=== PATIENT | female | born 1960 | race Caucasian/White ===

== ENCOUNTER 2017-10-13 02:07 | Outpatient (RCR) | payer MEDICAID, SELFPAY ==
[2017-10-13] MEDS: Normal Saline Flush 10 ML SYR IVP (10:10)
[2017-10-13 10:29] LABS: Abs Immature Grans 0.08 k/cumm (0.0-0.09); HCT 34.7 % (36.0-46.0); HGB 11.3 g/dL (12.0-15.5); Mean Corp. HGB Concentration 32.6 g/dL (32.0-36.0); Mean Corpuscular Hemoglobin 29.7 pg (27.0-33.0); Mean Corpuscular Volume 91.3 fL (80-95); Mean Platelet Volume 9.6 fL (8.0-11.0); RBC Distribution Width 19.5 % (11.7-14.6); White Blood Cell Count 2.73 k/cumm (4.4-10.8)
[2017-10-13 10:40] LABS: ALT 39 U/L (12-78); AST 23 U/L (15-37); Albumin 3.5 g/dL (3.4-5.0); Alkaline Phosphatase 66 U/L (46-116); Anion Gap 7.4 mmol/L (3-11); BUN 12 mg/dL (7-18); Bilirubin, Total 0.4 mg/dL (0.2-1.0); CO2 26.6 mmol/L (21.0-32.0); CREATININE 0.67 mg/dL (0.55-1.02); Calcium 8.7 mg/dL (8.5-10.1); Chloride 103 mmol/L (98-107); Glucose 136 mg/dL (70-100); Potassium 3.5 mmol/L (3.5-5.1); Sodium 137 mmol/L (136-145); Total Protein 7.3 g/dL (6.4-8.2)
[2017-10-13 10:45] LABS: Absolute Neutrophil Count 1.88 k/cumm (1.2-6.7); Platelet Count 301 x1000/uL (130-400)
[2017-10-13 10:46] LABS: Absolute Basophil Count 0.03 k/cumm (0.0-0.2); Absolute Eosinophil Count 0.05 k/cumm (0.0-0.7); Absolute Lymphocyte Count 0.46 k/cumm (1.2-3.4); Absolute Monocyte Count 0.22 k/cumm (0.11-0.7); Diff Comment Manual Differential
[2017-10-13 10:47] LABS: Anisocytosis 2+; Basophilic Stippling Present; Polychromasia Present
[2017-10-20] MEDS: Heparin 500 UNITS/5 ML SYRINGE IV (10:05)
[2017-10-20 10:27] LABS: Abs Immature Grans 0.07 k/cumm (0.0-0.09); HCT 34.5 % (36.0-46.0); HGB 11.2 g/dL (12.0-15.5); Mean Corp. HGB Concentration 32.5 g/dL (32.0-36.0); Mean Corpuscular Hemoglobin 29.7 pg (27.0-33.0); Mean Corpuscular Volume 91.5 fL (80-95); Platelet Count 288 x1000/uL (130-400); RBC 3.77 m/cumm (4.00-5.20); RBC Distribution Width 18.9 % (11.7-14.6); White Blood Cell Count 2.88 k/cumm (4.4-10.8)
[2017-10-20 10:43] LABS: ALT 35 U/L (12-78); AST 21 U/L (15-37); Albumin 3.4 g/dL (3.4-5.0); Alkaline Phosphatase 59 U/L (46-116); Anion Gap 7.7 mmol/L (3-11); BUN 8 mg/dL (7-18); Bilirubin, Total 0.5 mg/dL (0.2-1.0); CO2 28.3 mmol/L (21.0-32.0); CREATININE 0.63 mg/dL (0.55-1.02); Calcium 8.5 mg/dL (8.5-10.1); Chloride 104 mmol/L (98-107); Glucose 82 mg/dL (70-100); Sodium 140 mmol/L (136-145); Total Protein 7.1 g/dL (6.4-8.2)
[2017-10-20 10:54] LABS: Absolute Lymphocyte Count 0.55 k/cumm (1.2-3.4); Absolute Monocyte Count 0.29 k/cumm (0.11-0.7); Absolute Neutrophil Count 1.96 k/cumm (1.2-6.7); Atypical Lymphocytes % 0
[2017-10-20 10:55] LABS: Anisocytosis 1+; Diff Comment Manual Differential; Macrocytosis 1+; Polychromasia Present
[2017-10-27] MEDS: Normal Saline Flush 10 ML SYR IVP (09:40)
[2017-10-27 09:55] LABS: HCT 33.7 % (36.0-46.0); Mean Corp. HGB Concentration 32.6 g/dL (32.0-36.0); Mean Corpuscular Hemoglobin 30.1 pg (27.0-33.0); Mean Corpuscular Volume 92.1 fL (80-95); Mean Platelet Volume 9.9 fL (8.0-11.0); Platelet Count 261 x1000/uL (130-400); RBC 3.66 m/cumm (4.00-5.20); RBC Distribution Width 18.3 % (11.7-14.6); White Blood Cell Count 3.03 k/cumm (4.4-10.8)
[2017-10-27 10:12] LABS: ALT 33 U/L (12-78); AST 23 U/L (15-37); Albumin 3.3 g/dL (3.4-5.0); Alkaline Phosphatase 55 U/L (46-116); Anion Gap 4.5 mmol/L (3-11); BUN 11 mg/dL (7-18); Bilirubin, Total 0.4 mg/dL (0.2-1.0); CO2 28.5 mmol/L (21.0-32.0); CREATININE 0.56 mg/dL (0.55-1.02); Calcium 8.8 mg/dL (8.5-10.1); Chloride 105 mmol/L (98-107); Glucose 94 mg/dL (70-100); Potassium 3.5 mmol/L (3.5-5.1); Sodium 138 mmol/L (136-145); Total Protein 6.9 g/dL (6.4-8.2)
[2017-10-27 10:21] LABS: Absolute Basophil Count 0.12 k/cumm (0.0-0.2); Absolute Lymphocyte Count 0.42 k/cumm (1.2-3.4); Absolute Monocyte Count 0.21 k/cumm (0.11-0.7); Absolute Neutrophil Count 2.15 k/cumm (1.2-6.7); Atypical Lymphocytes % 1; Basophilic Stippling Present; Diff Comment Manual Differential; Polychromasia Present
== END 2017-11-06 ==
LOC: INF 02:58
PROVIDERS: PCP Family Medicine; Visit Provider Internal Medicine Medical Oncology
DX: C50.412 Malignant neoplasm of upper-outer quadrant of left female breast (principal); Z17.1 Estrogen receptor negative status [ER-]; Z45.2 Encounter for adjustment and management of vascular access device
CPT/HCPCS: 36591; 80053; 85025

== ENCOUNTER 2018-04-26 10:01 | Outpatient (REF) | payer MEDICAID, SELFPAY ==
[2018-04-26 12:07] LABS: ALT 31 U/L (12-78); AST 20 U/L (15-37); Albumin 3.5 g/dL (3.4-5.0); Alkaline Phosphatase 93 U/L (46-116); Anion Gap 9.7 mmol/L (3-11); BUN 16 mg/dL (7-18); Bilirubin, Total 0.4 mg/dL (0.2-1.0); CO2 28.3 mmol/L (21.0-32.0); CREATININE 0.68 mg/dL (0.55-1.02); Calcium 8.9 mg/dL (8.5-10.1); Chloride 102 mmol/L (98-107); Glucose 103 mg/dL (70-100); Magnesium 1.7 mg/dL (1.8-2.4); Potassium 3.3 mmol/L (3.5-5.1); Sodium 140 mmol/L (136-145); TSH (W/Ref FT4) 0.15 uIU/mL (0.358-3.74); Total Protein 7.5 g/dL (6.4-8.2)
[2018-04-26 12:40] LABS: FREE T4 1.42 ng/dL (0.76-1.46)
[2018-04-26 12:53] LABS: HCT 41.6 % (36.0-46.0); HGB 13.9 g/dL (12.0-15.5); Mean Corp. HGB Concentration 33.4 g/dL (32.0-36.0); Mean Corpuscular Hemoglobin 27.5 pg (27.0-33.0); Mean Corpuscular Volume 82.2 fL (80-95); Mean Platelet Volume 11.8 fL (8.0-11.0); Platelet Count 237 x1000/uL (130-400); RBC 5.06 m/cumm (4.00-5.20); RBC Distribution Width 15.7 % (11.7-14.6); White Blood Cell Count 5.44 k/cumm (4.4-10.8)
== END 2018-04-26 10:21 ==
LOC: NCHCN 10:01
PROVIDERS: PCP Family Medicine; Visit Provider Family Medicine
DX: E83.42 Hypomagnesemia (principal); R89.0 Abnormal level of enzymes in specimens from other organs, systems and tissues; D64.9 Anemia, unspecified; I10 Essential (primary) hypertension; Z68.39 Body mass index [BMI] 39.0-39.9, adult
CPT/HCPCS: 80053; 85027; 83735; 84439; 84443

== ENCOUNTER 2018-07-27 08:16 | Outpatient (CLI) | payer OTHER, MEDICAID, SELFPAY ==
--- NOTE | 2018-07-27 08:50 | DI.RAD_ITS ---
SYMPTOMS/DIAGNOSIS: RT HAND PAIN, RT KNEE PAIN, RT HIP PAIN, DISABILITY DETERMINATION RIGHT KNEE: There is mild narrowing of the medial tibiofemoral joint compartment. Very minimal periarticular hypertrophic spurring is demonstrated. The bony structures are normally mineralized. There is no joint effusion. SUMMARY: Mild DJD right knee. RIGHT HIP AND PELVIS: The bony structures are normally mineralized. The hip joint appears intact. No pelvic bone abnormality is seen. RIGHT HAND: The bony structures are normally mineralized. The joint spaces intact. There are no periarticular erosions or soft tissue calcifications. SUMMARY: No abnormality is identified. ID verified by photo drivers license
== END 2018-07-27 08:36 ==
PROVIDERS: PCP Family Medicine; Visit Provider Pediatrics Pediatric Rheumatology
DX: M79.641 Pain in right hand (principal); M25.561 Pain in right knee; M17.11 Unilateral primary osteoarthritis, right knee; M25.551 Pain in right hip; Z02.71 Encounter for disability determination
CPT/HCPCS: 73120; 73502; 73560

== ENCOUNTER 2018-09-03 07:24 | Outpatient (REF) | payer MEDICAID, SELFPAY ==
[2018-09-03 13:21] LABS: ALT 42 U/L (12-78); Anion Gap 6.6 mmol/L (3-11); BUN 18 mg/dL (7-18); CO2 27.4 mmol/L (21.0-32.0); CREATININE 0.76 mg/dL (0.55-1.02); Calcium 8.6 mg/dL (8.5-10.1); Chloride 107 mmol/L (98-107); Glucose 92 mg/dL (70-100); Potassium 4.5 mmol/L (3.5-5.1); Sodium 141 mmol/L (136-145); TSH (W/Ref FT4) 1.14 uIU/mL (0.358-3.74)
== END 2018-09-03 07:44 ==
LOC: NCHCN 07:24
PROVIDERS: PCP Family Medicine; Visit Provider Family Medicine
DX: B35.1 Tinea unguium (principal); E83.42 Hypomagnesemia; E89.0 Postprocedural hypothyroidism; R73.09 Other abnormal glucose
CPT/HCPCS: 80048; 83735; 84443; 84460

== ENCOUNTER 2018-11-15 13:15 | Outpatient (REF) | payer MEDICAID, SELFPAY ==
--- NOTE | 2018-11-15 12:15 | PAPFT_PTH ---
PATIENT: Zoë Preston LOC: [facility] U#:[id number] AGE/SX: 58/F ROOM: RE11/15/[address]: Home Yeager : 1960 BED: DIS: 11/15/2018 SPEC #: [id number] RECD: 11/15/18 18:29 STATUS: KALYN REQ #: [id number] NATE: 11/15/18 12:[address]: Home Yeager [facility] Cytology RECD BY: Chely Walls Tissues: 1 - CX/ENDOCX FOR PAP SMEARS Procedures: PAP THIN PREP/UVM Screening HPV DNA PROBE Comments: [id number]
== END 2018-11-15 13:35 ==
LOC: NCHCN 13:15
PROVIDERS: PCP Family Medicine; Visit Provider Family Medicine
DX: Z12.4 Encounter for screening for malignant neoplasm of cervix (principal); Z11.51 Encounter for screening for human papillomavirus (HPV)
CPT/HCPCS: 88142; 87624

== ENCOUNTER 2019-02-21 09:10 | Outpatient (CLI) | payer MEDICAID, SELFPAY ==
[2019-02-21 09:36] LABS: Abs Immature Grans 0.04 k/cumm (0.0-0.09); Absolute Basophil Count 0.02 k/cumm (0.0-0.2); Absolute Eosinophil Count 0.06 k/cumm (0.0-0.7); Absolute Lymphocyte Count 1.16 k/cumm (1.2-3.4); Absolute Monocyte Count 0.36 k/cumm (0.11-0.7); Absolute Neutrophil Count 3.43 k/cumm (1.2-6.7); Basophils % 0.4; Eosinophils % 1.2; HCT 41.9 % (36.0-46.0); HGB 13.7 g/dL (12.0-15.5); Immature Grans % 0.8; Lymphocytes % 22.9; Mean Corp. HGB Concentration 32.7 g/dL (32.0-36.0); Mean Corpuscular Hemoglobin 27.8 pg (27.0-33.0); Mean Corpuscular Volume 85.2 fL (80-95); Mean Platelet Volume 10.9 fL (8.0-11.0); Monocytes % 7.1; Neutrophils % 67.6; Platelet Count 238 x1000/uL (130-400); RBC 4.92 m/cumm (4.00-5.20); RBC Distribution Width 14.9 % (11.7-14.6); White Blood Cell Count 5.07 k/cumm (4.4-10.8)
[2019-02-21 10:48] LABS: ALT 43 U/L (14-59); AST 26 U/L (15-37); Albumin 3.7 g/dL (3.4-5.0); Alkaline Phosphatase 76 U/L (46-116); Anion Gap 10.4 mmol/L (3-11); BUN 16 mg/dL (7-18); Bilirubin, Total 0.5 mg/dL (0.2-1.0); CO2 28.6 mmol/L (21.0-32.0); CREATININE 0.79 mg/dL (0.55-1.02); Calcium 9.1 mg/dL (8.5-10.1); Chloride 103 mmol/L (98-107); Glucose 140 mg/dL (74-106); Potassium 3.8 mmol/L (3.5-5.1); Sodium 142 mmol/L (136-145)
== END 2019-02-21 09:30 ==
PROVIDERS: PCP Family Medicine
DX: C50.912 Malignant neoplasm of unspecified site of left female breast (principal); Z17.1 Estrogen receptor negative status [ER-]
CPT/HCPCS: 36415; 80053; 85025

== ENCOUNTER 2019-05-25 15:10 | Outpatient (CLI) | payer MEDICAID, SELFPAY ==
--- NOTE | 2019-05-25 15:12 | DI.RAD_ITS ---
EXAM: XR CHEST 2V PA LATERAL XR CHEST 2V PA LATERAL CLINICAL HISTORY: DYSPNEA ON EXERTION, R06.09, [place] LEONARD, H/O BREAST CA DYSPNEA ON EXERTION, R06.09, [place] LEONARD, H/O BREAST CA TECHNIQUE: 2D digital imaging was performed. COMPARISON: CHEST 2 VIEWS PA,LAT from 08/18/2017 FINDINGS: The heart is not enlarged. The lungs are clear and well expanded. No pleural effusion seen. Mediastin al contours appear intact. IMPRESSION: Normal chest
[2019-05-25 16:03] LABS: Mean Corp. HGB Concentration 33.3 g/dL (32.0-36.0); Mean Corpuscular Hemoglobin 28.2 pg (27.0-33.0); Mean Corpuscular Volume 84.7 fL (80-95); Mean Platelet Volume 11.3 fL (8.0-11.0); Platelet Count 244 x1000/uL (130-400); RBC 4.96 m/cumm (4.00-5.20); RBC Distribution Width 14.7 % (11.7-14.6); White Blood Cell Count 6.69 k/cumm (4.4-10.8)
[2019-05-25 17:49] LABS: Anion Gap 9.8 mmol/L (3-11); BUN 13 mg/dL (7-18); CO2 25.2 mmol/L (21.0-32.0); CREATININE 0.75 mg/dL (0.55-1.02); Calcium 8.5 mg/dL (8.5-10.1); Chloride 103 mmol/L (98-107); Glucose 120 mg/dL (74-106); NT-proBNP 31 pg/mL (<300); Potassium 3.9 mmol/L (3.5-5.1); Sodium 138 mmol/L (136-145); TSH (W/Ref FT4) 2.21 uIU/mL (0.36-3.74)
== END 2019-05-25 15:30 ==
PROVIDERS: PCP Family Medicine; Visit Provider Family Medicine
DX: E89.0 Postprocedural hypothyroidism (principal); R06.09 Other forms of dyspnea; Z85.3 Personal history of malignant neoplasm of breast
CPT/HCPCS: 36415; 80048; 85027; 71046; 83880; 84443

== ENCOUNTER 2019-06-20 01:41 | Outpatient (CLI) | payer MEDICAID, SELFPAY ==
--- NOTE | 2019-06-20 08:00 | ETT_ITS ---
APPROVED REPORT Exam: Exercise Treadmill Patient Location: Out-Patient Room/Bed: Stress Nurse: Veronica Avalos RN BMI: 39.86 Baseline Rhythm: Sinus Rhythm Comment: Rare PVC. Indications: Patient reports SOB, dizziness and ???almost pass out??? with activity for the past ???2 -3 months???. She states these symptoms are relieved with sitting down and having a fan in front of h er. Medical History Medical History: Breast Cancer Cardiac Medications: Aspirin, Hydrochlorothiazide, Lisinopril. Allergies: Iron Cardiac Risk Factors: FHX of CAD, Diabetes (non-insulin), HTN Previous Cardiac Procedures: None Pretest Chest Pain Characteristics: No chest pain Exercise History: Physically active Physical Disabilities: None Lung Sounds: Clear to auscultation Heart Sounds: Regular Stress Test Details Test: Exercise stress testing was performed using a Tristan protocol. Rest Stress HR Resting HR Supine: 83 bpm Max Heart Rate (APMHR): 161 bpm Resting HR Standin bpm Target HR (85% APMHR): 136 bpm Max HR Achieved: 146 bpm % of APMHR: 90 BP Resting BP Supine: 160/80 mmHg Resting BP Standin/110 mmHg Max BP: 174/112 mmHg BP response to stress: Normal blood pressure response to stress. ECG Resting ECG: Sinus Rhythm Ectopy: Rare PVC's Stress ECG: Sinus Tachycardia ST Change: Normal Arrhythmia: None Recovery ECG: Sinus Rhythm Recovery ST Change: Normal Recovery Arrhythmia: None, None Clinical Reason for Termination: Dyspnea, Fatigue, Dizziness Stress Symptoms: Dizziness, Dyspnea, General Fatigue. After 4 minutes of exercise patient needed to s it down due to dizziness. Exercise duration: 3 min2 sec Highest Stage Reached: Stage 2: 2.5 mph at 12% grade. Exercise capacity: 4.66 METs Functional Capacity: Moderately diminished capacity Stress ECG Conclusion 1. Patient exercised for 3 minutes (5 METS) rate-pressure product was 25,000. 2. Exercise was stopped due to dizziness. 3. There was no evidence of ischemia on the ECG portion of the exam at this level of stress. 4. The Mao Score (3) estimates an annual cardiovascular mortality of 1% and a five year survival of 94%. Using the Mao Score there is an intermediate probability of angiographic coronary disease. Protocol Used: Tristan Protocol Stress Test Summary STAGE Time (mins) Speed (mph) Grade (%) HR BP SYMPTOMS METS Supine 83 160/80 Standing 93 165/110 1 3 1.7 10 143 174/112 4.6 2 6 2.5 12 7 3 9 3.4 14 10.2 4 12 4.2 16 12.9 5 15 5.0 18 17.2 1 min recovery 94 168/100 3 min recovery 86 168/102 6 min recovery 84 160/104
== END 2019-06-20 02:01 ==
PROVIDERS: PCP Family Medicine; Visit Provider Family Medicine
DX: R06.09 Other forms of dyspnea (principal); R42 Dizziness and giddiness; R53.83 Other fatigue; I10 Essential (primary) hypertension; Z82.49 Family history of ischemic heart disease and other diseases of the circulatory system; Z85.3 Personal history of malignant neoplasm of breast
CPT/HCPCS: 93017

== ENCOUNTER 2019-06-29 09:28 | Outpatient (CLI) | payer MEDICAID, SELFPAY ==
--- NOTE | 2019-06-29 | DI.CT_ITS ---
EXAM: CT CHEST PE CTA CLINICAL HISTORY: SOB, R02.02; PULMONARY EMBOLISM, I26.99; LEONARD, H/O BREAST CA, ? MASS. TECHNIQUE: Imaging Protocol: Axial CT angiography was performed with multi-slice acquisition and mu lti-planar and/or 3D reconstructions. CONTRAST MATERIAL: Intravenous: Omnipaque 350 Contrast volume:90 ml COMPARISON: XR CHEST 2V PA LATERAL from 05/25/2019 FINDINGS: Pulmonary Arteries: No evidence of filling defect to suggest pulmonary emboli. Tracheobronchial tree: Patent where visualized. Mediastinum and Maira: No dominant adenopathy or fluid collection. Pulmonary parenchyma: No consolidation or dominant measurable mass. No pulmonary nodules. Pleura: No effusion or pneumothorax. Heart: The heart is not dilated. No coronary artery calcifications are seen. Aorta: Thoracic aorta non-dilated. An aberrant right subclavian artery is noted. Upper abdomen: The liver is partially included on the exam in appears large enlarged and shows fatty infiltration. No gross masses are seen. The spleen is partially visualized and appears normal in s ize. Bones: Scoliosis and degenerative changes are seen in the thoracic spine. IMPRESSION: No evidence of pulmonary embolism, mass or other acute abnormality.. DATA REPOSITORY: All CT scans at this facility are submitted to the National Radiology Data Registry (NRDR) Dose Index Registry (DIR) with the [employer] (ACR). RADIATION OPTIMIZATION: All CT scans at this facility use at least one of these dose optimization te chniques: automated exposure control; mA and/or kV adjustment per patient size (includes targeted exa ms where dose is matched to clinical indication); or iterative reconstruction.
[2019-06-29] MEDS: Omnipaque 350 MG/ML 100 ML BTL IJ (10:35)
[2019-06-29] MEDS: Normal Saline - Diluent 50 ML VIAL IV (10:35)
== END 2019-06-29 09:48 ==
PROVIDERS: PCP Family Medicine; Visit Provider Family Medicine
DX: R06.02 Shortness of breath (principal); R16.0 Hepatomegaly, not elsewhere classified; K76.0 Fatty (change of) liver, not elsewhere classified; R06.09 Other forms of dyspnea; Z85.3 Personal history of malignant neoplasm of breast
CPT/HCPCS: 71275; J3490

== ENCOUNTER 2019-08-15 07:51 | Outpatient (CLI) | payer MEDICAID, SELFPAY ==
[2019-08-15 09:42] LABS: Anion Gap 9.4 mmol/L (3-11); BUN 14 mg/dL (7-18); CO2 23.6 mmol/L (21.0-32.0); CREATININE 0.71 mg/dL (0.55-1.02); Calcium 8.9 mg/dL (8.5-10.1); Chloride 100 mmol/L (98-107); Glucose 108 mg/dL (74-106); Potassium 4.1 mmol/L (3.5-5.1); Sodium 133 mmol/L (136-145); TSH (W/Ref FT4) 1.71 uIU/mL (0.36-3.74)
== END 2019-08-15 08:11 ==
PROVIDERS: PCP Family Medicine; Visit Provider Family Medicine
DX: E89.0 Postprocedural hypothyroidism (principal); I10 Essential (primary) hypertension; E83.42 Hypomagnesemia
CPT/HCPCS: 36415; 80048; 83735; 84443

== ENCOUNTER 2020-04-05 02:50 | Outpatient (CLI) | payer OTHER, MEDICAID, SELFPAY ==
[2020-04-05 09:40] LABS: Abs Immature Grans 0.04 10^3/uL (0.0-0.06); Absolute Basophil Count 0.03 10^3/uL (0.0-0.2); Absolute Eosinophil Count 0.07 10^3/uL (0.0-0.7); Absolute Lymphocyte Count 1.41 10^3/uL (1.2-3.4); Absolute Monocyte Count 0.34 10^3/uL (0.1-0.8); Absolute Neutrophil Count 3.99 10^3/uL (1.2-6.7); Basophils % 0.5; Eosinophils % 1.2; HCT 42.1 % (36.0-46.0); HGB 13.8 g/dL (11.2-15.7); Immature Grans % 0.7; MCH 27.9 pg (27.0-33.0); MCHC 32.8 % (32.0-36.0); MCV 85.1 fL (80-95); MPV 11.2 fL (8.0-11.0); Monocytes % 5.8; Neutrophils % 67.8; Nucleated RBC 0 %; Platelet Count 234 10^3/uL (130-400); RBC 4.95 10^6/uL (3.93-5.22); RDW 14.2 % (11.7-14.6); RDW-SD 43.9 fL; WBC 5.88 10^3/uL (4.4-10.8)
[2020-04-05 09:48] LABS: ALT 47 U/L (14-59); AST 27 U/L (15-37); Albumin 3.5 g/dL (3.4-5.0); Alkaline Phosphatase 72 U/L (46-116); Anion Gap 5.4 mmol/L (3-11); BUN 16 mg/dL (7-18); Bilirubin, Total 0.5 mg/dL (0.2-1.0); CO2 29.6 mmol/L (21.0-32.0); Chloride 101 mmol/L (98-107); Glucose 160 mg/dL (74-106); Potassium 3.8 mmol/L (3.5-5.1); Sodium 136 mmol/L (136-145); Total Protein 7.7 g/dL (6.4-8.2)
== END 2020-04-05 03:10 ==
PROVIDERS: PCP Family Medicine; Visit Provider Internal Medicine Hematology & Oncology
DX: C50.912 Malignant neoplasm of unspecified site of left female breast (principal); Z17.1 Estrogen receptor negative status [ER-]
CPT/HCPCS: 36415; 80053; 85025

== ENCOUNTER 2020-10-04 14:42 | Outpatient (CLI) | payer OTHER, MEDICAID, SELFPAY ==
[2020-10-04 14:11] LABS: Abs Immature Grans 0.02 10^3/uL (0.0-0.06); Absolute Basophil Count 0.02 10^3/uL (0.0-0.2); Absolute Eosinophil Count 0.06 10^3/uL (0.0-0.7); Absolute Lymphocyte Count 1.27 10^3/uL (1.2-3.4); Absolute Monocyte Count 0.36 10^3/uL (0.1-0.8); Absolute Neutrophil Count 5.48 10^3/uL (1.2-6.7); Basophils % 0.3; Eosinophils % 0.8; HCT 41.6 % (36.0-46.0); HGB 13.7 g/dL (11.2-15.7); Immature Grans % 0.3; Lymphocytes % 17.6; MCH 28.1 pg (27.0-33.0); MCHC 32.9 % (32.0-36.0); MCV 85.2 fL (80-95); MPV 10.8 fL (8.0-11.0); Nucleated RBC 0 %; Platelet Count 257 10^3/uL (130-400); RBC 4.88 10^6/uL (3.93-5.22); RDW 13.5 % (11.7-14.6); RDW-SD 42.7 fL; WBC 7.21 10^3/uL (4.4-10.8)
[2020-10-04 14:31] LABS: ALT 52 U/L (14-59); AST 28 U/L (15-37); Albumin 3.7 g/dL (3.4-5.0); Alkaline Phosphatase 68 U/L (46-116); BUN 11 mg/dL (7-18); Bilirubin, Total 0.4 mg/dL (0.2-1.0); CREATININE 0.9 mg/dL (0.55-1.02); Calcium 9.3 mg/dL (8.5-10.1); Chloride 101 mmol/L (98-107); Glucose 195 mg/dL (74-106); Potassium 3.7 mmol/L (3.5-5.1); Sodium 137 mmol/L (136-145); Total Protein 7.7 g/dL (6.4-8.2)
== END 2020-10-04 14:43 | disposition home or self-care (01) ==
LOC: LBO 14:43
PROVIDERS: PCP Family Medicine; Visit Provider Nurse Practitioner Family
DX: C50.912 Malignant neoplasm of unspecified site of left female breast (principal); Z17.1 Estrogen receptor negative status [ER-]
CPT/HCPCS: 36415; 80053; 85025

== ENCOUNTER → 2020-10-15 01:56 | Outpatient (CLI) | payer OTHER, MEDICAID, SELFPAY ==
--- NOTE | 2020-10-15 | DI.US_ITS ---
Exam(s) US UPPER EXTREMITY VENOUS RT EXAM: US UPPER EXTREMITY VENOUS RT CLINICAL HISTORY: SWELLING RT ARM, LT BREAST CA,C50.912,Z17.1. TECHNIQUE: Ultrasound examination of the right upper extremity venous system(s) is performed using g rayscale, color-flow, and spectral Doppler analysis. COMPARISON: No exams were available for comparison FINDINGS: The right internal jugular, axillary, subclavian, cephalic, basilic, brachial, radial, and ulnar vein s are patent without evidence of thrombosis. No focal mass or fluid collection is seen. IMPRESSION: Negative right upper extremity ultrasound.. DATA REPOSITORY:
== END ==
PROVIDERS: PCP Family Medicine; Visit Provider Internal Medicine Hematology & Oncology
DX: R22.31 Localized swelling, mass and lump, right upper limb (principal); C50.912 Malignant neoplasm of unspecified site of left female breast; Z17.1 Estrogen receptor negative status [ER-]
CPT/HCPCS: 93971

== ENCOUNTER 2021-07-29 09:40 | Outpatient (REF) | payer MEDICARE, MEDICAID, SELFPAY ==
[2021-07-29 17:13] LABS: Anion Gap 10.1 mmol/L (3-11); BUN 15 mg/dL (7-18); CO2 27.9 mmol/L (21.0-32.0); CREATININE 0.8 mg/dL (0.55-1.02); Calcium 9.1 mg/dL (8.5-10.1); Calculated LDL 117 mg/dL (<100); Chloride 102 mmol/L (98-107); Cholesterol 201 mg/dL (<200); Glucose 112 mg/dL (74-106); HDL Cholesterol 49 mg/dL (40-60); Sodium 140 mmol/L (136-145); TSH (W/Ref FT4) 2.74 uIU/mL (0.36-3.74); Triglyceride 179 mg/dL (<150)
== END 2021-07-29 09:41 | disposition home or self-care (01) ==
LOC: NCHCN 09:40
PROVIDERS: PCP Family Medicine; Visit Provider Family Medicine
DX: E89.0 Postprocedural hypothyroidism (principal); I10 Essential (primary) hypertension
CPT/HCPCS: 80048; 80061; 84443

== ENCOUNTER 2022-08-12 13:10 | Outpatient (REF) | payer MEDICARE, MEDICAID, SELFPAY ==
[2022-08-12 16:36] LABS: ALT 38 U/L (14-59); AST 29 U/L (15-37); Alkaline Phosphatase 77 U/L (46-116); Anion Gap 7.8 mmol/L (3-11); BUN 14 mg/dL (7-18); Bilirubin, Total 0.4 mg/dL (0.2-1.0); CO2 29.2 mmol/L (21.0-32.0); CREATININE 0.8 mg/dL (0.55-1.02); Calcium 9.4 mg/dL (8.5-10.1); Chloride 98 mmol/L (98-107); Estimated GFR 83.26 (mL/min/1.73m2); Glucose 92 mg/dL (74-106); Potassium 4.1 mmol/L (3.5-5.1); Sodium 135 mmol/L (136-145); TSH (W/Ref FT4) 4.05 uIU/mL (0.36-3.74); Total Protein 8.2 g/dL (6.4-8.2)
[2022-08-12 19:02] LABS: FREE T4 1.25 ng/dL (0.76-1.46)
== END 2022-08-12 13:11 | disposition home or self-care (01) ==
LOC: NCHCN 13:10
PROVIDERS: PCP Family Medicine; Visit Provider Family Medicine
DX: E89.0 Postprocedural hypothyroidism (principal); I10 Essential (primary) hypertension; R73.03 Prediabetes; E66.8 Other obesity
CPT/HCPCS: 80053; 84439; 84443

== ENCOUNTER → 2023-01-06 01:49 | Outpatient (CLI) | payer MEDICARE, SELFPAY ==
--- NOTE | 2023-01-06 | DI.MAMMO_ITS ---
Exam(s) MG MAMMO SCREENING 60 MIN DUR EXAM: MG MAMMO SCREENING 60 MIN DUR CLINICAL HISTORY: S/P BREAST CANCER, INVASIVE DUCTAL CARCINOMA LT, C50.912, PREVENTATIVE CARE TECHNIQUE: Bilateral full field digital CC and MLO mammographic images were obtained with 3D tomosyn thesis and utilizing computer aided detection (CAD). COMPARISON: Available for comparison. FINDINGS: Masses/Architectural Distortion: Status post left lumpectomy with dystrophic calcifications at the cedrick mpectomy site. Stable small nodules in the right breast. No new areas of architectural distortion. Microcalcifications: No suspicious pleomorphic-type are seen. Skin Thickening/Nipple Retraction: None. IMPRESSION: 1. No significant interval change with no specific features of malignancy noted. 2. Unless there is more urgent need, screening mammography is recommended, as per [employer] guidelines. BI-RADS Category 2 - Benign Findings Breast Density - Category B - Scattered areas of fibroglandular density Breast density category C or D implies that the patient has dense breast tissue. Dense breast tissue is very common and is not abnormal but dense breast tissue can make it harder to find cancer on a ma mmogram. Also, dense breast tissue may increase their breast cancer risk. This information about the result of the mammogram report was provided to the patient to raise their awareness. Use this report when you speak with the patient about their risks for breast cancer, which includes their family hist ory. At that time, you may recommend for more screening tests (Ultrasound or MRI) as they might be us eful based on their risk. A negative radiographic report should not delay biopsy if a dominant or clinically suspicious mass is present. Up to ten percent of cancers are not identified on mammography. A negative report may reinforce clinical impression. Adenosis and dense breasts may obscure an underlying neoplasm. False positive reports average 6 to 10%. Patient will receive a letter notifying them of these results.
== END ==
PROVIDERS: PCP Family Medicine; Visit Provider Family Medicine
DX: Z12.31 Encounter for screening mammogram for malignant neoplasm of breast (principal); R92.323 Mammographic fibroglandular density, bilateral breasts; Z85.3 Personal history of malignant neoplasm of breast
CPT/HCPCS: 77063; 77067

== ENCOUNTER 2023-11-11 10:41 | Outpatient (REF) | payer MEDICARE, SELFPAY ==
--- NOTE | 2023-11-11 08:55 | PAPFT_PTH ---
PATIENT: Zoë Preston LOC: [facility] U#:[id number] AGE/SX: 63/F ROOM: RE11/11/[address]: Osman Stockton : 1960 BED: DIS: 11/11/2023 SPEC #: [id number] RECD: 11/11/23 17:52 STATUS: RADHARola REQ #: [id number] NATE: 11/11/23 08:[address]: Osman Stockton DEPT: [facility] Cytology RECD BY: Chely Walls ENTERED: 11/11/23 17:52 SP TYPE: PAPFT OTHR DR: Home Yeager Tissues: 1 - CX/ENDOCX FOR PAP SMEARS Procedures: PAP THIN PREP/UVM Screening HPV DNA PROBE Comments: [id number] (hpv 16 & 18/45)
[2023-11-11 15:34] LABS: ALT 32 U/L (14-59); AST 22 U/L (15-37); Alkaline Phosphatase 61 U/L (46-116); Anion Gap 5.2 mmol/L (3-11); BUN 13 mg/dL (7-18); Bilirubin, Total 0.32 mg/dL (0.2-1.0); CO2 29.8 mmol/L (21.0-32.0); CREATININE 0.9 mg/dL (0.55-1.02); Calcium 9.8 mg/dL (8.5-10.1); Chloride 105 mmol/L (98-107); Estimated GFR 71.83 (mL/min/1.73m2); FREE T4 1.22 ng/dL (0.76-1.46); Glucose 77 mg/dL (74-106); Potassium 3.9 mmol/L (3.5-5.1); Sodium 140 mmol/L (136-145); Total Protein 7.9 g/dL (6.4-8.2)
== END 2023-11-11 10:42 | disposition home or self-care (01) ==
LOC: NCHCN 10:41
PROVIDERS: PCP Family Medicine; Visit Provider Student in an Organized Health Care Education/Training Program
DX: I10 Essential (primary) hypertension; Z12.4 Encounter for screening for malignant neoplasm of cervix
CPT/HCPCS: 80053; 88142; 83036; 83735; 84439; 84443; 87624

== ENCOUNTER 2024-01-08 01:06 | Outpatient (CLI) | payer MEDICARE, SELFPAY ==
--- OUTSIDE RECORDS SUMMARY | 2024-01-08 01:11 | XMS_ITS | Encounter Summary ---
Author Organization [facility] Address [facility] [place] [address] Care Team Providers Care Field Party Manager Name Role Phone Home Yeager MD Primary Care Provider [phone] Encounter Details Date Type Department Care Team (Late st Contact Info) Description 04/22/2018 1:00 PM EST Office Visit Hematology/Oncology at [address] [phone] Héctor Quintanilla MD [facility] DR HEMATOLOGY [place] [address] Malignant neoplasm of left breast in female, estrogen receptor negative, unspecified site of breast Social History Tobacco Use Types Packs/Day Years Used Date Smoking Tobacco: Former Cigarettes Q uit: 03/09/1998 Smokeless Tobacco: Never Alcohol Use Standard Drinks/Week Comments Yes 0 (1 standard drink = 0.6 oz pur e alcohol) occassional Sex and Gender Information Value Date Recorded Sex Assigned at Not on file Gender Identity Not on file Sexual Orientation Not on file documented as of this encounter Last Filed Vital Signs Vital Sign Reading Time Taken Comments Blood Pressure 149/97 04/22/2018 12:52 PM EST Pulse 77 04/22/2018 12:52 PM EST Temperature 36.2 ??C (97.2 ??F) 04/22/2018 12:[address] Respiratory Rate 18 04/22/2018 12:52 PM EST Oxygen Saturation 98% 04/22/2018 12:52 PM EST Inhaled Oxygen Concentration - - Weight 111.6 kg (246 lb) 04/22/2018 12:52 PM EST Height 167 cm (5' 5.75) 04/22/2018 12:52 PM EST copied Body Mass Index 40.01 04/22/2018 12:52 PM EST documented in this encounter Progress Notes * Héctor Quintanilla MD - 04/22/2018 1:00 PM EST Subjective: Patient ID: Zoë Preston is a 57 y.o. female. HPI Left breast cancer diagnosed 03/26 Mammographically detected Needle biopsy 03/26 Invasive ductal carcinoma, high-grade, SBR score 8 ER negative, WA negative, HER-2/yoshi negative Partial mastectomy with sentinel node 04/26 7 mm tumor, 0/1 nodes AC chemotherapy x4 completed 07/24 Weekly Taxol x12 completed 10/24 Radiation completed 12/24 The patient is a 57-year-old female who returns to the [facility]. She was diagnosed witha T1N0 high-grade breast cancer that was triple negative. She underwent adjuvant chemotherapy completing that 10/24. She completed her postoperative radiation therapy 12/24. Over the last 3 months she has continued to improve. Her energy is better. She is not using a walker anymore. Still does not feel 100% steady on her feet. She has not had any falls. Appetite is good.Her weight is up a little bit. He feels like her skin has been more sensitive to sunlight since thechemotherapy. Patient Active Problem List Diagnosis Code ??? HTN (hypertension) I10 ??? Obesity E66.9 ??? Goiter E04.9 ??? Thyroid nodule E04.1 ??? S/P thyroidectomy Z98.890 ??? Malignant neoplasm of left breast in female, estrogen receptor negative C50.912, Z17.1 Current Outpatient Medications: ??? metFORMIN (GLUCOPHAGE-XR) 500 mg Tablet Sustained Release 24 hr, Take 500 mg by mouth nightly.,Disp: , Rfl: ??? acetaminophen (TYLENOL) 325 mg Tablet, Take 2 tablets by mouth every 4 hours as needed for Pain., Disp: , Rfl: ??? ERGOCALCIFEROL, VITAMIN D2, (VITAMIN D ORAL), Take 2,000 Units by mouth., Disp: , Rfl: ??? aspirin 81 mg Tablet, Chewable, Take 81 mg by mouth daily., Disp: , Rfl: ??? lisinopril-hydrochlorothiazide (PRINZIDE;ZESTORETIC) 10-12.5 mg Tablet, Take 1 tablet by mouth daily., Disp: , Rfl: ??? levothyroxine (SYNTHROID) 137 mcg tablet, Take 137 mcg by mouth every morning., Disp: 30 tablet, Rfl: 0 ??? EMOLLIENT BASE (CREAM BASE TOP), Apply topically. Jeans Cream. Apply to area of radiation twicea day but no less than 2 hours before a treatment., Disp: , Rfl: Allergies Allergen Reactions ??? Compazine [Prochlorperazine] Nausea And Vomiting Light sensitivity, dizzy, twitching ??? Iron Pt unsure of reaction Review of Systems Constitutional: Negative for fatigue, fever and unexpected weight change. HENT: Negative for nosebleeds. Respiratory: Negative for cough and shortness of breath. Cardiovascular: Negative for chest pain and palpitations. Gastrointestinal: Negative for abdominal pain and diarrhea. Musculoskeletal: Negative for back pain. Skin: Negative for rash. Neurological: Negative for speech difficulty. Hematological: Negative for adenopathy. Does not bruise/bleed easily. All other systems reviewed and are negative. Objective: Physical Exam Constitutional: She is oriented to person, place, and time. She appears well- nourished. No distress. HENT: Mouth/Throat: No oropharyngeal exudate. Eyes: No scleral icterus. Cardiovascular: Normal rate, regular rhythm and normal heart sounds. Pulmonary/Chest: Effort normal and breath sounds normal. She has no wheezes. Abdominal: Soft. Bowel sounds are normal. She exhibits no mass. There is no tenderness. Musculoskeletal: She exhibits no edema. Lymphadenopathy: She has no cervical adenopathy. Neurological: She is alert and oriented to person, place, and time. Skin: No rash noted. Left breast with some postradiation changes but no palpable mass, no left axillary adenopathy Assessment and Plan: 57-year-old female with a T1N0 left-sided breast cancer. She underwent partial mastectomy followed by chemotherapy and radiation therapy. Currently there are no signs of recurrence either locally or systemically. She also appears to be recovering reasonably well from the excess toxicity she had from her adjuvant program. At this point we will continue to follow her. Since she is seeing her radiation oncologist and surgical oncologist in about 3 months I will plan to see her back up in about 6 months. She will not need labs given her early stage of breast cancer. I did introduce the concept of tamoxifen as cancer prevention. She would not get any benefit of hormonal therapy since her current tumor it was ER negative. But there can be a 50% reduction in her risks of a second breast primary after 5 years of tamoxifen therapy. She does not want to consider that yet but will think about that. We will plan to see her back in November but remain available if she has more problems. documented in this encounter Plan of Treatment Not on file documented as of this encounter Visit Diagnoses Diagnosis Malignant neoplasm of left breast in female, estrogen receptor negative, unspecified site of breast documented in this encounter Care Teams Field Party Manager Relationship Specialty Start Date End Date Home Yeager MD PCP - General Family Medicine 04/21/17 documented as of this encounter
--- OUTSIDE RECORDS SUMMARY | 2024-01-08 01:11 | XMS_ITS | Encounter Summary ---
Author Organization [facility] [place] [address] Care Team Providers Care Customer Service Cashier Name Role Phone Home Yeager MD Primary Care Provider [phone] Reason for Visit * Reason Comments Medication Refill Encounter Details Date Type Department Care Team (Late st Contact Info) Description 02/14/2021 Refill Hematology/Oncology at [address] [phone] Rahel Macdonald RN Social History Tobacco Use Types Packs/Day Years [...] on file documented as of this encounter Plan of Treatment Not on file documented as of this encounter Visit Diagnoses Not on filedocumented in this encounter Care Teams Customer Service Cashier Relationship Specialty Start Date End Date Home Yeager MD PCP - General Family Medicine 04/21/17 documented as of this encounter
--- OUTSIDE RECORDS SUMMARY | 2024-01-08 01:11 | XMS_ITS | Encounter Summary ---
Author Organization [facility] [place] [address] Care Team Providers Care Photographic Laboratory Technician Name Role Phone Home Yeager MD Primary Care Provider [phone] Encounter Details Date Type Department Care Team (Late st Contact Info) Description 01/25/2018 Orders Only Hematology/Oncology at [address] [phone] Héctor Quintanilla MD [facility] [address] HEMATOLOGY [place] [address] Malignant neoplasm of left breast in female, [...] breast documented in this encounter Care Teams Photographic Laboratory Technician Relationship Specialty Start Date End Date Home Yeager MD PCP - General Family Medicine 04/21/17 documented as of this encounter
--- OUTSIDE RECORDS SUMMARY | 2024-01-08 01:11 | XMS_ITS | Encounter Summary ---
Author Organization [facility] Address [facility] [place] [address] Care Team Providers Care Hand Bunch Maker Name Role Phone Home Yeager MD Primary Care Provider [phone] Reason for Referral * Consultation (Routine) - Closed Specialty Diagnoses / Procedures Referred By Contac t Referred To Contact Hematology and Oncology Diagnoses Malignant neoplasm of left breast in female, estrogen receptor negative, unspecified site of breast Héctor Quintanilla MD [facility] [address] [place] [address] [facility] Hem Onc Office [address] [place] [phone] Referral ID Status Reason Start Date Expiration Date V isits Requested Visits Authorized [id number] Closed Consult, Test & Treat 09/19/2021 09/19/2022 1 1 Encounter Details Date Type Department Care Team (Late st Contact Info) Description 09/19/2021 1:30 PM EDT Office Visit Hematology/Oncology at [address] [phone] Héctor Quintanilla MD [facility] [place] [address] Malignant neoplasm of left breast in female, [...] Sign Reading Time Taken Comments Blood Pressure 142/77 09/19/2021 1:44 PM EDT Pulse 69 09/19/2021 1:44 PM EDT Temperature 36.4 ??C (97.5 ??F) 09/19/2021 1:44 PM ED T Respiratory Rate 16 09/19/2021 1:44 PM EDT Oxygen Saturation 99% 09/19/2021 1:44 PM EDT Inhaled Oxygen Concentration - - Weight 112.7 kg (248 lb 6.4 oz) 09/19/2021 1:44 PM EDT Height 167.6 cm (5' 6) 09/19/2021 1:44 PM EDT Body Mass Index 40.09 09/19/2021 1:44 PM EDT documented in this encounter Progress Notes * Héctor Quintanilla MD - 09/19/2021 1:30 PM EDT Subjective: Patient ID: Zoë Preston is a 61 y.o. female. HPI Left breast cancer diagnosed 03/26 Mammographically detected Needle biopsy 03/26 Invasive ductal carcinoma, high-grade, SBR score 8 ER negative, MA negative, HER-2/yoshi negative Partial mastectomy with sentinel node 04/26 7 mm tumor, 0/1 nodes AC chemotherapy x4 completed 07/24 Weekly Taxol x12 completed 10/24 Radiation completed 12/24 Bonilla for chemoprevention x 1 mo 02/24 The patient is a 61-year-old female who returns to the [facility]. She was diagnosed witha T1N0 high-grade breast cancer that was triple negative. She underwent adjuvant chemotherapy completing that 10/24. She completed her postoperative radiation therapy 12/24. She tried Bonilla for 30 days as prevention but did not like it. She is here for routine follow-up. No pain or tenderness. She does use a brace on the right wrist because of carpal tunnel symptoms. She gets her mammograms with [facility] surgery. Patient Active Problem List Diagnosis Code ??? HTN (hypertension) I10 ??? Obesity E66.9 ??? Goiter E04.9 ??? Thyroid nodule E04.1 ??? S/P thyroidectomy E89.0 ??? Malignant neoplasm of upper-outer quadrant of left breast in female, estrogen receptor qednoipkA10.412, Z17.1 Current Outpatient Medications: ??? ibuprofen (Advil;Motrin) 200 mg Tablet, Take 600 mg by mouth daily., Disp: , Rfl: ??? hydroCHLOROthiazide (HYDRODIURIL) 25 mg Tablet, , Disp: , Rfl: ??? lisinopril (PRINIVIL;ZESTRIL) 40 mg Tablet, , Disp: , Rfl: ??? magnesium oxide (MAG-OX) 400 mg (241.3 mg magnesium) Tablet, , Disp: , Rfl: ??? metFORMIN (GLUCOPHAGE-XR) 500 mg Tablet Sustained [...] and are negative. Objective: Physical Exam Constitutional: General: She is not in acute distress. HENT: Mouth/Throat: Pharynx: No oropharyngeal exudate. Eyes: General: No scleral icterus. Cardiovascular: Rate and Rhythm: Normal rate and regular rhythm. Heart sounds: Normal heart sounds. Pulmonary: Effort: Pulmonary effort is normal. Breath sounds: Normal breath sounds. No wheezing. Abdominal: General: Bowel sounds are normal. Palpations: Abdomen is soft. There is no mass. Tenderness: There is no abdominal tenderness. Lymphadenopathy: Cervical: No cervical adenopathy. Skin: Findings: No rash. Neurological: Mental Status: She is alert and oriented to person, place, and time. Right arm generally more swollen with some additional swelling in the right biceps area, no right axillary adenopathy Assessment and Plan: 61-year-old female with a T1N0 left-sided breast cancer. She underwent partial mastectomy followed by chemotherapy and radiation therapy. Currently there are no signs of recurrence either locally or systemically. In terms of breast cancer follow-up we will plan to see her back in 4 to 6 months. She will not need laboratory studies. documented in this encounter Plan of Treatment Scheduled Referrals Name Type Priority Associated Diagnoses Orde r Schedule Referral to Familial Cancer Outpatient Referral Routine Malignant neoplasm of left breast in female, estrogen receptor negative, unspecified site of breast Ordered: 09/19/2021 documented as of this encounter Visit Diagnoses Diagnosis Malignant neoplasm of left breast in female, estrogen receptor negative, unspecified site of breast documented in this encounter Care Teams Hand Bunch Maker Relationship Specialty Start Date End Date Home Yeager MD PCP - General Family Medicine 04/21/17 documented as of this encounter
--- OUTSIDE RECORDS SUMMARY | 2024-01-08 01:11 | XMS_ITS | Encounter Summary ---
Author Organization [facility] [place] [address] Care Team Providers Care Mask Designer Name Role Phone Home Yeager MD Primary Care Provider [phone] Encounter Details Date Type Department Care Team (Late st Contact Info) Description 05/21/2021 9:30 AM EDT Office Visit Radiation Oncology at [address] [phone] Kandi Dang APRN [facility] [place] [address] Malignant neoplasm of upper-outer quadrant of left female breast, unspecified estrogen receptor status Social History Tobacco Use Types Packs/Day Years [...] Sign Reading Time Taken Comments Blood Pressure 145/61 05/21/2021 9:09 AM EDT Pulse 74 05/21/2021 9:09 AM EDT Temperature 36.2 ??C (97.2 ??F) 05/21/2021 9:09 AM ED T Respiratory Rate 20 05/21/2021 9:09 AM EDT Oxygen Saturation 99% 05/21/2021 9:09 AM EDT Inhaled Oxygen Concentration - - Weight 115.5 kg (254 lb 9.6 oz) 05/21/2021 9:09 AM EDT Height 167.6 cm (5' 6) 05/21/2021 9:09 AM EDT Body Mass Index 41.09 05/21/2021 9:09 AM EDT documented in this encounter Progress Notes * Kandi Dang, TRANSMISSION TESTER - 05/21/2021 9:30 AM EDTSummary: 60 year old F dx L breast Ca IDC, gr 3, triple neg, s/p lumpectomy & SNB, pT1b pN0, stage I. S/p adjuvant chemo.XRT comp 12/21/17 [facility] [place] [address] Phone: RADIATION ONCOLOGY FOLLOW UP NOTE Patient Zoë Preston 1960 PCP: Home Yeager MD Radiation oncologist: Chief Complaint: scheduled FUV for breast cancer, post radiation therapy Time since completed RT:12/21/17 Current treatment:surveillance HPI: Per Dr Stovall hx: Zoë is a 60 y/o f who completed xrt to L breast (12/21/17) for breast ca, L, IDC, gr 3, triple neg, s/p lumpectomy & SNB, pT1b pN0, stage I. S/p adjuvant chemo. ?? 01/20/18 L mmg: Benign. ?? 04/22/18 discussion w/Dr. Quintanilla about possible use of [place]ledo as ca prevention. ?? 08/04/18 B mmg: Benign ?? 08/04/18 fu w/Dr. Thacker; encouraged to do breast massage for lymphedema; rtc 6 mos w/B mmg. ?? 02/24/19 fu w/Dr. Quintanilla, rx for toledo for chemoprevention. ?? 03/31/19 fu w/Dr. Quintanilla, d/c toledo due to intolerance. ?? 10/25/19 B mmg: Neg. ?? 10/25/19 Tree Stevens APRN, rtc 1 yr w/mmg. ?? 10/15/20 US R upper ext: Neg ?? 11/19/20 B mmg: Neg ?? 11/19/20 Tree Stevens APRN Gen Surg, rtc 1 yr w/mmg. ?? Subjective: No pain. No hand/arm swelling. ROM arms around shoulders @ baseline, which is w/some deficit due to injuries sustained in childhood. Energy level good enough to walk down 450 ft hill q D w/aussidoodle named Sunitha Campoverde ?? Interim HPI: Has not tolerated the tamoxifen and another oral med for tx of breast cancer. She is not taking anything at this time. [place] like she was going to related to side effects. Rationale for tx Tamoxifen in TNBC TP53 Status as a Determinant of Pro- vs Anti-Tumorigenic Effects of Estrogen Receptor-Beta in Breast Cancer Krish Flood, Frankie Saunders, Tess Samayoa, Judy Clements, Niko Cruz, Yady, Shane Marshall, Chio Bell, Clau Joyce??Jimmie ... Show moreAuthor Notes JNCI: Journal of the National [employer] [place], Volume 111, Issue 11, January 2019, Pages 5206-8400, https://doi.org/10.1093/jnci/[email or web address] Published: 22 June 2018 Medications 03/14/21 1507 Medication Sig Taking? ibuprofen (Advil;Motrin) 200 mg Tablet Take 600 mg by mouth daily. hydroCHLOROthiazide (HYDRODIURIL) 25 mg Tablet lisinopril (PRINIVIL;ZESTRIL) 40 mg Tablet magnesium oxide (MAG-OX) 400 mg (241.3 mg magnesium) Tablet metFORMIN (GLUCOPHAGE-XR) 500 mg Tablet Sustained Release 24 hr Take 500 mg by mouth nightly. EMOLLIENT BASE (CREAM BASE TOP) Apply topically. Jeans Cream. Apply to area of radiation twice a day but no less than 2 hours before a treatment. acetaminophen (TYLENOL) 325 mg Tablet Take 2 tablets by mouth every 4 hours as needed for Pain. ERGOCALCIFEROL, VITAMIN D2, (VITAMIN D ORAL) Take 2,000 Units by mouth. aspirin 81 mg Tablet, Chewable Take 81 mg by mouth daily. levothyroxine (SYNTHROID) 137 mcg tablet Take 137 mcg by mouth every morning. Allergies Allergen Reactions ??? Compazine [Prochlorperazine] Nausea And Vomiting Light sensitivity, dizzy, twitching ??? Iron Pt unsure of reaction Past Medical History: Diagnosis Date ??? Goiter 08/06/2011 ??? HTN (hypertension) 08/06/2011 ??? Malignant neoplasm of left breast in female, estrogen receptor negative 04/13/2017 ??? Obesity 08/06/2011 Past Surgical History: Procedure Laterality Date ??? BREAST BIOPSY Left 03/23/2017 Atypical duct hyperplasia bordering on ductal carcinoma in situ ??? BREAST LUMPECTOMY Left 04/30/2017 ??? IR MEDIPORT REMOVAL 01/20/2018 IR Mediport Removal 01/20/2018 Stephen Uribe APRN [facility] INTERVENTIONL RAD ??? PRG SOMATOSENSORY TEST, ANY/ALL PER. NERVES, TRUNK OR HEAD 09/02/2011 FACIAL NERVE MONITORING, SETUP performed by VALENTINE OVIEDO at [facility] MAIN OR ??? PRO BX/REMV, LYMPH NODE, DEEP AXILL Left 04/30/2017 BIOPSY OR EXCISION OF LYMPH NODE(S), OPEN, DEEP AXILLARY NODE(S) (WRVU 6.43) performed by Avery Thacker MD at [facility] OSC ??? PRO EXCISE BREAST LES W XRAY MARKER Left 04/30/2017 EXCISION LESION, BREAST W/ PREOP.MARKER (NEEDLE LOC.) (WRVU 6.69) performed by Avery Thacker MDat [facility] OSC ??? PRO INTRAOP SENTINEL LYMPH ID W/DYE INJECTION Left 04/30/2017 INTRAOPERATIVE ID (MAPPING) SENTINEL LYMPH NODE,INCLUDES INJECTION (WRVU 2.5) performed by Avery Thacker MD at [facility] OSC ??? PRO MASTECTOMY PARTIAL Left 04/30/2017 MASTECTOMY PARTIAL (WRVU 10.13) performed by Avery Thacker MD at [facility] OSC ??? PRO THYROIDECTOMY 09/02/2011 THYROIDECTOMY, TOTAL OR COMPLETE performed by VALENTINE OVIEDO at [facility] MAIN OR Family History Problem Relation Age of Onset ??? Breast Cancer Maternal Cousin 50 In her 40's or 50's ??? Breast Cancer Maternal Cousin Possibly 2nd maternal cousin w/BR CA ??? Cervical Cancer Daughter In her 20's ??? Uterine Cancer Maternal Aunt ??? Colorectal Cancer Maternal Aunt ??? Cancer Paternal Uncle unknown type ??? Ovarian Cancer Neg Hx Social History Tobacco Use ??? Smoking status: Former Smoker Quit date: 03/09/1998 Years since quittin.2 ??? Smokeless tobacco: Never Used Vaping Use ??? Vaping Use: Never used Substance Use Topics ??? Alcohol use: Yes Comment: occassional Review of Symptoms: Patient concerns for today's visit: Skin changes at radiation /surgery site: has skin changes up to L side of neck and chest. Lymphedema of breast and/or arm:lymph edema has resolved, went to physical therapy. Massage done. Fatigue: so-so, good days and bad. Respiratory symptoms:none Cardiac symptoms: has some palpitations when stressed or over excited. No chest pain or pressure Mood changes: she does have some decreased mood and anxiety but has not historically tolerated anti-depressants. Alteration sexual function/body image: she does not like the difference in size of breast. Pain:none Lifestyle/health: Weight/diet/appetite:stable the same Sleep: so-so but this is always been the case Function/transportation: usually drives , pt is on disability. 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 Lifting Has hurt her joints. Smoking:quit 1998, minimal cig use. Alcohol:none Support/ social relationships:has partner, he was there through everything she went through, Jamie Regular visits with PCP/immunizations/screenings:The PCP does her PAP smears and internal exams. Financial /transportation concerns: drives in summer a little, drives mostly due to weatherconcerns. Advanced directives: Performance Status: KPS Score ECOG Grade Definition x 90-100 0 Fully active, able to carry on all pre-disease performance without restriction 70-80 1 Restricted in physically strenuous activity but ambulatory and able to carry out work of a light or sedentary nature, e.g., light house work, office work 50-60 2 Ambulatory and capable of all selfcare but unable to carry out any work activities; up and about more than 50% of waking hours 30-40 3 Capable of only limited selfcare; confined to bed or chair more than 50% of waking hours 10-20 4 Completely disabled; cannot carry on any selfcare; totally confined to bed or chair Physical Examination: Body mass index is 41.09 kg/m??. BP 145/61 (Patient Position: Sitting) Pulse 74 Temp 36.2 ??C (97.2 ??F) (Temporal) Resp 20 Ht 167.6 cm (5' 6) Wt 115.5 kg (254 lb 9.6 oz) Constitutional: seen in clinic, no distress HENT: normocephalic, anicteric, neck supple, no adenopathy cervical, axillary, clavicular Cardiovascular: Rate and Rhythm: Normal rate and regular rhythm. Heart sounds: Normal heart sounds. No murmur Pulmonary: Effort: Pulmonary effort is normal. Breath sounds: Normal breath sounds. No wheezing or rales. 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 General: No swelling or deformity. Comments: Ambulates without assistance Skin: General: Skin is warm and dry. Neurological: General: No focal deficit present. Mental Status: alert and oriented to person, place, and time. Gait: Gait normal. Psychiatric: Mood and Affect: Mood normal. Behavior: Behavior normal. Thought Content: Thought content normal. Judgment: Judgment normal. Breast exam: She has a little dimpling at surgical incision site L breast and some fibrous tissue inferior to the incision site. A few telangiectasias at this area and these have been developing since radiation, now unchanged. incison sites on breast and axillary area well healed. Nipples are without drainage or irregularity. There is some neck and upper chest hyperpigmentation pt feels present since radiation more on L side but present bilaterally. No adenopath cervical, axillary or clavicular bilaterally.There is no pain on palpation. No real lymphedema appreciated. New Imaging Reviewed this Visit: 11/19/20 Mammo FINDINGS: Breast density: There are scattered areas of fibroglandular density. ?? There are no suspicious microcalcifications, masses, or areas of distortion. There is a stable benign-appearing focal asymmetry in the upper outer right breast. There are stable post treatment changes in the left breast. The pattern is stable. ?? CONCLUSION: No mammographic evidence of malignancy. ?? RECOMMENDATION: Routine annual screening. ?? BIRADS CATEGORY 2: BENIGN FINDINGS Assessment: 60 y.o. presenting for follow up of breast cancer, for which she completed adjuvant radiation 12/21/2017 Medical Decision Making/Recommendations/Plan: # breast cancer: No concerning reported symptoms or physical examination findings today # effects of EBRT: we discussed the potential for late effects of radiation including but not limited to skin changes (thickening, pigmentation changes, retraction, fibrosis, telangiectasias, edema of breast/arm; lung and/ or cardiac injury/inflammation. # survivorship concerns: # lifestyle/wellness concerns: # Reviewed: Symptoms that you should bring to the attention of your provider: 1. Anything that represents a brand new symptom; 2. Anything that represents a persistent symptom for more than 2 weeks: 3. Anything you are worried about that may be related to your cancer coming back For example, Persistent pain, cough, shortness of breath, headache. Any change in skin at treatment site from post treatment baseline or new lump or nipple discharge. Vaginal bleeding/spotting if you are on tamoxifen. # follow up: NCCN guidelines: history and physical examination every 6-12 months X 5 years, annual mammogram. Since she is seeing oncology every 6 months and surgery annually for mammogram, we don't need to continue to see her in radiation. She is agreeable to this plan. She was encouraged to call anytime if she has questions or concerns. Zoë Preston had the opportunity to ask questions and I answered them to the best of my knowledge. Zoë Preston agreed to contact radiation oncology in between visits if she has any questions/concerns or new symptoms in regards to the radiation therapy/breast cancer # resources provided:none at this time # referrals done: Next visit: one year Breast cancer screening by mammogram Order placed by Surgery: Mammo Screening Cad and Marlon Bilateral; November 2021 Kandi Dang MSN, TRANSMISSION TESTER, INSPECTOR AND ADJUSTER [employer] Nurse Practitioner Radiation Oncology documented in this encounter Plan of Treatment Not on file documented as of this encounter Visit Diagnoses Diagnosis Malignant neoplasm of upper-outer quadrant of left female breast, unspecified estrogen receptor status documented in this encounter Care Teams Mask Designer Relationship Specialty Start Date End Date Home Yeager MD PCP - General Family Medicine 04/21/17 documented as of this encounter
--- OUTSIDE RECORDS SUMMARY | 2024-01-08 01:11 | XMS_ITS | Encounter Summary ---
Author Organization [facility] [place] [address] Care Team Providers Care Lead Fire Protection Engineer Name Role Phone Home Yeager MD Primary Care Provider [phone] Reason for Visit * Reason Comments Radiation Follow-up Encounter Details Date Type Department Care Team (Late st Contact Info) Description 02/15/2018 2:00 PM EST Office Visit Radiation Oncology at [address] [phone] Kaya Stovall MD [facility] [place] [address] Malignant neoplasm of left breast in female, [...] Sign Reading Time Taken Comments Blood Pressure 136/72 02/15/2018 2:20 PM EST Pulse 87 02/15/2018 2:20 PM EST Temperature 36.7 ??C (98.1 ??F) 02/15/2018 2 :20 PM EST Respiratory Rate 18 02/15/2018 2:20 PM EST Oxygen Saturation 99% 02/15/2018 2:2 0 PM EST Inhaled Oxygen Concentration - - Weight 108.4 kg (239 lb) 02/15/2018 2:2 0 PM EST Height 167 cm (5' 5.75) 02/15/2018 2:2 0 PM EST copied forward Body Mass Index 38.87 02/15/2018 2:20 PM EST documented in this encounter Patient Instructions * Patient Instructions* Kaya Stovall MD - 02/15/2018 2:00 PM EST Your exam shows that you are healing nicely from radiotherapy & there is no evidence of cancer. You may resume your regular deodorant on your left underarm. You may use a straight/regular razor on your left underarm. You may expose the irradiated area to sun, but it is recommended that you apply sunscreen with an SPF of @ least #45 on the irradiated area prior to exposing it to sun. You may swim in chlorinated water. You may expose the irradiated area to hot tub water. We will mail you a letter with an appointment for followup with me in 6 months. documented in this encounter Progress Notes * Kaya Stovall MD - 02/15/2018 2:00 PM EST Images from the original note were not included. CC: Sched'd fu s/p xrt completion. HPI: 57 y/o f who completed xrt to L breast 2 mos ago (12/21/17) for breast ca, L, IDC, gr 3, triple neg, s/p lumpectomy & SNB, pT1b pN0, stage I. S/p adjuvant chemo. 01/20/18 L mmg: Benign. 01/20/18 fu w/Dr. Thacker; rtc 6 mos w/mmg. ROS: She reports that her L breast skin has been gradually healing since xrt completion. Intermittently she notices nerve-like discomfort in L breast which is less than 1 mo ago. ROM arms around shoulders pretty good. Appetite ok. Energy level better than 1 mo ago. Past Medical History: Diagnosis Date ??? Goiter 08/06/2011 ??? HTN (hypertension) 08/06/2011 ??? Malignant neoplasm of left breast in female, estrogen receptor negative 04/13/2017 ??? Obesity 08/06/2011 Past Surgical History: Procedure Laterality Date ??? BREAST BIOPSY Left 03/23/2017 ??? BREAST LUMPECTOMY Left 04/30/2017 ??? IR MEDIPORT REMOVAL 01/20/2018 IR Mediport Removal 01/20/2018 Stephen Uribe APRN [facility] INTERVENTIONL RAD ??? PRG SOMATOSENSORY TEST, ANY/ALL PER. NERVES, TRUNK OR HEAD 09/02/2011 FACIAL NERVE MONITORING, SETUP performed by VALENTINE OVIEDO at [facility] MAIN OR ??? PRO BX/REMV, LYMPH NODE, DEEP AXILL Left 04/30/2017 BIOPSY OR EXCISION OF LYMPH NODE(S), OPEN, DEEP AXILLARY NODE(S) (WRVU 6.43) performed by Avery Thacker MD at [facility] OSC ??? PRO EXCISE BREAST LES W XRAY MARKER Left 04/30/2017 EXCISION LESION, BREAST W/ PREOP.MARKER (NEEDLE LOC.) (WRVU 6.69) performed by Avery Thacker MDat [facility] OSC ??? PRO INTRAOP SENTINEL LYMPH ID W/DYE INJECTION Left 04/30/2017 INTRAOPERATIVE ID (MAPPING) SENTINEL LYMPH NODE,INCLUDES INJECTION (WRVU 2.5) performed by Avery Thacker MD at [facility] OSC ??? PRO MASTECTOMY, PARTIAL Left 04/30/2017 MASTECTOMY PARTIAL (WRVU 10.13) performed by Avery Thacker MD at [facility] OSC ??? PRO THYROIDECTOMY 09/02/2011 THYROIDECTOMY, TOTAL OR COMPLETE performed by VALENTINE OVIEDO at [facility] MAIN OR Your Medications Accurate as of 02/15/18 11:59 PM. If you have any questions, ask your nurse or doctor. Continued medications, unchanged Dose Details acetaminophen 325 mg Tab Commonly known as: TYLENOL Take 2 tablets by mouth every 4 hours as needed for Pain. 650 mg Refills: 0 aspirin 81 mg Chew Take 81 mg by mouth daily. 81 mg Refills: 0 CREAM BASE TOP Apply topically. Jeans Cream. Apply to area of radiation twice a day but no less than 2 hours before a treatment. Refills: 0 GLUCOSAMINE ORAL Take by mouth. Refills: 0 levothyroxine 137 mcg Tab Commonly known as: SYNTHROID Take 137 mcg by mouth every morning. 137 mcg Quantity: 30 tablet Refills: 0 Liposomal Lidocaine 4 % Crea Commonly known as: LMX Apply topically as needed. Apply quarter-sized dollop to port site as needed for port access Quantity: 45 g Refills: 3 lisinopril-hydrochlorothiazide 10-12.5 mg Tab Commonly known as: PRINZIDE;ZESTORETIC Take 1 tablet by mouth daily. 1 tablet Refills: 0 metFORMIN 500 mg Tablet sr Commonly known as: GLUCOPHAGE-XR Refills: 0 ondansetron 8 mg Tab Commonly known as: ZOFRAN Take 1 tablet by mouth every 8 hours as needed for Nausea. 8 mg Quantity: 30 tablet Refills: 1 VITAMIN D ORAL Take 2,000 Units by mouth. 2000 Units Refills: 0 Physical Exam Constitutional: She appears well-developed and well-nourished. No distress. BP 136/72 (Patient Position: Sitting) Pulse 87 Temp 36.7 ??C (98.1 ??F) (Oral) Resp 18 Ht 167 cm (5' 5.75) Comment: copied forward Wt 108.4 kg (239 lb) SpO2 99% BMI 38.87 kg/m?? HENT: Head: Normocephalic and atraumatic. Eyes: Conjunctivae and EOM are normal. Right eye exhibits no discharge. Left eye exhibits no discharge. No scleral icterus. Neck: Normal range of motion. Neck supple. No tracheal deviation present. No thyromegaly present. Pulmonary/Chest: Effort normal and breath sounds normal. No stridor. No respiratory distress. She has no wheezes. She has no rales. She exhibits no tenderness. Right breast exhibits no inverted nipple, no mass, no nipple discharge, no skin change and no tenderness. Left breast exhibits skin change ( Mild hyperpigmentation, consistent w/expected post xrt appearance. ). Left breast exhibits no inverted nipple, no mass and no nipple discharge. Lymphadenopathy: Head (right side): No submental, no submandibular, no preauricular, no posterior auricular and no occipital adenopathy present. Head (left side): No submental, no submandibular, no preauricular, no posterior auricular and no occipital adenopathy present. She has no cervical adenopathy. She has no axillary adenopathy. Right: No supraclavicular adenopathy present. Left: No supraclavicular adenopathy present. Skin: She is not diaphoretic. A: Healing well post xrt. P: Care of irrad'd skin discussed. Rtc 6 mos. documented in this encounter Plan of Treatment Not on file documented as of this encounter Visit Diagnoses Diagnosis Malignant neoplasm of left breast in female, estrogen receptor negative, unspecified site of breast documented in this encounter Care Teams Lead Fire Protection Engineer Relationship Specialty Start Date End Date Home Yeager MD PCP - General Family Medicine 04/21/17 documented as of this encounter
--- OUTSIDE RECORDS SUMMARY | 2024-01-08 01:11 | XMS_ITS | Encounter Summary ---
Author Organization [facility] Address [facility] [place] [address] Care Team Providers Care Tobacco Conditioner Name Role Phone Home Yeager MD Primary Care Provider [phone] Encounter Details Date Type Department Care Team (Late st Contact Info) Description 02/24/2019 8:30 AM EST Office Visit Hematology/Oncology at [address] [phone] Héctor Quintanilla MD [facility] [address] HEMAT[place] [address] Rahel Macdonald, RN Malignant neoplasm of left breast in female, [...] Sign Reading Time Taken Comments Blood Pressure 178/73 02/24/2019 8:57 AM EST Pulse 81 02/24/2019 8:57 AM EST Temperature 36.9 ??C (98.4 ??F) 02/24/2019 8:57 AM ES T Respiratory Rate 18 02/24/2019 8:57 AM EST Oxygen Saturation 99% 02/24/2019 8:57 AM EST Inhaled Oxygen Concentration - - Weight 121.7 kg (268 lb 3.2 oz) 02/24/2019 8:57 AM EST Height 167 cm (5' 5.75) 02/24/2019 8:57 AM EST Body Mass Index 43.62 02/24/2019 8:57 AM EST documented in this encounter Progress Notes * Rahel Macdonald Palak, ROASTMASTER - 02/24/2019 8:30 AM EST Subjective: Patient ID: Zoë Preston is a 58 y.o. female. HPI Left breast cancer diagnosed 03/26 Mammographically detected Needle biopsy 03/26 Invasive ductal carcinoma, high-grade, SBR score 8 ER negative, AK negative, HER-2/yoshi negative Partial mastectomy with sentinel node 04/26 7 mm tumor, 0/1 nodes AC chemotherapy x4 completed 07/24 Weekly Taxol x12 completed 10/24 Radiation completed 12/2402/24/19- Started Tamoxifen 20mg daily Zoë is a 57-year-old female who returns to the [facility] accompanied by her for follow up of a T1N0 high-grade breast cancer that was triple negative. She underwent adjuvant chemotherapy completing that 10/24. She completed her postoperative radiation therapy 12/24. Overall feeling well today. Energy level has improved and she has increased her activity level. Denies any unusual fatigue, weight change, change in bowels or bladder, cough or SOB or any new lumps or bumps. Left breast is ointment mill tender at times but the massage therapy has helped. She is here to start Tamoxifen today. She was given [employer] drug information sheet and we reviewed side effects to include hot flashes,vaginal dischage, loss of libido, swelling of hands and feet, nausea, mood changes and vaginal bleeding. Blood clots and risk of uterine cancer were discussed at length. Because Tamoxifen will decrease her risk of recurrence by 50% she feels the risks outweight the benefits. She understands the importance for INDUSTRIAL HYGIENE TECHNICIAN follow up and to report any vaginal bleeding. Reviewed signs/symptoms of blood clots to report and reinforced importance of activity. Patient Active Problem List Diagnosis Code ??? HTN (hypertension) I10 ??? Obesity E66.9 ??? Goiter E04.9 ??? Thyroid nodule E04.1 ??? S/P thyroidectomy Z98.890 ??? Malignant neoplasm of left breast in female, estrogen receptor negative C50.912, Z17.1 Current Outpatient Medications: ??? hydroCHLOROthiazide (HYDRODIURIL) 25 mg Tablet, , Disp: , Rfl: ??? lisinopril (PRINIVIL;ZESTRIL) 40 mg Tablet, , Disp: , Rfl: ??? magnesium oxide (MAG-OX) 400 mg (241.3 mg magnesium) Tablet, , Disp: , Rfl: ??? metFORMIN (GLUCOPHAGE-XR) 500 mg Tablet Sustained Release 24 hr, Take 500 mg by mouth nightly.,Disp: , Rfl: ??? EMOLLIENT BASE (CREAM BASE TOP), Apply topically. Jeans Cream. Apply to area of radiation twicea day but no less than 2 hours before a treatment., Disp: , Rfl: ??? acetaminophen (TYLENOL) 325 mg [...] every morning., Disp: 30 tablet, Rfl: 0 Allergies Allergen Reactions ??? Compazine [Prochlorperazine] Nausea And Vomiting Light sensitivity, dizzy, twitching ??? Iron Pt unsure of reaction Review of Systems Constitutional: Negative for fatigue, fever and unexpected weight change. HENT: Negative for nosebleeds. Respiratory: Negative for cough and shortness of breath. Cardiovascular: Negative for chest pain and palpitations. Gastrointestinal: Negative for abdominal pain and diarrhea. Genitourinary: Negative for vaginal bleeding. Musculoskeletal: Negative for back pain. Skin: Negative [...] Skin: No rash noted. Left breast with hyperpigmentation. No masses on palpation. Scar on left lower quadrant and left axilla. No masses along scars. Tenderness in breast on palpation. No left or right axilla adenopathy. Right breast without masses on palpation. Labs-02/24/19- CBC, Lytes and LFTs unremarkable. 08/04/18- Mammogram- no evidence of malignancy. Assessment and Plan: 57-year-old female with a [...] given her early stage of breast cancer. We discussed Tamoxifen therapy and risks vs benefits. She has decided she would like to begin therapy. Will try for 4 weeks and see her back to make sure she is tolerating therapy. Plan: 1. Breast Cancer-triple negative. Begin Tamoxifen 20mg po daily. 2. Increase daily exercise as tolerated. Healthy diet to include fresh fruits and vegetables. 3. Mammogram due in July when she will follow up with Dr. Thacker. 4. RTC in 4 weeks to assess tolerance of Tamoxifen. documented in this encounter Plan of Treatment Not on file documented as of this encounter Visit Diagnoses Diagnosis Malignant neoplasm of left breast in female, estrogen receptor negative, unspecified site of breast documented in this encounter Care Teams Tobacco Conditioner Relationship Specialty Start Date End Date Home Yeager MD PCP - General Family Medicine 04/21/17 documented as of this encounter
--- OUTSIDE RECORDS SUMMARY | 2024-01-08 01:11 | XMS_ITS | Encounter Summary ---
Author Organization [facility] Address [facility] [place] [address] [place] [address] Care Team Providers Care Flame Cutting Machine Operator Helper Name Role Phone Home Yeager MD Primary Care Provider [phone] Reason for Visit * Reason Comments Radiation Follow-up Encounter Details Date Type Department Care Team (Late st Contact Info) Description 11/26/2020 4:00 PM EDT Office Visit Radiation Oncology at [address] [phone] Kaya Stovall MD [facility] [place] [address] Malignant neoplasm of upper-outer quadrant of left [...] Sign Reading Time Taken Comments Blood Pressure 141/76 11/26/2020 3:57 PM EDT Pulse 71 11/26/2020 3:57 PM EDT Temperature 36.8 ??C (98.2 ??F) 11/26/2020 3:57 PM ED T Respiratory Rate 16 11/26/2020 3:57 PM EDT Oxygen Saturation - - Inhaled Oxygen Concentration - - Weight 116.2 kg (256 lb 3.2 oz) 11/26/2020 3:57 PM EDT Height - - Body Mass Index 37.82 10/04/2020 2:42 PM EDT documented in this encounter Patient Instructions * Patient Instructions* Kaya Stovall MD - 11/26/2020 4:00 PM EDT Your exam is without worrisome finding. Someone will contact you to schedule followup with me in 6 months. documented in this encounter Progress Notes * Kaya Stovall MD - 11/26/2020 4:00 PM EDT Images from the original note were not included. CC: Sched'd fu s/p xrt completion. HPI: Zoë is a 60 y/o f who completed xrt to L breast 2 yrs, 11 mos ago (12/21/17) for breast ca,L, IDC, gr 3, triple neg, s/p lumpectomy & SNB, pT1b pN0, stage I. S/p adjuvant chemo. 01/20/18 L mmg: Benign. 04/22/18 discussion w/Dr. Quintanilla about possible use of [place]ledo as ca prevention. 08/04/18 B mmg: Benign 08/04/18 fu w/Dr. Thacker; encouraged to do breast massage for lymphedema; rtc 6 mos w/B mmg. 02/24/19 fu w/Dr. Quintanilla, rx for toledo for chemoprevention. 03/31/19 fu w/Dr. Quintanilla, d/c toledo due to intolerance. 10/25/19 B mmg: Neg. 10/25/19 Tree Stevens APRN, rtc 1 yr w/mmg. 10/15/20 US R upper ext: Neg 11/19/20 B mmg: Neg 11/19/20 Tree Stevens APRN Gen Surg, rtc 1 yr w/mmg. Subjective: No pain. No hand/arm swelling. ROM arms around shoulders @ baseline, which is w/some deficit due to injuries sustained in childhood. Energy level good enough to walk down 450 [address] hill q D w/aussidoodle named Sunitha Campoverde Past Medical History: Diagnosis Date ??? Goiter 08/06/2011 ??? HTN (hypertension) 08/06/2011 ??? Malignant neoplasm of left breast in female, estrogen receptor negative 04/13/2017 ??? Obesity 08/06/2011 Past Surgical History: Procedure Laterality Date ??? BREAST BIOPSY Left 03/23/2017 Atypical duct hyperplasia bordering on ductal carcinoma in situ ??? BREAST LUMPECTOMY Left 04/30/2017 ??? IR MEDIPORT REMOVAL 01/20/2018 IR Mediport Removal 01/20/2018 Stephen Uribe, QA TECH [facility] INTERVENTIONL RAD ??? PRG SOMATOSENSORY TEST, ANY/ALL PER. NERVES, TRUNK OR HEAD 09/02/2011 FACIAL NERVE MONITORING, SETUP performed by VALENTINE OVIEDO at [facility] MAIN OR ??? PRO BX/REMV, LYMPH NODE, DEEP AXILL Left 04/30/2017 BIOPSY OR EXCISION OF LYMPH NODE(S), OPEN, DEEP AXILLARY NODE(S) (WRVU 6.43) performed by Avery Thacker MD at [facility] OSC ??? PRO EXCISE BREAST LES W XRAY MARKER Left 04/30/2017 EXCISION LESION, BREAST W/ PREOP.MARKER (NEEDLE LOC.) (WRVU 6.69) performed by Avery Thacker MDat [facility] OSC ??? PRO INTRAOP SENTINEL LYMPH ID W/DYE INJECTION Left 04/30/2017 INTRAOPERATIVE ID (MAPPING) SENTINEL LYMPH NODE,INCLUDES INJECTION (WRVU 2.5) performed by Avery Thacker MD at [facility] OSC ??? PRO MASTECTOMY PARTIAL Left 04/30/2017 MASTECTOMY PARTIAL (WRVU 10.13) performed by Avery Thacker MD at [facility] OSC ??? PRO THYROIDECTOMY 09/02/2011 THYROIDECTOMY, TOTAL OR COMPLETE performed by VALENTINE OVIEDO at [facility] MAIN OR Uterine ablation Your Medications Accurate as of November 26, 2020 4:03 PM. If you have any questions, ask your nurse or doctor. Continued medications, unchanged Dose Details acetaminophen 325 mg Tab Commonly known as: Tylenol Take 2 tablets by mouth every 4 hours as needed for Pain. 650 mg Refills: 0 aspirin 81 mg Chew Take 81 mg by mouth daily. 81 mg Refills: 0 CREAM BASE TOP Apply topically. Jeans Cream. Apply to area of radiation twice a day but no less than 2 hours before a treatment. Refills: 0 hydroCHLOROthiazide 25 mg Tab Commonly known as: Hydrodiuril Refills: 0 ibuprofen 200 mg Tab Commonly known as: Advil Take 600 mg by mouth daily. 600 mg Refills: 0 levothyroxine 137 mcg Tab Commonly known as: SYNTHROID Take 137 mcg by mouth every morning. 137 mcg Quantity: 30 tablet Refills: 0 lisinopriL 40 mg Tab Commonly known as: Zestril Refills: 0 magnesium oxide 400 mg (241.3 mg magnesium) Tab Commonly known as: Mag-Ox Refills: 0 metFORMIN XR 500 mg Tablet sr Commonly known as: Glucophage XR Take 500 mg by mouth nightly. 500 mg Refills: 0 VITAMIN D ORAL Take 2,000 Units by mouth. 2,000 Units Refills: 0 Physical Exam Constitutional: She appears well-developed and well-nourished. No distress. BP 141/76 (Patient Position: Sitting) Pulse 71 Temp 36.8 ??C (98.2 ??F) (Temporal) Resp 16 Wt 116.2 kg (256 lb 3.2 oz) BMI 37.82 kg/m?? HENT: Head: Normocephalic and atraumatic. Eyes: Conjunctivae and EOM are normal. Right eye exhibits no discharge. Left eye exhibits no discharge. No scleral icterus. Neck: Normal range of motion. Neck supple. No tracheal deviation present. No thyromegaly present. Pulmonary/Chest: Effort normal and breath sounds normal. No stridor. No respiratory distress. She has no wheezes. She has no rales. Right breast exhibits no inverted nipple, no mass, no nipple discharge, no skin change and no tenderness. Left breast exhibits minimal hyperpigmentation & mild lymphedema on inferior breast. Left breast exhibits no inverted nipple, no mass & no nipple discharge. Lymphadenopathy: Head (right side): No submental, no submandibular, no preauricular, no posterior auricular and no occipital adenopathy present. Head (left side): No submental, no submandibular, no preauricular, no posterior auricular and no occipital adenopathy present. She has no cervical adenopathy. She has no axillary adenopathy. Right: No supraclavicular adenopathy present. Left: No supraclavicular adenopathy present. Skin: She is not diaphoretic. Musculoskeletal: Good ROM arms around shoulders Neuro: Amb stable. A: EDUARDO. P: Rtc 6 mos. 20 mins in encounter. documented in this encounter Plan of Treatment Not on file documented as of this encounter Visit Diagnoses Diagnosis Malignant neoplasm of upper-outer quadrant of left female breast, unspecified estrogen receptor status documented in this encounter Care Teams Flame Cutting Machine Operator Helper Relationship Specialty Start Date End Date Home Yeager MD PCP - General Family Medicine 04/21/17 documented as of this encounter
--- OUTSIDE RECORDS SUMMARY | 2024-01-08 01:11 | XMS_ITS | Encounter Summary ---
[place] [address] Care Team Providers Care Maintenance Services Dispatcher Name Role Phone Home Yeager MD Primary Care Provider [phone] Reason for Referral * Diagnostic Test (Routine) - Closed Specialty Diagnoses / Procedures Referred By Contac t Referred To Contact Radiology Diagnoses Malignant neoplasm of left breast in female, estrogen receptor negative, unspecified site of breast Procedures IR Mediport Removal Mady Ramos APRN [address] [place] [address] [facility] [place] [address] Referral ID Status Reason Start Date Expiration Date V isits Requested Visits Authorized [id number] Closed Specialty Service Requested 12/17/2017 12/17/2018 1 1 Reason for Visit * Diagnostic Test (Routine) - Closed Specialty Diagnoses / Procedures Referred By Contac t Referred To Contact Radiology Diagnoses Malignant neoplasm of left breast in female, estrogen receptor negative, unspecified site of breast Procedures IR Mediport Removal Mady Ramos APRN [address] [place] [address] [facility] [place] [address] Referral ID Status Reason Start Date Expiration Date V isits Requested Visits Authorized [id number] Closed Specialty Service Requested 12/17/2017 12/17/2018 1 1 Encounter Details Date Type Department Care Team (Latest Contact Info) Description 01/20/2018 10:22 AM EST - 01/20/2018 11:59 PM EST Hospital [place] [address] Mady Ramos, UTILITY LOCATE TECHNICIAN [address] [facility] [place] [address] Pre-procedure lab exam; Malignant neoplasm of left breast in female, estrogen receptor negative, unspecified site of breast Discharge Disposition: Home Social History Tobacco Use Types Packs/Day Years [...] Sign Reading Time Taken Comments Blood Pressure 154/71 01/20/2018 1:15 PM EST Pulse 89 01/20/2018 12:30 PM EST Temperature 36.4 ??C (97.6 ??F) 01/20/2018 10:[address] Respiratory Rate 18 01/20/2018 1:15 PM EST Oxygen Saturation 98% 01/20/2018 1:15 PM EST Inhaled Oxygen Concentration - - Weight - - Height - - Body Mass Index - - documented in this encounter Discharge Instructions * Discharge Instructions* Marco Silva RN - 01/20/2018 11:34 AM EST [facility] Vascular and Interventional Radiology Discharge Instructions for your Chest Port Removal Activity: ??? Relax for the next 24 hours Diet: ??? Drink plenty of fluids. ??? Resume your regular diet Bandage: There is a sterile dressing consisting of small gauze with a clear dressing (Tegaderm or IV 3000). This dressing should be left in place for 48 hours. If the clear dressing becomes loose youshould place tape over the edges to secure it in place. No tub baths, swimming or whirlpools for 1 week. No showering for 48 hours. Note: If you have steri-strips beneath your dressing, simply allow them to fall off. Do not peel them off. There may be [place]-velasco (skin glue) also, allow this to flake off. Do not pick this off. Bathing: Do not take a shower until 48 hours after your port is removed; after this time you may shower with the dressing in place, then remove it and pat your skin dry. After 48 hours, we recommend that you cover the area with THE AQUA GUARD PROVIDED for 1 week while showering, facing away from the shower stream. You may use a bandaid to cover the site after the 48 hours are up if there is any drainage. No tub baths, whirlpools or swimming for one week following port removal. Pain: Apply ice bag to site (s) at 30 minute intervals (30 minutes on and 30 minutes off) for 24 hours?? . May use as needed for pain and/or bruising after 24 hours. When to call your healthcare provider: ??? If you notice bleeding from the incision on your chest, you should lie flat and apply firm pressure over the site for 10-15 minutes, keeping the site covered and call your doctor. If you are still bleeding after 10-15 minutes, reapply pressure, and have someone drive you to the nearest Emergency Department, or call 911. ??? If you develop pain, redness, drainage or swelling at or around chest incision site. ??? If you develop a fever equal to or greater than 101 degrees Fahrenheit. When to call the Interventional Radiology Department: Please call with any questions or concerns. If it is during regular office hours, please call [phone]. If it is after regular office hours, or on weekends or holidays, please call [phone] and ask to speak to the [employer] an employee sponsor or advocate and for Interventional Radiology. XX You have received medication during your procedure to help lesson anxiety and keep you comfortable. These medications affect judgement and reaction time. We recommend that you do not drive, operate equipment, sign any important documents, or smoke unattended for 24 hours following your procedure. Because of the sedation, be careful on stairs, as you may be unsteady on your feet. You may resume your regular diet as tolerated. IV site -- slight redness, or tenderness is normal, you can use a warm compress. If tenderness and redness increases or foul drainage occurs, please contact your Greg Corona. Revised 03/23/15 documented in this encounter Medications at Time of Discharge Medication Sig Dispensed Refills Start Date End Date acetaminophen (TYLENOL) 325 mg Tablet Take 2 tablets by mouth every 4 hours as needed for Pain. 04/30/2017 ERGOCALCIFEROL, VITAMIN D2, (VITAMIN D ORAL) Take 2,000 Units by mouth. aspirin 81 mg Tablet, Chewable Take 81 mg by mouth daily. levothyroxine (SYNTHROID) 137 mcg tablet Take 137 mcg by mouth every morning. 30 tablet 0 10/01/2011 EMOLLIENT BASE (CREAM BASE TOP) Apply topically. Jeans Cream. Apply to area of radiation twice a day but no less than 2 hours before a treatment. 05/08/2022 metFORMIN (GLUCOPHAGE-XR) 500 mg Tablet Sustained Release 24 hr Take 500 mg by mouth nightly. 11/12/2017 05/08/2022 ondansetron (ZOFRAN) 8 mg TabletIndications:Marisabel gnant neoplasm of upper-outer quadrant of left breast in female, estrogen receptor negative Take 1 tablet by mouth every 8 hours as needed for Nausea. 30 tablet 1 06/16/2017 04/22/2018 Liposomal Lidocaine (LMX) 4 % Cream Apply topically as needed. Apply quarter-sized dollop to port site as needed for port access 45 g 3 06/08/2017 04/22/2018 GLUCOSAMINE SULFATE (GLUCOSAMINE ORAL) Take by mouth. 019 lisinopril-hydrochloro thiazide (PRINZIDE;ZESTORETIC) 10-12.5 mg Tablet Take 1 tablet by mouth daily. 11/25/2018 documented as of this encounter Progress Notes * Marco Silva RN - 01/15/2018 8:50 AM EST [facility] NURSING DATABASE Name: ZOË PRESTON Date of : 1960 AGE 57 y.o. Address: [address] [place] [address] (home) Mobile: Telephone Information: Referring Provider: Mady Ramos REASON FOR VISIT: Date/time of procedure: Pertinent info from Pre-call (if any): Labs ordered: Med's stopped: Question Answer Comment Where will study be performed? [facility] Reason for exam and clinical history: pt completed chemo Exam/Procedure requested: remove port please Is the patient on anticoagulant / anitplatelet therapy ? Aspirin Allergies Allergen Reactions ??? Compazine [Prochlorperazine] Nausea And Vomiting Light sensitivity, dizzy, twitching ??? Iron Pt unsure of reaction Pertinent PMH: Patient Active Problem List Diagnosis Code ??? HTN (hypertension) I10 ??? Obesity E66.9 ??? Goiter E04.9 ??? Thyroid nodule E04.1 ??? S/P thyroidectomy Z98.890 ??? Malignant neoplasm of left breast in female, estrogen receptor negative C50.912, Z17.1 Pertinent PSH: Past Surgical History: Procedure Laterality Date ??? PRG SOMATOSENSORY TEST, ANY/ALL PER. NERVES, TRUNK OR HEAD 09/02/2011 FACIAL NERVE MONITORING, SETUP performed by VALENTINE OVIEDO at [facility] MAIN OR ??? PRO BX/REMV, LYMPH NODE, DEEP AXILL Left 04/30/2017 BIOPSY OR EXCISION OF LYMPH NODE(S), OPEN, DEEP AXILLARY NODE(S) (WRVU 6.43) performed by Avery Thacker MD at [facility] OSC ??? PRO EXCISE BREAST LES W XRAY MARKER Left 04/30/2017 EXCISION LESION, BREAST W/ PREOP.MARKER (NEEDLE LOC.) (WRVU 6.69) performed by Avery Thacker MDat [facility] ??? PRO INTRAOP SENTINEL LYMPH ID W/DYE INJECTION Left 04/30/2017 INTRAOPERATIVE ID (MAPPING) SENTINEL LYMPH NODE,INCLUDES INJECTION (WRVU 2.5) performed by Avery Thacker MD at [facility] ??? PRO MASTECTOMY, PARTIAL Left 04/30/2017 MASTECTOMY PARTIAL (WRVU 10.13) performed by Avery Thacker MD at [facility] O[facility] ??? PRO THYROIDECTOMY 09/02/2011 THYROIDECTOMY, TOTAL OR COMPLETE performed by VALENTINE OVIEDO at [facility] MAIN OR Date/Procedure Med's given/comments 06/01/17 mediport placement Cefazolin 2 gm IV, versed 4 mg IV, fentanyl 200 mcg IV 01/20/18 Mediport Removal Versed 3 mg IV Fentanyl 175 mcg IV Laboratory Results: Lab Results Component Value Date CREATININE 0.85 04/21/2017 Lab Results Component Value Date K 4.0 04/21/2017 Lab Results Component Value Date PLATELET 264 04/21/2017 Medications: Prior to Admission medications Medication Sig Start Date End Date Taking? Authorizing Provider ondansetron (ZOFRAN) 8 mg Tablet Take 1 tablet by mouth every 8 hours as needed for Nausea. Patient not taking: Reported on 09/29/2017 06/16/17 Junior Olivera MD Liposomal Lidocaine (LMX) 4 % Cream Apply topically as needed. Apply quarter- sized dollop to port site as needed for port access Patient not taking: Reported on 01/14/2018 06/08/17 Junior Olivera MD EMOLLIENT BASE (CREAM BASE TOP) Apply topically. Jeans Cream. Apply to area of radiation twice a day but no less than 2 hours before a treatment. PROVIDER, HISTORICAL GLUCOSAMINE SULFATE (GLUCOSAMINE ORAL) Take by mouth. PROVIDER, HISTORICAL acetaminophen (TYLENOL) 325 mg Tablet Take 2 tablets by mouth every 4 hours as needed for Pain. 04/30/17 Consuelo Benites MD metFORMIN (GLUCOPHAGE) 500 mg Tablet Take 500 mg by mouth daily. PROVIDER, HISTORICAL ERGOCALCIFEROL, VITAMIN D2, (VITAMIN D ORAL) Take 2,000 Units by mouth. PROVIDER, HISTORICAL aspirin 81 mg Tablet, Chewable Take 81 mg by mouth daily. PROVIDER, HISTORICAL lisinopril-hydrochlorothiazide (PRINZIDE;ZESTORETIC) 10-12.5 mg Tablet Take 1 tablet by mouth daily. PROVIDER, HISTORICAL levothyroxine (SYNTHROID) 137 mcg tablet Take 137 mcg by mouth every morning. 10/01/11 Valentine Oviedo MD documented in this encounter H&P Notes * Jono Hartley MD - 01/19/2018 9:08 AM EST Images from the original note were not included. INTERVENTIONAL RADIOLOGY FOCUSED H&P and PRE-PROCEDURE NOTE: PCP: Home Yeager MD Referring Provider: Mady Ramos Planned Procedure: Planned procedure: Mediport removal Mediport removal Procedure Indication: Completion of chemotherapy Order Questions Answers Where will study be performed? [facility] [120] Reason for exam and clinical history: pt completed chemo Exam/Procedure requested: remove port please Is the patient on anticoagulant / anitplatelet therapy ? Aspirin Presenting Diagnosis/ Complaint: Zoë Preston is a 57 y.o. 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 Right IJ Mediport placed 06/01/2017 Patientcompleted chemotherapy and no longer requires Mediport. Past Medical/Surgical History: Patient Active Problem List Diagnosis Code ??? HTN (hypertension) I10 ??? Obesity E66.9 ??? Goiter E04.9 ??? Thyroid nodule E04.1 ??? S/P thyroidectomy Z98.890 ??? Malignant neoplasm of left breast in female, estrogen receptor negative C50.912, Z17.1 Past Medical History: Diagnosis Date ??? Goiter 08/06/2011 ??? HTN (hypertension) 08/06/2011 ??? Malignant neoplasm of left breast in female, estrogen receptor negative 04/13/2017 ??? Obesity 08/06/2011 Past Surgical History: Procedure Laterality Date ??? PRG SOMATOSENSORY TEST, ANY/ALL PER. NERVES, TRUNK OR HEAD 09/02/2011 FACIAL NERVE MONITORING, SETUP performed by VALENTINE OVIEDO at [facility] MAIN OR ??? PRO BX/REMV, LYMPH NODE, DEEP AXILL Left 04/30/2017 BIOPSY OR EXCISION OF LYMPH NODE(S), OPEN, DEEP AXILLARY NODE(S) (WRVU 6.43) performed by Avery Thacker MD at [facility] O[facility] ??? PRO EXCISE BREAST LES W XRAY MARKER Left 04/30/2017 EXCISION LESION, BREAST W/ PREOP.MARKER (NEEDLE LOC.) (WRVU 6.69) performed by Avery Thacker MDat [facility] ??? PRO INTRAOP SENTINEL LYMPH ID W/DYE INJECTION Left 04/30/2017 INTRAOPERATIVE ID (MAPPING) SENTINEL LYMPH NODE,INCLUDES INJECTION (WRVU 2.5) performed by Avery Thacker MD at [facility] ??? PRO MASTECTOMY, PARTIAL Left 04/30/2017 MASTECTOMY PARTIAL (WRVU 10.13) performed by Avery Thacker MD at [facility] ??? PRO THYROIDECTOMY 09/02/2011 THYROIDECTOMY, TOTAL OR COMPLETE performed by VALENTINE OVIEDO at [facility] MAIN OR Medications: Current Outpatient Medications on File Prior to Encounter Medication Sig Dispense Refill ??? ondansetron (ZOFRAN) 8 mg Tablet Take 1 tablet by mouth every 8 hours as needed for Nausea. (Patient not taking: Reported on 09/29/2017) 30 tablet 1 ??? Liposomal Lidocaine (LMX) 4 % Cream Apply topically as needed. Apply quarter-sized dollop to port site as needed for port access (Patient not taking: Reported on 01/14/2018) 45 g 3 ??? EMOLLIENT BASE (CREAM BASE TOP) Apply topically. Jeans Cream. Apply to area of radiation twice a day but no less than 2 hours before a treatment. ??? GLUCOSAMINE SULFATE (GLUCOSAMINE ORAL) Take by mouth. ??? acetaminophen (TYLENOL) 325 mg Tablet Take 2 tablets by mouth every 4 hours as needed for Pain. ??? metFORMIN (GLUCOPHAGE) 500 mg Tablet Take 500 mg by mouth daily. ??? ERGOCALCIFEROL, VITAMIN D2, (VITAMIN D ORAL) Take 2,000 Units by mouth. ??? aspirin 81 mg Tablet, Chewable Take 81 mg by mouth daily. ??? lisinopril-hydrochlorothiazide (PRINZIDE;ZESTORETIC) 10-12.5 mg Tablet Take 1 tablet by mouth daily. ??? levothyroxine (SYNTHROID) 137 mcg tablet Take 137 mcg by mouth every morning. 30 tablet 0 No current facility-administered medications on file prior to encounter. Allergies: Compazine [prochlorperazine] and Iron Social History and Habits: Social History Socioeconomic History ??? Marital status: Spouse name: Not on file ??? Number of children: Not on file ??? Years of education: Not on file ??? Highest education level: Not on file Social Needs ??? Financial resource strain: Not on file ??? Food insecurity - worry: Not on file ??? Food insecurity - inability: Not on file ??? Transportation needs - medical: Not on file ??? Transportation needs - non-medical: Not on file Occupational History ??? 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 Smoking status: Former Smoker Last attempt to quit: 03/09/1998 Years since quittin.8 ??? Smokeless tobacco: Never Used Substance and Sexual Activity ??? Alcohol use: Yes Comment: occassional ??? Drug use: Not on file ??? Sexual activity: Not on file Other Topics Concern ??? Not on file Social History Narrative Former [employer] Significant Family History: Family History Problem Relation Age of Onset ??? Breast Cancer Maternal Cousin 50 In her 40's or 50's ??? Breast Cancer Maternal Cousin Possibly 2nd maternal cousin w/BR CA ??? Uterine Cancer Daughter In her 20's ??? Uterine Cancer Maternal Aunt also colon cancer ??? Ovarian Cancer Neg Hx Pertinent ROS: as per HPI Labs: Lab Results Component Value Date WBC 7.1 04/21/2017 HCT 42.4 04/21/2017 PLATELET 264 04/21/2017 BUN 17 04/21/2017 CREATININE 0.85 04/21/2017 ALKPHOS 62 04/21/2017 AST 17 04/21/2017 ALBUMIN 4.2 04/21/2017 BILITOT 0.2 04/21/2017 ALT 23 04/21/2017 PROT 7.5 04/21/2017 Imagin06/01/17 ASA: 2: Patient with mild systemic disease Mallampati: III: only the base of the uvula can be seen Cardiovascular: Rhythm: Regular Rate: Normal Pulmonary: Breath sounds clear to auscultation Consent: The sedation plan, its benefits and risks, and alternatives were discussed with the patient. The planned procedure, its benefits and risks, and alternatives were discussed with the patient. The patient consented to the procedure. Assessment: 57 y.o. female with left breast cancer s/p lumpectomy and chemotherapy here for Mediport removal. Plan: Plan Planned procedure: Mediport removal Labs to be performed day of procedure: No labs Sedation: moderate (conscious sedation) Prophylactic antibiotic :none Contrast: No contrast Additional medications for procedure: Lidocaine Planned access site: right chest wall Position: Supine Consent: Pending 01/19/2018 documented in this encounter Nursing Notes * Marco Silva RN - 01/20/2018 11:38 AM EST IV started by Evelin Alfonso MD due to difficult IV stick. Pt dhruv well. documented in this encounter Plan of Treatment Not on file documented as of this encounter Procedures Procedure Name Priority Date/Time Associated Diagnosis Comments IR MEDIPORT REMOVAL Routine 01/20/2018 1 2:16 PM EST Malignant neoplasm of left breast in female, estrogen receptor negative, unspecified site of breast documented in this encounter Results * IR Mediport Removal (01/20/2018 12:16 PM EST) Anatomical Region Laterality Modality X-Ray Angiograph y Narrative 01/20/2018 1:35 PM EST VASCULAR AND INTERVENTIONAL RADIOLOGY PROCEDURE NOTE Procedure: Removal of RIJ chest port Indication for Procedure: 57 y.o. female with triple negative stage I invasive ductal carcinoma of left breast s/p lumpectomy. Right IJ Mediport placed 06/01/2017 Patient completed chemotherapy and no longer requires Mediport. Consent: After discussing the risks (including infection, hemorrhage, damage to surrounding structures) and benefits, the patient consented to the procedure. Method of Sedation: Due to the painful nature of the procedure, patient received split doses of intravenous fentanyl and versed from the IR nurse while pulse, pressure, and oxygen saturation were continuously monitored. Technique: Prior to beginning the procedure, a standard time out Moment of Truth was performed to confirm all early aspects (including the patient's identity, informed consent, medical record number, allergies, planned procedure and laterality if appropriate) all of which were correct. The right chest over the port was prepped sterile. Maximum sterile barrier technique was used through out the procedure. The skin anesthetized with 1% lidocaine as well as bupivacaine 0.25% with epinephrine. Blunt and sharp dissection used to remove, intact, the single lumen port. Removal of the port reservoir, hub, and catheter from the patient were confirmed by their identification outside the patient. The wound was copiously irrigated. The pocket was closed using a two layer technique with absorbable suture material (2-0 vicryl deep interrupted and 4-0 vicryl running subcuticular). Skin closed with indermil. Medications: See EMR Antibiotic Prophylaxis: NONE EBL: <5 cc Complications: ??No immediate Impression: Removal of chest port as described above Procedure performed by Stephen Uribe APRN I, Stephen Uribe APRN, was present during the intraservice time as documented by the IR Nurse. I, Dr. Alfonso, was not present for the procedure. Mady Ramos APRN IMG IR ORDERABLES * Platelet count (01/20/2018 9:48 AM EST) Platelet 237 145 - 357 x10(3)/mc L [facility] Immature Plt % 4.7 0.0 - 7.4 % [facility] Comment: Limitation of the Immature Platelet Fraction (IPF)-May be less reliable when the platelet count is less than 49v037/uL due to statistical imprecision. The IPF value provides an assessment of the Bone Marrow production status. ??It is useful in differentiating Thrombocytopenia caused by platelet destruction/consumption versus decreased production. It also helps to determine the imminent release of platelets and can be therefore a helpful parameter in Chemotherapy and Bone marrow transplant patients. ELEVATED IPF value: ?? When the bone marrow is in a state of over production such as when increased destruction and consumption are the underlying issue. ?? When the marrow is recovering post chemotherapy or bone marrow transplant. LOW to NORMAL IPF value: ?? When the bone marrow in not responding and is in a decreased state of production. References: [employer] The Clinical Value of the Immature Platelet Fraction (IPF) in Cell Recovery Document Number [id number] 08/2010 [employer] The Role of the Immature Platelet Fraction (IPF) in the Differential Diagnosis of Thrombocytopenia, Document [id number] V05 P007/20 Blood specimen (specimen) 01/20/2018 9:48 AM EST 01/20/2018 9:51 AM EST Narrative Resulting Agency Comment Spec In Lab Mady Ramos APRN HEMATOLOGY ORDERABLE S [facility] [place] [address] documented in this encounter Visit Diagnoses Diagnosis Pre-procedure lab exam Pre-procedural laboratory examination Malignant neoplasm of left breast in female, estrogen receptor negative, unspecified site of breast documented in this encounter Administered Medications Inactive Administered Medications - up to 3 most recent administrations Medication Order MAR Action Action Date Dose Rate Site fentaNYL (PF) 50 mcg/mL injection 1 dose, Starting on Thu01/20/18 at 1108, Until Thu01/20/18 at 1145, Marco Silva: cabinet override fentaNYL 50 mcg/mL multi-dose injection 25-50 mcg, Intravenous, EVERY 5 MIN PRN, Starting on Thu01/20/18 at 1111, Until Nati 01/21/18 at 0436, Pain, per unit protocol, - Start dose 50 mcg (reduce dose to 25 mcg if history of sedation sensitivity). - Titration dose 25-50 mcg IV, (based on patient response) every 3 minutes PRN, to maintain procedural pain less than 2 per pain Scale. Maximum dose: 50 mcg/dose, 250 mcg/hour For use in Interventional Radiology (IR) only for procedural sedation with direct provider supervision and verbal order., Angio/IR (Intra-Procedure), Routine Given 01/20/2018 12:03 PM EST 50 mcg Given 01/20/2018 11:57 AM EST 50 mcg Given 01/20/2018 11:51 AM EST 50 mcg lidocaine (XYLOCAINE) 10 mg/mL (1 %) injection 10 mg 10 mg, Subcutaneous, ONCE, 1 dose, On Thu01/20/18 at 1130, For use in Interventional Radiology (IR) only for procedure with direct provider supervision and verbal order., Angio/IR (Intra-Procedure), Routine Given 01/20/2018 12:02 PM EST 10 mg lidocaine-EPINEPHrine 1 %-1:100,000 injection 1 dose, Starting on Thu01/20/18 at 1149, Until Thu01/20/18 at 1203, Marco Silva: cabinet override Given 01/20/2018 12:03 PM EST 5 mLs midazolam (PF) (VERSED) 1 mg/mL injection 1 dose, Starting on Thu01/20/18 at 1109, Until Thu01/20/18 at 1145, Marco Silva: cabinet override midazolam (PF) (VERSED) multi-dose injection 0.5-1 mg 0.5-1 mg, Intravenous, EVERY 3 MIN PRN, Starting on Thu01/20/18 at 1111, Until Nati 01/21/18 at 0436, Sleep, - Start dose; 1 mg (Reduce dose to 0.5 mg if history of sedation sensitivity). - Titration dose: 0.5 mg - 1 mg (based on patient response) every 3 minutes PRN to obtain RASS score of -3. Maximum dose: 1 mg per dose, 5 mg/hour. For use in Interventional Radiology (IR) only for procedural sedation with direct provider supervision and verbal order., Angio/IR (Intra-Procedure), Routine Given 01/20/2018 12:06 PM EST 0.5 mg Given 01/20/2018 11:57 AM EST 1 mg Given 01/20/2018 11:51 AM EST 1 mg documented in this encounter Care Teams Maintenance Services Dispatcher Relationship Specialty Start Date End Date Home Yeager MD PCP - General Family Medicine 04/21/17 documented as of this encounter
--- OUTSIDE RECORDS SUMMARY | 2024-01-08 01:11 | XMS_ITS | Encounter Summary ---
Author Organization [facility] Address [facility] [place] [address] Care Team Providers Care Retail Customer Service Specialist Name Role Phone Home Yeager MD Primary Care Provider [phone] Encounter Details Date Type Department Care Team (Late st Contact Info) Description 04/05/2020 10:00 AM EST Office Visit Hematology/Oncology at [address] [phone] Héctor Quintanilla MD [facility] DR HEMATOLOGY [place] [address] Natalia Grewal NURSE RECRUITER [address] [place] [address] DR HEMATOLOGY ONCOLOGY [place], [place] [id number] Malignant neoplasm of left breast in female, [...] Sign Reading Time Taken Comments Blood Pressure 165/74 04/05/2020 9:46 AM EST Pulse 74 04/05/2020 9:46 AM EST Temperature 36.6 ??C (97.9 ??F) 04/05/2020 9:46 AM ES T Respiratory Rate 22 04/05/2020 9:46 AM EST Oxygen Saturation 98% 04/05/2020 9:46 AM EST Inhaled Oxygen Concentration - - Weight 114.4 kg (252 lb 3.2 oz) 04/05/2020 9:46 AM EST Height 175.3 cm (5' 9) 04/05/2020 9:46 AM EST Body Mass Index 37.24 04/05/2020 9:46 AM EST documented in this encounter Progress Notes * Natalia Grewal, ZAKIA - 04/05/2020 10:00 AM EST Subjective: Patient ID: Zoë Preston is a 59 y.o. female. Patient Active Problem List Diagnosis ??? Malignant neoplasm of left breast in female, estrogen receptor negative ??? S/P thyroidectomy ??? Thyroid nodule ??? HTN (hypertension) ??? Obesity ??? Goiter HPI ?? Left breast cancer diagnosed 03/26 Mammographically detected Needle biopsy 03/26 Invasive ductal carcinoma, high-grade, SBR score 8 ER negative, [place] negative, HER-2/yoshi negative Partial mastectomy with sentinel node 04/26 7 mm tumor, 0/1 nodes AC chemotherapy x4 completed 07/24 Weekly Taxol x12 completed 10/24 Radiation completed 12/2402/24/19- Started Tamoxifen 20mg daily 03/31/19 - Tamoxifen stopped secondary to vaginal spotting, stomach cramps and leg pain. ?? INTERVAL HPI 09/29/19 Zoë Preston is a 59 yo female with left breast high grade, triple negative infiltrating ductal carcinoma diagnosed in 03/2017. (See treatment history detailed above). She comes to the [facility] today for a 6 month follow-up surveillance visit. Zoë is now 23 months out from her chemotherapy treatment with AC + T for high grade, triple negative left breast cancer. Her XRT was completed 12/2017. Her main complaint is persistent low level fatigue she reports since her chemotherapy and radiationtreatments. She is able to go about her day, but finds she needs to rest more frequently. She recently acquired a puppy, and has been trying to increase her activity by walking the dog. She has also feels the dog is good for helping her relax. She reports a healthy diet with lots of vegetables and not many sweets, and is somewhat frustrated by her weight, which she says increased after treatment and has not changed. She does not drink sodaor sugary beverages, mostly water. Zoë denies any new breast lumps, nipple discharge or breast skin changes. She denies swelling orlymphedema in her left arm. She has mild lower leg edema, not new. The symptoms of vaginal spotting, abdominal cramps and leg muscles aching resolved as soon as she stopped the Tamoxifen. INTERVAL HPI 04/05/20 Zoë Preston is a 59 yo female with left breast, high grade, triple negative infiltrating ductal carcinoma diagnosed in 03/2017. (See treatment history detailed above). She comes to the [facility] today for a 6 month follow-up surveillance visit. She was briefly on Tamoxifen for 2 months 02/24 and 03/28, but developed cramping and vaginal bleeding so it was discontinued. Zoë is now 29 months out from her chemotherapy treatment with AC + T for high grade, triple negative left breast cancer. Her XRT was completed 12/2017. She had a clinic visit with her surgical team in 10/26. Zoë tells me she has been doing very well since I last saw her in the summer. She has been working on losing weight, and has lost 16 pounds. She feels her energy is much improved over 6 months ago, and she and her have moved their trailer to his land. She says moving out of town into [facility] has helped her feel better about everything. She has more outdoor space, and feels more relaxed in this location. As Zoë puts it, the dog walks me every day. She has decreased her meal portion sizes as well and does not eat right before bed. She denies any new lumps or bumps in her breasts. She has sensitivity near the partial mastectomy incision. She has not developed swelling or lymphedema in her left arm, axilla or breast. She denies fever, recent illness, shortness of breath or chest pain. She denies any abdominal pain, and her bowels are moving well. She does have a chronic right shoulder problem that limits her ability to raise right arm. She has some occasional knee pain. Zoë is planning on a COVID vaccine when it becomes available to her. She will get it in her right arm. Allergies Allergen Reactions ??? Compazine [Prochlorperazine] Nausea And Vomiting Light sensitivity, dizzy, twitching ??? Iron Pt unsure of reaction Current medications ??? ibuprofen (Advil;Motrin) 200 mg Tablet ??? hydroCHLOROthiazide (HYDRODIURIL) 25 mg Tablet ??? lisinopril (PRINIVIL;ZESTRIL) 40 mg Tablet ??? magnesium oxide (MAG-OX) 400 mg (241.3 mg magnesium) Tablet ??? metFORMIN (GLUCOPHAGE-XR) 500 mg Tablet Sustained Release 24 hr ??? EMOLLIENT BASE (CREAM BASE TOP) ??? acetaminophen (TYLENOL) 325 mg Tablet ??? ERGOCALCIFEROL, VITAMIN D2, (VITAMIN D ORAL) ??? aspirin 81 mg Tablet, Chewable ??? levothyroxine (SYNTHROID) 137 mcg tablet Review of Systems Constitutional: Negative for activity change, appetite change, fatigue and fever. Fatigue resolving since last visit HENT: Negative. Eyes: Negative. Respiratory: Negative for cough and shortness of breath. Cardiovascular: Negative for chest pain and palpitations. Gastrointestinal: Negative for abdominal pain, constipation and diarrhea. Endocrine: Negative. Genitourinary: Negative for difficulty urinating, dysuria and vaginal bleeding. Musculoskeletal: Positive for myalgias. Right shoulder, chronic and occasional knee pain Skin: Negative. Sensitivity in area of left breast incision Neurological: Negative. Hematological: Negative for adenopathy. Does not bruise/bleed easily. Psychiatric/Behavioral: Negative. Objective: Physical Exam Constitutional: General: She is not in acute distress. Appearance: Normal appearance. HENT: Head: Normocephalic and atraumatic. Mouth/Throat: Mouth: Mucous membranes are moist. Pharynx: Oropharynx is clear. No oropharyngeal exudate. Eyes: General: No scleral icterus. Extraocular Movements: Extraocular movements intact. Neck: Musculoskeletal: Neck supple. Cardiovascular: Rate and Rhythm: Normal rate and regular rhythm. Heart sounds: Normal heart sounds. No murmur. Pulmonary: Effort: Pulmonary effort is normal. Breath sounds: Normal breath sounds. No wheezing or rales. Abdominal: General: Bowel sounds are normal. There is no distension. Palpations: Abdomen is soft. Tenderness: There is no abdominal tenderness. Musculoskeletal: Right lower leg: Edema present. Left lower leg: Edema present. Comments: +1 non-pitting edema LEs bilaterally 50% ROM right/arm shoulder. 80% ROM left/arm shoulder Lymphadenopathy: Cervical: No cervical adenopathy. Upper Body: Right upper body: No supraclavicular or axillary adenopathy. Left upper body: No supraclavicular or axillary adenopathy. Skin: General: Skin is warm and dry. Findings: No bruising or rash. Neurological: Mental Status: She is alert and oriented to person, place, and time. Motor: No weakness. Gait: Gait normal. Psychiatric: Mood and Affect: Mood normal. Thought Content: Thought content normal. Comments: Talkative, good eye contact Breast exam Left breast without new lumps. No nipple inversion or discharge. No skin changes. Well healed partial mastectomy scar on lateral aspect of breast. Right breast without new lumps. No nipple inversion or discharge. No skin changes. BP 165/74 (Patient Position: Sitting) Pulse 74 Temp 36.6 ??C (97.9 ??F) (Temporal) Resp 22 Ht 175.3 cm (5' 9) Wt 114.4 kg (252 lb 3.2 oz) SpO2 98% BMI 37.24 kg/m?? RECENT IMAGING Mammogram 10/25/19 FINDINGS: Breast density: There are scattered areas of fibroglandular density ?? There are no suspicious microcalcifications, masses, or areas of distortion. There are post treatment changes in the left breast. Benign dystrophic calcification is noted in the area around the lumpectomy bed as well as the axilla, unchanged. ?? CONCLUSION: No mammographic evidence of malignancy. ?? RECOMMENDATION: Routine annual screening. ?? BIRADS CATEGORY 2: BENIGN FINDINGS Assessment and Plan: Assessment: Zoë is a 59 yo female now 29 months out from chemotherapy treatment with AC + T for high grade, triple negative left breast cancer. XRT was completed 27 months ago. She is doing better, more energy, working successfully on losing weight and increasing activity. Bilateral breast exam today without new findings of lumps, discharge or skin alterations Plan: Encouraged Zoë to continue with healthy eating, portion control and good water intake. Encouraged increased activity such as more walking daily. F/U clinic visit for continued surveillance in 6 months with labs. She has a follow up with [facility] in May 2020. documented in this encounter Plan of Treatment Not on file documented as of this encounter Visit Diagnoses Diagnosis Malignant neoplasm of left breast in female, estrogen receptor negative, unspecified site of breast documented in this encounter Care Teams Retail Customer Service Specialist Relationship Specialty Start Date End Date Home Yeager MD PCP - General Family Medicine 04/21/17 documented as of this encounter
--- OUTSIDE RECORDS SUMMARY | 2024-01-08 01:11 | XMS_ITS | Encounter Summary ---
Author Organization [facility] [place] [address] Care Team Providers Care Picture Engraver Name Role Phone Home Yeager MD Primary Care Provider [phone] Encounter Details Date Type Department Care Team (Late st Contact Info) Description 11/22/2018 Telephone Hematology/Oncology at [address] [phone] Camila Kramer Social History Tobacco Use Types Packs/Day Years [...] on filedocumented in this encounter Care Teams Picture Engraver Relationship Specialty Start Date End Date Home Yeager MD PCP - General Family Medicine 04/21/17 documented as of this encounter
--- OUTSIDE RECORDS SUMMARY | 2024-01-08 01:11 | XMS_ITS | Encounter Summary ---
[facility] [place] [address] Care Team Providers Care Nanosystems Engineer Name Role Phone Home Yeager MD Primary Care Provider Encounter Details Date Type Department Care Team (Latest Contact Info) Description 01/02/2022 Travel Social History Tobacco Use Types Packs/Day Years [...] on filedocumented in this encounter Care Teams Nanosystems Engineer Relationship Specialty Start Date End Date Home Yeager MD PCP - General Family Medicine 04/21/17 documented as of this encounter
--- OUTSIDE RECORDS SUMMARY | 2024-01-08 01:11 | XMS_ITS | Encounter Summary ---
Author Organization [facility] [place] [address] Care Team Providers Care Patient Services Assistant Name Role Phone Home Yeager MD Primary Care Provider [phone] Encounter Details Date Type Department Care Team (Latest Contact Info) Description 05/08/2022 Travel Social History Tobacco Use Types Packs/Day [...] on filedocumented in this encounter Care Teams Patient Services Assistant Relationship Specialty Start Date End Date Home Yeager MD PCP - General Family Medicine 04/21/17 documented as of this encounter
--- OUTSIDE RECORDS SUMMARY | 2024-01-08 01:11 | XMS_ITS | Encounter Summary ---
Author Organization [facility] Address [facility] [place] [address] Care Team Providers Care Currency Examiner Name Role Phone Home Yeager MD Primary Care Provider [phone] Encounter Details Date Type Department Care Team (Late st Contact Info) Description 03/31/2019 2:30 PM EST Office Visit Hematology/Oncology at [address] [phone] Héctor Quintanilla MD [facility] DR HEMATOLOGY [place] [address] Rahel Macdonald, RN Malignant neoplasm of left [...] Sign Reading Time Taken Comments Blood Pressure 146/62 03/31/2019 2:14 PM EST Pulse 86 03/31/2019 2:14 PM EST Temperature 36.5 ??C (97.7 ??F) 03/31/2019 2:14 PM ES T Respiratory Rate 20 03/31/2019 2:14 PM EST Oxygen Saturation 99% 03/31/2019 2:14 PM EST Inhaled Oxygen Concentration - - Weight 122.8 kg (270 lb 12.8 oz) 03/31/2019 2:14 PM EST Height 167 cm (5' 5.75) 03/31/2019 2:14 PM EST Body Mass Index 44.04 03/31/2019 2:14 PM EST documented in this encounter Progress Notes * Rahel Macdonald, [place] MACHINIST - 03/31/2019 2:30 PM EST Subjective: Patient ID: Zoë Preston is a 58 y.o. female. HPI Left breast cancer diagnosed 03/26 Mammographically detected Needle biopsy 03/26 Invasive ductal carcinoma, high-grade, SBR score 8 ER negative, [place] negative, HER-2/yoshi negative Partial mastectomy with sentinel node 04/26 7 mm tumor, 0/1 nodes AC chemotherapy x4 completed 07/24 Weekly Taxol x12 completed 10/24 Radiation completed 12/2402/24/19- Started Tamoxifen 20mg daily Zoë is a 57-year-old female who returns to the [facility] accompanied by her for follow up of [...] new lumps or bumps. 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 She is here to discuss tolerance to Tamoxifen. She is having side effects from the medication. She is having pain in her legs that feel like needles. She is having abdominal cramping like she is having a period and she had some spotting. She is gaining more weight and is not happy about that. After discussion we decided she will stop the Tamoxifen and continue surveillance visits. Patient Active Problem List Diagnosis Code ??? HTN (hypertension) I10 ??? Obesity E66.9 ??? Goiter E04.9 ??? Thyroid nodule E04.1 ??? S/P thyroidectomy Z98.890 ??? Malignant neoplasm of left breast in female, estrogen receptor negative C50.912, Z17.1 Current Outpatient Medications: ??? tamoxifen (NOLVADEX) 20 mg Tablet, Take 20 mg by mouth daily., Disp: , Rfl: [...] Review of Systems Constitutional: Negative for fatigue, fever. Gaining weight. HENT: Negative for nosebleeds. Respiratory: Negative for cough and shortness of breath. Cardiovascular: Negative for chest pain and palpitations. Gastrointestinal: Negative for abdominal pain and diarrhea. Genitourinary: Positive for vaginal spotting. Musculoskeletal: Negative for back pain. Pain in legs. Skin: Negative for rash. Neurological: Negative for [...] no tenderness. Musculoskeletal: She exhibits no edema. No tenderness in calves. Lymphadenopathy: She has no cervical adenopathy. Neurological: [...] sure she is tolerating therapy. Plan: 1. Continue Breast Cancer-triple negative surveillance visits every 3 months with [facility]. Yearly mammograms. 2. Discontinue Tamoxifen. Patient unable to tolerate. 2. Increase daily exercise as tolerated. Healthy diet to include fresh fruits and vegetables. 3. Mammogram due in July when she will follow up with Dr. Thacker. 4. Follow up in 3 months for surveillance visit. documented in this encounter Plan of Treatment Not on file documented as of this encounter Visit Diagnoses Diagnosis Malignant neoplasm of left breast in female, estrogen receptor negative, unspecified site of breast documented in this encounter Care Teams Currency Examiner Relationship Specialty Start Date End Date Home Yeager MD PCP - General Family Medicine 04/21/17 documented as of this encounter
--- OUTSIDE RECORDS SUMMARY | 2024-01-08 01:11 | XMS_ITS | Encounter Summary ---
[place] [address] Care Team Providers Care Customer Technical Services Manager Name Role Phone Home Yeager MD Primary Care Provider [phone] Encounter Details Date Type Department Care Team (Late st Contact Info) Description 10/24/2021 Orders Only Hematology [place] [phone] She Faulkner Social History Tobacco Use Types Packs/Day Years [...] filedocumented in this encounter Care Teams Customer Technical Services Manager Relationship Specialty Start Date End Date Home Yeager MD PCP - General Family Medicine 04/21/17 documented as of this encounter
--- OUTSIDE RECORDS SUMMARY | 2024-01-08 01:11 | XMS_ITS | Encounter Summary ---
Author Organization [facility] Address [facility] [place] [address] Care Team Providers Care Neurophysiologist Name Role Phone Home Yeager MD Primary Care Provider [phone] Encounter Details Date Type Department Care Team (Latest Contact Info) Description 10/25/2019 9:12 AM EDT - 10/25/2019 11:59 PM EDT Hospital Encounter Mammography/[place] [phone] Lashanda Stevens APRN [facility] [place] [address] Encounter for screening mammogram for breast cancer Discharge Disposition: Home Social History Tobacco Use [...] on file documented as of this encounter Medications at Time of Discharge Medication Sig Dispensed Refills Start Date End Date ibuprofen (Advil;Motrin) 200 mg Tablet Take 600 mg by mouth daily. hydroCHLOROthiazide (HYDRODIURIL) 25 mg Tablet Take 25 mg by mouth daily. 11/21/2018 lisinopril (PRINIVIL;ZESTRIL) 40 mg Tablet Take 40 mg by mouth daily. 11/21/2018 magnesium oxide (MAG-OX) 400 mg (241.3 mg magnesium) Tablet Take 400 mg by mouth daily. 07/10/2018 acetaminophen (TYLENOL) 325 mg Tablet Take 2 [...] 500 mg by mouth nightly. 11/12/2017 05/08/2022 documented as of this encounter Plan of Treatment Not on file documented as of this encounter Procedures Procedure Name Priority Date/Time Associated Diagnosis Comments MAMMO SCREENING CAD AND MARLON BILATERAL Routine 10/25/2019 9:42 AM EDT Encounter for screening mammogram for breast cancer documented in this encounter Results * Mammo Screening Cad and Marlon Bilateral (10/25/2019 9:42 AM EDT) Anatomical Region Laterality Modality Breast Bilateral Mammography Narrative 10/25/2019 9:57 AM EDT EXAMINATION: MAMMO SCREENING CAD AND MARLON BILATERAL REASON FOR EXAM: Screening. History of left breast cancer. TECHNIQUE: CC and MLO views were obtained of both breasts. Computer aided detection was used. 3D tomosynthesis images were obtained in addition to 2D images. COMPARISON: The study is compared with prior images. FINDINGS: Breast density: There are scattered areas of fibroglandular density There are no suspicious microcalcifications, masses, or areas of distortion. There are post treatment changes in the left breast. Benign dystrophic calcification is noted in the area around the lumpectomy bed as well as the axilla, unchanged. CONCLUSION: No mammographic evidence of malignancy. RECOMMENDATION: Routine annual screening. BIRADS CATEGORY 2: BENIGN FINDINGS * ??Regular screening mammograms starting between age 40 and 50 reduces the risk of from breast cancer. * ??All screening tests have both risks and benefits. These risks and benefits should be assessed for each individual patient through discussion with their provider to determine their preferred breast cancer screening schedule. * ??Women should report any breast changes to a health care provider right away. * ??Some women, because of their family history, a genetic tendency, or other factors, should be screened with annual breast MRI as well as with mammograms. (The number of women who fall into this category is very small). Patients and health care providers should discuss each patients history to decide if earlier screening and/or breast MRI are appropriate. * ??Screening should continue as long as a woman is in good health and is expected to live 10 years or longer. * ??Screening mammography may not detect 10-15% of breast cancers. Thank you for letting us participate in the care of this patient. For questions regarding this report, please contact the number below. ? Lashanda Stevens APRN IMG MAMMO ORD ERABLES documented in this encounter Visit Diagnoses Diagnosis Encounter for screening mammogram for breast cancer documented in this encounter Care Teams Neurophysiologist Relationship Specialty Start Date End Date Home Yeager MD PCP - General Family Medicine 04/21/17 documented as of this encounter
--- OUTSIDE RECORDS SUMMARY | 2024-01-08 01:11 | XMS_ITS | Encounter Summary ---
Author Organization [facility] Address [facility] [place] [address] Care Team Providers Care Sewer And Drain Technician Name Role Phone Home Yeager MD Primary Care Provider [phone] Encounter Details Date Type Department Care Team (Late st Contact Info) Description 01/20/2018 3:30 PM EST Office [place] [address] Avery Thacker MD [facility] [place] [address] Malignant neoplasm of left breast in female, [...] on file documented as of this encounter Progress Notes * Avery Thacker MD - 01/20/2018 3:30 PM EST Zoë Cervantes is a 57-year-old woman who returns after left breast partial mastectomy and left axillary sentinel node excision on April 30, 2017. She had 2 lesions that were targeted: lesion one was a invasive ductal carcinoma, 7 mm in diameter,ER NM and HER-2 yoshi negative. Margins were negative. One sentinel node was negative. Lesion 2 in the left breast was atypical ductal hyperplasia on excisional biopsy. She was treated with adjuvant chemo and XRT. She now returns for check. She has not felt any breast masses. On physical exam there are no right or left breast masses. No axillary adenopathy. No arm edema, full ROM. Left mammo from today: benign. Impression: No evidence of breast cancer recurrence. Plan: I will see her back in surgical clinic in 6 months with a bilateral mammogram. documented in this encounter Plan of Treatment Not on file documented as of this encounter Results * Mammo Screening Cad and Marlon Bilateral (08/04/2018 9:29 AM EDT) Anatomical Region Laterality Modality Breast Bilateral Mammography Narrative 08/04/2018 9:35 AM EDT EXAMINATION: MAMMO SCREENING CAD AND MARLON BILATERAL REASON FOR EXAM: Screening. History of left breast cancer. TECHNIQUE: CC and MLO views were obtained of both breasts. Computer aided detection was used. 3D tomosynthesis images were obtained in addition to 2D images. COMPARISON: The study is compared with prior images. FINDINGS: Breast density: The breasts are heterogeneously dense, which may obscure small masses There are no suspicious microcalcifications, masses, or areas of distortion. There are post treatment changes in the left breast. CONCLUSION: No mammographic evidence of malignancy. RECOMMENDATION: Routine annual screening. BIRADS CATEGORY 2: BENIGN FINDINGS * ??Medical organizations agree that annual screening mammography beginning at age 40 saves the most lives. * ??The risks of screening are negligible compared to dying from breast cancer or suffering from more aggressive treatment required when detected at a later stage. * ??No woman is at low risk for breast cancer. * ??Some women, because of their family history, a genetic tendency, or certain other factors, should be screened with breast MRI along with mammograms. (The number of women who fall into this category is very small). The patient and health care provider should discuss the patient history and decide if earlier screening and breast MRI are appropriate. * ??Screening should continue as long as a woman is in good health and is expected to live 10 years or longer. * ??Screening mammography may not detect 10-15% of breast cancers. * ??Women should report any breast changes to a health care provider right away. Thank you for letting us participate in the care of this patient. For questions regarding this report, please contact the number below. ? Electronically signed by: Rosio Schuster [facility] ([phone]), at 08/04/2018 9:35 AM Avery Thacker MD IMG MAMMO ORDERABLES documented in this encounter Visit Diagnoses Diagnosis Malignant neoplasm of left breast in female, estrogen receptor negative, unspecified site of breast Malignant neoplasm of left breast in female, estrogen receptor negative, unspecified site of breast documented in this encounter Care Teams Sewer And Drain Technician Relationship Specialty Start Date End Date Home Yeager MD PCP - General Family Medicine 04/21/17 documented as of this encounter
--- OUTSIDE RECORDS SUMMARY | 2024-01-08 01:11 | XMS_ITS | Encounter Summary ---
Author Organization [facility] [place] [place] [address] Care Team Providers Care Cougar Hunter Name Role Phone Home Yeager MD Primary Care Provider [phone] Encounter Details Date Type Department Care Team (Latest Contact Info) Description 01/20/2018 9:30 AM EST Laboratory Appointment Lab [address] [place] [phone] Pre-procedure lab exam Social History Tobacco Use Types Packs/Day Years [...] Procedure Name Priority Date/Time Associated Diagnosis Comments PLATELET COUNT STAT 01/20/2018 9:48 AM EST Pre-procedure lab exam documented in this encounter Results * Platelet count (01/20/2018 9:48 AM EST) Platelet 237 145 - 357 x10(3)/mc L [facility] Immature Plt % 4.7 0.0 - 7.4 % [facility] Comment: Limitation of the Immature Platelet Fraction (IPF)-May be less reliable when the platelet count is less than 44e227/uL due to statistical imprecision. The IPF value [...] in a decreased state of production. References: [employer] The Clinical Value of the Immature Platelet Fraction (IPF) in Cell Recovery Document Number 10-1143 08/2010 [employer] The Role of the Immature Platelet Fraction (IPF) in the Differential Diagnosis of Thrombocytopenia, Document MKT-[id number] V007/18/13 P007/20 Blood specimen (specimen) 01/20/2018 9:48 AM EST 01/20/2018 9:51 AM EST Narrative Resulting Agency Comment Spec In Lab Mady Ramos SUBSTATION ENGINEER HEMATOLOGY ORDERABLE S Performing Organization Address City/State/[facility] Co de Phone Number [facility] [place] [address] documented in this encounter Visit Diagnoses Diagnosis Pre-procedure lab exam Pre-procedural laboratory examination documented in this encounter Care Teams Cougar Hunter Relationship Specialty Start Date End Date Home Yeager MD PCP - General Family Medicine 04/21/17 documented as of this encounter
--- OUTSIDE RECORDS SUMMARY | 2024-01-08 01:11 | XMS_ITS | Encounter Summary ---
Author Organization [facility] [place] [address] Care Team Providers Care Credit Product Analyst Name Role Phone Home Yeager MD Primary Care Provider [phone] Encounter Details Date Type Department Care Team (Late st Contact Info) Description 10/25/2019 10:40 AM EDT Office [place] [address] Lashanda Stevens APRN [facility] [place] [address] Encounter for follow-up surveillance of breast cancer; Malignant neoplasm of upper-outer quadrant of left breast in female, estrogen receptor negative; Breast cancer screening by mammogram Social History Tobacco Use Types Packs/Day Years [...] as of this encounter Progress Notes * Lashanda Stevens APRN - 10/25/2019 10:40 AM EDT Images from the original note were not included. Patient ID: Zoë Preston is a 59 y.o. female HPI: Zoë is a patient of Dr. 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 She is status post partial mastectomy and sentinel node excision on April 30, 2017. At today's visit, Zoë denies any new lumps or bumps in her breasts or axilla. She occasional performs self-breast exams. No nipple discharge or pain in either breast. She denies any headaches. Shereports gaining about 50 pounds since her chemotherapy ended. No new chest pain or difficulty breathing. No new bony pain or tenderness. She denies any significant changes to her health since her last visit. Breast cancer history: Zoë had a screening mammogram that showed a mass at 2:00, 12 cm from her left nipple. This was lesion #1: it was an 8 mm mass. Core biopsy of this showed infiltrating ductal carcinoma, ER, OK and HER-2 yoshi negative. ?? Lesion 2 in the left breast was identified as calcifications 6 mm in size at 3:00, 8 cm from her nipple. Biopsy of this this showed atypical ductal hyperplasia, bordering on ductal carcinoma in situ. Left breast cancer diagnosed 03/2017 Mammographically detected Needle biopsy 03/2017 Invasive ductal carcinoma, high-grade, SBR score 8 ER negative, OK negative, HER-2/yoshi negative Partial mastectomy with sentinel node 04/2017 7 mm tumor, 0/1 nodes AC chemotherapy x4 completed 07/2017 Weekly Taxol x12 completed 10/2017 Radiation completed 12/2017 ?? Surgical Pathology: DIAGNOSIS A - Left breast, partial mastectomy: 1. Invasive ductal carcinoma (Lesion 1) (see Synoptic Report) 2. Ductal carcinoma in-situ 3. Focal residual severely atypical ductal hyperplasia (0.2 cm), bordering on ductal ??carcinoma in-situ (Lesion 2) 4. Adenosis, usual ductal hyperplasia, apocrine metaplasia, and cysts 5. Biopsy site changes (x2) B - Left axillary sentinel lymph node, excision: One lymph node, no malignancy identified (0/1) ER: Negative OK: Negative HER2 FISH: Negative Comprehensive Breast Program Surgery Follow Up: Range of motion of surgical arm complete Lymphedema present Not currently. Saw PT after surgery, but no problems since. Cosmesis-surgeon reported Cosmesis-patient reported Good Good Local or regional recurrence No Contralateral cancer present No Distant recurrence present No Date of last follow up 10/25/2019 Breast Cancer Risk Factors: History G(?) P3 Age at delivery of first child 14 yo Breast fed No Oral contraceptive use Yes Menarche age 11 yo LMP Ablation in 2014 Hormone replacement therapy No Family history of breast cancer Two maternal cousins Family history of ovarian cancer No Known genetic mutation Recommended but declined Family History Problem (# of Occurrences) Relation (Name,Age of Onset) Breast Cancer (2) Maternal Cousin (50): In her 40's or 50's, Maternal Cousin: Possibly 2nd maternalcousin w/BR CA Uterine Cancer (2) Daughter: In her 20's, Maternal Aunt: also colon cancer Negative family history of: Ovarian Cancer Social Hx: She is not currently working. She feels she really hasn't regained her strength and stamina since her treatment. She walks the dog, but no other exercise. She enjoys crocheting, but because of carpal tunnel symptoms, she finds she cannot do it for long. She is an occasional smoker; no ETOH. Past Surgical Hx: Thyroidectomy Past Medical Hx: HTN Physical Exam: General appearance: Alert, well-developed female in no acute distress. Skin: Warm and dry. Head: Normocephalic, atraumatic. Neck: Soft and supple without adenopathy. Cardiovascular: Normal rate, regular rhythm and normal heart sounds. No murmur heard. Pulmonary: Effort normal and breath sounds normal. No respiratory distress, cough, or wheezing. Breasts: Left breast with thickened lateral scar with some retraction and increased skin pigmentation. Right breast appears normal. No suspicious masses, tenderness, dimpling, erythema, or other skinchanges in either breast. No nipple discharge or other nipple changes. No palpable axillary lymph nodes bilaterally. The patient's breasts are large and asymmetric, L<R. The nipples are everted. Musculoskeletal: Arms with full ROM without any evidence of lymphedema. Fully weight-bearing. Neurological: Alert and oriented x 4. Mood is euthymic and appropriate to the situation. Results: Imaging performed (bilateral mammogram) at [facility] today shows no evidence of malignancy, BIRADS Category 2 with scattered areas of fibroglandular density. There are post treatment changes on the left and benign dystrophic calcification is noted in the area around the lumpectomy bed as well as the axilla, unchanged. breasts. The results were reviewed with her at today's appointment. Assessment: Clinical breast exam without notable masses, skin changes, dimpling, or nipple discharge. Stable exam. Plan: 1. Encounter for follow-up surveillance of breast cancer alignant neoplasm of upper-outer quadrant of left breast in female, estrogen receptor negative 3. Breast cancer screening by mammogram - Mammo Screening Cad and Marlon Bilateral; Oct 2020 I will see her back in a year with a mammogram and a clinical breast exam. She will also contact meif she develops any new breast changes or concerns prior to that time. She agrees to this plan. Routine recommendations discussed with the patient including importance of regular moderate intensity exercise, nutrition, decreasing cardiovascular risk, and optimizing weight. All questions were answered to the patient's satisfaction and they state understanding and agreement with today's treatment plan. They are encouraged to follow up sooner if they develop any new or concerning symptoms. Lashanda Stevens APRN Surgical Oncology P [phone] F [phone] [facility] documented in this encounter Plan of Treatment Not on file documented as of this encounter Results * Mammo Screening Cad and Marlon Bilateral (11/19/2020 9:00 AM EDT) Anatomical Region Laterality Modality Breast Bilateral Mammography Narrative 11/19/2020 9:26 AM EDT EXAMINATION: MAMMO SCREENING CAD AND MARLON BILATERAL REASON FOR EXAM: Screening. History of left breast cancer. TECHNIQUE: CC and MLO views were obtained of both breasts. Computer aided detection was used. 3D tomosynthesis images were obtained in addition to 2D images. COMPARISON: The study is compared with prior images, dating back to 03/11/2004. FINDINGS: Breast density: There are scattered areas of fibroglandular density. There are no suspicious microcalcifications, masses, or areas of distortion. There is a stable benign-appearing focal asymmetry in the upper outer right breast. There are stable post treatment changes in the left breast. The pattern is stable. CONCLUSION: No mammographic evidence of malignancy. RECOMMENDATION: [...] Patients and health care providers should discuss the history of each patient to decide if earlier screening and/or breast MRI are appropriate. * ??Screening should continue as long as a woman is in good health and is expected to live 10 years or longer. * ??Screening mammography may not detect 10-15% of breast cancers. Thank you for letting us participate in the care of this patient. ??If you are a health care provider and have any questions regarding this report, please contact the number below. ??For patients who have questions please contact the health career development specialist that requested your imaging first. ? Lashanda Stevens APRN IMG MAMMO ORD ERABLES documented in this encounter Visit Diagnoses Diagnosis Encounter for follow-up surveillance of breast cancer Unspecified follow-up examination Malignant neoplasm of upper-outer quadrant of left breast in female, estrogen receptor negative Breast cancer screening by mammogram Malignant neoplasm of upper-outer quadrant of left breast in female, estrogen receptor negative Breast cancer screening by mammogram documented in this encounter Care Teams Credit Product Analyst Relationship Specialty Start Date End Date Home Yeager MD PCP - General Family Medicine 04/21/17 documented as of this encounter
--- OUTSIDE RECORDS SUMMARY | 2024-01-08 01:11 | XMS_ITS | Encounter Summary ---
Author Organization [facility] Address [facility] [place] [address] Care Team Providers Care Transport Engineer Name Role Phone Home Yeager MD Primary Care Provider [phone] Reason for Visit * Reason Comments Radiation Follow-up Encounter Details Date Type Department Care Team (Late st Contact Info) Description 05/07/2020 1:00 PM EST Office Visit Radiation Oncology at [address] [phone] Kaya Stovall MD [facility] [place] [address] Malignant neoplasm of upper-outer quadrant of left [...] Sign Reading Time Taken Comments Blood Pressure 152/92 05/07/2020 1:05 PM EST Pulse 78 05/07/2020 1:05 PM EST Temperature 36.5 ??C (97.7 ??F) 05/07/2020 1:05 PM ES T Respiratory Rate 16 05/07/2020 1:05 PM EST Oxygen Saturation 98% 05/07/2020 1:05 PM EST Inhaled Oxygen Concentration - - Weight 115.8 kg (255 lb 3.2 oz) 05/07/2020 1:05 PM EST Height - - Body Mass Index 37.69 04/05/2020 9:46 AM EST documented in this encounter Patient Instructions * Patient Instructions* Kaya Stovall MD - 05/07/2020 1:00 PM EST Your exam is without worrisome finding. I would like to see you for followup in 6 months. Someone will contact you to schedule appointment. documented in this encounter Progress Notes * Kaya Stovall MD - 05/07/2020 1:00 PM EST Images from the original note were not included. CC: Sched'd fu s/p xrt completion. HPI: Zoë is a 59 y/o f who completed xrt to L breast 2 yrs, 4.5 mos ago (12/21/17) for breast ca, L, [...] Tree Stevens APRN, rtc 1 yr w/mmg. ROS: No pain. No hand/arm swelling. ROM arms around shoulders @ baseline, which is w/some deficit due to injuries sustained in childhood. Energy level good enough to walk 1 y/o aussidoodle. Past Medical History: Diagnosis Date ??? Goiter [...] IR Mediport Removal 01/20/2018 Stephen Uribe APRN [facility] RAD ??? PRG SOMATOSENSORY TEST, ANY/ALL PER. NERVES, TRUNK OR HEAD 09/02/2011 FACIAL NERVE MONITORING, SETUP performed by VALENTINE OVIEDO at [facility] MAIN OR ??? PRO BX/REMV, LYMPH NODE, DEEP AXILL Left 04/30/2017 BIOPSY OR EXCISION OF LYMPH NODE(S), OPEN, DEEP AXILLARY NODE(S) (WRVU 6.43) performed by Avery Thacker MD at [facility] OSC ??? PRO EXCISE BREAST LES W XRAY MARKER Left 04/30/2017 EXCISION LESION, BREAST W/ PREOP.MARKER (NEEDLE LOC.) (WRVU 6.69) performed by Avery Thacker MDat [facility] OSC ??? PRO INTRAOP SENTINEL LYMPH ID W/DYE INJECTION Left 04/30/2017 INTRAOPERATIVE ID (MAPPING) SENTINEL LYMPH NODE,INCLUDES INJECTION (WRVU 2.5) performed by Avery Thacker MD at [facility] OSC ??? PRO MASTECTOMY PARTIAL Left 04/30/2017 MASTECTOMY PARTIAL (WRVU 10.13) performed by Avery Thacker MD at [facility] OSC ??? PRO THYROIDECTOMY 09/02/2011 THYROIDECTOMY, TOTAL OR COMPLETE performed by VALENTINE OVIEDO at [facility] MAIN OR Uterine ablation Your Medications Accurate as of May 07, 2020 1:14 PM. If you have any questions, ask [...] ibuprofen 200 mg Tab Commonly known as: Advil;Motrin Take 600 mg by mouth daily. 600 mg Refills: 0 levothyroxine 137 mcg Tab Commonly known as: SYNTHROID Take 137 mcg by mouth every morning. 137 mcg Quantity: 30 tablet Refills: 0 lisinopriL 40 mg Tab Commonly known as: Prinivil;Zestril Refills: 0 magnesium oxide 400 mg (241.3 mg magnesium) Tab Commonly known as: Mag-Ox Refills: 0 metFORMIN XR 500 mg Tablet sr Commonly known as: Glucophage XR Take 500 mg by mouth nightly. 500 mg Refills: 0 VITAMIN D ORAL Take 2,000 Units by mouth. 2,000 Units Refills: 0 Physical Exam Constitutional: She appears well-developed and well-nourished. No distress. BP (!) 152/92 (Patient Position: Sitting) Pulse 78 Temp 36.5 ??C (97.7 ??F) (Temporal) Resp 16 Wt 115.8 kg (255 lb 3.2 oz) SpO2 98% BMI 37.69 kg/m?? HENT: Head: Normocephalic and atraumatic. Eyes: [...] stable. A: EDUARDO. P: Rtc 6 mos. 30 mins in encounter. documented in this encounter Plan of Treatment Not on file documented as of this encounter Visit Diagnoses Diagnosis Malignant neoplasm of upper-outer quadrant of left female breast, unspecified estrogen receptor status documented in this encounter Care Teams Transport Engineer Relationship Specialty Start Date End Date Home Yeager MD PCP - General Family Medicine 04/21/17 documented as of this encounter
--- OUTSIDE RECORDS SUMMARY | 2024-01-08 01:11 | XMS_ITS | Encounter Summary ---
Author Organization [facility] [place] [address] Care Team Providers Care Shear Grinder Operator Name Role Phone Home Yeager MD Primary Care Provider [phone] Encounter Details Date Type Department Care Team (Late st Contact Info) Description 05/08/2022 2:30 PM EST Office Visit Radiation Oncology at [address] [phone] Kandi Dang APRN [facility] [place] [address] Malignant neoplasm of upper-outer quadrant of left [...] Sign Reading Time Taken Comments Blood Pressure 160/86 05/08/2022 2:29 PM EST Pulse 73 05/08/2022 2:29 PM EST Temperature 36.7 ??C (98.1 ??F) 05/08/2022 2:29 PM ES T Respiratory Rate 20 05/08/2022 2:29 PM EST Oxygen Saturation 100% 05/08/2022 2:29 PM EST Inhaled Oxygen Concentration - - Weight 114.8 kg (253 lb) 05/08/2022 2:29 PM EST Height 167.6 cm (5' 5.98) 05/08/2022 2:29 PM ES T Body Mass Index 40.86 05/08/2022 2:29 PM EST documented in this encounter Progress Notes * AltonKandi, CARE COORDINATOR - 05/08/2022 2:30 PM ESTSummary: 61 year old F dx L breast Ca IDC, gr 3, triple neg, s/p lumpectomy & SNB, pT1b pN0, stage I. S/p adjuvant chemo.XRT comp 12/21/17 [facility] [place] [address] Phone: RADIATION ONCOLOGY FOLLOW UP NOTE Patient [...] Interim HPI: Has not tolerated the tamoxifen for tx of breast cancer and this was dc'd in 2019. She is not taking anything at this time. [place] like she was going to related to side effects. She started cramping and having spotting with tamoxifen. She no longer has spotting or bleeding and is not on any hormonal tx. Rationale for tx Tamoxifen in TNBC TP53 Status as a Determinant of Pro- vs Anti-Tumorigenic Effects of Estrogen Receptor-Beta in Breast Cancer Frankie Morataya, Tess Samayoa, Judy Clements, Niko Cruz, Yady, Shane Marshall, Chio Bell, Clau Joyce??Jimmie ... Show moreAuthor Notes JNCI: Journal of the National Cancer [place], Volume 111, Issue 11, January 2019, Pages 5703-2161, https://doi.org/10.1093/jnci/khj352 Published: 22 June 2018 Medications 01/02/22 0935 Medication Sig Taking? ibuprofen (Advil;Motrin) 200 mg [...] IR Mediport Removal 01/20/2018 Stephen Uribe APRN [facility] INTERVENTIONL RAD ??? PRG SOMATOSENSORY TEST, ANY/ALL PER. NERVES, TRUNK OR HEAD 09/02/2011 FACIAL NERVE MONITORING, SETUP performed by VALENTINE OVIEDO at [facility] MAIN OR ??? PRO BX/REMV, LYMPH NODE, DEEP AXILL Left 04/30/2017 BIOPSY OR EXCISION OF LYMPH NODE(S), OPEN, DEEP AXILLARY NODE(S) (WRVU 6.43) performed by Avery Thacker MD at [facility] OSC ??? PRO EXCISE BREAST LES W XRAY MARKER Left 04/30/2017 EXCISION LESION, BREAST W/ PREOP.MARKER (NEEDLE LOC.) (WRVU 6.69) performed by Avery Thacker MDat [facility] OSC ??? PRO INTRAOP SENTINEL LYMPH ID W/DYE INJECTION Left 04/30/2017 INTRAOPERATIVE ID (MAPPING) SENTINEL LYMPH NODE,INCLUDES INJECTION (WRVU 2.5) performed by Avery Thacker MD at [facility] OSC ??? PRO MASTECTOMY PARTIAL Left 04/30/2017 MASTECTOMY PARTIAL (WRVU 10.13) performed by Avery Thacker MD at [facility] OSC ??? PRO THYROIDECTOMY 09/02/2011 THYROIDECTOMY, TOTAL OR COMPLETE performed by VALENTINE OVIEDO at [facility] MAIN OR Family History Problem Relation Age of Onset ??? Cervical Cancer Daughter In her 30's ??? Uterine Cancer Maternal Aunt ??? Colorectal Cancer Maternal Aunt ??? Skin Cancer Paternal Uncle ??? Breast Cancer Maternal Cousin 42 ??? Ovarian Cancer Neg Hx Social History Tobacco Use ??? Smoking status: Former Types: Cigarettes Quit date: 03/09/1998 Years since quittin.1 ??? Smokeless tobacco: Never Vaping Use ??? Vaping Use: Never used Substance Use Topics ??? Alcohol use: Yes Comment: occassional Review of Symptoms: Patient concerns for today's visit: Skin changes at radiation /surgery site: has skin changes such as light tanning up to L side of neck and chest. She also flushes easily there. Lymphedema of breast and/or arm:lymph edema has resolved, went to physical therapy. Massage done. Fatigue: so-so, good days and bad. Respiratory symptoms:none. No infections. Cardiac symptoms: has some palpitations when stressed or over excited. No chest pain or pressure Mood changes: she does have some decreased mood and anxiety but has not historically tolerated anti-depressants. She has a new who has been very supportive of her. Alteration sexual function/body image: she does not like the difference in size of breast. Her hairdid not come back in after tx the way she would have liked. Pain:none Lifestyle/health: Weight/diet/appetite:stable the same Sleep: so-so but this is always been the case, least little noise get waken her. Function/transportation: usually drives , pt is on disability. 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 Lifting Has hurt her joints. Altered shoulder ROM espec on L but she feels as much related to the lifting of her past who was mobidly obese. Smoking:quit 1998, minimal cig use. Alcohol:none Support/ [...] chair Physical Examination: Body mass index is 40.86 kg/m??. BP 160/86 (Patient Position: Sitting) Pulse 73 Temp 36.7 ??C (98.1 ??F) (Temporal) Resp 20 Ht 167.6 cm (5' 5.98) Wt 114.8 kg (253 lb) Constitutional: seen in clinic, no distress HENT: normocephalic, anicteric, neck supple, no adenopathy cervical, axillary, clavicular Cardiovascular: Rate and Rhythm: Normal rate and regular rhythm. Pulmonary: Effort: Pulmonary effort is normal. No cough, congestion or wheezing. 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 General: No swelling or deformity. Comments: Ambulates without assistance Skin: General: Skin is warm and dry. Neurological: General: No focal deficit present. Mental Status: alert and oriented to person, place, and time. Gait: Gait normal. Psychiatric: Mood and Affect: Mood normal. Behavior: Behavior normal. Thought Content: Thought content normal. Judgment: Judgment normal. Breast exam: She had breast exam with Dr Quintanilla today and says he did not find anything concerning. Defers second exam today. Last year: She had small dimpling at surgical incision site L breast and some fibrous tissue inferior to the incision site. A few telangiectasias at this area and these had been developing since radiation, unchanged. incison sites on breast and axillary area were well healed. Nipples were without drainage or i rregularity. Today 05/08/22: There is some neck and upper chest hyperpigmentation pt feels present since radiationmore on L side but present bilaterally. No adenopath cervical, axillary or clavicular bilaterally. There is no pain on palpation. No real lymphedema appreciated arms or axillary areas. New Imaging Reviewed this Visit: 01/02/22 MMG ?? FINDINGS: There are scattered areas of fibroglandular density. There are no suspicious microcalcifications, masses, or areas of distortion. No changes compared to prior studies; posttreatment changes on the left are again noted and remains stable.. ?? CONCLUSION: No mammographic evidence of malignancy. ? Assessment: 61 y.o. presenting for follow up of breast [...] if she has questions or concerns. Zoë Nara Preston had the opportunity to ask questions and I answered them to the best of my knowledge. Zoë M Cj Preston agreed to contact radiation oncology in between visits if she has any questions/concerns or new symptoms in regards to the radiation therapy/breast cancer # resources provided:none at this time # referrals done: Next visit: Pt now prefers to be followed by her PCP who will manage breast exams and mmg after thenext mmg due in Nov 2022. Sh eis discharged from f/u in rad onc but understands we are happy to hear from her if she has questions or concerns in survivorship. Breast cancer screening by mammogram Order placed by Surgery: Mammo Screening Cad and Marlon Bilateral; November 2022 Kandi Dang MSN, CARE COORDINATOR, SUPERINTENDENT J[employer] Nurse Practitioner Radiation Oncology documented in this encounter Plan of Treatment Not on file documented as of this encounter Visit Diagnoses Diagnosis Malignant neoplasm of upper-outer quadrant of left female breast, unspecified estrogen receptor status documented in this encounter Care Teams Shear Grinder Operator Relationship Specialty Start Date End Date Home Yeager MD PCP - General Family Medicine 04/21/17 documented as of this encounter
--- OUTSIDE RECORDS SUMMARY | 2024-01-08 01:11 | XMS_ITS | Encounter Summary ---
Author Organization [facility] [place] [address] Care Team Providers Care Obiee Consultant Name Role Phone Home Yeager MD Primary Care Provider [phone] Encounter Details Date Type Department Care Team (Late st Contact Info) Description 11/23/2018 Telephone Hematology/Oncology at [address] [phone] Camila Kramer Social History Tobacco [...] on filedocumented in this encounter Care Teams Obiee Consultant Relationship Specialty Start Date End Date Home Yeager MD PCP - General Family Medicine 04/21/17 documented as of this encounter
--- OUTSIDE RECORDS SUMMARY | 2024-01-08 01:11 | XMS_ITS | Encounter Summary ---
Author Organization [facility] [place] [address] Care Team Providers Care Utility Worker [place] Name Role Phone Home Yeager MD Primary Care Provider [phone] Encounter Details Date Type Department Care Team (Late st Contact Info) Description 10/15/2020 Ancillary Procedure Radiology Library at [facility] [place] [phone] Home Yeager MD [address] [place] [address] [address] [place], [place] [id number] Social History Tobacco Use Types Packs/Day Years [...] Procedure Name Priority Date/Time Associated Diagnosis Comments FILM LIBRARY STORAGE ONLY ULTRASOUND STUDY Routine 10/15/2020 12:00 AM EDT documented in this encounter Results * Film Library- Storage Only Ultrasound Study (10/15/2020 12:00 AM EDT) Narrative LAKEISHA - 10/16/2020 9:06 AM EDT This exam is auto-finalizing. It's purpose is for storage only. Home Yeager MD IMG FILM LIBRARY ORD ERABLES [place], [place] documented in this encounter Visit Diagnoses Not on filedocumented in this encounter Care Teams Utility Worker [place] Relationship Specialty Start Date End Date Home Yeager MD PCP - General Family Medicine 04/21/17 documented as of this encounter
--- OUTSIDE RECORDS SUMMARY | 2024-01-08 01:11 | XMS_ITS | Encounter Summary ---
Author Organization [facility] Address [facility] [place] [address] Care Team Providers Care Urinalysis Technician Name Role Phone Home Yeager MD Primary Care Provider [phone] Encounter Details Date Type Department Care Team (Latest Contact Info) Description 01/02/2022 8:04 AM EDT - 01/02/2022 11:59 PM EDT Hospital Encounter Mammography/[place] [phone] Lashanda Stevens APRN [facility] [place] [address] Malignant neoplasm of upper-outer quadrant of left breast in female, estrogen receptor negative; Breast cancer screening by mammogram Discharge Disposition: Home Social History Tobacco Use [...] MAMMO SCREENING CAD AND MARLON BILATERAL Routine 01/02/2022 8:57 AM EDT Malignant neoplasm of upper-outer quadrant of left breast in female, estrogen receptor negative Breast cancer screening by mammogram documented in this encounter Results * Mammo Screening Cad and Marlon Bilateral (01/02/2022 8:57 AM EDT) Anatomical Region Laterality Modality Breast Bilateral Mammography Narrative 01/02/2022 10:57 AM EDT REASON FOR EXAM: Screening. History of left breast cancer, status post BCT. TECHNIQUE: CC and MLO views were obtained of each breast. Computer aided detection was used. 3D tomosynthesis images were obtained in addition to 2D images. FINDINGS: There are scattered areas of fibroglandular density. There are no suspicious microcalcifications, masses, or areas of distortion. No changes compared to prior studies; posttreatment changes on the left are again noted and remains stable.. CONCLUSION: No mammographic evidence of malignancy. RECOMMENDATION: Routine screening mammography is recommended with the frequency dependent on the patient?s age, breast cancer risk factors and preference. Additional studies may be recommended for women with higher than average risk for breast cancer. A result letter has been sent to this patient by the [facility]. BI-RADS Category 2: Benign Findings * ??Regular screening mammograms starting between age [...] who have questions please contact the health care mgr that requested your imaging first. ? Electronically signed by: Margarito Gallego [facility] ([phone]), at 01/02/2022 10:57 AM Lashanda Stevens APRN IMG MAMMO ORD ERABLES documented in this encounter Visit Diagnoses Diagnosis Malignant neoplasm of upper-outer quadrant of left breast in female, estrogen receptor negative Breast cancer screening by mammogram documented in this encounter Care Teams Urinalysis Technician Relationship Specialty Start Date End Date Home Yeager MD PCP - General Family Medicine 04/21/17 documented as of this encounter
--- OUTSIDE RECORDS SUMMARY | 2024-01-08 01:11 | XMS_ITS | Encounter Summary ---
Author Organization [facility] Address [facility] [place] [address] Care Team Providers Care Box Nailer Name Role Phone Home Yeager MD Primary Care Provider [phone] Encounter Details Date Type Department Care Team (Latest Contact Info) Description 08/04/2018 8:51 AM EDT - 08/04/2018 11:59 PM EDT Hospital Encounter Mammography/[place] [phone] Avery Thacker MD [facility] [place] [address] Malignant neoplasm of left breast in female, [...] Sig Dispensed Refills Start Date End Date magnesium oxide (MAG-OX) 400 mg (241.3 mg [...] 500 mg by mouth nightly. 11/12/2017 05/08/2022 lisinopril-hydrochloro thiazide (PRINZIDE;ZESTORETIC) 10-12.5 mg Tablet Take 1 tablet by mouth daily. 11/25/2018 documented as of this encounter Plan of Treatment Not on file documented as of this encounter Procedures Procedure Name Priority Date/Time Associated Diagnosis Comments MAMMO SCREENING CAD AND MARLON BILATERAL Routine 08/04/2018 9:29 AM EDT Malignant neoplasm of left breast in female, estrogen receptor negative, unspecified site of breast documented in this encounter Results * Mammo [...] report, please contact the number below. ? Avery Thacker MD IMG MAMMO ORDERABLES documented in this encounter Visit Diagnoses Diagnosis Malignant neoplasm of left breast in female, estrogen receptor negative, unspecified site of breast documented in this encounter Care Teams Box Nailer Relationship Specialty Start Date End Date Home Yeager MD PCP - General Family Medicine 04/21/17 documented as of this encounter
--- OUTSIDE RECORDS SUMMARY | 2024-01-08 01:11 | XMS_ITS | Encounter Summary ---
Author Organization [facility] [place] [address] Care Team Providers Care Hyperbaric Technician Name Role Phone Home Yeager MD Primary Care Provider [phone] Reason for Visit * Reason Comments Follow-up Encounter Details Date Type Department Care Team (Late st Contact Info) Description 01/02/2022 9:50 AM EDT Office [place] [address] Lashanda Stevens, SOCIAL WORK SUPERVISOR [facility] [place] [address] Encounter for follow-up surveillance of breast cancer; [...] Progress Notes * Lashanda Stevens APRN - 01/02/2022 9:50 AM EDT Images from the original note were not included. Patient ID: Zoë Preston is a 61 y.o. female HPI: Zoë is a patient of Dr. 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 She is status post left partial mastectomy and sentinel node excision on April 30, 2017. At today's visit, Zoë has no breast concerns and denies any new lumps or bumps in her breasts oraxilla. She occasionally performs self-breast exams. No nipple discharge or pain in either breast. She denies any headaches or significant weight changes. No new chest pain or difficulty breathing. No new bony pain or tenderness. She denies significant changes to her health since her last visit. Breast cancer history: Zoë had a screening mammogram that showed a mass at 2:00, 12 cm from her left nipple. This was lesion #1: it was an 8 mm mass. Core biopsy of this showed infiltrating ductal carcinoma, ER, MD and HER-2 negative. ?? Lesion 2 in the left breast was identified as calcifications 6 mm in size at 3:00, 8 cm from her nipple. Biopsy of this showed atypical ductal hyperplasia, bordering on ductal carcinoma in situ. Left breast cancer diagnosed 03/2017 Mammographically detected Needle biopsy 03/2017 Invasive ductal carcinoma, high-grade, SBR score 8 ER negative, MD negative, HER-2/yoshi negative Partial mastectomy with sentinel node 04/2017 7 mm tumor, 0/1 nodes AC chemotherapy x4 completed 07/2017 Weekly Taxol x12 completed 10/2017 Radiation completed 12/2017 BREAST CANCER NOTES 11/19/2020 Method of Cancer Detection Screening mammogram 12/15/2016 Menopausal Status at Diagnosis Postmenopausal Date of Diagnostic Biopsy 03/23/2017 Local Surgery Left partial mastectomy Axillary Management SNE ([address] involved) Date of Last Surgical Procedure 04/30/2017 Histology Lesion #1 - IDC w/ DCIS; lesion #2 - ADH bordering on DCIS Location Lesion #1 at 12:00; lesion #2 at 3:00 Size of Primary Malignancy 7 mm Grade High Margins Negative ER Negative MD Negative HER-2 Negative OncotypeDx Recurrence Score N/A Chemotherapy Adjuvant ddAC-T Radiation Therapy Completed 12/21/2017 Adjuvant Endocrine Therapy N/A Genetic Testing Pending Surveillance Annual mammogram and CBE Comprehensive Breast Program Surgery Follow Up: Range of motion of surgical arm complete Lymphedema present No Cosmesis-surgeon reported Cosmesis-patient reported Good Good Local or regional recurrence No Contralateral cancer present No Distant recurrence present No Date of last follow up 11/19/2020 Breast Cancer Risk Factors: History G(?) P3 Age at delivery of first child 14 yo Breast fed No Oral contraceptive use Yes Menarche age 11 yo LMP Ablation in 2014 Hormone replacement therapy No Family history of breast cancer Two maternal cousins Family history of ovarian cancer No Ashkenazi Confucianism heritage No Known genetic mutation Specimen sent 12/2021 - awaiting results Family History Problem (# of Occurrences) Relation (Name,Age of Onset) Breast Cancer (1) Maternal Cousin (42) Cervical Cancer (1) Daughter: In her 30's Colorectal Cancer (1) Maternal Aunt Skin Cancer (1) Paternal Uncle Uterine Cancer (1) Maternal Aunt Negative family history of: Ovarian Cancer Social Hx: Zoë is not currently working. She walks the dog and tries to walk to the mailbox at least once a day. She enjoys crocheting, but because of carpal tunnel symptoms, she finds she cannot do it for long. She is a former smoker; no ETOH. Past Surgical Hx: Thyroidectomy, obesity Past Medical Hx: HTN Physical Exam: General appearance: Alert, well-developed, well-nourished; in no acute distress. Skin: Warm and dry. Head: Normocephalic, atraumatic. Neck: Soft and supple without masses or cervical adenopathy. Cardiovascular: Normal rate, regular rhythm and normal heart sounds. No murmur heard. Pulmonary: Effort normal and breath sounds normal. No respiratory distress, cough, or wheezing. Breasts: Exam performed in the upright and supine positions. Left breast with axillary and 2 lateral scars with some retraction and increased skin pigmentation. Right breast has normal appearance andcontour. No suspicious masses, tenderness, dimpling, erythema, or other skin changes in either breast. No nipple discharge or other nipple changes. No palpable axillary lymph nodes bilaterally. The patient's breasts are large and asymmetric, L<R. The nipples are everted. Musculoskeletal: Arms with full ROM without any evidence of lymphedema. Fully weight-bearing. Neurological: Alert and oriented x 4. Mood is euthymic and appropriate to the situation. Results: Imaging performed (bilateral mammogram) at [facility] today. The results are pending at the timeof today's appointment. I will call her with results when available. Assessment: Clinical breast exam without notable masses, skin changes, dimpling, or nipple discharge. Doing well without evidence of local recurrence. Stable exam. Plan: 1. Encounter for follow-up surveillance of breast cancer 2. Malignant neoplasm of upper-outer quadrant of left breast in female, estrogen receptor negative 3. Breast cancer screening by mammogram - Mammo Screening Cad and Marlon Bilateral; December 2022 I have discussed my assessment and recommendations with Zoë to include occasional self-breast exams and annual mammographic screening with clinical breast exams. Provided today's mammogram is negative, her next bilateral screening mammogram is due in one year, or sooner if indicated. I will planto see her for a clinical breast exam at that time. She will contact me if she develops any new breast changes or concerns prior to that appointment. She agrees to this plan. Survivorship recommendations: ?? Continue annual bilateral screening mammograms until life expectancy is <10 years or as long as you would consider treatment for a breast cancer if found. ?? Continue clinical breast exams at least once yearly. ?? Continue self breast awareness. ?? For any new or worsening symptoms for which cause remains undetermined, consider breast cancer recurrence. Specifically - new or worsening skeletal pain, headache, diplopia, neurologic deficits, elevated LFTs, abdominal pain/swelling, cough, or SOB. ?? Get at least 150 minutes of cardiovascular exercise and 2 days of resistance/strength training per week. Ways to include exercise at home include yoga and bone building exercise videos online. ?? Eat a mainly plant-based Mediterranean style diet. Minimize processed foods, simple carbohydrates, sugars, and artificial sweeteners. ?? Do not smoke. ?? If consuming alcohol, limit to 1 drink or less per day. ?? Maintain or achieve a healthy weight. Normal BMI < 25 for individuals under 65 years old; 22-30 for > 65 years old. ?? Manage stress levels. ?? Be cautious about exposure risk, both what you put in and on your body (ie: artificial fragrances, artificial dyes, as well as certain ingredients in makeup, hair and body care, antiperspirant, sunscreen, insect repellant, laundry detergent, fabric softener, dryer sheets, etc.). Resources to help you make informed choices for personal care products are available at EWG (Environmental Working Group) at https://www.ewg.org and free apps for your cell phone from [employer] ([employer] (Smart Operational Agricultural toolKit) Living) and [employer] ([employer]). All questions were answered to the patient's satisfaction and they state understanding and agreement with today's treatment plan. They are encouraged to follow up sooner if they develop any new or concerning symptoms. Lashanda Stevens APRN Surgical Oncology P [phone] F [phone] [facility] documented in this encounter Plan of Treatment Not on file documented as of this encounter Visit Diagnoses Diagnosis Encounter for follow-up surveillance of breast cancer Unspecified follow-up examination Malignant neoplasm of upper-outer quadrant of left breast in female, estrogen receptor negative Breast cancer screening by mammogram documented in this encounter Care Teams Hyperbaric Technician Relationship Specialty Start Date End Date Home Yeager MD PCP - General Family Medicine 04/21/17 documented as of this encounter
--- OUTSIDE RECORDS SUMMARY | 2024-01-08 01:11 | XMS_ITS | Encounter Summary ---
Author Organization [facility] [place] [address] Care Team Providers Care Surgery Consultant Name Role Phone Home Yeager MD Primary Care Provider [phone] Encounter Details Date Type Department Care Team (Late st Contact Info) Description 09/29/2019 1:30 PM EDT Office Visit Hematology/Oncology at [address] [phone] Natalia Hill APRN [address] [place] [address] DR HEMATOLOGY ONCOLOGY [place], [place] [id number] Malignant neoplasm of left breast in female, [...] Sign Reading Time Taken Comments Blood Pressure 133/54 09/29/2019 1:21 PM EDT Pulse 65 09/29/2019 1:21 PM EDT Temperature 36.5 ??C (97.7 ??F) 09/29/2019 1:21 PM ED T Respiratory Rate 16 09/29/2019 1:21 PM EDT Oxygen Saturation 97% 09/29/2019 1:21 PM EDT Inhaled Oxygen Concentration - - Weight 122.5 kg (270 lb) 09/29/2019 1:21 PM EDT Height 167 cm (5' 5.75) 09/29/2019 1:21 PM EDT Body Mass Index 43.91 09/29/2019 1:21 PM EDT documented in this encounter Progress Notes * Natalia Hill, RECORDINGS LIBRARIAN - 09/29/2019 1:30 PM EDT Subjective: Patient ID: Zoë [...] history detailed above). She comes to the [facility] today for a 6 month follow-up surveillance [...] not drink sodaor sugary beverages, mostly water. oZë denies any new breast lumps, nipple discharge or breast skin changes. She denies swelling orlymphedema in her left arm. She has mild lower leg edema, not new. The symptoms of vaginal spotting, abdominal cramps and leg muscles aching resolved as soon as she stopped the Tamoxifen. Allergies Allergen Reactions ??? Compazine [Prochlorperazine] Nausea [...] ??? EMOLLIENT BASE (CREAM BASE TOP) ??? ERGOCALCIFEROL, VITAMIN D2, (VITAMIN D ORAL) ??? aspirin 81 mg Tablet, Chewable ??? levothyroxine (SYNTHROID) 137 mcg tablet ??? acetaminophen (TYLENOL) 325 mg Tablet Review of Systems Constitutional: Positive for fatigue. Negative for activity change, appetite change and fever. HENT: Negative. Eyes: Negative. Respiratory: Negative for cough and shortness of breath. Cardiovascular: Negative for chest pain, palpitations and leg swelling. Gastrointestinal: Negative for abdominal pain, constipation and diarrhea. Endocrine: Negative. Genitourinary: Negative for difficulty urinating, dysuria and vaginal bleeding. Musculoskeletal: Positive for myalgias. Skin: Negative. Hematological: Negative for adenopathy. Does not bruise/bleed easily. Psychiatric/Behavioral: Negative. Objective: Physical Exam Constitutional: General: She is not in acute distress. Appearance: Normal appearance. HENT: Head: Normocephalic and atraumatic. Mouth/Throat: Mouth: Mucous membranes are moist. Pharynx: Oropharynx is clear. No oropharyngeal exudate. Eyes: General: No scleral icterus. Extraocular Movements: Extraocular movements intact. Neck: Musculoskeletal: Neck supple. Comments: No supraclavicular lymph nodes were palpable Cardiovascular: Rate and Rhythm: Normal rate and regular rhythm. Heart sounds: Normal heart sounds. No murmur. Pulmonary: Effort: Pulmonary effort is normal. Breath sounds: Normal breath sounds. No wheezing or rales. Abdominal: General: Bowel sounds are normal. There is no distension. Palpations: Abdomen is soft. Tenderness: There is no abdominal tenderness. Musculoskeletal: Normal range of motion. Right lower leg: Edema present. Left lower leg: Edema present. Comments: +1 non-pitting edema LEs bilaterally Lymphadenopathy: Cervical: No cervical adenopathy. Skin: General: Skin is warm and [...] or discharge. No skin changes. Well healed scar on lateral breast. Right breast without new lumps. No nipple inversion or discharge. No skin changes. Most Recent Vitals: 09/29/19 1321 BP: 133/54 Pulse: 65 Resp: 16 Temp: 36.5 ??C (97.7 ??F) SpO2: 97% Wt. 122.5 kg No Laboratory studies today Assessment and Plan: Assessment: Zoë is a 59 yo female now 23 months out from chemotherapy treatment with AC + T for high grade, triple negative left breast cancer. XRT was completed 21 months ago. She is doing pretty well. Would like to have less fatigue and lose weight. She will try to be more active with the puppy. Bilateral breast exam today without new findings of lumps, discharge or skin alterations. She is overdue to see her breast surgical team, and have a mammogram (most recent mammogram and visit with Dr. Thacker 07/25). Plan: Will have scheduling contact Dr. Thacker's office for F/U appointment and mammogram. Encouraged Zoë to continue with healthy eating and good water intake. Encouraged increased activity such as more walking daily. F/U clinic visit for continued surveillance in 6 months with labs. documented in this encounter Miscellaneous Notes * Addendum Note - Natalia Hill APRN - 09/29/2019 1:30 PM EDTAddended by: NATALIA HILL on: 09/30/2019 02:23 PM Modules accepted: Orders documented in this encounter Plan of Treatment Not on file documented as of this encounter Visit Diagnoses Diagnosis Malignant neoplasm of left breast in female, estrogen receptor negative, unspecified site of breast documented in this encounter Care Teams Surgery Consultant Relationship Specialty Start Date End Date Home Yeager MD PCP - General Family Medicine 04/21/17 documented as of this encounter
--- OUTSIDE RECORDS SUMMARY | 2024-01-08 01:11 | XMS_ITS | Encounter Summary ---
Author Organization [facility] [place] [address] Care Team Providers Care Die Attaching Machine Tender Name Role Phone Home Yeager MD Primary Care Provider Reason for Visit * Reason Comments Follow-up Encounter Details Date Type Department Care Team (Late st Contact Info) Description 11/19/2020 9:50 AM EDT Office [place] [address] Lashanda Stevens APRN [facility] [place] [address] Encounter for follow-up surveillance of breast cancer; [...] on file documented as of this encounter Patient Instructions * Patient Instructions* Lashanda Stevens APRN - 11/19/2020 9:50 AM EDT Nonpharmacologic measures to help decrease your risk of developing breast cancer include the following: ?? Get at least 30 minutes of moderate intensity physical activity above normal activity on most days of the week to reduce the risk of chronic disease in adulthood. Walking is a good choice. You also may want to do other activities, such as running, swimming, cycling, playing tennis, or other teamsports. ?? Do strength training exercises at least twice a week to maintain muscle and bone health. ?? Drink alcohol in moderation, if at all. That means no more than 1 drink a day for women or 2 perday for men. ?? Make healthy eating choices: fruits and vegetables, lean protein, and healthy fats. Minimize processed foods, simple carbohydrates, sugars, and artificial sweeteners. ?? Maintain or achieve a healthy weight. [...] laundry detergent, fabric softener, dryer sheets, etc.). [place] bans or restricts over 1,400 ingredients from personal care products. Currently, the [place] bans or restricts only 30 products. Resources to help you make informed choices for personal care products are available at EWG (Environmental Working Group) at https://www.ewg.org and free apps for your cell phone from [employer] ([employer] Living) and [employer] ([employer]). documented in this encounter Progress Notes * Lashanda Stevens APRN - 11/19/2020 9:50 AM EDT Images from the original note were not included. Patient ID: Zoë Preston is a 60 y.o. female HPI: Zoë is a patient [...] of this showed infiltrating ductal carcinoma, ER, NC and HER-2 negative. ?? Lesion 2 in the left breast was identified as calcifications 6 mm in size at 3:00, 8 cm from her nipple. Biopsy of this this showed atypical ductal hyperplasia, bordering on ductal carcinoma in situ. Left breast cancer diagnosed 03/2017 Mammographically detected Needle biopsy 03/2017 Invasive ductal carcinoma, high-grade, SBR score 8 ER negative, NC negative, HER-2/yoshi negative Partial mastectomy with sentinel [...] mm Grade High Margins Negative ER Negative NC Negative HER-2 Negative OncotypeDx Recurrence Score N/A Chemotherapy ddAC-T Radiation Therapy XRT completed 12/21/2017 Adjuvant Endocrine Therapy N/A Genetic Testing Not tested Surveillance Annual mammogram and CBE Comprehensive Breast [...] of ovarian cancer No Known genetic mutation Recommended, but declined Family History Problem (# of Occurrences) Relation (Name,Age of Onset) Breast Cancer (2) Maternal Cousin (50): In her 40's or 50's, Maternal Cousin: Possibly 2nd maternalcousin w/BR CA Cancer (1) Paternal Uncle: unknown type Cervical Cancer (1) Daughter: In her 20's Colorectal Cancer (1) Maternal Aunt Uterine Cancer (1) Maternal Aunt Negative family history of: Ovarian Cancer Social Hx: Zoë is not currently working. She feels she really hasn't regained her strength and stamina since her treatment. She walks the dog, but no other exercise. She enjoys crocheting, but because of carpal tunnel symptoms, she finds she cannot do it for long. She is a former smoker; no ETOH. Past Surgical Hx: Thyroidectomy [...] cough, or wheezing. Breasts: Left breast with axillary and 2 lateral [...] situation. Results: Imaging performed (bilateral mammogram) at [facility] today shows no evidence of malignancy, BIRADS Category 2 with scattered areas of fibroglandular density. There are post treatment changes on the left and benign dystrophic calcification is noted in the area around the lumpectomy bed as well as the axilla, unchanged. The results were reviewed with her at [...] - Mammo Screening Cad and Marlon Bilateral; November 2021 I have discussed my assessment and recommendations with Zoë to include occasional self-breast exams and annual mammographic screening with clinical breast exams. Based on her risk status, her nextbilateral screening mammogram is due in one year, or sooner if indicated. I will plan to see her for a clinical breast exam at that time. She will also contact me if she develops any new breast changes or concerns prior to that appointment. She agrees to this plan. Routine recommendations discussed with the patient including importance of regular moderate intensity exercise, nutrition, decreasing cardiovascular risk, and optimizing weight. Nonpharmacologic measures to help decrease your risk of developing breast cancer include the following: ?? Get at least 30 minutes of moderate intensity physical activity above normal activity on most days of the week to reduce the risk of chronic disease in adulthood. Walking is a good choice. You also may want to do other activities, such as running, swimming, cycling, playing tennis, or other teamsports. ?? Do strength training exercises at least twice a week to maintain muscle and bone health. ?? Drink alcohol in moderation, if at all. That means no more than 1 drink a day for women or 2 perday for men. ?? Make healthy eating choices: fruits and vegetables, lean protein, and healthy fats. Minimize processed foods, simple carbohydrates, sugars, and artificial sweeteners. ?? Maintain or achieve a healthy weight. [...] laundry detergent, fabric softener, dryer sheets, etc.). [place] bans or restricts over 1,400 ingredients from personal care products. Currently, the [place] bans or restricts only 30 products. Resources to help you make informed choices for personal care products are available at EWG (Environmental Working Group) at https://www.ewg.org and free apps for your cell phone from [employer] ([employer] Living) and [employer] ([employer]). All questions were answered to the patient's satisfaction and they state understanding and agreement with today's treatment plan. They are encouraged to follow up sooner if they develop any new or concerning symptoms. Lashanda Stevens APRN Surgical Oncology P [phone] F [phone] [facility] documented in this encounter Plan of [...] who have questions please contact the health farm or ranch animal caretaker that requested your imaging first. ? Lashanda Stevens MAGAZINE FEEDER IMG MAMMO ORD ERABLES documented in this encounter Visit Diagnoses Diagnosis Encounter for follow-up surveillance of breast cancer Unspecified follow-up examination Malignant neoplasm of upper-outer quadrant of left breast in female, estrogen receptor negative Breast cancer screening by mammogram Malignant neoplasm of upper-outer quadrant of left breast in female, estrogen receptor negative Breast cancer screening by mammogram documented in this encounter Care Teams Die Attaching Machine Tender Relationship Specialty Start Date End Date Home Yeager MD PCP - General Family Medicine 04/21/17 documented as of this encounter
--- OUTSIDE RECORDS SUMMARY | 2024-01-08 01:11 | XMS_ITS | Encounter Summary ---
Author Organization [facility] [place] [address] Care Team Providers Care Counselor Nurses' Association Name Role Phone Home Yeager MD Primary Care Provider [phone] Reason for Visit * Reason Comments Medication Refill Encounter Details Date Type Department Care Team (Late st Contact Info) Description 02/19/2021 Refill Hematology/Oncology at [address] [phone] Rahel Macdonald RN Social History Tobacco Use [...] on filedocumented in this encounter Care Teams Counselor Nurses' Association Relationship Specialty Start Date End Date Home Yeager MD PCP - General Family Medicine 04/21/17 documented as of this encounter
--- OUTSIDE RECORDS SUMMARY | 2024-01-08 01:11 | XMS_ITS | Encounter Summary ---
Author Organization [facility]ly [facility] [place] [address] Care Team Providers Care Liquefied Petroleum Gasfitter Name Role Phone Home Yeager MD Primary Care Provider [phone] Encounter Details Date Type Department Care Team (Late st Contact Info) Description 11/25/2018 9:00 AM EDT Office Visit Hematology/Oncology at [address] [phone] Abbie Herr APRN [address] [place] [phone] Malignant neoplasm of left breast in female, [...] Sign Reading Time Taken Comments Blood Pressure 144/60 11/25/2018 8:39 AM EDT Pulse 83 11/25/2018 8:39 AM EDT Temperature 36.9 ??C (98.4 ??F) 11/25/2018 8:39 AM ED T Respiratory Rate 18 11/25/2018 8:39 AM EDT Oxygen Saturation 100% 11/25/2018 8:39 AM EDT Inhaled Oxygen Concentration - - Weight 118 kg (260 lb 3.2 oz) 11/25/2018 8:39 AM EDT Height 167 cm (5' 5.75) 11/25/2018 8:39 AM EDT Body Mass Index 42.32 11/25/2018 8:39 AM EDT documented in this encounter Progress Notes * Abbie Herr, ASSISTANT STORE MANAGER - 11/25/2018 9:00 AM EDT Subjective: Patient ID: Zoë Preston is a 58 y.o. female. HPI: Left breast cancer diagnosed 03/26 Mammographically detected Needle biopsy 03/26 Invasive ductal carcinoma, high-grade, SBR score 8 ER negative, MI negative, HER-2/yoshi negative Partial mastectomy with sentinel node 04/26 7 mm tumor, 0/1 nodes AC chemotherapy x4 completed 07/24 Weekly Taxol x12 completed 10/24 Radiation completed 12/24 The patient is a 57-year-old female who returns to the [facility]. She was diagnosed witha T1N0 high-grade breast cancer that was triple negative. She underwent adjuvant chemotherapy completing that 10/24. She completed her postoperative radiation therapy 12/24. Interim History: Over the last 3 months she has continued to improve. Her energy is better. She is not using a walker anymore. Appetite is good. Her weight is up a little bit. She saw a massage therapist who showed her how to massage her left breast to soften up the scar tissue. She reports occasional constipation,for which she drinks more fluid. She denies fever, chill, night sweats or unusual bleeding. PMH, PSH, FH, and SH: Except as mentioned in the interim history, unchanged since last office visit. Review of Systems Constitutional: Negative. HENT: Negative. Eyes: Negative. Respiratory: Negative. Cardiovascular: Negative. Gastrointestinal: Positive for constipation. Endocrine: Negative. Genitourinary: Negative. Musculoskeletal: Positive for myalgias. Skin: Negative. Allergic/Immunologic: Negative. Neurological: Negative. Hematological: Negative. Psychiatric/Behavioral: Negative. Objective: Physical Exam Constitutional: She is oriented to person, place, and time. She appears well- developed and well-nourished. HENT: Head: Normocephalic and atraumatic. Nose: Nose normal. Mouth/Throat: Oropharynx is clear and moist. Eyes: Conjunctivae and EOM are normal. Neck: Normal range of motion. Neck supple. Cardiovascular: Normal rate and regular rhythm. Pulmonary/Chest: Effort normal and breath sounds normal. Abdominal: Soft. Bowel sounds are normal. Musculoskeletal: Normal range of motion. Neurological: She is alert and oriented to person, place, and time. Skin: Skin is warm and dry. Psychiatric: She has a normal mood and affect. Her behavior is normal. Vitals reviewed. Vitals: BP 144/60 (Patient Position: Sitting) Pulse 83 Temp 36.9 ??C (98.4 ??F) (Oral) Resp 18 Ht 167 cm (5' 5.75) Wt 118 kg (260 lb 3.2 oz) SpO2 100% BMI 42.32 kg/m?? 11/25/18 LABs: WBC Chem: Na+/K+ No labs Assessment and Plan: 1. Breast cancer. Treated with surgery, chemotherapy and radiation therapy Currently on clinical surveillance. 2. Follow up for annual mammograms as scheduled. 3. RTC in 3 Months for repeat evaluation and CBE. Abbie Herr, MSN, ASSISTANT STORE MANAGER, AOCNP documented in this encounter Plan of Treatment Not on file documented as of this encounter Visit Diagnoses Diagnosis Malignant neoplasm of left breast in female, estrogen receptor negative, unspecified site of breast documented in this encounter Care Teams Liquefied Petroleum Gasfitter Relationship Specialty Start Date End Date Home Yeager MD PCP - General Family Medicine 04/21/17 documented as of this encounter
--- OUTSIDE RECORDS SUMMARY | 2024-01-08 01:11 | XMS_ITS | Encounter Summary ---
Author Organization [facility] Address [facility] [place] [address] [place] [address] Care Team Providers Care Cryptographer Name Role Phone Home Yeager MD Primary Care Provider [phone] Reason for Referral * Physical Therapy (Routine) - Specialty Diagnoses / Procedures Referred By uCco britt Referred To Contact Physical Therapy Diagnoses Malignant neoplasm of upper-outer quadrant of left female breast, unspecified estrogen receptor status Localized edema Kaya Stovall MD [facility] [place] [address] Referral ID Status Reason Start Date Expiration Date V isits Requested Visits Authorized [id number] Evaluate and Treat 08/23/2018 02/19/2019 12 12 Reason for Visit * Reason Comments Radiation Follow-up Encounter Details Date Type Department Care Team (Late st Contact Info) Description 08/23/2018 2:30 PM EDT Office Visit Radiation Oncology at [address] [phone] Kaya Stovall MD [facility] [place] [address] Malignant neoplasm of upper-outer quadrant of left female breast, unspecified estrogen receptor status; Localized edema Social History Tobacco Use Types Packs/Day Years [...] Sign Reading Time Taken Comments Blood Pressure 146/72 08/23/2018 2:37 PM EDT Pulse 91 08/23/2018 2:37 PM EDT Temperature 36.3 ??C (97.3 ??F) 08/23/2018 2 :37 PM EDT Respiratory Rate 16 08/23/2018 2:37 PM EDT Oxygen Saturation 99% 08/23/2018 2:3 7 PM EDT Inhaled Oxygen Concentration - - Weight 114.8 kg (253 lb) 08/23/2018 2:3 7 PM EDT with shoes Height 167 cm (5' 5.75) 08/23/2018 2:3 7 PM EDT copied forward Body Mass Index 41.15 08/23/2018 2:37 PM EDT documented in this encounter Patient Instructions * Patient Instructions* Kaya Stovall MD - 08/23/2018 2:30 PM EDT Your exam is without worrisome finding. There is lymphedema in left breast, which I think contributes to the soreness. A type of massage therapy called manual lymphatic drainage can help to decrease the lymphedema & soreness. I have requested referral to [facility] to teach you how to do the massage therapy. Someone will contact you to schedule an appointment. We will mail you a letter with an appointment for followup in 6 months, @ which time you would be seen by me or by one of the Radiation Oncology Advanced Practice RNs. I recommend that you speak with Dr. Yeager about the numbness of your right hand. documented in this encounter Progress Notes * Kaya Stovall MD - 08/23/2018 2:30 PM EDT Images from the original note were not included. CC: Sched'd fu s/p xrt completion. HPI: 57 y/o f who completed xrt to L breast 8 mos ago (12/21/17) for breast ca, L, IDC, gr 3, triple neg, s/p lumpectomy & SNB, pT1b pN0, stage I. S/p adjuvant chemo. 01/20/18 L mmg: Benign. 04/22/18 discussion w/Dr. Quintanilla about possible use of [place]o as ca prevention. 08/04/18 B mmg: Benign 08/04/18 fu w/Dr. Thacker; encouraged to do breast massage for lymphedema; rtc 6 mos w/B mmg. ROS: Numbness R hand compared w/L; thinks she may have carpal tunnel syndrome; appt w/PCP, Dr. Yeager tomorrow. Intermittent L breast soreness. ROM arms around shoulders good. Appetite & energy level ok. Past Medical History: Diagnosis Date ??? Goiter 08/06/2011 ??? HTN (hypertension) 08/06/2011 ??? Malignant neoplasm of left breast in female, estrogen receptor negative 04/13/2017 ??? Obesity 08/06/2011 Past Surgical History: Procedure Laterality Date ??? BREAST BIOPSY Left 03/23/2017 Atypical duct hyperplasia bordering on ductal carcinoma in situ ??? BREAST LUMPECTOMY Left 04/30/2017 ??? IR MEDIPORT REMOVAL 01/20/2018 IR Mediport Removal 01/20/2018 Stephen Uribe, ZAKIA [facility] INTERVENTIONL RAD ??? PRG SOMATOSENSORY TEST, ANY/ALL PER. NERVES, TRUNK OR HEAD 09/02/2011 FACIAL NERVE MONITORING, SETUP performed by VALENTINE OVIEDO at [facility] MAIN OR ??? PRO BX/REMV, LYMPH NODE, DEEP AXILL Left 04/30/2017 BIOPSY OR EXCISION OF LYMPH NODE(S), OPEN, DEEP AXILLARY NODE(S) (WRVU 6.43) performed by Avery Thacker MD at [facility] OSC ??? PRO EXCISE BREAST LES W XRAY MARKER Left 04/30/2017 EXCISION LESION, BREAST W/ PREOP.MARKER (NEEDLE LOC.) (WRVU 6.69) performed by Avery Thacker MDat [facility] OSC ??? PRO INTRAOP SENTINEL LYMPH ID W/DYE INJECTION Left 04/30/2017 INTRAOPERATIVE ID (MAPPING) SENTINEL LYMPH NODE,INCLUDES INJECTION (WRVU 2.5) performed by Avery Thacker MD at [facility] OSC ??? PRO MASTECTOMY, PARTIAL Left 04/30/2017 MASTECTOMY PARTIAL (WRVU 10.13) performed by Avery Thacker MD at [facility] OSC ??? PRO THYROIDECTOMY 09/02/2011 THYROIDECTOMY, TOTAL OR COMPLETE performed by VALENTINE OVIEDO at [facility] MAIN OR Your Medications Accurate as of 08/23/18 3:02 PM. If you have any questions, ask [...] 2 hours before a treatment. Refills: 0 levothyroxine 137 mcg Tab Commonly known as: SYNTHROID Take 137 mcg by mouth every morning. 137 mcg Quantity: 30 tablet Refills: 0 lisinopril-hydrochlorothiazide 10-12.5 mg Tab Commonly known as: PRINZIDE;ZESTORETIC Take 1 tablet by mouth daily. 1 tablet Refills: 0 magnesium oxide 400 mg (241.3 mg magnesium) Tab Commonly known as: MAG-OX Refills: 0 metFORMIN 500 mg Tablet sr Commonly known as: GLUCOPHAGE-XR Take 500 mg by mouth nightly. 500 mg Refills: 0 VITAMIN D ORAL Take 2,000 Units by mouth. 2000 Units Refills: 0 Physical Exam Constitutional: She appears well-developed and well-nourished. No distress. BP 146/72 (Patient Position: Sitting) Pulse 91 Temp 36.3 ??C (97.3 ??F) (Oral) Resp 16 Ht 167 cm (5' 5.75) Comment: copied forward Wt 114.8 kg (253 lb) Comment: with shoes SpO2 99% BMI41.15 kg/m?? HENT: Head: Normocephalic and atraumatic. Eyes: [...] no tenderness. Left breast exhibits skin change (Mild hyperpigmentation w/mild peau d'orange from lymphedema) & mild tenderness, consistent w/expected post xrt appearance. Left breast exhibits no inverted nipple, no [...] Musculoskeletal: Good ROM arms around shoulders Neuro: Mild decreased sensation to light touch of R hand compared to L. Equal sensation to light touch throughout rest of upper exts. Hay Chopper strength 4/5 on R, 5/5 on L (R handed). Strength throughout rest of upper exts 5/5 B. A: Lymphedema L breast w/assoc'd tenderness. P: PT referral for instruction in MLD. She will ask Dr. Yeager about possible carpal tunnel syndrome on R. Rtc 6 mos. documented in this encounter Plan of Treatment Scheduled Referrals Name Type Priority Associated Diagnoses Orde r Schedule Referral to Physical Therapy Outpatient Referral Routine Malignant neoplasm of upper-outer quadrant of left female breast, unspecified estrogen receptor status Localized edema Ordered: 08/23/2018 documented as of this encounter Visit Diagnoses Diagnosis Malignant neoplasm of upper-outer quadrant of left female breast, unspecified estrogen receptor status Localized edema Edema documented in this encounter Care Teams Cryptographer Relationship Specialty Start Date End Date Home Yeager MD PCP - General Family Medicine 04/21/17 documented as of this encounter
--- OUTSIDE RECORDS SUMMARY | 2024-01-08 01:11 | XMS_ITS | Encounter Summary ---
Author Organization [facility] [place] [address] [place] [address] Care Team Providers Care Chief Telephone Operator Name Role Phone Home Yeager MD Primary Care Provider [phone] Reason for Visit * Reason Onset Date Comments Results 05/08/2022 Encounter Details Date Type Department Care Team (Late st Contact Info) Description 05/08/2022 Telephone Hematology [place] [phone] Yakov Siu V [facility] Dr Hematology/[place] [address] Results Social History Tobacco Use Types Packs/Day Years [...] on file documented as of this encounter Miscellaneous Notes * Telephone Encounter - Yakov Siu V [facility] - 05/08/2022 4:48 PM EST This test result was discussed with the patient by phone. A copy of the test results have been scanned in the medical record and sent to Zoë. A summary of the results is provided below. Please be advised that [place] law requires that all health care workers respect the confidentiality of this information and not pass it along to other health care providers, insurance companies, or indivi duals without the written permission of the patient. The Familial Cancer Program welcomes any questions about these matters. Our phone number is: [phone]. On 10/31/2021 Zoë was seen for genetic counseling and subsequently underwent genetic testing fora hereditary predisposition to breast and gynecologic cancers. Following are the results of this test. Result: [employer]'s Breast and Sand Worker Cancers Guidelines-Based Panel showed no mutation was detected. This meansthat Zoë does not carry a mutation in the genes detectable by this test. The following 19 genes were evaluated for sequence changes and exonic deletions/duplications: IRIS, BARD1, BRCA1, BRCA2, BRIP1, CDH1, CHEK2, EPCAM (EPCAM: Deletion/duplication testing only ([id number]), MLH1, MSH2, MSH6, NF1, PALB2, PMS2, PTEN, RAD51C, RAD51D, STK11, and TP53. Interpretation: This test did not identify an underlying genetic cause for the personal history of triple negative breast cancer or family history of breast or uterine cancer. Possible explanations for this negativetest result include: ?? Remas cancer and the cancer in her family may be due to non genetic, environmental causes. ?? There could be a mutation in Zoë's family that Zoë did not inherit. ?? Zoë's maternal cousin with young-onset breast cancer in her 40s still meets criteria for their own genetic counseling and testing. ?? There could be mutations in other cancer genes not included in this test, or in genes yet to be discovered. ?? There is a very small chance that a pathogenic variant/mutation could be missed due to limitations in the testing. Additional genetic testing for Zoë is not recommended at this time. Screening Recommendations Based on genetic test results and personal and/or family history, we recommend: Breast cancer screening ?? Clinical breast exams and imaging as recommended by Zoë's oncologists. Gynecologic cancer screening ?? Pelvic exams and/or Pap smears as recommended by Zoë's sales trainee or primary care provider. Colon cancer screening ?? Baseline colorectal cancer screening starting by age 45-50 is important for everyone, regardlessof genetic predisposition. ?? Periodic colonoscopy screening as recommended by Zoë's dynamics ax technical architect. Skin cancer screening ?? Skin cancer screening and sun protection are important for everyone, regardless of genetic predisposition. ?? Consideration of routine dermatologic/skin exams, as recommended by Zoë's primary care provider or cider maker. documented in this encounter Plan of Treatment Not on file documented as of this encounter Visit Diagnoses Not on filedocumented in this encounter Care Teams Chief Telephone Operator Relationship Specialty Start Date End Date Home Yeager MD PCP - General Family Medicine 04/21/17 documented as of this encounter
--- OUTSIDE RECORDS SUMMARY | 2024-01-08 01:11 | XMS_ITS | Encounter Summary ---
Author Organization [facility] Address [facility] [place] [address] Care Team Providers Care Pump Operator Byproducts Name Role Phone Home Yeager MD Primary Care Provider Encounter Details Date Type Department Care Team (Late st Contact Info) Description 10/04/2020 3:00 PM EDT Office Visit Hematology/Oncology at [address] [phone] Héctor Quintanilla MD [facility] DR [place]EMATOLOGY [place] [address] HEMATOLOGY ONCOLOGY [place], [place] [id number] Malignant neoplasm of left breast in female, [...] Sign Reading Time Taken Comments Blood Pressure 137/76 10/04/2020 2:42 PM EDT Pulse 90 10/04/2020 2:42 PM EDT Temperature 36.9 ??C (98.4 ??F) 10/04/2020 2:42 PM ED T Respiratory Rate 20 10/04/2020 2:42 PM EDT Oxygen Saturation 97% 10/04/2020 2:42 PM EDT Inhaled Oxygen Concentration - - Weight 116.7 kg (257 lb 3.2 oz) 10/04/2020 2:42 PM EDT Height 175.3 cm (5' 9.02) 10/04/2020 2:42 PM ED T Body Mass Index 37.96 10/04/2020 2:42 PM EDT documented in this encounter Progress Notes * Héctor Quintanilla MD - 10/04/2020 3:00 PM EDT Subjective: Patient ID: Zoë Preston is a 60 y.o. female. HPI Left breast cancer diagnosed 03/26 Mammographically detected Needle biopsy 03/26 Invasive ductal carcinoma, high-grade, SBR score 8 ER negative, [place] negative, HER-2/yoshi negative Partial mastectomy with sentinel node 04/26 7 mm tumor, 0/1 nodes AC chemotherapy x4 completed 07/24 Weekly Taxol x12 completed 10/24 Radiation completed 12/24 Bonilla for chemoprevention x 1 mo 02/24 The patient is a 60-year-old female who returns to the [facility]. She was diagnosed witha T1N0 high-grade breast cancer that was triple negative. She underwent adjuvant chemotherapy completing that 10/24. She completed her postoperative radiation therapy 12/24. She tried Bonilla for 30 days as prevention but did not like it. She is here for routine follow-up. She still feels pretty tired. Think she has been tired ever since her chemotherapy. Still able to do things like take her dog for a walk. She is also noticed swelling of her right arm has been going on for the last couple of months. No pain or tenderness. She doesuse a brace on the right wrist because of carpal tunnel symptoms. She is due for mammograms next month which she does with [facility] surgery. Patient Active Problem List Diagnosis Code ??? HTN (hypertension) I10 ??? Obesity E66.9 ??? Goiter E04.9 ??? Thyroid nodule E04.1 ??? S/P thyroidectomy E89.0 ??? Malignant neoplasm of left breast in female, estrogen receptor negative C50.912, Z17.1 Current Outpatient Medications: ??? ibuprofen (Advil;Motrin) [...] right biceps area, no right axillary adenopathy Laboratory data today White count 7.2, hemoglobin 13.7, platelets 257 Creatinine 0.9, alk phos 68 Assessment and Plan: 60-year-old female with a T1N0 left-sided breast cancer. She underwent partial mastectomy followed by chemotherapy and radiation therapy. Currently there are no signs of recurrence either locally or systemically. She does have some right arm swelling. This is not the side that her breast cancer was on so I do not think it is connected to her breast cancer. She could have a right upper extremity clot although the swelling has been going on for a couple of months by her history. I did take the liberty of ordering a Doppler of the right upper extremity to be sure there is no clot. In terms of breast cancer follow-up we will plan to see her back in 4 to 6 months. She will not need laboratory studies. documented in this encounter Plan of Treatment Not on file documented as of this encounter Visit Diagnoses Diagnosis Malignant neoplasm of left breast in female, estrogen receptor negative, unspecified site of breast documented in this encounter Care Teams Pump Operator Byproducts Relationship Specialty Start Date End Date Home Yeager MD PCP - General Family Medicine 04/21/17 documented as of this encounter
--- OUTSIDE RECORDS SUMMARY | 2024-01-08 01:11 | XMS_ITS | Encounter Summary ---
Author Organization [facility] Address [facility] [place] [address] Care Team Providers Care Public Health Analyst Name Role Phone Home Yeager MD Primary Care Provider [phone] Encounter Details Date Type Department Care Team (Latest Contact Info) Description 11/19/2020 8:37 AM EDT - 11/19/2020 11:59 PM EDT Hospital Encounter Mammography/[place] [phone] Lashanda Stevens APRN [facility] [place] [address] Malignant neoplasm of upper-outer quadrant of left [...] MAMMO SCREENING CAD AND MARLON BILATERAL Routine 11/19/2020 9:00 AM EDT Malignant neoplasm of upper-outer quadrant [...] who have questions please contact the health childcare teacher that requested your imaging first. ? Electronically signed by: Kassidy Osborne MD, [facility] ([phone]), at 11/19/2020 9:26 AM Lashanda Stevens APRN IMG MAMMO ORD ERABLES documented in this encounter Visit Diagnoses Diagnosis Malignant neoplasm of upper-outer quadrant of left breast in female, estrogen receptor negative Breast cancer screening by mammogram documented in this encounter Care Teams Public Health Analyst Relationship Specialty Start Date End Date Home Yeager MD PCP - General Family Medicine 04/21/17 documented as of this encounter
--- OUTSIDE RECORDS SUMMARY | 2024-01-08 01:11 | XMS_ITS | Encounter Summary ---
[facility] Organization [facility] Address [facility] [place] [address] Care Team Providers Care Rn Procedure Name Role Phone Home Yeager MD Primary Care Provider [phone] Encounter Details Date Type Department Care Team (Late st Contact Info) Description 03/14/2021 3:00 PM EST Office Visit Hematology/Oncology at [address] [phone] Héctor Quintanilla MD [facility] DR HEMATOLOG[place] [address] Natalia Grewal CLINICAL DIRECTOR [address] [place] [address] DR HEMATOLOGY ONCOLOGY [place], [place] [id number] Malignant neoplasm of left breast in female, [...] Sign Reading Time Taken Comments Blood Pressure 128/72 03/14/2021 3:02 PM EST Pulse 78 03/14/2021 3:02 PM EST Temperature 36.3 ??C (97.3 ??F) 03/14/2021 3:02 PM ES T Respiratory Rate 20 03/14/2021 3:02 PM EST Oxygen Saturation 96% 03/14/2021 3:02 PM EST Inhaled Oxygen Concentration - - Weight 113.3 kg (249 lb 12.8 oz) 03/14/2021 3:02 PM EST Height 175.3 cm (5' 9.02) 03/14/2021 3:02 PM ES T Body Mass Index 36.87 03/14/2021 3:02 PM EST documented in this encounter Progress Notes * Natalia Grewal, CLINICAL DIRECTOR - 03/14/2021 3:00 PM EST Subjective: Patient ID: Zoë Preston is a 60 y.o. female. Patient Active Problem List Diagnosis ??? Malignant neoplasm of upper-outer quadrant of left breast in female, estrogen receptor negative Zoë had a screening mammogram that showed a mass at 2:00, 12 cm from her left nipple. This was lesion #1: it was an 8 mm mass. Core biopsy of this showed infiltrating ductal carcinoma, ER, CT and HER-2 yoshi negative. ?? Lesion 2 in the left breast was identified as calcifications 6 mm in size at 3:00, 8 cm from her nipple. Biopsy of this this showed atypical ductal hyperplasia, bordering on ductal carcinoma in situ. Left breast cancer diagnosed 03/2017 Mammographically detected Needle biopsy 03/2017 Invasive ductal carcinoma, high-grade, SBR score 8 ER negative, CT negative, HER-2/yoshi negative Partial mastectomy with sentinel node 04/2017 7 mm tumor, 0/1 nodes AC chemotherapy x4 completed 07/2017 Weekly Taxol x12 completed 10/2017 Radiation completed 12/2017 ??? S/P thyroidectomy ??? Thyroid nodule ??? HTN (hypertension) ??? Obesity ??? Goiter HPI ?? Left breast cancer diagnosed 03/26 Mammographically detected Needle biopsy 03/26 Invasive ductal carcinoma, high-grade, SBR score 8 ER negative, CT negative, HER-2/yoshi negative Partial mastectomy with sentinel node 04/26 7 mm tumor, 0/1 nodes AC chemotherapy x4 completed 07/24 Weekly Taxol x12 completed 10/24 Radiation completed 12/2402/24/19- Started Tamoxifen 20mg daily 03/31/19 - Tamoxifen stopped secondary to vaginal spotting, stomach cramps and leg pain. ?? INTERVAL HPI 03/14/21 Zoë Preston is a 60 yo female with left breast, high grade, triple negative infiltrating ductal carcinoma diagnosed in 03/2017. (See treatment history detailed above). She comes to the [facility] today for a 6 month follow-up surveillance visit. She was briefly on Tamoxifen for 2 months 02/24 and 03/28, but developed cramping and vaginal bleeding so it was discontinued. She also had a clinic visit with the surgical oncology team 11/19/[address] [facility] team on11/26/20. Zoë had a normal mammogram in 11/27. Zëo tells me she has been doing well since I last saw the last clinic visit here 09/26. She continues to watch her diet and has lost 21 pounds in the past 2 years. She has outdoor space where she lives and she enjoys that. As Zoë puts it, the dog walks me every day. She has decreased her meal portion sizes as well and does not eat right before bed. She denies any new lumps or bumps in her breasts. She has sensitivity near the partial mastectomy incision. She has not developed swelling or lymphedema in her left arm, axilla or breast. She has an area of swelling in her right upper arm that was been evaluated previously by doppler and no clots were found. It is not painful. She denies abdominal pain or bowel issues. She denies fever, recent illness, shortness of breath or chest pain. She has limited ROM of both shoulders and that is not new. She has been busy making a lot of afghans for her family. Other ROS are negative. Allergies Allergen Reactions ??? Compazine [Prochlorperazine] Nausea [...] scleral icterus. Extraocular Movements: Extraocular movements intact. Cardiovascular: Rate and Rhythm: Normal rate and regular rhythm. Heart sounds: Normal heart sounds. No murmur heard. Pulmonary: Effort: Pulmonary effort is normal. Breath sounds: Normal breath sounds. No wheezing or rales. Chest: Breasts: Right: No axillary adenopathy or supraclavicular adenopathy. Left: No axillary adenopathy or supraclavicular adenopathy. Abdominal: General: Bowel sounds are normal. There is no distension. Palpations: Abdomen is soft. Tenderness: There is no abdominal tenderness. Musculoskeletal: Cervical back: Neck supple. Right lower leg: No edema. Left lower leg: No edema. Comments: Limited ROM both shoulders, approximately 60-70% Lymphadenopathy: Cervical: No cervical adenopathy. Upper Body: [...] inversion or discharge. No skin changes. BP 128/72 (Patient Position: Sitting) Pulse 78 Temp 36.3 ??C (97.3 ??F) (Temporal) Resp 20 Ht 175.3 cm (5' 9.02) Wt 113.3 kg (249 lb 12.8 oz) SpO2 96% BMI 36.87 kg/m?? RECENT IMAGING Mammogram 10/25/19 FINDINGS: Breast [...] labs. She has a follow up with [facility] in May 2020. documented in this encounter Plan of Treatment Not on file documented as of this encounter Visit Diagnoses Diagnosis Malignant neoplasm of left breast in female, estrogen receptor negative, unspecified site of breast documented in this encounter Care Teams Rn Procedure Relationship Specialty Start Date End Date Home Yeager MD PCP - General Family Medicine 04/21/17 documented as of this encounter
--- OUTSIDE RECORDS SUMMARY | 2024-01-08 01:11 | XMS_ITS ---
Author Organization [facility] [place] [address] Care Team Providers Care Esthetician/Owner Name Role Phone Home Yeager MD Primary Care Provider [phone] Active Problems Problem Noted Date Diagnosed Date Malignant neoplasm of upper- outer quadrant of left breast in female, estrogen receptor negative 04/13/2017 Overview (03/27/2022): Zoë had a screening mammogram that showed a mass at 2:00, 12 cm from her left nipple. This was lesion #1: it was an 8 mm mass. Core biopsy of this showed infiltrating ductal carcinoma, ER, [place] and HER-2 yoshi negative. ?? Lesion 2 in the left breast was identified as calcifications 6 mm in size at 3:00, 8 cm from her nipple. Biopsy of this this showed atypical ductal hyperplasia, bordering on ductal carcinoma in situ. Left breast cancer diagnosed 03/2017 Mammographically detected Needle biopsy 03/2017 Invasive ductal carcinoma, high-grade, SBR score 8 ER negative, [place] negative, HER-2/yoshi negative Partial mastectomy with sentinel node 04/2017 7 mm tumor, 0/1 nodes AC chemotherapy x4 completed 07/2017 Weekly Taxol x12 completed 10/2017 Radiation completed 12/2017 Left breast cancer diagnosed 03/26 Mammographically detected Needle biopsy 03/26 Invasive ductal carcinoma, high-grade, SBR score 8 ER negative, [place] negative, HER-2/yoshi negative Partial mastectomy with sentinel node 04/26 7 mm tumor, 0/1 nodes AC chemotherapy x4 completed 07/24 Weekly Taxol x12 completed 10/24 Radiation completed 12/24 Bonilla for chemoprevention x 1 mo 02/24 S/P thyroidectomy 10/20/2011 Thyroid nodule 08/07/2011 HTN (hypertension) 08/06/2011 Obesity 08/06/2011 Goiter 08/06/2011 Current Oncology Plans No current plan information found. Past Plans ADULT TREATMENT Plan Name Start Date Discontinue Date Treatment Medications Discontinue Reason Plan Provider Cycles BCN AMB ONC BREAST CANCER - PACLitaxel 018 10/24/2021 PACLitaxeL (Taxol) in Non-PVC sodium chloride 0.9% 250 mL infusion Therapy Complete Junior Olivera MD 3 of 3 cycles started BC AMB ONC BREAST CANCER - DOXOrubicin / CYCLOPHOSPHAMIDE (DOSE DENSE) 06/09/19 18 07/21/2017 cycloPHOSphamide (Cytoxan) in sodium chloride 0.9% 250 mL infusionDOXOrubicin (Adriamycin) Therapy Complete Junior Olivera MD 4 of 4 cycles started Radiation Treatments * No radiation treatments are documented for this patient in [facility]. Treatments may have been administered in another system. Lifetime Dose Tracking * Chemical Lifetime Dose Automatic Entry Manual Entr y doxorubicin 243.599 mg/m2 (535.2 mg) 243.599 mg/m2 (5 35.2 mg) 0 mg/m2 (0 mg)
--- OUTSIDE RECORDS SUMMARY | 2024-01-08 01:11 | XMS_ITS | Encounter Summary ---
Author Organization [facility] [place] [address] Care Team Providers Care Ultrasonic Hand Solderer Name Role Phone Home Yeager MD Primary Care Provider [phone] Encounter Details Date Type Department Care Team (Late st Contact Info) Description 10/25/2021 Telephone Hematology [place] [phone] Ryan Hallman MD [facility] DR HEMATOLOGY/ONCOLOGY DEPT. [place] [phone] Social History Tobacco Use Types Packs/Day Years [...] encounter Miscellaneous Notes * Telephone Encounter - Ryan Hallman MD - 10/25/2021 11:15 PM EDT Heme-Onc Staff I have reviewed the patient's record and, given personal and/or family history of cancer she shouldbe seen by a genetic counselor. This is scheduled for next week. Ryan Hallman MD editing computer publisher in Hematology-Oncology documented in this encounter Plan of Treatment Not on file documented as of this encounter Visit Diagnoses Not on filedocumented in this encounter Care Teams Ultrasonic Hand Solderer Relationship Specialty Start Date End Date Home Yeager MD PCP - General Family Medicine 04/21/17 documented as of this encounter
--- OUTSIDE RECORDS SUMMARY | 2024-01-08 01:11 | XMS_ITS | Encounter Summary ---
Author Organization [facility] Address [facility] [place] [address] Care Team Providers Care News Broadcaster Name Role Phone Home Yeager MD Primary Care Provider [phone] Reason for Visit * Reason Comments Genetic Evaluation * Consultation (Routine) - Closed Specialty Diagnoses / Procedures Referred By Contac t Referred To Contact Hematology and Oncology Diagnoses Malignant neoplasm of left breast in female, estrogen receptor negative, unspecified site of breast Héctor Quintanilla MD [facility] DR HEMATOLOGY [place] [address] St Hem Onc Office [address] [place] [phone] Referral ID Status Reason Start Date Expiration Date V isits Requested Visits Authorized [id number] Closed Consult, Test & Treat 09/19/2021 09/19/2022 1 1 Encounter Details Date Type Department Care Team (Late st Contact Info) Description 10/31/2021 10:00 AM EDT TH Visit (TeleHealth) [place] [phone] Yakov Siu V [facility] Hematology/[place] [address] Malignant neoplasm of left breast in female, [...] as of this encounter Progress Notes * Yakov Siu LGC - 10/31/2021 10:00 AM EDT Zoë Preston was seen by IONA Flannery in consultation at the request of Héctor Colunga advismaci regarding possible heritable predisposition to cancer. I spent 30 minutes of this telephone encounter with the patient gathering medical and family history and discussing the likelihood of a genetic predisposition to cancer and the option of genetic testing. Reason for referral/Chief complaint Personal history of triple negative breast cancer. Medical history Cancer hx and treatment: Zoë is a 61yo female who was previously diagnosed with triple negative breast cancer in 2018. She underwent adjuvant chemotherapy completing that 10/24. She completed her postoperative radiation therapy 12/24. She tried Bonilla for 30 days as prevention but did not like it. She reports no further issues and that she is doing well today. Family History of Cancer Problem Relation Age of Onset ??? Cervical Cancer Daughter In her 30's ??? Uterine Cancer Maternal Aunt ??? Colorectal Cancer Maternal Aunt ??? Skin Cancer Paternal Uncle ??? Breast Cancer Maternal Cousin 42 Maternal ethnic background is , [place], [place]. Paternal ethnic background is [place]. There is no known Ashkenazi Gnosticist ancestry. Genetic risk assessment Based on personal and/or family history, the likelihood that Zoë would be found to have a mutation in a cancer predisposition gene is high enough to offer the option of genetic testing. Specifically, Zoë meets NCCN criteria for BRCA1/2 testing due to her personal history of triple negative breast cancer. Reviewed the lifetime cancer risks and medical management recommendations associated with mutationsin the BRCA1 and BRCA2 genes, including high-risk breast cancer screening with mammography and breast MRIs vs prophylactic bilateral mastectomy, as well as prophylactic removal of the ovaries and fall opian tubes (bilateral salpingo-oophorectomy). Panel genetic testing for an inherited predisposition to cancer, including breast cancer, was discussed. The risks, benefits and limitations of panel genetic testing were reviewed, specifically a high rate of identifying a variant of uncertain significance, lack of knowledge of cancer risk for newly identified, moderate risk genes included in the panel and lack of effective screening, as well as cancer risk for other cancers not observed in the family. We reviewed dominant inheritance, meaning that if a mutation is detected there is a 50% chance for Zoë's children and siblings to have also inherited the same gene alteration. We discussed the Genetic Information Nondiscrimination Act (MASTER), a federal law prohibiting discrimination by health insurance companies and most employers based on genetic information. MASTER does not apply to life insurance, disability insurance or long-term care insurance. More information about MASTER may be found at www.GinaHelp.org. Zoë opted for testing with [employer]'s Breast and Special Education Kindergarten Teacher Guidelines-Based Panel, a next generation sequencing panel that simultaneously analyzes 19 genes, including BRCA1 and BRCA2, that contribute to increased risk for cancer. Zoë was verbally consented and will be mailed consent forms to review,sign, and return. [employer] will send a buccal swab collection kit with prepaid return envelope directly to Zoë's home to obtain a sample. Instructions for sample collection and return are provided within the kit. Zoë was instructed to postpone collecting and submitting her buccal sample until after she received the consent forms for her review. We reviewed [employer]'s billing policy. Zoë will be notified by text and/or email regarding her estimated out of pocket cost for testing once [employer] completes their benefits investigation. At that time, if Zoë is concerned about the estimated test cost she will have the option to contact [employer] directly and either apply for [employer]'s patient assistance program to try and reduce cost of testing based on income information, cancel testing, or switch to a self-pay option of $250. If Zoë does not respond to [employer], testing will be billed to her insurance as the default option. Testing will take up to 3 weeks from when [employer] receives Zoë's sample. Zoë will be contacted via telephone once her test results become available. If positive, we will offer a follow-up appointment. At that time, we will discuss with Zoë the implications that this test result may have for her, as well as her family members. We will also provide Zoë with screening guidelines for cancer prevention and early detection, as well as answer any questions she may have. documented in this encounter Plan of Treatment [...] breast documented in this encounter Care Teams News Broadcaster Relationship Specialty Start Date End Date Home Yeager MD PCP - General Family Medicine 04/21/17 documented as of this encounter
--- OUTSIDE RECORDS SUMMARY | 2024-01-08 01:11 | XMS_ITS | Encounter Summary ---
Author Organization [facility] Address [facility] [place] [address] Care Team Providers Care Health Services Administrator Name Role Phone Home Yeager MD Primary Care Provider [phone] Encounter Details Date Type Department Care Team (Late st Contact Info) Description 08/04/2018 11:15 AM EDT Office Visit Hematology [place] [address] Avery Thacker MD [facility] [place] [address] Malignant neoplasm of left breast in female, [...] Sign Reading Time Taken Comments Blood Pressure - - Pulse - - Temperature 36.9 ??C (98.5 ??F) 08/04/2018 11:41 AM E DT Respiratory Rate - - Oxygen Saturation - - Inhaled Oxygen Concentration - - Weight - - Height - - Body Mass Index - - documented in this encounter Progress Notes * Avery Thacker MD - 08/04/2018 11:15 AM EDT Zoë Kary (Billy) is a 58-year-old woman who returns after left breast partial mastectomy and left axillary sentinel node excision on April 30, 2017. She had 2 lesions that were targeted: lesion one was a invasive ductal carcinoma, 7 mm in diameter,ER [place] and HER-2 yoshi negative. Margins were negative. One sentinel node was negative. Lesion 2 in the left breast was atypical ductal hyperplasia on excisional biopsy. She was treated with adjuvant chemo and XRT. She now returns for check. She has not felt any breast masses. On physical exam there are no right or left breast masses. She has some edema of the left breast. No erythema. No axillary adenopathy. No arm edema, full ROM. Bilateral mammo from today: benign. Impression: No evidence of breast cancer recurrence. I encouraged her to do some breast massage for the lymphedema. Plan: I will schedule her to see our breast ROOFING MACHINE OPERATOR in 6 months with a bilateral mammogram. documented in this encounter Plan of Treatment Not on file documented as of this encounter Visit Diagnoses Diagnosis Malignant neoplasm of left breast in female, estrogen receptor negative, unspecified site of breast documented in this encounter Care Teams Health Services Administrator Relationship Specialty Start Date End Date Home Yeager MD PCP - General Family Medicine 04/21/17 documented as of this encounter
--- OUTSIDE RECORDS SUMMARY | 2024-01-08 01:11 | XMS_ITS | Encounter Summary ---
Author Organization [facility] Address [facility] [place] [address] Care Team Providers Care Pediatric Dental Assistant Name Role Phone Home Yeager MD Primary Care Provider [phone] Reason for Visit * Reason Comments Radiation Follow-up Encounter Details Date Type Department Care Team (Late st Contact Info) Description 10/03/2019 4:30 PM EDT Office Visit Radiation Oncology at [address] [phone] Kaya Stovall MD [facility] [place] [address] Malignant neoplasm of upper-outer quadrant of left [...] Sign Reading Time Taken Comments Blood Pressure 140/64 10/03/2019 4:39 PM EDT Pulse 78 10/03/2019 4:39 PM EDT Temperature 36.8 ??C (98.2 ??F) 10/03/2019 4:39 PM ED T Respiratory Rate 18 10/03/2019 4:39 PM EDT Oxygen Saturation 97% 10/03/2019 4:39 PM EDT Inhaled Oxygen Concentration - - Weight 121.8 kg (268 lb 9.6 oz) 10/03/2019 4:39 PM EDT Height - - Body Mass Index 43.69 09/29/2019 1:21 PM EDT documented in this encounter Patient Instructions * Patient Instructions* Kaya Stovall MD - 10/03/2019 4:30 PM EDT Your exam is without worrisome finding. Followup with me in 6 months; someone will contact you to arrange appointment. documented in this encounter Progress Notes * Kaya Stovall MD - 10/03/2019 4:30 PM EDT Images from the original note were not included. CC: Sched'd fu s/p xrt completion. HPI: Zoë is a 59 y/o f who completed xrt to L breast 1 yr., 9.5 mos ago (12/21/17) for breast ca, L, [...] w/Dr. Quintanilla, d/c [place] due to intolerance. ROS: No pain. Intermittent swelling in hands, particularly in warm weather. ROM arms around shoulders good. Energy level better than 6 mos ago. Past Medical History: Diagnosis Date ??? [...] 01/20/2018 IR Mediport Removal 01/20/2018 Stephen Uribe, EXHIBITS COORDINATOR [facility] INTERVENTIONL RAD ??? PRG SOMATOSENSORY TEST, ANY/ALL PER. NERVES, TRUNK OR HEAD 09/02/2011 FACIAL NERVE MONITORING, SETUP performed by VALENTINE OVIEDO at [facility] MAIN OR ??? PRO BX/REMV, LYMPH NODE, DEEP AXILL Left 04/30/2017 BIOPSY OR EXCISION OF LYMPH NODE(S), OPEN, DEEP AXILLARY NODE(S) (WRVU 6.43) performed by Avery Tahcker MD at [facility] OSC ??? PRO EXCISE BREAST LES W XRAY MARKER Left 04/30/2017 EXCISION LESION, BREAST W/ PREOP.MARKER (NEEDLE LOC.) (WRVU 6.69) performed by Avery Thacker MDat [facility] OSC ??? PRO INTRAOP SENTINEL LYMPH ID W/DYE INJECTION Left 04/30/2017 INTRAOPERATIVE ID (MAPPING) SENTINEL LYMPH NODE,INCLUDES INJECTION (WRVU 2.5) performed by Avery Thacker MD at [facility] OSC ??? PRO MASTECTOMY PARTIAL Left 04/30/2017 MASTECTOMY PARTIAL (WRVU 10.13) performed by Avery Thacker MD at [facility] OSC ??? PRO THYROIDECTOMY 09/02/2011 THYROIDECTOMY, TOTAL OR COMPLETE performed by VALENTINE OVIEDO at [facility] MAIN OR Your Medications Accurate as of October 03, 2019 4:45 PM. If you have any questions, ask [...] appears well-developed and well-nourished. No distress. BP 140/64 (Patient Position: Sitting) Pulse 78 Temp 36.8 ??C (98.2 ??F) (Temporal) Resp 18 Wt 121.8 kg (268 lb 9.6 oz) SpO2 97% BMI 43.69 kg/m?? HENT: Head: Normocephalic and atraumatic. Eyes: [...] change and no tenderness. Left breast exhibits mild lymphedema on inferior breast. Leftbreast exhibits no inverted nipple, no mass, no nipple discharge & no skin change. Lymphadenopathy: Head (right side): No submental, no [...] stable. A: EDUARDO. P: Rtc 6 mos. 10/11/19 Surg Onc DH-Leb w/B mmgs. documented in this encounter Plan of Treatment Not on file documented as of this encounter Visit Diagnoses Diagnosis Malignant neoplasm of upper-outer quadrant of left female breast, unspecified estrogen receptor status documented in this encounter Care Teams Pediatric Dental Assistant Relationship Specialty Start Date End Date Home Yeager MD PCP - General Family Medicine 04/21/17 documented as of this encounter
--- OUTSIDE RECORDS SUMMARY | 2024-01-08 01:11 | XMS_ITS | Clinical Summary ---
Author Organization [facility] Address [facility] [place] [address] Care Team Providers Care Electric Wheelchair Repairer Name Role Phone Home Yeager MD Primary Care Provider [phone] Allergies Active Allergy Reactions Criticality Noted Date Comments Prochlorperazine Nausea And Vomiting 06/16/2017 Light sensitivity, dizzy, twitching Iron 04/13/2017 Pt unsure of reaction Medications Medication Sig Dispensed Refills Start Date End Date Status levothyroxine (SYNTHROID) 137 mcg tablet Take 137 mcg by mouth every morning. 30 tablet 0 10/01/2011 Active ERGOCALCIFEROL, VITAMIN D2, (VITAMIN D ORAL) Take 2,000 Units by mouth. Active aspirin 81 mg Tablet, Chewable Take 81 mg by mouth daily. Active acetaminophen (TYLENOL) 325 mg Tablet Take 2 tablets by mouth every 4 hours as needed for Pain. 04/30/2017 Active magnesium oxide (MAG-OX) 400 mg (241.3 mg magnesium) Tablet Take 400 mg by mouth daily. 07/10/2018 Active hydroCHLOROthiazide (HYDRODIURIL) 25 mg Tablet Take 25 mg by mouth daily. 11/21/2018 Active lisinopril (PRINIVIL;ZESTRIL) 40 mg Tablet Take 40 mg by mouth daily. 11/21/2018 Active ibuprofen (Advil;Motrin) 200 mg Tablet Take 600 mg by mouth daily. Active Active Problems Problem Noted Date Diagnosed Date Malignant neoplasm of upper- outer quadrant of left breast in female, estrogen receptor negative 04/13/2017 Overview (03/27/2022): Zoë had a screening mammogram that showed a mass at 2:00, 12 cm from her left nipple. This was lesion #1: it was an 8 mm mass. Core biopsy of this showed infiltrating ductal carcinoma, ER, AK and HER-2 yoshi negative. ?? Lesion 2 [...] HTN (hypertension) 08/06/2011 Obesity 08/06/2011 Goiter 08/06/2011 Family History Medical History Relation Comments Cervical Cancer Daughter In her 30's Colorectal Cancer Maternal Aunt Uterine Cancer Maternal Aunt Breast Cancer Maternal Cousin Skin Cancer Paternal Uncle Ovarian Cancer Neg Hx Relation Status Comments Daughter Alive Maternal Aunt Maternal Cousin Mother Paternal Uncle Social History Tobacco Use Types Packs/Day Years Used Date Smoking Tobacco: Former Cigarettes Q uit: 03/09/1998 Smokeless Tobacco: Never Alcohol Use Standard Drinks/Week Comments Yes 0 (1 standard drink = 0.6 oz pur e alcohol) occassional Sex and Gender Information Value Date Recorded Sex Assigned at Not on file Gender Identity Not on file Sexual Orientation Not on file Last Filed Vital Signs Vital Sign Reading [...] Mass Index 40.86 05/08/2022 2:29 PM EST Plan of Treatment Health Maintenance Due Date Last Done Comments CT Colonography 1960 Colonoscopy 1960 Colorectal Cancer Screening 1960 FIT DNA 1960 FIT 1960 Sigmoidoscopy (10 year) with FIT yearly 1960 Sigmoidoscopy 1960 HIV screen 1978 Hepatitis C Screening 1978 Lipid Screening 1978 Tetanus/Diphtheria/Pertussis Vaccines (1 - Tdap) 06/15/1979 HPV test 1990 PAP Smear 1990 Breast Cancer Share Decision Needed 2000 Zoster vaccine (1 of 2) 2010 Advance Directive 06/15/2015 Diabetes Screening (HgbA1C o r Glucose) 04/21/2020 04/21/2017 Covid-19 Vaccine (1 - 2022-2 4 season) 2023 Influenza (Flu) vaccine (1 o f 1 - Influenza standard series) 11/08/2023 Breast Cancer screening 01/03/2024 01/03/20, 11/19/2020, 10/25/2019, Additional history exists Medical Devices Implanted Type Area Naturalist Device Identifier Shelf Expiration Date Model / Serial / Lot Breast Clip-03/23/19 18 Implanted:Qt y: 1 on 03/23/2017 by Rosio Schuster MD Breast Clip Left: Breast [id number] / / Description:titanium securma rk Explanted Type Area Naturalist Device Identifier Shelf Expiration Date Model / Serial / Lot Port,Ct,Low Profile,Vacce ss [id number])-3/2 08/2017 Implanted:Qty : 1 on 06/01/2017 by Home Skelton MD Explanted:Qty : 1 on 01/20/2018 by Stephen Uribe APRN IMPLANTS Right: Chest Wall [employer] - 0612 03/08/2019 [id number] / / [id number] Procedures Procedure Name Priority Date/Time Associated Diagnosis Comments MAMMO SCREENING CAD AND MARLON BILATERAL Routine 01/02/2022 8:57 AM EDT Malignant neoplasm of upper-outer quadrant of left breast in female, estrogen receptor negative Breast cancer screening by mammogram COMPREHENSIVE METABOLIC PANEL Routine 04/21/2017 2:40 PM EST Malignant neoplasm of left female breast, unspecified estrogen receptor status, unspecified site of breast from Last 3 Months or Most Recently Relevant to Health Maintenance Results * Mammo Screening Cad and Marlon [...] who have questions please contact the health student career development specialist that requested your imaging first. ? Lashanda Stevens APRN IMG MAMMO ORD ERABLES * Comprehensive metabolic panel (non-fasting) (04/21/2017 2:40 PM EST) Glucose 89 65 - 199 mg/dL [facility] Comment:Diabetes: >=200 mg/d L plus symptoms Blood Urea Nitrogen 17 8 - 18 mg/dL [facility] Creatinine 0.85 0.70 - 1.20 mg/dL [facility] Sodium 142 135 - 145 mmol/L [facility] Potassium 4.0 3.5 - 5.0 mmol/L [facility] Comment: Please note: ??Patients with WBC >100,000 may have falsely elevated Potassium levels. ??For accurate Potassium quantification in these patients send serum separator tube (gold top) for subsequent determinations. ??Contact the Clinical Chemistry Laboratory if there are any questions. Chloride 101 98 - 107 mmol/L [facility] Carbon Dioxide 28 22 - 31 mmol/L [facility] Anion Gap 13 5 - 15 mmol/L [facility] Calcium 9.3 8.5 - 10.5 mg/dL [facility] Protein, Total 7.5 6.1 - 8.0 gm/dL [facility] Albumin 4.2 3.2 - 5.2 gm/dL [facility] Aspartate Aminotransferase 17 0 - 30 unit/L [facility] Alanine Aminotransferase 23 0 - 30 unit/L [facility] Alkaline Phosphatase 62 40 - 104 unit/L [facility] Bilirubin, Total 0.2 0.2 - 1.3 mg/dL [facility] Est Glomerular Filtration Rate >60 >=60 [facility] Comment: The reported eGFR should be multiplied by 1.2 for patients. The MDRD is not an appropriate measure of renal function for patients with body mass extremes or in patients with acute kidney failure. http://[employer]/DHnkdep http://[employer]/DHMCnkf Blood specimen (specimen) 04/21/2017 2:40 PM EST 04/21/2017 2:45 PM EST Narrative Resulting Agency Comment Spec In Lab Avery Thacker MD CHEMISTRY ORDERABLES [facility] [place] [address] from Last 3 Months or Most Recently Relevant to Health Maintenance Advance Directives * Full Code (Latest Code Status on File) Date Activated Date Inactivated Comments 01/20/2018 10:57 AM 01/21/2018 4:41 AM Question Answer Comments Does patient have capacity to make decision: Yes * Full Code Date Activated Date Inactivated Comments 11/03/2017 1:40 PM 01/20/2018 10:57 AM Question Answer Comments Does patient have capacity to make decision: Yes Content of discussion: Full code * Full Code Date Activated Date Inactivated Comments 06/01/2017 12:05 PM 06/02/2017 4:35 AM Question Answer Comments Does patient have capacity to make decision: Yes * Full Code Date Activated Date Inactivated Comments 05/19/2017 8:41 AM 06/01/2017 12:05 PM Question Answer Comments Does patient have capacity to make decision: Yes Content of discussion: Full code * Full Code Date Activated Date Inactivated Comments 04/30/2017 9:25 AM 04/30/2017 2:18 PM Question Answer Comments Does patient have capacity to make decision: Yes Care Teams Electric Wheelchair Repairer Relationship Specialty Start Date End Date Home Yeager MD PCP - General Family Medicine 04/21/17
--- OUTSIDE RECORDS SUMMARY | 2024-01-08 01:11 | XMS_ITS | Encounter Summary ---
Author Organization [facility] Address [facility] [place] [address] Care Team Providers Care Yarn Skeins Examiner Name Role Phone Home Yeager MD Primary Care Provider [phone] Encounter Details Date Type Department Care Team (Late st Contact Info) Description 05/08/2022 2:00 PM EST Office Visit Hematology/Oncology at [address] [phone] Héctor Quintanilla MD [facility] [address] [place] [address] Malignant neoplasm of left breast in female, [...] Time Taken Comments Blood Pressure 160/86 05/08/2022 1:56 PM EST Pulse 73 05/08/2022 1:56 PM EST Temperature 36.7 ??C (98.1 ??F) 05/08/2022 1:56 PM ES T Respiratory Rate 20 05/08/2022 1:56 PM EST Oxygen Saturation 100% 05/08/2022 1:56 PM EST Inhaled Oxygen Concentration - - Weight 114.8 kg (253 lb) 05/08/2022 1:56 PM EST Height 167.6 cm (5' 5.98) 05/08/2022 1:56 PM ES T Body Mass Index 40.86 05/08/2022 1:56 PM EST documented in this encounter Progress Notes * Héctor Quintanilla MD - 05/08/2022 2:00 PM EST Subjective: Patient ID: Zoë Preston is a 61 y.o. female. HPI Left breast cancer diagnosed 03/26 Mammographically detected Needle biopsy 03/26 Invasive ductal carcinoma, high-grade, SBR score 8 ER negative, MT negative, HER-2/yoshi negative Partial mastectomy with sentinel node 04/26 7 mm tumor, 0/1 nodes AC chemotherapy x4 completed 07/24 Weekly Taxol x12 completed 10/24 Radiation completed 12/24 Bonilla for chemoprevention x 1 mo 02/24 The patient is a 61-year-old female who returns to the [facility]. She was diagnosed witha T1N0 high-grade breast cancer that was triple negative. She underwent adjuvant chemotherapy completing that 10/24. She completed her postoperative radiation therapy 12/24. She tried Bonilla for 30 days as prevention but did not like it. She is here for routine follow-up. No pain or tenderness. She does use a brace on the right wrist at night because of carpal tunnel symptoms. No recent infections. She has not noted any lumps or bumps. Still using a mask when she goes outside to protect yourself from infections. Walking almost daily with her dog. She gets her mammograms with [facility]. Last negative 12/28 Patient Active Problem List Diagnosis Code ??? HTN (hypertension) I10 ??? Obesity E66.9 ??? Goiter E04.9 ??? Thyroid nodule E04.1 ??? S/P thyroidectomy E89.0 ??? Malignant neoplasm of upper-outer quadrant of left breast in female, estrogen receptor sdtahgcbJ90.412, Z17.1 Current Outpatient Medications: ??? ibuprofen (Advil;Motrin) [...] and oriented to person, place, and time. Assessment and Plan: 61-year-old female with a T1N0 left-sided breast cancer. She underwent partial mastectomy followed by chemotherapy and radiation therapy. Currently there are no signs of recurrence either locally or systemically. In terms of breast cancer follow-up since she is now about 5 years from her surgery I do not think she needs anything specific for oncologic follow-up. She should get a mammogram yearly and either dothat with the surgical oncology team at [facility]. We did review her records and in fact she did meet with genetics counseling last October. She did a swab but never heard any results. We will reach out to the genetics counselor to see if there are results or if she needs to repeat her genetic testing. I did not make a return appointment for her now that she is 5 years out from her surgery but we will be happy to participate in her care if there are more concerns. documented in this encounter Plan of Treatment Not on file documented as of this encounter Visit Diagnoses Diagnosis Malignant neoplasm of left breast in female, estrogen receptor negative, unspecified site of breast documented in this encounter Care Teams Yarn Skeins Examiner Relationship Specialty Start Date End Date Home Yeager MD PCP - General Family Medicine 04/21/17 documented as of this encounter
--- OUTSIDE RECORDS SUMMARY | 2024-01-08 01:11 | XMS_ITS | Encounter Summary ---
Author Organization [facility] [place] [address] Care Team Providers Care Breast Surgeon Name Role Phone Home Yeager MD Primary Care Provider [phone] Reason for Visit * Reason Onset Date Comments Referral 01/27/2018 Referral for bra prosthesis Encounter Details Date Type Department Care Team (Late st Contact Info) Description 01/27/2018 Telephone Hematology/Oncology at [address] [phone] Edie Moy business intelligence developer (Referral for bra prosthesis) Social History Tobacco Use Types Packs/Day Years [...] encounter Miscellaneous Notes * Telephone Encounter - Edie Moy RN - 01/27/2018 4:12 PM EST Order, letter of medical necessity and demographics faxed to Carissa Devine @ [phone], confirmation page returned. documented in this encounter Plan of Treatment Not on file documented as of this encounter Visit Diagnoses Not on filedocumented in this encounter Care Teams Breast Surgeon Relationship Specialty Start Date End Date Home Yeager MD PCP - General Family Medicine 04/21/17 documented as of this encounter
--- OUTSIDE RECORDS SUMMARY | 2024-01-08 01:12 | XMS_ITS | Encounter Summary ---
Author Organization [facility] [place] [address] Care Team Providers Care Log Peeler Name Role Phone Home Yeager MD Primary Care Provider [phone] Reason for Visit * Reason Comments Chemotherapy Taxol, Cycle 2, Day 22 * Treatment/Therapy Plan Authorization (Routine) - Closed Specialty Diagnoses / Procedures Referred By Contac t Referred To Contact Hematology and Oncology Diagnoses Malignant neoplasm of upper-outer quadrant of left breast in female, estrogen receptor negative Procedures TC PALONOSETRON HCL, 25MCG, INJECTION (ALOXI) TC PACLITAXEL, 1MG, INJ Junior Olivera MD [address] [place] [id number] [facility] Hem Onc Office [address] [place] [phone] Referral ID Status Reason Start Date Expiration Date Visits Re quested Visits Authorized [id number] Closed 07/21/2017 07/21/2018 50 50 Encounter Details Date Type Department Care Team (Late st Contact Info) Description 09/29/2017 11:30 AM EDT Infusion Hematology Oncology at [address] [phone] Malignant neoplasm of upper-outer quadrant of left breast in female, estrogen receptor negative Social History Tobacco Use Types Packs/Day Years [...] as of this encounter Progress Notes * hCely Laidr RN - 09/29/2017 11:30 AM EDT INFUSION THERAPY ADMINISTRATION NOTES DIAGNOSIS: Breast cancer CYCLE #: Cycle 2, Day 22 REASON FOR VISIT: Taxol infusion SUBJECTIVE: Zoë offers no complaints. OBJECTIVE: VSS. Seen by provider. LAB DATA: WNL & reviewed by Dr. Boothe IV ACCESS: Port accessed off site, flushes readily with brisk blood return. Pre administration: Chemotherapy orders independently verified for drug name, route, and dosage per patient's height, weight and BSA by Chely Laird RN and [facility] onsite. REACTIONS (DESCRIPTION, TIME, INTERVENTION AND EFFECTIVENESS) none ASSESSMENT: Zoë was awake, alert and tolerated treatment well. Port flushed with 20 cc of NS and 500 units of heparin and de-accessed. PLAN: Return to clinic per routine. documented in this encounter Plan of Treatment Not on file documented as of this encounter Visit Diagnoses Diagnosis Malignant neoplasm of upper-outer quadrant of left breast in female, estrogen receptor negative documented in this encounter Administered Medications Inactive Administered Medications - up to 3 most recent administrations Medication Order MAR Action Action Date Dose Rate Site dexamethasone (DECADRON) injection 10 mg 10 mg, Intravenous, ONCE, 1 dose, On Thu09/29/17 at 1200, Administer 30 minutes prior to PACLitaxel Given 09/29/2017 12:06 PM EDT 10 mg diphenhydrAMINE (BENADRYL) injection 25 mg 25 mg, Intravenous, ONCE, 1 dose, On Thu09/29/17 at 1200, Administer 30 minutes prior to PACLitaxel, Routine Given 09/29/2017 12:14 PM EDT 25 mg famotidine (PEPCID) injection 20 mg 20 mg, Intravenous, ONCE, 1 dose, On Thu09/29/17 at 1200, Administer 30 minutes prior to PACLitaxel Given 09/29/2017 12:11 PM EDT 20 mg heparin, porcine 100 unit/mL flush 500 Units 500 Units, Intravenous, ONCE PRN, Starting on Thu09/29/17 at 1144, Until Thu09/29/17 at 1658, Line Care, Refer to Intravenous (IV) Procedure: Accessing Implanted Vascular Access Devices (654) procedure and/or Intravenous (IV) Job Aid: Adult Flushing & Catheter Care (0039) job aid for additional information regarding guidelines and administration., Routine Given 09/29/2017 2:00 PM EDT 500 Units PACLitaxel (TAXOL) 172 mg in dextrose 5% Non-PVC 278.6667 mL chemo infusion 172 mg (80 mg/m2/dose ? 2.15 m2 Treatment Plan BSA from Recorded weight), Intravenous, ONCE, 1 dose, On Thu09/29/17 at 1300, Administer over 60 Minutes, Warning Vesicant/Irritant Medication New Bag 09/29/2017 1:00 PM EDT 172 mg 279 mL/hr palonosetron (ALOXI) injection 0.25 mg 0.25 mg, Intravenous, ONCE, 1 dose, On Thu09/29/17 at 1200, Routine Given 09/29/2017 12:03 PM EDT 0.25 mg sodium chloride 0.9 % flush 5-20 mL 5-20 mL, Intravenous, EVERY 1 MIN PRN, Starting on Thu09/29/17 at 1144, Until Thu09/29/17 at 1658, Line Care, Flush pertains to all indwelling lines. Flush per protocol found in the job aid using the link provided on this medication record. Refer to Intravenous (IV) Job Aid: Adult Flushing & Catheter Care (3481) job aid for additional information regarding guidelines and administration., Routine Given 09/29/2017 2:00 PM EDT 20 mLs documented in this encounter Care Teams Log Peeler Relationship Specialty Start Date End Date Home Yeager MD PCP - General Family Medicine 04/21/17 documented as of this encounter
--- OUTSIDE RECORDS SUMMARY | 2024-01-08 01:12 | XMS_ITS | Encounter Summary ---
Author Organization [facility] Address [facility] [place] [address] Care Team Providers Care Services Tech Name Role Phone Home Yeager MD Primary Care Provider [phone] Reason for Visit * Reason Comments On Treatment Visit Encounter Details Date Type Department Care Team (Late st Contact Info) Description 11/24/2017 3:45 PM EDT Office Visit Radiation Oncology at [address] [phone] Kaya Stovall MD [facility] [place] [address] Malignant neoplasm of left female breast, unspecified estrogen receptor status, unspecified site of breast Social History Tobacco [...] Sign Reading Time Taken Comments Blood Pressure 141/98 11/24/2017 4:27 PM EDT Pulse 108 11/24/2017 4:27 PM EDT Temperature 37 ??C (98.6 ??F) 11/24/2017 4:2 7 PM EDT Respiratory Rate 18 11/24/2017 4:27 PM EDT Oxygen Saturation 99% 11/24/2017 4:2 7 PM EDT Inhaled Oxygen Concentration - - Weight 107.2 kg (236 lb 6.4 oz) 11/24/2017 4:27 PM EDT Height 167 cm (5' 5.75) 11/24/2017 4:2 7 PM EDT copied forward Body Mass Index 38.45 11/24/2017 4:27 PM EDT documented in this encounter Progress Notes * Kaya Stovall MD - 11/24/2017 3:45 PM EDT DIAGNOSIS: Breast ca, L, IDC, gr 3, triple neg, s/p lumpectomy & SNB, pT1b pN0, stage I. S/p adjuvant chemo. CURRENT TREATMENT DOSE: 2.66 Gy L breast ANTICIPATED TOTAL DOSE: 42.56 Gy L breast, 52.56 Gy lumpectomy bed Current # of xrt received: 1 Anticipated total # of xrt txs: 20 Evaluation of port verification films: Approved. For details, see electronic film record in [employer]. Changes in Medical Condition: None. Pain?: None. Your Medications These changes are accurate as of 11/24/17 5:43 PM. If you have any questions, ask [...] 1 tablet Refills: 0 metFORMIN 500 mg Tab Commonly known as: GLUCOPHAGE Take 500 mg by mouth daily. 500 mg Refills: 0 ondansetron 8 mg Tab Commonly known as: ZOFRAN Take 1 tablet by mouth every 8 hours as needed for Nausea. 8 mg Quantity: 30 tablet Refills: 1 VITAMIN D ORAL Take 2,000 Units by mouth. 2000 Units Refills: 0 Physical Exam: BP (!) 141/98 (Patient Position: Sitting) Pulse (!) 108 Temp 37 ??C (98.6 ??F) (Oral) Resp 18 Ht 167 cm (5' 5.75) Comment: copied forward Wt 107.2 kg (236 lb 6.4 oz) SpO2 99% BMI 38.45 kg/m2 A&Ox3, NAD. Amb stable. Imagin11/03/17 Dx'ic Interp CTsim: No suspicious lesion. Performance Status: KPS 100% Response to xrt: As expected. Irradiation Related Symptoms: None. Treatment for Symptom Control: John's cream - Advised to not apply w/in 3 hrs prior to xrt. Pain Management: Not needed. Recommendation on Continuing Course of xrt: Cont. documented in this encounter Plan of Treatment Not on file documented as of this encounter Visit Diagnoses Diagnosis Malignant neoplasm of left female breast, unspecified estrogen receptor status, unspecified site of breast documented in this encounter Care Teams Services Tech Relationship Specialty Start Date End Date Home Yeager MD PCP - General Family Medicine 04/21/17 documented as of this encounter
--- OUTSIDE RECORDS SUMMARY | 2024-01-08 01:12 | XMS_ITS | Encounter Summary ---
Author Organization [facility] Address [facility] [place] [address] Care Team Providers Care Utility Service Worker Name Role Phone Home Yeager MD Primary Care Provider [phone] Reason for Visit * Reason Comments On Treatment Visit Encounter Details Date Type Department Care Team (Late st Contact Info) Description 12/08/2017 4:15 PM EDT Office Visit Radiation Oncology at [address] [phone] Kaya Stovall MD [facility] [address] Malignant neoplasm of upper-outer quadrant of left [...] Sign Reading Time Taken Comments Blood Pressure 134/74 12/08/2017 4:00 PM EDT Pulse 89 12/08/2017 4:00 PM EDT Temperature 36.7 ??C (98.1 ??F) 12/08/2017 4:00 PM ED T Respiratory Rate 16 12/08/2017 4:00 PM EDT Oxygen Saturation 98% 12/08/2017 4:00 PM EDT Inhaled Oxygen Concentration - - Weight 106.4 kg (234 lb 9.6 oz) 12/08/2017 4:00 PM EDT Height - - Body Mass Index 38.45 12/01/2017 10:08 AM EDT documented in this encounter Patient Instructions * Patient Instructions* Kaya Stovall MD - 12/08/2017 4:15 PM EDT 1% hydrocortisone cream can often relieve/decrease itchiness. Apply it to the itchy area up to 3 times daily. It is available over the counter. documented in this encounter Progress Notes * Kaya Stovall MD - 12/08/2017 4:15 PM EDT DIAGNOSIS: Breast ca, L, IDC, gr 3, triple neg, s/p lumpectomy & SNB, pT1b pN0, stage I. S/p adjuvant chemo. CURRENT TREATMENT DOSE: 29.26 Gy L breast ANTICIPATED TOTAL DOSE: 42.56 Gy L breast, 52.56 Gy lumpectomy bed Current # of xrt received: 11 Anticipated total # of xrt txs: 20 Evaluation of port verification films: Approved. For details, see electronic film record in [employer]. Changes in Medical Condition: Intermittent mild discomfort in L breast continues to be relieved by 650 mg tylenol/day. Itchiness of skin of L breast not completely relieved by john's cream. Pain?: See above. Your Medications These changes are accurate as of 12/08/17 4:44 PM. If you have any questions, ask [...] Units by mouth. 2000 Units Refills: 0 Flu vacc: Normally receives through PCP & she will be in touch w/him this yr about it. P&SH: Smoked a little in high school, none since then. Physical Exam: A&Ox3, NAD. L breast w/minimal erythema. Amb stable w/walker. Imagin11/03/17 Dx'ic Interp CTsim: No suspicious lesion. Performance Status: KPS 100% Response to xrt: As expected. Irradiation Related Symptoms: Skin rxn. Mild discomfort in L breast could be related to postop healing &/or xrt assoc'd inflammation. Treatment for Symptom Control: 1% htc rec'd for itchiness not relieved by John's cream. Pain Management: Tylenol. Recommendation on Continuing Course of xrt: Cont. documented in this encounter Plan of Treatment Not on file documented as of this encounter Visit Diagnoses Diagnosis Malignant neoplasm of upper-outer quadrant of left female breast, unspecified estrogen receptor status documented in this encounter Care Teams Utility Service Worker Relationship Specialty Start Date End Date Home Yeager MD PCP - General Family Medicine 04/21/17 documented as of this encounter
--- OUTSIDE RECORDS SUMMARY | 2024-01-08 01:12 | XMS_ITS | Encounter Summary ---
Author Organization [facility] [place] [address] Care Team Providers Care Wildlife Enforcement Major Name Role Phone Home Yeager MD Primary Care Provider Reason for Visit * Reason Comments Breast Cancer Encounter Details Date Type Department Care Team (Late st Contact Info) Description 08/18/2017 11:30 AM EDT Office Visit Hematology/Oncology at [address] [phone] Junior Olivera MD [address] [place] [phone] Malignant neoplasm of upper-outer quadrant of left breast in female, estrogen receptor negative; Difficulty breathing; Tachycardia Social History Tobacco Use Types Packs/Day Years [...] Sign Reading Time Taken Comments Blood Pressure 136/71 08/18/2017 11:16 AM EDT Pulse 118 08/18/2017 11:16 AM EDT Temperature 36.8 ??C (98.2 ??F) 08/18/2017 11:16 AM E DT Respiratory Rate 20 08/18/2017 11:16 AM EDT Oxygen Saturation 100% 08/18/2017 11:16 AM EDT Inhaled Oxygen Concentration - - Weight 98.9 kg (218 lb) 08/18/2017 11:16 AM EDT Height 167 cm (5' 5.75) 08/18/2017 11:16 AM EDT copied Body Mass Index 35.46 08/18/2017 11:16 AM EDT documented in this encounter Progress Notes * Junior Olivera MD - 08/18/2017 11:30 AM EDT Diagnosis: 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 The tumor was 0.7 mm but triple negative. Subjective: Zoë comes in today for her third weekly Taxol treatment. Over the past couple of weeks she has had increasing shortness of breath. She is not having any orthopnea but basically any time she gets walking any distance she rapidly gets out of breath and needs to stop and rest. Her O2 saturations were fine last week and was decided to go ahead and get an echocardiogram. In talking to her she is not having any leg swelling or orthopnea and denies any cough. She is not having any chest pain although she does note a little bit of pain by her incision in the left breast. She is not having any other GI symptoms or fever chills or others problems. Her echocardiogram is scheduled in about another week. Past medical history and social history reviewed and unchanged from when I saw her 4 weeks ago Past Medical History: Diagnosis Date ??? Goiter 08/06/2011 ??? HTN (hypertension) 08/06/2011 ??? Malignant neoplasm of left breast in female, estrogen receptor negative 04/13/2017 ??? Obesity 08/06/2011 Past Surgical History: Procedure Laterality Date ??? PRG SOMATOSENSORY TEST, ANY/ALL PER. NERVES, TRUNK OR HEAD 09/02/2011 FACIAL NERVE MONITORING, SETUP performed by VALENTINE OVIEDO at [facility] MAIN OR ??? PRO BX/REMV, LYMPH NODE, DEEP AXILL Left 04/30/2017 BIOPSY OR EXCISION OF LYMPH NODE(S), OPEN, DEEP AXILLARY NODE(S) (WRVU 6.43) performed by Avery Thacker MD at [facility] OSC ??? PRO EXCISE BREAST LES W XRAY MARKER Left 04/30/2017 EXCISION LESION, BREAST W/ PREOP.MARKER (NEEDLE LOC.) (WRVU 6.69) performed by Avery Thacker MDat [facility] ??? PRO INTRAOP SENTINEL LYMPH ID W/DYE INJECTION Left 04/30/2017 INTRAOPERATIVE ID (MAPPING) SENTINEL LYMPH NODE,INCLUDES INJECTION (WRVU 2.5) performed by Avery Thacker MD at [facility] ??? PRO MASTECTOMY, PARTIAL Left 04/30/2017 MASTECTOMY PARTIAL (WRVU 10.13) performed by Avery Thacker MD at [facility] ??? PRO THYROIDECTOMY 09/02/2011 THYROIDECTOMY, TOTAL OR COMPLETE performed by VALENTINE OVIEDO at [facility] MAIN OR Uterine Ablation Ovaries still present Allergies Allergen Reactions ??? Compazine [Prochlorperazine] Nausea And Vomiting Light sensitivity, dizzy, twitching ??? Iron Pt unsure of reaction Current Outpatient Prescriptions on File Prior to Visit Medication Sig Dispense Refill ??? Liposomal Lidocaine (LMX) 4 % Cream Apply topically as needed. Apply quarter-sized dollop to port site as needed for port access 45 g 3 ??? EMOLLIENT BASE (CREAM [...] Take 500 mg by mouth daily. ??? ibuprofen (ADVIL;MOTRIN) 600 mg Tablet Take 600 mg by mouth 3 times daily as needed for Pain. ??? ERGOCALCIFEROL, VITAMIN D2, (VITAMIN D ORAL) Take 2,000 Units by mouth. ??? aspirin 81 mg Tablet, Chewable Take 81 mg by mouth daily. ??? lisinopril-hydrochlorothiazide (PRINZIDE;ZESTORETIC) 10-12.5 mg Tablet Take 1 tablet by mouth daily. ??? levothyroxine (SYNTHROID) 137 mcg tablet Take 137 mcg by mouth every morning. 30 tablet 0 ??? ondansetron (ZOFRAN) 8 mg Tablet Take 1 tablet by mouth every 8 hours as needed for Nausea. (Patient not taking: Reported on 08/04/2017) 30 tablet 1 No current facility-administered medications on file prior to visit. Family History Problem Relation Age of Onset ??? Breast Cancer Maternal Cousin 50 In her 40's or 50's ??? Breast Cancer Maternal Cousin Possibly 2nd maternal cousin w/BR CA ??? Uterine Cancer Daughter In her 20's ??? Uterine Cancer Maternal Aunt also colon cancer ??? Ovarian Cancer Neg Hx Social History Social History ??? Marital status: Spouse name: N/A ??? Number of children: N/A ??? 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 Smoking status: Former Smoker Quit date: 03/09/1998 ??? Smokeless tobacco: Never Used ??? Alcohol use Yes Comment: occassional ??? Drug use: Not on file ??? Sexual activity: Not on file Other Topics Concern ??? 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 HENT: Negative for sore throat, mouth sores and trouble swallowing. Eyes: Negative. Respiratory: Negative for cough, shortness of breath and wheezing. Cardiovascular: Negative for chest pain, palpitations and leg swelling. Gastrointestinal: Negative for nausea, vomiting, abdominal pain, diarrhea, constipation and abdominal distention. Genitourinary: Negative for dysuria and difficulty urinating. Musculoskeletal: Negative. Skin: Negative. Neurological: Negative. Hematological: Negative for adenopathy. BP 136/71 (Patient Position: Sitting) Pulse (!) 118 Temp 36.8 ??C (98.2 ??F) (Oral) Resp 20 Ht 167 cm (5' 5.75) Comment: copied Wt 98.9 kg (218 lb) SpO2 100% BMI 35.46 kg/m2 Head: Normocephalic, without obvious abnormality, atraumatic Eyes: PERRL, conjunctiva/corneas clear, EOM's intact, fundi benign, both eyes Ears: Normal TM's and external ear canals, both ears Nose: Nares normal, septum midline, mucosa normal, no drainage or sinus tenderness Throat: Lips, mucosa, and tongue normal; teeth and gums normal Neck: Supple, symmetrical, trachea midline, no adenopathy, thyroid: not enlarged, symmetric, no tenderness/mass/nodules, no carotid bruit or JVD Back: Symmetric, no curvature, ROM normal, no CVA tenderness Lungs: Clear to auscultation bilaterally, respirations unlabored Chest Wall: No tenderness or deformity Heart: Regular rate and rhythm, S1, S2 normal, no murmur, rub or gallop Abdomen: Soft, non-tender, bowel sounds active all four quadrants, no masses, no organomegaly Extremities: Extremities normal, atraumatic, no cyanosis or edema Pulses: 2+ and symmetric Skin: Skin color, texture, turgor normal, no rashes or lesions Lymph nodes: Cervical, supraclavicular, and axillary nodes normal Neurologic: Normal BILATERAL BREAST MRI 04/21/17?? CLINICAL INDICATION: 56-year-old female, left breast cancer. ?? TECHNIQUE: Multiplanar sequences were obtained pre- and post- gadolinium enhancement, to include SPGR weighted dynamic run-off and subtraction sequences obtained after the intravenous administration of 20 ccs of DOTAREM. Computer algorithm analysis for lesion detection and kinetic contrast enhancement curve analysis was performed, using [employer] software. ?? COMPARISON STUDIES: Compared and/or correlated with prior studies including mammography of 12/24/2016, 03/23/2017, ultrasound of 03/23/2017. Ultrasound-guided biopsy of 03/23/2017. ?? FINDINGS: ?? Background Enhancement Pattern (first post gadolinium image): Mild (25-50% breast) Amount of Fibroglandular Tissue: Heterogenously dense ?? LEFT Breast: Left breast lesion 1, as defined on ultrasound at 2:00, 9 cm from the nipple with marker artifact, small residual mass and measuring 1.3 cm at greatest extent with rapid early and delayed washout enhancement characteristics. The enhancement and mass are irregular. Immediately associated marker clip artifact at the biopsy site. ?? Left breast lesion 2, as defined on mammography, 3:00, 8 cm from the nipple, marker artifact and mild residual enhancement. The marker clip appears mildly lateral to the biopsy site, approximately 2.5 cm. Minimal associated enhancement. ?? No additional findings within the left breast. The prominent axillary tail lymph nodes of the left breast have been stable since at least 2004 without interval change, benign findings. ?? RIGHT Breast: No abnormal enhancement by morphology or kinetics. ?? Lymph Node Basins/Other: There is no evidence of internal mammary or axillary adenopathy. No significant abnormalities are seen in the chest wall or skin. ?? IMPRESSION [ Left breast: 1. Left breast lesion 1, known malignancy. Associated marker clip artifact. 2. Left breast lesion 2, known high risk lesion. Mild lateral migration of the marker clip, attention to lateral migration on needle localization procedure, biopsy accomplished 2.5 cm medial to the marker clip. Right breast: No suspicious findings.] ?? RECOMMENDATION: Left breast: Definitive surgical management in regards to left breast lesion 1 and 2. Attention to follow-up on needle localization procedure for left breast lesion 2, as defined above. Right breast: Annual screening. ?? LEFT BREAST BIRADS 6. Known malignancy RIGHT BREAST BIRADS 1. Normal BILATERAL BREAST MRI ?? CLINICAL INDICATION: 56-year-old female, left breast cancer. ?? TECHNIQUE: Multiplanar sequences were obtained pre- and post- gadolinium enhancement, to include SPGR weighted dynamic run-off and subtraction sequences obtained after the intravenous administration of 20 ccs of DOTAREM. Computer algorithm analysis for lesion detection and kinetic contrast enhancement curve analysis was performed, using [employer] software. ?? COMPARISON STUDIES: Compared and/or correlated with prior studies including mammography of 12/24/2016, 03/23/2017, ultrasound of 03/23/2017. Ultrasound-guided biopsy of 03/23/2017. ?? FINDINGS: ?? Background Enhancement Pattern (first post gadolinium image): Mild (25-50% breast) Amount of Fibroglandular Tissue: Heterogenously dense ?? LEFT Breast: Left breast lesion 1, as defined on ultrasound at 2:00, 9 cm from the nipple with marker artifact, small residual mass and measuring 1.3 cm at greatest extent with rapid early and delayed washout enhancement characteristics. The enhancement and mass are irregular. Immediately associated marker clip artifact at the biopsy site. ?? Left breast lesion 2, as defined on mammography, 3:00, 8 cm from the nipple, marker artifact and mild residual enhancement. The marker clip appears mildly lateral to the biopsy site, approximately 2.5 cm. Minimal associated enhancement. ?? No additional findings within the left breast. The prominent axillary tail lymph nodes of the left breast have been stable since at least 2004 without interval change, benign findings. ?? RIGHT Breast: No abnormal enhancement by morphology or kinetics. ?? Lymph Node Basins/Other: There is no evidence of internal mammary or axillary adenopathy. No significant abnormalities are seen in the chest wall or skin. ?? IMPRESSION [ Left breast: 1. Left breast lesion 1, known malignancy. Associated marker clip artifact. 2. Left breast lesion 2, known high risk lesion. Mild lateral migration of the marker clip, attention to lateral migration on needle localization procedure, biopsy accomplished 2.5 cm medial to the marker clip. Right breast: No suspicious findings.] ?? RECOMMENDATION: Left breast: Definitive surgical management in regards to left breast lesion 1 and 2. Attention to follow-up on needle localization procedure for left breast lesion 2, as defined above. Right breast: Annual screening. ?? LEFT BREAST BIRADS 6. Known malignancy RIGHT BREAST BIRADS 1. Normal ? Surgical Pathology DIAGNOSIS A - Left breast, partial mastectomy: [...] One lymph node, no malignancy identified (0/1) Synoptic Report Specimen ?Procedure: ??Excision (less than total mastectomy) ?Specimen Laterality: ?? Left Tumor ?Histologic Type: ?? Invasive ductal carcinoma ?Histologic Grade (Atwood Histologic Score) ? Glandular (Acinar) / Tubular Differentiation: ?Score 3 ? Nuclear Pleomorphism: ?? Score 3 ? Mitotic Rate: ?? Score 2 ? Overall Grade: ?? Grade 3 (scores of 8 or 9) ?Tumor Size: ?? 7 Millimeters (mm) ?Ductal Carcinoma In Situ (DCIS): ?DCIS is present in specimen ? Ductal Carcinoma In Situ (DCIS): ?? Negative for extensive intraductal ?component (EIC) ? Architectural Patterns: ?? Solid, with lobular involvement ? Nuclear Grade: ?? Grade III (high) ? Necrosis: ??Present, focal (small foci or single cell necrosis) ?Tumor Extent ? Skin: ??Skin is not present ? Skeletal Muscle: ?? No skeletal muscle is present ?Accessory Findings ? Lymphovascular Invasion: ?? Not identified ? Microcalcifications: ?? Present in non-neoplastic tissue, Present in ?severely atypical ductal hyperplasia ? Treatment Effect: ?? No known presurgical therapy Margins ?Invasive Carcinoma Margins: ?? Uninvolved by invasive carcinoma ? Distance from Other Specified Margin: ?all margins >2 Millimeters (mm) ?DCIS Margins: ?? Uninvolved by DCIS ? Distance from Other Specified Margin: ?all margins >2 Millimeters (mm) Lymph Nodes ?Number of Lymph Nodes with Macrometastases ( ??> 2 mm): ?? 0 ?Number of Lymph Nodes with Micrometastases ( ??> 0.2 mm to 2 mm and / or ??> 200 ? cells): ??0 ?Number of Lymph Nodes with Isolated Tumor Cells ( ??<= 0.2 mm and ??<= 200 cells): ?0 ?Number of [place] Nodes Examined: ?1 Pathologic Stage Classification (pTNM, AJCC 8th Edition) ?Primary Tumor (Invasive Carcinoma) (pT): ?pT1b ?Regional Lymph Nodes (pN) ER, MA, and HER2 (performed on prior biopsy, [id number]): ER: Negative MA: Negative HER2 FISH: Negative Procedure: Transthoracic Echocardiogram Patient: RICO Corona (Age): 1960(56y) Med Rec#: [id number] Sex: F Site Loc: [facility] [place] Ht / Wt: 167(cm)/107(kg) Pt. Loc: Echo Lab BSA: 2.14 Study Date: 06/01/2017 Pt. Type: Outpatient Tape: ?? Referring: Junior Olivera Reading: Oscar Cool ([id number]) Dental Surgery Doctor: Orlando Smaayoa ?? Diagnosis: *ICD-10-PCS Malignant neoplasm of unspecified site of left female breast (C50.912) ?? Rhythm: Sinus BP: 160/90 ?? SUMMARY: ?? 1. The left ventricular chamber size is normal. Left ventricular wall thickness is normal. There are no left ventricular segmental wall motion abnormalities. There is normal global left ventricular systolic function. GLS= 21.2%. The quantitative left ventricular ejection fraction by biplane Reyes's method is 70%. 2. The right ventricle is normal in size. Right ventricular global systolic function is normal. 3. The left atrium is mildly dilated. The right atrium is normal in size. 4. There is no hemodynamically significant valve disease. 5. The estimated pulmonary artery systolic pressure is 29 mmHg. 6. See remainder of report for additional findings. ?? ONCBCN ONCOLOGY (AMB) 06/08/2017 Day, Cycle Day 1, Cycle 1 cyclophosphamide (CYTOXAN) IV 600 mg/m2/dose = 1,338 mg DOXOrubicin (ADRIAMYCIN) IV 60 mg/m2/dose = 133.8 mg pegfilgrastim (NEULASTA) SubQ 6 mg ONCBCN ONCOLOGY (AMB) 06/22/2017 Day, Cycle Day 1, Cycle 2 cyclophosphamide (CYTOXAN) IV 600 mg/m2/dose = 1,338 mg DOXOrubicin (ADRIAMYCIN) IV 60 mg/m2/dose = 133.8 mg pegfilgrastim (NEULASTA) SubQ 6 mg ONCBCN ONCOLOGY (AMB) 07/06/2017 Day, Cycle Day 1, Cycle 3 cyclophosphamide (CYTOXAN) IV 600 mg/m2/dose = 1,338 mg DOXOrubicin (ADRIAMYCIN) IV 60 mg/m2/dose = 133.8 mg pegfilgrastim (NEULASTA) SubQ 6 mg ONCBCN ONCOLOGY (AMB) 07/20/2017 Day, Cycle Day 1, Cycle 4 cyclophosphamide (CYTOXAN) IV 600 mg/m2/dose = 1,338 mg DOXOrubicin (ADRIAMYCIN) IV 60 mg/m2/dose = 133.8 mg PACLitaxel (TAXOL) IV pegfilgrastim (NEULASTA) SubQ 6 mg ONCBCN ONCOLOGY (AMB) 08/04/2017 08/11/2017 Day, Cycle Day 1, Cycle 1 Day 8, Cycle 1 cyclophosphamide (CYTOXAN) IV DOXOrubicin (ADRIAMYCIN) IV PACLitaxel (TAXOL) IV 80 mg/m2/dose = 172 mg 80 mg/m2/dose = 172 mg pegfilgrastim (NEULASTA) SubQ Laboratory today shows normal electrolytes potassium 3.5 creatinine 0.71 calcium 8.8 ALP 65 and albumin 3.4. CBC shows white count of 4.66 hemoglobin 9.4 hematocrit 28.9 and platelet count is 251 Assessment/plan: Zoë is clearly quite tachycardic today and I do not know whether she is in a supraventricular tachycardia, atrial fibrillation with a rapid rate or simply a very rapid sinus tachycardia. With a normal O2 saturation nothing to suggest a pulmonary embolus I suspect her dyspnea is primarily cardiac. On exam I do not see any evidence for heart failure with no JVD and no rales and additionally her O2 sats being in the normal range argue against that as well. I did call the emergency room and asked them to please evaluate her with at least a chest x-ray and EKG. She does have some chemotherapy associated anemia but usually with a hemoglobin of 9.4 a transfusion is not needed and her symptoms are out of character for that degree of anemia. We will go ahead and hold her chemotherapy this week but leave her scheduled for next week. With a triple negative breast cancer I would like to try to get all of her chemotherapy and if possible. We will leave her port access but I have asked her to make sure she does not go home with that in place. She is not admitted to the hospital we would gladlyde- access her documented in this encounter Plan of Treatment Not on file documented as of this encounter Visit Diagnoses Diagnosis Malignant neoplasm of upper-outer quadrant of left breast in female, estrogen receptor negative Difficulty breathing Other dyspnea and respiratory abnormality Tachycardia Tachycardia, unspecified documented in this encounter Care Teams Wildlife Enforcement Major Relationship Specialty Start Date End Date Home Yeager MD PCP - General Family Medicine 04/21/17 documented as of this encounter
--- OUTSIDE RECORDS SUMMARY | 2024-01-08 01:12 | XMS_ITS | Encounter Summary ---
Author Organization [facility] [place] [address] Care Team Providers Care Property Condition Assessor Name Role Phone Home Yeager MD Primary Care Provider [phone] Reason for Visit * Reason Comments Chemotherapy Taxol, Cycle 3, Day 22 * Treatment/Therapy Plan Authorization (Routine) - Closed Specialty Diagnoses / Procedures Referred By Contac t Referred To Contact Hematology and Oncology Diagnoses Malignant neoplasm of upper-outer quadrant of left breast in female, estrogen receptor negative Procedures TC PALONOSETRON HCL, 25MCG, INJECTION (ALOXI) TC PACLITAXEL, 1MG, INJ Junior Olivera MD [address] [place] [id number] [facility] Hem Onc Office [address] [place] [phone] Referral ID Status Reason Start Date Expiration Date Visits Re quested Visits Authorized [id number] Closed 07/21/2017 07/21/2018 50 50 Encounter Details Date Type Department Care Team (Late st Contact Info) Description 10/27/2017 12:30 PM EDT Infusion Hematology Oncology at [address] [phone] Malignant neoplasm of upper-outer quadrant [...] as of this encounter Progress Notes * Chely Laird RN - 10/27/2017 12:30 PM EDT INFUSION THERAPY ADMINISTRATION NOTES DIAGNOSIS: Breast cancer CYCLE #: Cycle 3, Day 22 REASON FOR VISIT: Taxol infusion SUBJECTIVE: Zoë offers no complaints. OBJECTIVE: VSS. Seen by provider. LAB DATA: WNL & reviewed Alie Moore APRN IV ACCESS: Port accessed off site, flushes readily with brisk blood return. Pre administration: Chemotherapy orders independently verified for drug name, route, and dosage per patient's height, weight and BSA by Chely Laird RN and [facility] onsite. REACTIONS (DESCRIPTION, TIME, INTERVENTION AND EFFECTIVENESS) [...] 10 mg, Intravenous, ONCE, 1 dose, On Thu10/27/17 at 1200, Administer 30 minutes prior to PACLitaxel Given 10/27/2017 12:07 PM EDT 10 mg diphenhydrAMINE (BENADRYL) injection 25 mg 25 mg, Intravenous, ONCE, 1 dose, On Thu10/27/17 at 1200, Administer 30 minutes prior to PACLitaxel, Routine Given 10/27/2017 12:12 PM EDT 25 mg famotidine (PEPCID) injection 20 mg 20 mg, Intravenous, ONCE, 1 dose, On Thu10/27/17 at 1200, Administer 30 minutes prior to PACLitaxel Given 10/27/2017 12:09 PM EDT 20 mg heparin, porcine 100 unit/mL flush 500 Units 500 Units, Intravenous, ONCE PRN, Starting on Thu10/27/17 at 1135, Until Thu10/27/17 at 1558, Line Care, Refer to Intravenous (IV) Procedure: Accessing Implanted Vascular Access Devices (654) procedure and/or Intravenous (IV) Job Aid: Adult Flushing & Catheter Care (8195) job aid for additional information regarding guidelines and administration., Routine Given 10/27/2017 1:58 PM EDT 500 Units PACLitaxel (TAXOL) 172 mg in dextrose 5% Non-PVC 278.6667 mL chemo infusion 172 mg (80 mg/m2/dose ? 2.15 m2 Treatment Plan BSA from Recorded weight), Intravenous, ONCE, 1 dose, On Thu10/27/17 at 1300, Administer over 60 Minutes, Warning Vesicant/Irritant Medication New Bag 10/27/2017 12:51 PM EDT 172 mg 279 mL/hr palonosetron (ALOXI) injection 0.25 mg 0.25 mg, Intravenous, ONCE, 1 dose, On Thu10/27/17 at 1200, Routine Given 10/27/2017 12:06 PM EDT 0.25 mg sodium chloride 0.9 % flush 5-20 mL 5-20 mL, Intravenous, EVERY 1 MIN PRN, Starting on Thu10/27/17 at 1135, Until Thu10/27/17 at 1558, Line Care, Flush pertains to all indwelling lines. Flush per protocol found in the job aid using the link provided on this medication record. Refer to Intravenous (IV) Job Aid: Adult Flushing & Catheter Care (7857) job aid for additional information regarding guidelines and administration., Routine Given 10/27/2017 1:58 PM EDT 20 mLs documented in this encounter Care Teams Property Condition Assessor Relationship Specialty Start Date End Date Home Yeager MD PCP - General Family Medicine 04/21/17 documented as of this encounter
--- OUTSIDE RECORDS SUMMARY | 2024-01-08 01:12 | XMS_ITS | Encounter Summary ---
Author Organization [facility] Address [facility] [place] [address] Care Team Providers Care Pipefitter Name Role Phone Home Yeager MD Primary Care Provider [phone] Reason for Visit * Reason Comments On Treatment Visit Encounter Details Date Type Department Care Team (Late st Contact Info) Description 12/01/2017 9:45 AM EDT Office Visit Radiation Oncology at [address] [phone] Kaya Stovall MD [facility] [place] [address] Malignant neoplasm of left female breast, unspecified [...] Sign Reading Time Taken Comments Blood Pressure 133/79 12/01/2017 10:08 AM EDT Pulse 95 12/01/2017 10:08 AM EDT Temperature 36.8 ??C (98.2 ??F) 12/01/2017 1 0:08 AM EDT Respiratory Rate 18 12/01/2017 10:0 8 AM EDT Oxygen Saturation 98% 12/01/2017 10: 08 AM EDT Inhaled Oxygen Concentration - - Weight 105.9 kg (233 lb 6.4 oz) 018 10:08 AM EDT Height 166.4 cm (5' 5.5) 12/01/2017 10 :08 AM EDT Body Mass Index 38.25 12/01/2017 10:08 AM EDT documented in this encounter Progress Notes * Kaya Stovall MD - 12/01/2017 9:45 AM EDT DIAGNOSIS: Breast ca, L, IDC, gr 3, triple neg, s/p lumpectomy & SNB, pT1b pN0, stage I. S/p adjuvant chemo. CURRENT TREATMENT DOSE: 15.96 Gy L breast ANTICIPATED TOTAL DOSE: 42.56 Gy L breast, 52.56 Gy lumpectomy bed Current # of xrt received: 6 Anticipated total # of xrt txs: 20 Evaluation of port verification films: Approved. For details, see electronic film record in [employer]. Changes in Medical Condition: Notes tiredness, for which she rests & then returns to activity. Intermittent mild discomfort in L breast, relieved by tylenol. Pain?: See above. Your Medications These changes are accurate as of 12/01/17 10:17 AM. If you have any questions, ask your [...] high school, none since then. Physical Exam: BP 133/79 (Patient Position: Sitting) Pulse 95 Temp 36.8 ??C (98.2 ??F) (Oral) Resp 18 Ht 166.4 cm (5' 5.5) Wt 105.9 kg (233 lb 6.4 oz) SpO2 98% BMI 38.25 kg/m2 A&Ox3, NAD. No erythema L breast. Amb stable. Imagin11/03/17 Dx'ic Interp CTsim: No suspicious lesion. Performance Status: KPS 100% Response to xrt: As expected. Irradiation Related Symptoms: Mild discomfort in L breast could be related to postop healing &/or xrt assoc'd inflammation. Treatment for Symptom Control: John's cream. Pain Management: Tylenol. Recommendation on Continuing Course of xrt: Cont. documented in this encounter Plan of Treatment Not on file documented as of this encounter Visit Diagnoses Diagnosis Malignant neoplasm of left female breast, unspecified estrogen receptor status, unspecified site of breast documented in this encounter Care Teams Pipefitter Relationship Specialty Start Date End Date Home Yeager MD PCP - General Family Medicine 04/21/17 documented as of this encounter
--- OUTSIDE RECORDS SUMMARY | 2024-01-08 01:12 | XMS_ITS | Encounter Summary ---
Author Organization [facility] [place] [address] Care Team Providers Care Dev Technical Mgr Name Role Phone Home Yeager MD Primary Care Provider [phone] Reason for Visit * Reason Comments Breast Cancer Encounter Details Date Type Department Care Team (Late st Contact Info) Description 10/20/2017 11:30 AM EDT Office Visit Hematology/Oncology at [address] [phone] Junior Olivera MD [address] [place] [phone] Malignant neoplasm of upper-outer quadrant of left [...] Sign Reading Time Taken Comments Blood Pressure 147/89 10/20/2017 11:09 AM EDT Pulse 94 10/20/2017 11:09 AM EDT Temperature 36.9 ??C (98.4 ??F) 10/20/2017 1 1:09 AM EDT Respiratory Rate 16 10/20/2017 11:0 9 AM EDT Oxygen Saturation 99% 10/20/2017 11: 09 AM EDT Inhaled Oxygen Concentration - - Weight 106.4 kg (234 lb 9.6 oz) 018 11:09 AM EDT Height 167 cm (5' 5.75) 10/20/2017 11: 09 AM EDT copied Body Mass Index 38.16 10/20/2017 11:09 AM EDT documented in this encounter Progress Notes * Junior Olivera MD - 10/20/2017 11:30 AM EDT Diagnosis: 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 The tumor was 0.7 mm but triple negative. Subjective: Zoë comes in again today for her 11th weekly Taxol treatment. Her fatigue is slowly improving but still significant and more than one would usually see. Her attitude though seems to be a lot better especially in view of the fact that she will be done with her chemo next week. She does want to get her port out but wants to wait until she has her surgery appointment in November to do so. I willput an order in and hopefully the 2 can be scheduled on the same day. Past medical history and social history reviewed and unchanged from jose week ago. Past Medical History: Diagnosis Date ??? Goiter 08/06/2011 ??? HTN (hypertension) 08/06/2011 ??? Malignant neoplasm of left breast in female, estrogen receptor negative 04/13/2017 ??? Obesity 08/06/2011 Past Surgical History: Procedure Laterality Date ??? PRG SOMATOSENSORY TEST, ANY/ALL PER. NERVES, TRUNK OR HEAD 09/02/2011 FACIAL NERVE MONITORING, SETUP performed by VALENTINE OVIEDO at [facility] MAIN OR ??? PRO BX/REMV, LYMPH NODE, DEEP AXILL Left 04/30/2017 BIOPSY OR EXCISION OF LYMPH NODE(S), OPEN, DEEP AXILLARY NODE(S) (WRVU 6.43) performed by Avery Thacker MD at [facility] OSC ??? PRO EXCISE BREAST LES W XRAY MARKER Left 04/30/2017 EXCISION LESION, BREAST W/ PREOP.MARKER (NEEDLE LOC.) (WRVU 6.69) performed by Avery Thacker MDat [facility] OSC ??? PRO INTRAOP SENTINEL LYMPH ID W/DYE INJECTION Left 04/30/2017 INTRAOPERATIVE ID (MAPPING) SENTINEL LYMPH NODE,INCLUDES INJECTION (WRVU 2.5) performed by Avery Thacker MD at [facility] OSC ??? PRO MASTECTOMY, PARTIAL Left 04/30/2017 MASTECTOMY PARTIAL (WRVU 10.13) performed by Avery Thacker MD at [facility] OSC ??? PRO THYROIDECTOMY 09/02/2011 THYROIDECTOMY, TOTAL OR COMPLETE performed by VALENTINE OVIEDO at [facility] MAIN OR Uterine Ablation Ovaries still present Allergies Allergen Reactions ??? Compazine [Prochlorperazine] Nausea And Vomiting Light sensitivity, dizzy, twitching ??? Iron Pt unsure of reaction Current Outpatient Prescriptions on File Prior to Visit Medication Sig Dispense Refill ??? 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 HENT: Negative for sore throat, mouth sores and trouble swallowing. Eyes: Negative. Respiratory: Negative for cough, shortness of breath and wheezing. Cardiovascular: Negative for chest pain, palpitations and leg swelling. Gastrointestinal: Negative for nausea, vomiting, abdominal pain, diarrhea, constipation and abdominal distention. Genitourinary: Negative for dysuria and difficulty urinating. Musculoskeletal: Negative. Skin: Negative. Neurological: Negative. Hematological: Negative for adenopathy. Ht 167 cm (5' 5.75) Comment: copied Wt 106.4 kg (234 lb 9.6 oz) BMI 38.16 kg/m2 Head: Normocephalic, without obvious abnormality, atraumatic [...] contrast enhancement curve analysis was performed, using [employer] software. ?? COMPARISON STUDIES: Compared and/or correlated [...] contrast enhancement curve analysis was performed, using [employer] software. ?? COMPARISON STUDIES: Compared and/or correlated [...] Type: ?? Invasive ductal carcinoma ?Histologic Grade ([place] Histologic Score) ? Glandular (Acinar) / Tubular [...] and ??<= 200 cells): ?0 ?Number of [place] Nodes Examined: ?1 Pathologic Stage Classification (pTNM, AJCC 8th Edition) ?Primary Tumor (Invasive Carcinoma) (pT): ?pT1b ?Regional Lymph Nodes (pN) ER, IA, and HER2 (performed on prior biopsy, [id number]): ER: Negative IA: Negative HER2 FISH: Negative Procedure: Transthoracic Echocardiogram Patient: RICO Corona (Age): 1960(56y) Med Rec#: [id number] Sex: F Site Loc: [facility] [place] Ht / Wt: 167(cm)/107(kg) Pt. Loc: Echo Lab BSA: 2.14 Study Date: 06/01/2017 Pt. Type: Outpatient Tape: ?? Referring: Junior Olivera Reading: Oscar Cool ([id number]) Psychologist Clinical: Orlando Samayoa ?? Diagnosis: *ICD-10-PCS Malignant neoplasm of unspecified [...] mg/m2/dose = 172 mg pegfilgrastim (NEULASTA) SubQ ONCBCN ONCOLOGY (AMB) 08/25/2017 Day, Cycle Day 15, Cycle 1 cyclophosphamide (CYTOXAN) IV DOXOrubicin (ADRIAMYCIN) IV PACLitaxel (TAXOL) IV 80 mg/m2/dose = 172 mg pegfilgrastim (NEULASTA) SubQ ONCBCN ONCOLOGY (AMB) 09/01/2017 Day, Cycle Day 22, Cycle 1 cyclophosphamide (CYTOXAN) IV DOXOrubicin (ADRIAMYCIN) IV PACLitaxel (TAXOL) IV 80 mg/m2/dose = 172 mg pegfilgrastim (NEULASTA) SubQ ONCBCN ONCOLOGY (AMB) 09/08/2017 Day, Cycle Day 1, Cycle 2 cyclophosphamide (CYTOXAN) IV DOXOrubicin (ADRIAMYCIN) IV PACLitaxel (TAXOL) IV 80 mg/m2/dose = 172 mg pegfilgrastim (NEULASTA) SubQ ONCBCN ONCOLOGY (AMB) 09/15/2017 Day, Cycle Day 8, Cycle 2 cyclophosphamide (CYTOXAN) IV DOXOrubicin (ADRIAMYCIN) IV PACLitaxel (TAXOL) IV 80 mg/m2/dose = 172 mg pegfilgrastim (NEULASTA) SubQ ONCBCN ONCOLOGY (AMB) 09/22/2017 09/29/2017 Day, Cycle Day 15, Cycle 2 Day 22, Cycle 2 cyclophosphamide (CYTOXAN) IV DOXOrubicin (ADRIAMYCIN) IV PACLitaxel (TAXOL) IV 80 mg/m2/dose = 172 mg 80 mg/m2/dose = 172 mg pegfilgrastim (NEULASTA) SubQ ONCBCN ONCOLOGY (AMB) 10/06/2017 Day, Cycle Day 1, Cycle 3 cyclophosphamide (CYTOXAN) IV DOXOrubicin (ADRIAMYCIN) IV PACLitaxel (TAXOL) IV 80 mg/m2/dose = 172 mg pegfilgrastim (NEULASTA) SubQ ONCBCN ONCOLOGY (AMB) 10/13/2017 Day, Cycle Day 8, Cycle 3 cyclophosphamide (CYTOXAN) IV DOXOrubicin (ADRIAMYCIN) IV PACLitaxel (TAXOL) IV 80 mg/m2/dose = 172 mg pegfilgrastim (NEULASTA) SubQ Blood counts today show a white count of 2.88 absolute neutrophil count of 1.96 hemoglobin 11.2 andplatelet count of 288 CMP shows normal electrolytes creatinine of 0.63 ALP of 59 calcium of 8.5 andnormal electrolytes. Assessment/plan: Zoë is good for her [id number] treatment with Taxol. At this point she is really not having any neuropathy but does have fairly significant nailbed changes. She did hurt 1 fingernail and could lose the nail but other than that it looks like they are all going to hold on. Her attitude is good. She like to get her port out in mid-November at the same time as her surgery follow-up and will seeif we can arrange that to save her trip. Her last treatment is next week and will check lab prior to that visit. We will then need to see her back towards the end of radiation therapy to arrange for long-term follow-up to make sure her blood counts are doing well at that time. As she has triple negative disease or not any plans for hormone therapy after the completion of radiation. documented in this encounter Plan of Treatment Not on file documented as of this encounter Procedures Procedure Name Priority Date/Time Associated Diagnosis Comments LAB SCAN 09/29/2017 12:00 AM EDT ECHO SCAN (SCAN) 09/25/2017 12:0 0 AM EDT LAB SCAN 09/22/2017 12:00 AM EDT LAB SCAN 09/22/2017 12:00 AM EDT LAB SCAN 09/15/2017 12:00 AM EDT LAB SCAN 09/08/2017 12:00 AM EDT LAB SCAN 09/01/2017 12:00 AM EDT DIAGNOSTIC RADIOLOGY SCAN 08/26/2017 12:00 AM EDT LAB SCAN 08/18/2017 12:00 AM EDT LAB SCAN 08/11/2017 12:00 AM EDT LAB SCAN 08/04/2017 12:00 AM EDT documented in this encounter Results * SCAN DOC: LAB (09/29/2017 12:00 AM EDT) Narrative 09/29/2017 12:00 AM EDT Ordered by an unspecified provider. Scanning Provider MEDIA MGR SCAN EXT O RDR/RSLT * SCAN DOC: ECHO (09/25/2017 12:00 AM EDT) Anatomical Region Laterality Modality Cardiac Other Narrative 09/25/2017 12:00 AM EDT Ordered by an unspecified provider. Scanning Provider MEDIA MGR SCAN EXT O RDR/RSLT * SCAN DOC: LAB (09/22/2017 12:00 AM EDT) Narrative 09/22/2017 12:00 AM EDT Ordered by an unspecified provider. Scanning Provider MEDIA MGR SCAN EXT O RDR/RSLT * SCAN DOC: LAB (09/22/2017 12:00 AM EDT) Narrative 09/22/2017 12:00 AM EDT Ordered by an unspecified provider. Scanning Provider MEDIA MGR SCAN EXT O RDR/RSLT * SCAN DOC: LAB (09/15/2017 12:00 AM EDT) Narrative 09/15/2017 12:00 AM EDT Ordered by an unspecified provider. Scanning Provider MEDIA MGR SCAN EXT O RDR/RSLT * SCAN DOC: LAB (09/08/2017 12:00 AM EDT) Narrative 09/08/2017 12:00 AM EDT Ordered by an unspecified provider. Scanning Provider MEDIA MGR SCAN EXT O RDR/RSLT * SCAN DOC: LAB (09/01/2017 12:00 AM EDT) Narrative 09/01/2017 12:00 AM EDT Ordered by an unspecified provider. Scanning Provider MEDIA MGR SCAN EXT O RDR/RSLT * SCAN DOC: DIAGNOSTIC RADIOLOGY (08/26/2017 12:00 AM EDT) Anatomical Region Laterality Modality Other Narrative 08/26/2017 12:00 AM EDT Ordered by an unspecified provider. Scanning Provider MEDIA MGR SCAN EXT O RDR/RSLT * SCAN DOC: LAB (08/18/2017 12:00 AM EDT) Narrative 08/18/2017 12:00 AM EDT Ordered by an unspecified provider. Scanning Provider MEDIA MGR SCAN EXT O RDR/RSLT * SCAN DOC: LAB (08/11/2017 12:00 AM EDT) Narrative 08/11/2017 12:00 AM EDT Ordered by an unspecified provider. Scanning Provider MEDIA MGR SCAN EXT O RDR/RSLT * SCAN DOC: LAB (08/04/2017 12:00 AM EDT) Narrative 08/04/2017 12:00 AM EDT Ordered by an unspecified provider. Scanning Provider MEDIA MGR SCAN EXT O RDR/RSLT documented in this encounter Visit Diagnoses Diagnosis Malignant neoplasm of upper-outer quadrant of left breast in female, estrogen receptor negative documented in this encounter Care Teams Dev Technical Mgr Relationship Specialty Start Date End Date Home Yeager MD PCP - General Family Medicine 04/21/17 documented as of this encounter
--- OUTSIDE RECORDS SUMMARY | 2024-01-08 01:12 | XMS_ITS | Encounter Summary ---
Author Organization [facility] [place] [address] Care Team Providers Care Signal Technician Name Role Phone Home Yeager MD Primary Care Provider [phone] Reason for Visit * Reason Comments Breast Cancer Encounter Details Date Type Department Care Team (Late st Contact Info) Description 09/15/2017 11:30 AM EDT Office Visit Hematology/Oncology at [address] [phone] Junior Olivera MD [address] [place] [phone] Malignant neoplasm of upper-outer quadrant of left [...] Sign Reading Time Taken Comments Blood Pressure 146/79 09/15/2017 11:34 AM EDT Pulse 108 09/15/2017 11:34 AM EDT Temperature 36.8 ??C (98.2 ??F) 09/15/2017 11:34 AM E DT Respiratory Rate 18 09/15/2017 11:34 AM EDT Oxygen Saturation 100% 09/15/2017 11:34 AM EDT Inhaled Oxygen Concentration - - Weight 101.6 kg (224 lb) 09/15/2017 11:34 AM EDT Height 167 cm (5' 5.75) 09/15/2017 11:34 AM EDT copied Body Mass Index 36.43 09/15/2017 11:34 AM EDT documented in this encounter Progress Notes * Junior Olivera MD - 09/15/2017 11:30 AM EDT Diagnosis: 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 The tumor was 0.7 mm but triple negative. Subjective: Zoë comes in again today for her sixth weekly Taxol treatment. She is a bit disappointed becauseshe was turned down for a fancier walker. Apparently when she was in the emergency room they gave her regular walker and her insurance will not pay for both. It is barely adequate. That being said though she is feeling a little bit better farther she gets away from the Adriamycin and Cytoxan. Energy levels are slightly better but she still has some dyspnea on exertion. We have an echocardiogram scheduled but it does look like it is probably related to some moderate anemia with treatment although not low enough to necessitate a transfusion. She is not having numbness in her feet has a little bit of tingling in her hands related to carpal tunnel. Review of systems is otherwise negative Past medical history and social history reviewed and unchanged from a week ago except that she has a new granddaughter born last week. She will get to see her granddaughter on a visit in the coming week and is excited about that. Past Medical History: Diagnosis Date ??? Goiter 08/06/2011 ??? HTN (hypertension) 08/06/2011 ??? Malignant neoplasm of left breast in female, estrogen receptor negative 04/13/2017 ??? Obesity 08/06/2011 Past Surgical History: Procedure Laterality Date ??? PRG SOMATOSENSORY TEST, ANY/ALL PER. NERVES, TRUNK OR HEAD 09/02/2011 FACIAL NERVE MONITORING, SETUP performed by VALENTINE OVIEDO at [facility] MAIN OR ??? PRO BX/REMV, LYMPH NODE, DEEP AXILL Left 04/30/2017 BIOPSY OR EXCISION OF LYMPH NODE(S), OPEN, DEEP AXILLARY NODE(S) (WRVU 6.43) performed by Avery Thacker MD at [facility] OSC ??? PRO EXCISE BREAST LES W XRAY MARKER Left 04/30/2017 EXCISION LESION, BREAST W/ PREOP.MARKER (NEEDLE LOC.) (WRVU 6.69) performed by [facility]very [facility]acker [facility] O[facility] ??? PRO INTRAOP SENTINEL LYMPH ID W/DYE INJECTION Left 04/30/2017 INTRAOPERATIVE ID (MAPPING) SENTINEL LYMPH NODE,INCLUDES INJECTION (WRVU 2.5) performed by Avery Thacker MD at [facility] OSC ??? PRO MASTECTOMY, PARTIAL Left 04/30/2017 MASTECTOMY PARTIAL (WRVU 10.13) performed by Avery Thacker MD at [facility] OSC ??? PRO THYROIDECTOMY 09/02/2011 THYROIDECTOMY, TOTAL OR COMPLETE performed by VALENTINE OVIEDO at [facility] MAIN OR Uterine Ablation Ovaries still present Allergies Allergen Reactions ??? Compazine [Prochlorperazine] Nausea And Vomiting Light sensitivity, dizzy, twitching ??? Iron Pt unsure of reaction Current Outpatient Prescriptions on File Prior to Visit Medication Sig Dispense Refill ??? ondansetron (ZOFRAN) 8 mg Tablet Take 1 tablet by mouth every 8 hours as needed for Nausea. 30 tablet 1 ??? 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 Hematological: Negative for adenopathy. BP 146/79 (Patient Position: Sitting) Pulse (!) 108 Temp 36.8 ??C (98.2 ??F) (Oral) Resp 18 Ht 167 cm (5' 5.75) Comment: copied Wt 101.6 kg (224 lb) SpO2 100% BMI 36.43 kg/m2 Head: Normocephalic, without obvious abnormality, atraumatic [...] contrast enhancement curve analysis was performed, using [employer] software. ?? COMPARISON STUDIES: Compared and/or correlated [...] contrast enhancement curve analysis was performed, using [employer] software. ?? COMPARISON STUDIES: Compared and/or correlated [...] Type: ?? Invasive ductal carcinoma ?Histologic Grade ([place] Histologic Score) ? Glandular (Acinar) / Tubular [...] and ??<= 200 cells): ?0 ?Number of [place] Nodes Examined: ?1 Pathologic Stage Classification (pTNM, AJCC 8th Edition) ?Primary Tumor (Invasive Carcinoma) (pT): ?pT1b ?Regional Lymph Nodes (pN) ER, OK, and HER2 (performed on prior biopsy, [id number]): ER: Negative OK: Negative HER2 FISH: Negative Procedure: Transthoracic Echocardiogram Patient: RICO Corona (Age): 1960(56y) Med Rec#: [id number] Sex: F Site Loc: [facility] Ht / Wt: 167(cm)/107(kg) Pt. Loc: Echo Lab BSA: 2.14 Study Date: 06/01/2017 Pt. Type: Outpatient Tape: ?? Referring: Junior Olivera Reading: Oscar Cool ([id number]) Behaviour Support Teacher: Orlando Samayoa ?? Diagnosis: *ICD-10-PCS Malignant neoplasm [...] 133.8 mg pegfilgrastim (NEULASTA) [facility] Day, Cycle Day 1, Cycle 3 cyclophosphamide (CYTOXAN) IV 600 mg/m2/dose = 1,338 mg DOXOrubicin (ADRIAMYCIN) IV 60 mg/m2/dose = 133.8 mg pegfilgrastim (NEULASTA) [facility] 07/20/2017 Day, Cycle Day 1, Cycle 4 cyclophosphamide (CYTOXAN) IV 600 mg/m2/dose = 1,338 mg DOXOrubicin (ADRIAMYCIN) IV 60 mg/m2/dose = 133.8 mg PACLitaxel (TAXOL) IV pegfilgrastim (NEULASTA) [facility]Q [facility] 08/04/2017 08/11/2017 Day, Cycle Day 1, Cycle 1 Day 8, Cycle 1 cyclophosphamide (CYTOXAN) IV DOXOrubicin (ADRIAMYCIN) IV PACLitaxel (TAXOL) IV 80 mg/m2/dose = 172 mg 80 mg/m2/dose = 172 mg pegfilgrastim (NEULASTA) [facility] 08/25/2017 Day, Cycle Day 15, Cycle 1 cyclophosphamide (CYTOXAN) IV DOXOrubicin (ADRIAMYCIN) IV PACLitaxel (TAXOL) IV 80 mg/m2/dose = 172 mg pegfilgrastim (NEULASTA) SubQ ONCN ONCOLOGY (AMB) 09/01/2017 Day, Cycle Day 22, Cycle 1 cyclophosphamide (CYTOXAN) IV DOXOrubicin (ADRIAMYCIN) IV PACLitaxel (TAXOL) IV 80 mg/m2/dose = 172 mg pegfilgrastim (NEULASTA) [facility] 09/08/2017 Day, Cycle Day 1, Cycle 2 cyclophosphamide (CYTOXAN) IV DOXOrubicin (ADRIAMYCIN) IV PACLitaxel (TAXOL) IV 80 mg/m2/dose = 172 mg pegfilgrastim (NEULASTA) SubQ Laboratory today shows a white count of 2.55 with an absolute neutrophil count of 1.81 and hemoglobin 9.3 hematocrit 29.5 platelets at 281. CMP shows normal electrolytes creatinine of 0.71 normal liver tests with a bilirubin of 0.5 and alkaline phosphatase of 65 albumin is 3.4 Assessment/plan: Zoë is fine today for her sixth weekly Taxol treatment. She is tolerating things reasonably wellbut remains fatigued and is achy for several days after each Taxol infusion. She had a scheduling problem with her echocardiogram so that is rescheduled but there is no evidence for any cardiac failure on today's exam with a strong pulse no rales and no distention of the neck veins. That is no different. She will keep the appointment though for her echo. She clearly is having more fatigue than patients usually have with this part of the chemotherapy. Also notable is that her hemoglobin is not coming up like it does usually and that could be part of her symptomatic problems. It is not low enough however to consider a transfusion or starting erythropoietin. Follow-up is arranged for cycle 7 next week with lab. She will call if there is issues in the interim. documented in this encounter Plan of Treatment Not on file documented as of this encounter Visit Diagnoses Diagnosis Malignant neoplasm of upper-outer quadrant of left breast in female, estrogen receptor negative documented in this encounter Care Teams Signal Technician Relationship Specialty Start Date End Date Home Yeager MD PCP - General Family Medicine 04/21/17 documented as of this encounter
--- OUTSIDE RECORDS SUMMARY | 2024-01-08 01:12 | XMS_ITS | Encounter Summary ---
Author Organization [facility] [place] [address] Care Team Providers Care Oil Fire Specialist Name Role Phone Home Yeager MD Primary Care Provider [phone] Reason for Visit * Reason Comments Chemotherapy ycle 1, Day 22 -- Pa clitaxel * Treatment/Therapy Plan Authorization (Routine) - Closed Specialty Diagnoses / Procedures Referred By Contac t Referred To Contact Hematology and Oncology Diagnoses Malignant neoplasm of upper-outer quadrant of left breast in female, estrogen receptor negative Procedures TC PALONOSETRON HCL, 25MCG, INJECTION (ALOXI) TC PACLITAXEL, 1MG, INJ Junior Olivera MD [address] [place] [id number] [facility] Hem Onc Office [address] [place] [phone] Referral ID Status Reason Start Date Expiration Date Visits Re quested Visits Authorized [id number] Closed 07/21/2017 07/21/2018 50 50 Encounter Details Date Type Department Care Team (Late st Contact Info) Description 09/01/2017 1:00 PM EDT Infusion Hematology Oncology at [address] [phone] Malignant neoplasm of upper-outer quadrant [...] as of this encounter Progress Notes * Edie Moy RN - 09/01/2017 1:00 PM EDT INFUSION THERAPY ADMINISTRATION NOTES DIAGNOSIS: Breast cancer CYCLE #: Cycle 1, Day 22 -- Paclitaxel REASON FOR VISIT: To receive chemotherapy SUBJECTIVE: Zoë offers no complaints. OBJECTIVE: VSS. Seen by provider. LAB DATA: WBC - 5.82, H/H - 9.7/30.6, Plt Ct - 254, ANC - 3.84, Lytes wnl, BUN/CR - 11/0.69 IV ACCESS: Port accessed off site, flushes readily with brisk blood return. Pre administration: Chemotherapy orders independently verified for drug name, route, and dosage per patient's height, weight and BSA by Ag Moy RN and Greg Cifuentes [facility] REACTIONS (DESCRIPTION, TIME, INTERVENTION AND EFFECTIVENESS) none [...] 10 mg, Intravenous, ONCE, 1 dose, On Thu09/01/17 at 1245, Administer 30 minutes prior to PACLitaxel Given 09/01/2017 1:02 PM EDT 10 mg diphenhydrAMINE (BENADRYL) injection 25 mg 25 mg, Intravenous, ONCE, 1 dose, On Thu09/01/17 at 1245, Administer 30 minutes prior to PACLitaxel, Routine Given 09/01/2017 1:07 PM EDT 25 mg famotidine (PEPCID) injection 20 mg 20 mg, Intravenous, ONCE, 1 dose, On Thu09/01/17 at 1245, Administer 30 minutes prior to PACLitaxel Given 09/01/2017 1:01 PM EDT 20 mg heparin, porcine 100 unit/mL flush 500 Units 500 Units, Intravenous, ONCE PRN, Starting on Thu09/01/17 at 1221, Until Thu09/01/17 at 1834, Line Care, Refer to Intravenous (IV) Procedure: Accessing Implanted Vascular Access Devices (654) procedure and/or Intravenous (IV) Job Aid: Adult Flushing & Catheter Care (7034) job aid for additional information regarding guidelines and administration., Routine Given 09/01/2017 2:55 PM EDT 500 Units PACLitaxel (TAXOL) 172 mg in dextrose 5% Non-PVC 278.6667 mL chemo infusion 172 mg (80 mg/m2/dose ? 2.15 m2 Treatment Plan BSA from Recorded weight), Intravenous, ONCE, 1 dose, On Thu09/01/17 at 1345, Administer over 60 Minutes, Warning Vesicant/Irritant Medication New Bag 09/01/2017 1:53 PM EDT 172 mg 279 mL/hr palonosetron (ALOXI) injection 0.25 mg 0.25 mg, Intravenous, ONCE, 1 dose, On Thu09/01/17 at 1245, Routine Given 09/01/2017 1:00 PM EDT 0.25 mg sodium chloride 0.9 % flush 5-20 mL 5-20 mL, Intravenous, EVERY 1 MIN PRN, Starting on Thu09/01/17 at 1221, Until Thu09/01/17 at 1834, Line Care, Flush pertains to all indwelling lines. Flush per protocol found in the job aid using the link provided on this medication record. Refer to Intravenous (IV) Job Aid: Adult Flushing & Catheter Care (2317) job aid for additional information regarding guidelines and administration., Routine Given 09/01/2017 2:55 PM EDT 20 mLs documented in this encounter Care Teams Oil Fire Specialist Relationship Specialty Start Date End Date Home Yeager MD PCP - General Family Medicine 04/21/17 documented as of this encounter
--- OUTSIDE RECORDS SUMMARY | 2024-01-08 01:12 | XMS_ITS | Encounter Summary ---
Author Organization [facility] [place] [address] Care Team Providers Care Riding Instructor Name Role Phone Home Yeager MD Primary Care Provider [phone] Reason for Visit * Reason Comments Chemotherapy Cycle 3, Day 8; Pacl itaxol * Treatment/Therapy Plan Authorization (Routine) - Closed Specialty Diagnoses / Procedures Referred By Contac t Referred To Contact Hematology and Oncology Diagnoses Malignant neoplasm of upper-outer quadrant of left breast in female, estrogen receptor negative Procedures TC PALONOSETRON HCL, 25MCG, INJECTION (ALOXI) TC PACLITAXEL, 1MG, INJ Junior Olivera MD [address] [place] [id number] [facility] Hem Onc Office [address] [place] [phone] Referral ID Status Reason Start Date Expiration Date Visits Re quested Visits Authorized [id number] Closed 07/21/2017 07/21/2018 50 50 Encounter Details Date Type Department Care Team (Late st Contact Info) Description 10/13/2017 12:00 PM EDT Infusion Hematology Oncology at [address] [phone] Malignant neoplasm of upper-outer quadrant [...] as of this encounter Progress Notes * Latrell Estevez RN - 10/13/2017 12:00 PM EDT INFUSION THERAPY ADMINISTRATION NOTES DIAGNOSIS: Breast cancer CYCLE #: Cycle 3, Day 8 REASON FOR VISIT: Taxol infusion SUBJECTIVE: Zoë offers no complaints. OBJECTIVE: VSS. LAB DATA: WNL & reviewed by Dr Olivera IV ACCESS: Port accessed off site, flushes readily with brisk blood return. Pre administration: Chemotherapy orders independently verified for drug name, route, and dosage per patient's height, weight and BSA by LATRELL ESTEVEZ RN and [facility] onsite. REACTIONS (DESCRIPTION, TIME, INTERVENTION [...] 10 mg, Intravenous, ONCE, 1 dose, On Thu10/13/17 at 1230, Administer 30 minutes prior to PACLitaxel Given 10/13/2017 1:01 PM EDT 10 mg diphenhydrAMINE (BENADRYL) injection 25 mg 25 mg, Intravenous, ONCE, 1 dose, On Thu10/13/17 at 1230, Administer 30 minutes prior to PACLitaxel, Routine Given 10/13/2017 12:59 PM EDT 25 mg famotidine (PEPCID) injection 20 mg 20 mg, Intravenous, ONCE, 1 dose, On Thu10/13/17 at 1230, Administer 30 minutes prior to PACLitaxel Given 10/13/2017 12:59 PM EDT 20 mg heparin, porcine 100 unit/mL flush 500 Units 500 Units, Intravenous, ONCE PRN, Starting on Thu10/13/17 at 1204, Until Thu10/13/17 at 1830, Line Care, Refer to Intravenous (IV) Procedure: Accessing Implanted Vascular Access Devices (654) procedure and/or Intravenous (IV) Job Aid: Adult Flushing & Catheter Care (2720) job aid for additional information regarding guidelines and administration., Routine Given 10/13/2017 2:50 PM EDT 500 Units PACLitaxel (TAXOL) 172 mg in dextrose 5% Non-PVC 278.6667 mL chemo infusion 172 mg (80 mg/m2/dose ? 2.15 m2 Treatment Plan BSA from Recorded weight), Intravenous, ONCE, 1 dose, On Thu10/13/17 at 1330, Administer over 60 Minutes, Warning Vesicant/Irritant Medication New Bag 10/13/2017 1:42 PM EDT 172 mg 279 mL/hr palonosetron (ALOXI) injection 0.25 mg 0.25 mg, Intravenous, ONCE, 1 dose, On Thu10/13/17 at 1230, Routine Given 10/13/2017 12:58 PM EDT 0.25 mg sodium chloride 0.9 % flush 5-20 mL 5-20 mL, Intravenous, EVERY 1 MIN PRN, Starting on Thu10/13/17 at 1204, Until Thu10/13/17 at 1830, Line Care, Flush pertains to all indwelling lines. Flush per protocol found in the job aid using the link provided on this medication record. Refer to Intravenous (IV) Job Aid: Adult Flushing & Catheter Care (4244) job aid for additional information regarding guidelines and administration., Routine Given 10/13/2017 2:50 PM EDT 20 mLs documented in this encounter Care Teams Riding Instructor Relationship Specialty Start Date End Date Hoem Yeager MD PCP - General Family Medicine 04/21/17 documented as of this encounter
--- OUTSIDE RECORDS SUMMARY | 2024-01-08 01:12 | XMS_ITS | Encounter Summary ---
Author Organization [facility] Address [facility] [place] [address] Care Team Providers Care 2 Year Olds Preschool Teacher Name Role Phone Home Yeager MD Primary Care Provider [phone] Encounter Details Date Type Department Care Team (Latest Contact Info) Description 09/29/2017 11:00 AM EDT Office Visit Hematology/Oncology at [address] [phone] Dany Boothe MD [facility] DR HEMATOLOGY [place] [address] Malignant neoplasm of upper-outer quadrant of left breast in female, estrogen receptor negative; Encounter for antineoplastic chemotherapy Social History Tobacco Use Types Packs/Day Years [...] Sign Reading Time Taken Comments Blood Pressure 132/71 09/29/2017 11:23 AM EDT Pulse 94 09/29/2017 11:23 AM EDT Temperature 37 ??C (98.6 ??F) 09/29/2017 11:23 AM EDT Respiratory Rate 16 09/29/2017 11:23 AM EDT Oxygen Saturation 99% 09/29/2017 11:23 AM EDT Inhaled Oxygen Concentration - - Weight 104.3 kg (230 lb) 09/29/2017 11:23 AM EDT Height 167 cm (5' 5.75) 09/29/2017 11:23 AM EDT Body Mass Index 37.41 09/29/2017 11:23 AM EDT documented in this encounter Progress Notes * Dany Boothe MD - 09/29/2017 11:00 AM EDT Diagnosis: 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 The tumor was 0.7 mm but triple negative. Subjective: Zoë comes in again today for her sixth weekly Taxol treatment. She is tolerating the chemotherapy well and notes she is having no numbness although she does have a little bit of soreness to her nailbeds with the treatment. Nausea is well controlled and she notes she is doing a lot better overallsince her second grandkid was born. Apparently there was a lot of anxiety and nervousness about that. Otherwise though review of systems is negative. She is going to get her echocardiogram this Thursday although she notes that since getting off the Adriamycin and Cytoxan things have slowly improved as far as her ability to get around. Past medical history and social history reviewed and unchanged from a week ago except that she has a second new granddaughter born last week. Past Medical History: Diagnosis Date ??? Goiter 08/06/2011 ??? HTN (hypertension) 08/06/2011 ??? Malignant neoplasm of left breast in female, estrogen receptor negative 04/13/2017 ??? Obesity 08/06/2011 Past Surgical History: Procedure Laterality Date ??? PRG SOMATOSENSORY TEST, ANY/ALL PER. NERVES, TRUNK OR HEAD 09/02/2011 FACIAL NERVE MONITORING, SETUP performed by VALENTINE OVIEDO at [facility] MAIN OR ??? PRO BX/REMV, LYMPH NODE, DEEP AXILL Left 04/30/2017 BIOPSY OR EXCISION OF LYMPH NODE(S), OPEN, DEEP AXILLARY NODE(S) (WRVU 6.43) performed by Avery Thacker MD at [facility] OSC ??? PRO EXCISE BREAST LES W XRAY MARKER Left 04/30/2017 EXCISION LESION, BREAST W/ PREOP.MARKER (NEEDLE LOC.) (WRVU 6.69) performed by Avery Thacker MDat [facility] OSC ??? PRO INTRAOP SENTINEL LYMPH ID W/DYE INJECTION Left 04/30/2017 INTRAOPERATIVE ID (MAPPING) SENTINEL LYMPH NODE,INCLUDES INJECTION (WRVU 2.5) performed by Avery Thacker MD at [facility] OSC ??? PRO MASTECTOMY, PARTIAL Left 04/30/2017 MASTECTOMY PARTIAL (WRVU 10.13) performed by Avery Thacker MD at [facility] OSC ??? PRO THYROIDECTOMY 09/02/2011 THYROIDECTOMY, TOTAL OR COMPLETE performed by VALENTINE OVIEDO at [facility] MAIN OR Uterine Ablation Ovaries still present [...] for port access 45 g 3 ??? GLUCOSAMINE SULFATE (GLUCOSAMINE ORAL) Take by mouth. ??? acetaminophen (TYLENOL) 325 mg Tablet Take 2 tablets by mouth every 4 hours as needed for Pain. ??? ERGOCALCIFEROL, VITAMIN [...] Reported on 09/29/2017) 30 tablet 1 ??? EMOLLIENT BASE (CREAM BASE TOP) Apply topically. Jeans Cream. Apply to area of radiation twice a day but no less than 2 hours before a treatment. ??? metFORMIN (GLUCOPHAGE) 500 mg Tablet Take 500 mg by mouth daily. ??? ibuprofen (ADVIL;MOTRIN) 600 mg Tablet Take 600 mg by mouth 3 times daily as needed for Pain. No current facility-administered medications on file prior [...] Not on file Social History Narrative Former [employer] Review of Systems Constitutional: Negative for fever, [...] Neurological: Negative. Hematological: Negative for adenopathy. BP 132/71 (Patient Position: Sitting) Pulse 94 Temp 37 ??C (98.6 ??F) (Oral) Resp 16 Ht 167cm (5' 5.75) Wt 104.3 kg (230 lb) SpO2 99% BMI 37.41 kg/m2 Head: Normocephalic, without obvious abnormality, atraumatic [...] contrast enhancement curve analysis was performed, using [employer] software. ?? COMPARISON STUDIES: Compared and/or correlated [...] contrast enhancement curve analysis was performed, using [employer] software. ?? COMPARISON STUDIES: Compared and/or correlated [...] and ??<= 200 cells): ?0 ?Number of Dragoon Nodes Examined: ?1 Pathologic Stage Classification (pTNM, AJCC 8th Edition) ?Primary Tumor (Invasive Carcinoma) (pT): ?pT1b ?Regional Lymph Nodes (pN) 09/25/2017 echocardiogram ejection fraction 55-. Wall thickness was increased in a pattern of mild LVH. Systolic function was normal. Mild mitral regurgitation. Pulmonary systolic pressure was at theupper limits of normal. 55-60% ER, CA, and HER2 (performed on prior biopsy, [id number]): ER: Negative CA: Negative HER2 FISH: Negative Procedure: Transthoracic Echocardiogram Patient: RICO Corona (Age): 1960(56y) Med Rec#: [id number] Sex: F [place] [facility] / Wt: 167(cm)/107(kg) Pt. Loc: Echo Lab BSA: 2.14 Study Date: 06/01/2017 Pt. Type: Outpatient Tape: ?? Referring: Junior Olivera Reading: Oscar Cool ([id number]) Assistant Librarian: rOlando Samayoa ?? Diagnosis: *ICD-10-PCS Malignant neoplasm of [...] 133.8 mg pegfilgrastim (NEULASTA) SubQ 6 [facility] 07/06/2017 Day, Cycle Day 1, Cycle 3 cyclophosphamide (CYTOXAN) IV 600 mg/m2/dose = 1,338 mg DOXOrubicin (ADRIAMYCIN) IV 60 mg/m2/dose = 133.8 mg pegfilgrastim (NEULASTA) SubQ 6 mg [facility] 07/20/2017 Day, Cycle Day 1, Cycle 4 cyclophosphamide (CYTOXAN) IV 600 mg/m2/dose = 1,338 mg DOXOrubicin (ADRIAMYCIN) IV 60 mg/m2/dose = 133.8 mg PACLitaxel (TAXOL) IV pegfilgrastim (NEULASTA) SubQ 6 mg [facility] 08/04/2017 08/11/2017 Day, Cycle Day 1, Cycle 1 Day 8, Cycle 1 cyclophosphamide (CYTOXAN) IV DOXOrubicin (ADRIAMYCIN) IV PACLitaxel (TAXOL) IV 80 mg/m2/dose = 172 mg 80 mg/m2/dose = 172 mg pegfilgrastim (NEULASTA) SubQ [facility] 08/25/2017 Day, Cycle Day 15, Cycle 1 cyclophosphamide (CYTOXAN) IV DOXOrubicin (ADRIAMYCIN) IV PACLitaxel (TAXOL) IV 80 mg/m2/dose = 172 mg pegfilgrastim (NEULASTA) SubQ [facility] 09/01/2017 Day, Cycle Day 22, Cycle 1 cyclophosphamide (CYTOXAN) IV DOXOrubicin (ADRIAMYCIN) IV PACLitaxel (TAXOL) IV 80 mg/m2/dose = 172 mg pegfilgrastim (NEULASTA) SubQ [facility] 09/08/2017 Day, Cycle Day 1, Cycle 2 cyclophosphamide (CYTOXAN) IV DOXOrubicin (ADRIAMYCIN) IV PACLitaxel (TAXOL) IV 80 mg/m2/dose = 172 mg pegfilgrastim (NEULASTA) SubQ [facility] 09/15/2017 Day, Cycle Day 8, Cycle 2 cyclophosphamide (CYTOXAN) IV DOXOrubicin (ADRIAMYCIN) IV PACLitaxel (TAXOL) IV 80 mg/m2/dose = 172 mg pegfilgrastim (NEULASTA) SubQ Labs: WBC 2.4, hemoglobin 10, platelet count 271, ANC 1.56, sodium 142, potassium 3.7, BUN 10, creatinine 0.84, AST 24, ALT 44, alkaline phosphatase 62, total protein 7.0, albumin 3.4. Assessment/plan: Zoë is fine today for her 8-th week of Taxol. We will go ahead with today's treatment. She will have stand-alone Taxol next week. Dr. Olivera will see her back in 2 weeks with blood work for week #10 of 12. She will call if there is issues in the interim. #Echocardiogram: Systolic function is normal, borderline pulmonary hypertension Plan: 1. Weekly Taxol today 2. Stand-alone blood work and Taxol in 1 week 3. Next visit with Dr. Olivera in with blood work and week #10 of Taxol in 2 weeks. documented in this encounter Plan of Treatment Not on file documented as of this encounter Visit Diagnoses Diagnosis Malignant neoplasm of upper-outer quadrant of left breast in female, estrogen receptor negative Encounter for antineoplastic chemotherapy documented in this encounter Care Teams 2 Year Olds Preschool Teacher Relationship Specialty Start Date End Date Home Yeager MD PCP - General Family Medicine 04/21/17 documented as of this encounter
--- OUTSIDE RECORDS SUMMARY | 2024-01-08 01:12 | XMS_ITS | Encounter Summary ---
Author Organization [facility] [place] [address] Care Team Providers Care Winderman Name Role Phone Home Yeager MD Primary Care Provider [phone] Encounter Details Date Type Department Care Team (Late st Contact Info) Description 12/17/2017 Orders Only Hematology/Oncology at [address] [phone] Mady Ramos, DEV OPS ENGINEER [address] [facility] [place] [address] Social History Tobacco Use Types Packs/Day Years [...] on filedocumented in this encounter Care Teams Winderman Relationship Specialty Start Date End Date Home Yeager MD PCP - General Family Medicine 04/21/17 documented as of this encounter
--- OUTSIDE RECORDS SUMMARY | 2024-01-08 01:12 | XMS_ITS | Encounter Summary ---
Author Organization [facility] [place] [address] Care Team Providers Care Chimney Supervisor Brick Name Role Phone Home Yeager MD Primary Care Provider [phone] Encounter Details Date Type Department Care Team (Late st Contact Info) Description 08/25/2017 Orders Only Hematology/Oncology at [address] [phone] Janell Scales RN Malignant neoplasm of upper-outer quadrant of left breast in female, estrogen receptor negative; Difficulty breathing Social History Tobacco Use Types Packs/Day Years [...] Difficulty breathing Other dyspnea and respiratory abnormality documented in this encounter Care Teams Chimney Supervisor Brick Relationship Specialty Start Date End Date Home Yeager MD PCP - General Family Medicine 04/21/17 documented as of this encounter
--- OUTSIDE RECORDS SUMMARY | 2024-01-08 01:12 | XMS_ITS | Encounter Summary ---
Author Organization [facility] [place] [address] Care Team Providers Care Diesel Dinkey Operator Name Role Phone Home Yeager MD Primary Care Provider [phone] Encounter Details Date Type Department Care Team (Late st Contact Info) Description 11/03/2017 Notes Only Radiation Oncology at [address] [phone] Cathy Kendall MSW OFFICE OF CARE MANAGEMENT Social History Tobacco Use Types Packs/Day Years [...] as of this encounter Progress Notes * Cathy Kendall MSW - 11/03/2017 1:33 PM EDT Follow up with pt and after pt's sim today. Pt reports she will start RT on 11-24-17 for 33 treatments. Reviewed financial assistance pt getting from [employer], [employer] and the [employer]. Pt feeling theyare in a better place financially and caught up on their bills. Both pt and are in the process of applying for SSDI. Reminded pt and of my availability. Will follow for support and resources. documented in this encounter Plan of Treatment Not on file documented as of this encounter Visit Diagnoses Not on filedocumented in this encounter Care Teams Diesel Dinkey Operator Relationship Specialty Start Date End Date Home Yeager MD PCP - General Family Medicine 04/21/17 documented as of this encounter
--- OUTSIDE RECORDS SUMMARY | 2024-01-08 01:12 | XMS_ITS | Encounter Summary ---
Author Organization [facility] [place] [address] Care Team Providers Care Systems Test Engineer Name Role Phone Home Yeager MD Primary Care Provider [phone] Reason for Visit * Reason Onset Date Comments Other 08/19/2017 Community resour steve Encounter Details Date Type Department Care Team (Late st Contact Info) Description 08/19/2017 Telephone Hematology/Oncology at [address] [phone] Cathy Kendall MSW OFFICE OF CARE MANAGEMENT Other (Community resources) Social History Tobacco Use Types Packs/Day Years [...] encounter Miscellaneous Notes * Telephone Encounter - Cathy Kendall MSW - 08/19/2017 10:17 AM EDT TC from Evelina Cuello, [employer], [employer] requesting information about possible financial resourcespt may be eligible for to help with living expenses as pt has informed [facility] that she is unable to pay her bills. A community team meeting has been set up for August 25 at 11 am at [facility] to discuss this with pt and her community providers/resources. documented in this encounter Plan of Treatment Not on file documented as of this encounter Visit Diagnoses Not on filedocumented in this encounter Care Teams Systems Test Engineer Relationship Specialty Start Date End Date Home Yeager MD PCP - General Family Medicine 04/21/17 documented as of this encounter
--- OUTSIDE RECORDS SUMMARY | 2024-01-08 01:12 | XMS_ITS | Encounter Summary ---
Author Organization [facility] [place] [address] Care Team Providers Care Hostess Cashier Name Role Phone Home Yeager MD Primary Care Provider [phone] Reason for Visit * Reason Comments Breast Cancer Encounter Details Date Type Department Care Team (Late st Contact Info) Description 09/22/2017 11:30 AM EDT Office Visit Hematology/Oncology at [address] [phone] Junior Olivera MD [address] [place] [address] [phone] Malignant neoplasm of upper-outer quadrant of left [...] Sign Reading Time Taken Comments Blood Pressure 127/75 09/22/2017 11:35 AM EDT Pulse 98 09/22/2017 11:35 AM EDT Temperature 36.9 ??C (98.4 ??F) 09/22/2017 11:35 AM E DT Respiratory Rate 18 09/22/2017 11:35 AM EDT Oxygen Saturation 100% 09/22/2017 11:35 AM EDT Inhaled Oxygen Concentration - - Weight 102.5 kg (226 lb) 09/22/2017 11:35 AM EDT Height 167 cm (5' 5.75) 09/22/2017 11:35 AM EDT copied Body Mass Index 36.76 09/22/2017 11:35 AM EDT documented in this encounter Progress Notes * Junior Olivera MD - 09/22/2017 11:30 AM EDT Diagnosis: Stage I high-grade [...] MONITORING, SETUP performed by VALENTINE OVIEDO at [facility] MAIN OR ??? PRO BX/REMV, LYMPH NODE, DEEP AXILL Left 04/30/2017 BIOPSY OR EXCISION OF LYMPH NODE(S), OPEN, DEEP AXILLARY NODE(S) (WRVU 6.43) performed by Avery Thacker MD at [facility] OSC ??? PRO EXCISE BREAST LES W XRAY MARKER Left 04/30/2017 EXCISION LESION, BREAST W/ PREOP.MARKER (NEEDLE LOC.) (WRVU 6.69) performed by Avery Thacker MDat [facility] ??? PRO INTRAOP SENTINEL LYMPH ID W/DYE INJECTION Left 04/30/2017 INTRAOPERATIVE ID (MAPPING) SENTINEL LYMPH NODE,INCLUDES INJECTION (WRVU 2.5) performed by Avery Thacker MD at [facility] ??? PRO MASTECTOMY, PARTIAL Left 04/30/2017 MASTECTOMY PARTIAL (WRVU 10.13) performed by Avery Thacker MD at [facility] ??? 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 Hematological: Negative for adenopathy. BP 127/75 (Patient Position: Sitting) Pulse 98 Temp 36.9 ??C (98.4 ??F) (Oral) Resp 18 Ht 167 cm (5' 5.75) Comment: copied Wt 102.5 kg (226 lb) SpO2 100% BMI 36.76 kg/m2 Head: Normocephalic, without obvious abnormality, atraumatic [...] contrast enhancement curve analysis was performed, using Epoque software. ?? COMPARISON STUDIES: Compared and/or correlated [...] contrast enhancement curve analysis was performed, using Epoque software. ?? COMPARISON STUDIES: Compared and/or correlated [...] Type: ?? Invasive ductal carcinoma ?Histologic Grade (Passaic Histologic Score) ? Glandular (Acinar) / Tubular [...] and ??<= 200 cells): ?0 ?Number of [place] Nodes Examined: ?1 Pathologic Stage Classification (pTNM, AJCC 8th Edition) ?Primary Tumor (Invasive Carcinoma) (pT): ?pT1b ?Regional Lymph Nodes (pN) ER, [place], and HER2 (performed on prior biopsy, [id number]): ER: Negative MO: Negative HER2 FISH: Negative Procedure: Transthoracic Echocardiogram Patient: RICO LEIVA(Age): 1960(56y) Med Rec#: [id number] Sex: F Site Loc: [facility] [place] Ht / Wt: 167(cm)/107(kg) Pt. Loc: Echo Lab BSA: 2.14 Study Date: 06/01/2017 Pt. Type: Outpatient Tape: ?? Referring: Junior Olivera Reading: Oscar Cool ([id number]) Physician Chief Of Pathology: Orlando Samayoa ?? Diagnosis: *ICD-10-PCS Malignant neoplasm [...] 133.8 mg pegfilgrastim (NEULASTA) SubQ 6 mg ONCN ONCOLOGY (AMB) 07/20/2017 Day, Cycle Day 1, Cycle 4 cyclophosphamide (CYTOXAN) IV 600 mg/m2/dose = 1,338 mg DOXOrubicin (ADRIAMYCIN) IV 60 mg/m2/dose = 133.8 mg PACLitaxel (TAXOL) IV pegfilgrastim (NEULASTA) SubQ 6 mg ONCN ONCOLOGY (AMB) 08/04/2017 08/11/2017 Day, Cycle Day 1, Cycle 1 Day 8, Cycle 1 cyclophosphamide (CYTOXAN) IV DOXOrubicin (ADRIAMYCIN) IV PACLitaxel (TAXOL) IV 80 mg/m2/dose = 172 mg 80 mg/m2/dose = 172 mg pegfilgrastim (NEULASTA) SubQ ONCN ONCOLOGY (AMB) 08/25/2017 Day, Cycle Day 15, Cycle 1 cyclophosphamide (CYTOXAN) IV DOXOrubicin (ADRIAMYCIN) IV PACLitaxel (TAXOL) IV 80 mg/m2/dose = 172 mg pegfilgrastim (NEULASTA) SubQ ONCN ONCOLOGY (AMB) 09/01/2017 Day, Cycle Day 22, Cycle 1 cyclophosphamide (CYTOXAN) IV DOXOrubicin (ADRIAMYCIN) IV PACLitaxel (TAXOL) IV 80 mg/m2/dose = 172 mg pegfilgrastim (NEULASTA) SubQ ONCN ONCOLOGY (AMB) 09/08/2017 Day, Cycle Day 1, Cycle 2 cyclophosphamide (CYTOXAN) IV DOXOrubicin (ADRIAMYCIN) IV PACLitaxel (TAXOL) IV 80 mg/m2/dose = 172 mg pegfilgrastim (NEULASTA) SubQ ONCN ONCOLOGY (AMB) 09/15/2017 Day, Cycle Day 8, Cycle 2 cyclophosphamide (CYTOXAN) IV DOXOrubicin (ADRIAMYCIN) IV PACLitaxel (TAXOL) IV 80 mg/m2/dose = 172 mg pegfilgrastim (NEULASTA) SubQ Blood counts today show white count of 2.53 hemoglobin 9.6 hematocrit 30.0 and platelet count of 297 CMP shows normal electrolytes except for slight decrease in potassium at 3.1 creatinine 2.72 livertests are normal albumin is staying stable at 3.3 Assessment/plan: Zoë is fine today for her sixth week of Taxol. We did have a week delay but the plan is for 12 weekly treatment so we will finish with 12. We will go ahead with today's treatment and see her back next week with lab for #7 of 12. She will call if there is issues in the interim. She is encouraged to get her echocardiogram this week. Suspect it may be normal but that issue has been raised and I had like to resolve it. documented in this encounter Plan of Treatment Not on file documented as of this encounter Visit Diagnoses Diagnosis Malignant neoplasm of upper-outer quadrant of left breast in female, estrogen receptor negative documented in this encounter Care Teams Hostess Cashier Relationship Specialty Start Date End Date Home Yeager MD PCP - General Family Medicine 04/21/17 documented as of this encounter
--- OUTSIDE RECORDS SUMMARY | 2024-01-08 01:12 | XMS_ITS | Encounter Summary ---
Author Organization [facility] [place] [address] Care Team Providers Care Liner Checker Name Role Phone Home Yeager MD Primary Care Provider Encounter Details Date Type Department Care Team (Late st Contact Info) Description 10/08/2017 Notes Only Hematology [place] [phone] Alex Aceves MD [facility] DR HEMATOLOGY/ONCOLOGY [place] [phone] Social History Tobacco Use Types Packs/Day Years [...] as of this encounter Progress Notes * Alex Aceves MD - 10/08/2017 2:15 PM EDT I have reviewed the patient's record and given personal and/or family history of cancer she should be seen by genetic counselor. This is scheduled for the near future. documented in this encounter Plan of Treatment Not on file documented as of this encounter Visit Diagnoses Not on filedocumented in this encounter Care Teams Liner Checker Relationship Specialty Start Date End Date Home Yeager MD PCP - General Family Medicine 04/21/17 documented as of this encounter
--- OUTSIDE RECORDS SUMMARY | 2024-01-08 01:12 | XMS_ITS | Encounter Summary ---
Author Organization [facility] [place] [address] Care Team Providers Care Design Coordinator Name Role Phone Home Yeager MD Primary Care Provider [phone] Reason for Visit * Reason Comments Chemotherapy Cycle 3, Day 1; Pacl itaxal * Treatment/Therapy Plan Authorization (Routine) - Closed Specialty Diagnoses / Procedures Referred By Contac t Referred To Contact Hematology and Oncology Diagnoses Malignant neoplasm of upper-outer quadrant of left breast in female, estrogen receptor negative Procedures TC PALONOSETRON HCL, 25MCG, INJECTION (ALOXI) TC PACLITAXEL, 1MG, INJ VladbiJunior coughlin MD [address] [place] [phone] [facility] Hem Onc Office [address] [place] [phone] Referral ID Status Reason Start Date Expiration Date Visits Re quested Visits Authorized [id number] Closed 07/21/2017 07/21/2018 50 50 Encounter Details Date Type Department Care Team (Late st Contact Info) Description 10/06/2017 11:00 AM EDT Infusion Hematology Oncology at [address] [phone] Malignant neoplasm of upper-outer quadrant [...] Sign Reading Time Taken Comments Blood Pressure 131/80 10/06/2017 11:10 AM EDT Pulse 85 10/06/2017 11:10 AM EDT Temperature 36.7 ??C (98.1 ??F) 10/06/2017 1 1:10 AM EDT Respiratory Rate 16 10/06/2017 11:1 0 AM EDT Oxygen Saturation 100% 10/06/2017 11: 10 AM EDT Inhaled Oxygen Concentration - - Weight 105.4 kg (232 lb 6.4 oz) 018 11:10 AM EDT Height 167 cm (5' 5.75) 10/06/2017 11: 10 AM EDT Body Mass Index 37.8 10/06/2017 11:10 AM EDT documented in this encounter Progress Notes * Latrell Estevez RN - 10/06/2017 11:00 AM EDT INFUSION THERAPY ADMINISTRATION NOTES DIAGNOSIS: Breast cancer CYCLE #: Cycle 3, Day 1 REASON FOR VISIT: Taxol infusion SUBJECTIVE: Zoë offers no complaints. OBJECTIVE: VSS. LAB DATA: WNL & reviewed by nursing IV ACCESS: Port accessed off site, flushes readily with brisk blood return. Pre administration: Chemotherapy orders independently verified for drug name, route, and dosage per patient's height, weight and BSA by LATRELL ESTEVEZ, AMARI and [facility] onsite. REACTIONS (DESCRIPTION, TIME, INTERVENTION AND EFFECTIVENESS) [...] 10 mg, Intravenous, ONCE, 1 dose, On Thu10/06/17 at 1145, Administer 30 minutes prior to PACLitaxel Given 10/06/2017 11:50 AM EDT 10 mg diphenhydrAMINE (BENADRYL) injection 25 mg 25 mg, Intravenous, ONCE, 1 dose, On Thu10/06/17 at 1145, Administer 30 minutes prior to PACLitaxel, Routine Given 10/06/2017 11:51 AM EDT 25 mg famotidine (PEPCID) injection 20 mg 20 mg, Intravenous, ONCE, 1 dose, On Thu10/06/17 at 1145, Administer 30 minutes prior to PACLitaxel Given 10/06/2017 11:51 AM EDT 20 mg heparin, porcine 100 unit/mL flush 500 Units 500 Units, Intravenous, ONCE PRN, Starting on Thu10/06/17 at 1116, Until Thu10/06/17 at 1833, Line Care, Refer to Intravenous (IV) Procedure: Accessing Implanted Vascular Access Devices (654) procedure and/or Intravenous (IV) Job Aid: Adult Flushing & Catheter Care (7911) job aid for additional information regarding guidelines and administration., Routine Given 10/06/2017 1:45 PM EDT 500 Units PACLitaxel (TAXOL) 172 mg in dextrose 5% Non-PVC 278.6667 mL chemo infusion 172 mg (80 mg/m2/dose ? 2.15 m2 Treatment Plan BSA from Recorded weight), Intravenous, ONCE, 1 dose, On Thu10/06/17 at 1245, Administer over 60 Minutes, Warning Vesicant/Irritant Medication New Bag 10/06/2017 12:34 PM EDT 172 mg 278.7 mL/hr palonosetron (ALOXI) injection 0.25 mg 0.25 mg, Intravenous, ONCE, 1 dose, On Thu10/06/17 at 1145, Routine Given 10/06/2017 11:49 AM EDT 0.25 mg sodium chloride 0.9 % flush 5-20 mL 5-20 mL, Intravenous, EVERY 1 MIN PRN, Starting on Thu10/06/17 at 1116, Until Thu10/06/17 at 1833, Line Care, Flush pertains to all indwelling lines. Flush per protocol found in the job aid using the link provided on this medication record. Refer to Intravenous (IV) Job Aid: Adult Flushing & Catheter Care (8643) job aid for additional information regarding guidelines and administration., Routine Given 10/06/2017 1:45 PM EDT 20 mLs documented in this encounter Care Teams Design Coordinator Relationship Specialty Start Date End Date Home Yeager MD PCP - General Family Medicine 04/21/17 documented as of this encounter
--- OUTSIDE RECORDS SUMMARY | 2024-01-08 01:12 | XMS_ITS | Encounter Summary ---
Author Organization [facility] [place] [address] Care Team Providers Care Hoof Trimmer Name Role Phone Home Yeager MD Primary Care Provider [phone] Reason for Visit * Reason Comments Breast Cancer Encounter Details Date Type Department Care Team (Late st Contact Info) Description 10/13/2017 11:30 AM EDT Office Visit Hematology/Oncology at [address] [phone] Junior Olivera MD [address] [place] [phone] Malignant neoplasm of upper-outer quadrant of left [...] Sign Reading Time Taken Comments Blood Pressure 133/82 10/13/2017 11:42 AM EDT Pulse 100 10/13/2017 11:42 AM EDT Temperature 36.7 ??C (98.1 ??F) 10/13/2017 11:42 AM E DT Respiratory Rate 16 10/13/2017 11:42 AM EDT Oxygen Saturation 100% 10/13/2017 11:42 AM EDT Inhaled Oxygen Concentration - - Weight 104.8 kg (231 lb) 10/13/2017 11:42 AM EDT Height 167 cm (5' 5.75) 10/13/2017 11:42 AM EDT copied Body Mass Index 37.57 10/13/2017 11:42 AM EDT documented in this encounter Progress Notes * Junior Olivera MD - 10/13/2017 11:30 AM EDT Diagnosis: 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 The tumor was 0.7 mm but triple negative. Subjective: Zoë comes in again today for her 10th weekly Taxol treatment. She is tolerating the chemotherapywell and notes a little bit of numbness in her fingertips. Nailbeds however are quite sore her nails have loosened up a bit. She has not lost any fingernails but does note that one toenail is starting to come off. She is being very careful with them. We talked about the fact that they grow back after chemotherapy is complete. Past medical history and social history reviewed and unchanged from several weeks ago. Past Medical History: Diagnosis Date ??? Goiter 08/06/2011 ??? HTN (hypertension) 08/06/2011 ??? Malignant neoplasm of left breast in female, estrogen receptor negative 04/13/2017 ??? Obesity 08/06/2011 Past Surgical History: Procedure Laterality Date ??? PRG SOMATOSENSORY TEST, ANY/ALL PER. NERVES, TRUNK OR HEAD 09/02/2011 FACIAL NERVE MONITORING, SETUP performed by VALENTINE OVIEDO at [facility] MAIN OR ??? PRO BX/REMV, LYMPH NODE, DEEP AXILL Left 04/30/2017 BIOPSY OR EXCISION OF LYMPH NODE(S), OPEN, DEEP AXILLARY NODE(S) (WRVU 6.43) performed by Avery Thacker MD at [facility] ??? PRO EXCISE BREAST LES W XRAY MARKER Left 04/30/2017 EXCISION LESION, BREAST W/ PREOP.MARKER (NEEDLE LOC.) (WRVU 6.69) performed by Avery Thacker MDat [facility] ??? PRO INTRAOP SENTINEL LYMPH ID W/DYE INJECTION Left 04/30/2017 INTRAOPERATIVE ID (MAPPING) SENTINEL LYMPH NODE,INCLUDES INJECTION (WRVU 2.5) performed by Avery Thacker MD at [facility] ??? PRO MASTECTOMY, PARTIAL Left 04/30/2017 MASTECTOMY PARTIAL (WRVU 10.13) performed by Avery Thacker MD at [facility] ??? 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 Hematological: Negative for adenopathy. BP 133/82 (Patient Position: Sitting) Pulse 100 Temp 36.7 ??C (98.1 ??F) (Oral) Resp 16 Ht 167 cm (5' 5.75) Comment: copied Wt 104.8 kg (231 lb) SpO2 100% BMI 37.57 kg/m2 Head: Normocephalic, without obvious abnormality, atraumatic [...] contrast enhancement curve analysis was performed, using Screenburn software. ?? COMPARISON STUDIES: Compared and/or correlated [...] contrast enhancement curve analysis was performed, using Screenburn software. ?? COMPARISON STUDIES: Compared and/or correlated [...] and ??<= 200 cells): ?0 ?Number of [place] Nodes Examined: ?1 Pathologic Stage Classification (pTNM, AJCC 8th Edition) ?Primary Tumor (Invasive Carcinoma) (pT): ?pT1b ?Regional Lymph Nodes (pN) ER, [place], and HER2 (performed on prior biopsy, [id number]): ER: Negative CO: Negative HER2 FISH: Negative Procedure: Transthoracic Echocardiogram Patient: RICO Corona (Age): 1960(56y) Med Rec#: [id number] Sex: F [place] [facility] [place] / Wt: 167(cm)/107(kg) Pt. Loc: Echo Lab BSA: 2.14 Study Date: 06/01/2017 Pt. Type: Outpatient Tape: ?? Referring: Junior Olivera Reading: Oscar Cool ([id number]) Photovoltaic Technician: Orlando Samayoa ?? Diagnosis: *ICD-10-PCS Malignant neoplasm [...] pegfilgrastim (NEULASTA) SubQ 6 mg ONCN ONCOLOGY ([facility]) 07/20/2017 Day, Cycle Day 1, Cycle 4 cyclophosphamide (CYTOXAN) IV 600 mg/m2/dose = 1,338 mg DOXOrubicin (ADRIAMYCIN) IV 60 mg/m2/dose = 133.8 mg PACLitaxel (TAXOL) IV pegfilgrastim (NEULASTA) SubQ 6 mg ONCN ONCOLOGY ([facility]) 08/04/2017 08/11/2017 Day, Cycle Day 1, Cycle 1 Day 8, Cycle 1 cyclophosphamide (CYTOXAN) IV DOXOrubicin (ADRIAMYCIN) IV PACLitaxel (TAXOL) IV 80 mg/m2/dose = 172 mg 80 mg/m2/dose = 172 mg pegfilgrastim (NEULASTA) SubQ ONCN ONCOLOGY ([facility]) 08/25/2017 Day, Cycle Day 15, Cycle 1 cyclophosphamide (CYTOXAN) IV DOXOrubicin (ADRIAMYCIN) IV PACLitaxel (TAXOL) IV 80 mg/m2/dose = 172 mg pegfilgrastim (NEULASTA) SubQ ONCN ONCOLOGY ([facility]) 09/01/2017 Day, Cycle Day 22, Cycle 1 cyclophosphamide (CYTOXAN) IV DOXOrubicin (ADRIAMYCIN) IV PACLitaxel (TAXOL) IV 80 mg/m2/dose = 172 mg pegfilgrastim (NEULASTA) SubQ ONCN ONCOLOGY ([facility]) 09/08/2017 Day, Cycle Day 1, Cycle 2 cyclophosphamide (CYTOXAN) IV DOXOrubicin (ADRIAMYCIN) IV PACLitaxel (TAXOL) IV 80 mg/m2/dose = 172 mg pegfilgrastim (NEULASTA) SubQ ONCN ONCOLOGY ([facility]) 09/15/2017 Day, Cycle Day 8, Cycle 2 cyclophosphamide (CYTOXAN) IV DOXOrubicin (ADRIAMYCIN) IV PACLitaxel (TAXOL) IV 80 mg/m2/dose = 172 mg pegfilgrastim (NEULASTA) SubQ ONCN ONCOLOGY ([facility]) 09/22/2017 09/29/2017 Day, Cycle Day 15, Cycle 2 Day 22, Cycle 2 cyclophosphamide (CYTOXAN) IV DOXOrubicin (ADRIAMYCIN) IV PACLitaxel (TAXOL) IV 80 mg/m2/dose = 172 mg 80 mg/m2/dose = 172 mg pegfilgrastim (NEULASTA) SubQ ONCN ONCOLOGY ([facility]) 10/06/2017 Day, Cycle Day 1, Cycle 3 cyclophosphamide (CYTOXAN) IV DOXOrubicin (ADRIAMYCIN) IV PACLitaxel (TAXOL) IV 80 mg/m2/dose = 172 mg pegfilgrastim (NEULASTA) SubQ Laboratory today shows a white count of 2.73 neutrophil count of 1.88 hemoglobin to come up to 11.3with hematocrit 34.7 platelet count 301,000 CMP shows normal electrolytes creatinine 0.67 normal liver tests and a calcium of 8.7 Assessment/plan: Zoë is fine today for her 10th week of Taxol. We did have a week delay but the plan still is for12 weekly treatment so we will finish with 12. We will go ahead with today's treatment and see her back next week with lab for of 12. She will call if there is issues in the interim. I am pleased that her echocardiogram is normal.. documented in this encounter Plan of Treatment Not on file documented as of this encounter Visit Diagnoses Diagnosis Malignant neoplasm of upper-outer quadrant of left breast in female, estrogen receptor negative documented in this encounter Care Teams Hoof Trimmer Relationship Specialty Start Date End Date Home Yeager MD PCP - General Family Medicine 04/21/17 documented as of this encounter
--- OUTSIDE RECORDS SUMMARY | 2024-01-08 01:12 | XMS_ITS | Encounter Summary ---
Author Organization [facility] Address [facility] [place] [address] Care Team Providers Care Chemical Plant Operator Supervisor Name Role Phone Home Yeager MD Primary Care Provider [phone] Encounter Details Date Type Department Care Team (Late st Contact Info) Description 08/25/2017 Notes Only Hematology/Oncology at [address] [phone] Cathy Kendall MSW OFFICE OF CARE MANAGEMENT [...] Progress Notes * Cathy Kendall MSW - 08/25/2017 2:54 PM EDT Community resource team meeting with pt prior to her clinic visit. Marketing Operations Consultant from [facility]; [employer] and [employer] met with pt and to discuss their financial distress and resources that may benefit pt. Pt and have no source of income at this time. They are behind on their bills and need a newhot water heater for their trailer home. Discussed need for pt to go to Economic services to apply for general assistance, 3 squares/food assistance and essential persons. has the form that physician will complete today to take in to start the process for these benefits. Pt to also speak to economic services to apply for SSI and/or SSDI. Pt needs a source of income or a sustainable means to pay her ongoing bills before some of the funds available are an option. is refusing to look at no income/low income loans as a means for addressing their financial distress. PROCESSOR GRAIN agreed to help pt apply to the [employer] which we have talked about a while ago. Gave pt another copyof the application. Also again suggested applying to [facility] for help with transportation costs.Pt/ agreeable to this and indicated they will follow through with this paperwork and calls. It appears pt has let their daughter in law take the lead on some of these issues and her follow through may not be consistent. Pt and should be able to follow up on these issues with guidance and support. Will follow up with pt on the [employer] and [facility] apps. TRACY Celestin is taking the lead on this case. documented in this encounter Plan of Treatment Not on file documented as of this encounter Visit Diagnoses Not on filedocumented in this encounter Care Teams Chemical Plant Operator Supervisor Relationship Specialty Start Date End Date Home Yeager MD PCP - General Family Medicine 04/21/17 documented as of this encounter
--- OUTSIDE RECORDS SUMMARY | 2024-01-08 01:12 | XMS_ITS | Encounter Summary ---
Author Organization [facility] [place] [address] Care Team Providers Care Health Manager Name Role Phone Home Yeager MD Primary Care Provider [phone] Reason for Visit * Reason Onset Date Comments Other 08/25/2017 walker order Encounter Details Date Type Department Care Team (Late st Contact Info) Description 08/25/2017 Telephone Hematology/Oncology at [address] [phone] Janell Scales RN Other (walker order) Social History Tobacco Use Types Packs/Day Years [...] encounter Miscellaneous Notes * Telephone Encounter - Janell Scales RN - 08/25/2017 12:55 PM EDT Order for four-wheeled rolling walker along with office note and demos sent to [facility] at [phone], fax confirmed. documented in this encounter Plan of Treatment Not on file documented as of this encounter Visit Diagnoses Not on filedocumented in this encounter Care Teams Health Manager Relationship Specialty Start Date End Date Home Yeager MD PCP - General Family Medicine 04/21/17 documented as of this encounter
--- OUTSIDE RECORDS SUMMARY | 2024-01-08 01:12 | XMS_ITS | Encounter Summary ---
[place] [address] Care Team Providers Care Sling Operator Name Role Phone Home Yeager MD Primary Care Provider [phone] Reason for Referral * Diagnostic Test (Routine) - Closed Specialty Diagnoses / Procedures Referred By Contindio t Referred To Contact Radiology Diagnoses Malignant neoplasm of left breast in female, estrogen receptor negative, unspecified site of breast Procedures IR Mediport Removal Mady Ramos APRN [address] [place] [address] [facility] [place] [address] Referral ID Status Reason Start Date Expiration Date V isits Requested Visits Authorized [id number] Closed Specialty Service Requested 12/17/2017 12/17/2018 1 1 Encounter Details Date Type Department Care Team (Late st Contact Info) Description 12/17/2017 Orders Only Hematology/Oncology at [address] [phone] Mady Ramos APRN [address] [place] [address] Malignant neoplasm of left breast in female, [...] documented as of this encounter Results * IR Mediport Removal [...] was not present for the procedure. Mady Arteagamindyjeanmarie SOLAR ELECTRIC INSTALLER IMG IR ORDERABLES documented in this encounter Visit Diagnoses Diagnosis Malignant neoplasm of left breast in female, estrogen receptor negative, unspecified site of breast Pre-procedure lab exam Pre-procedural laboratory examination Malignant neoplasm of left breast in female, estrogen receptor negative, unspecified site of breast documented in this encounter Care Teams Sling Operator Relationship Specialty Start Date End Date Hoem Yeager MD PCP - General Family Medicine 04/21/17 documented as of this encounter
--- OUTSIDE RECORDS SUMMARY | 2024-01-08 01:12 | XMS_ITS | Encounter Summary ---
Author Organization [facility] [place] [address] Care Team Providers Care Critical Power Install Technician Name Role Phone Home Yeager MD Primary Care Provider [phone] Reason for Visit * Reason Comments Chemotherapy Cycle 2 Day 1 Taxol * Treatment/Therapy Plan Authorization (Routine) - Closed Specialty Diagnoses / Procedures Referred By Contac t Referred To Contact Hematology and Oncology Diagnoses Malignant neoplasm of upper-outer quadrant of left breast in female, estrogen receptor negative Procedures TC PALONOSETRON HCL, 25MCG, INJECTION (ALOXI) TC PACLITAXEL, 1MG, INJ Junior Olivera MD [address] [place] [phone] [facility] Hem Onc Office [address] [place] [phone] Referral ID Status Reason Start Date Expiration Date Visits Re quested Visits Authorized [id number] Closed 07/21/2017 07/21/2018 50 50 Encounter Details Date Type Department Care Team (Late st Contact Info) Description 09/08/2017 12:00 PM EDT Infusion Hematology Oncology at [address] [phone] Malignant neoplasm of upper-outer quadrant [...] as of this encounter Progress Notes * Ester Salter RN - 09/08/2017 12:00 PM EDT INFUSION THERAPY ADMINISTRATION NOTES DIAGNOSIS: Breast cancer CYCLE #: Cycle 2, Day 1 -- Paclitaxel REASON FOR VISIT: To receive chemotherapy SUBJECTIVE: Zoë offers no complaints. OBJECTIVE: VSS. Seen by provider. LAB DATA: WBC - 2.42, H/H - 9.0/28.5, Plt Ct - 252, ANC - 1.67, Lytes wnl, BUN/CR - 8/0.67, K3.3 IV ACCESS: Port accessed off site, flushes readily with brisk blood return. Pre administration: Chemotherapy orders independently verified for drug name, route, and dosage per patient's height, weight and BSA by Holly Salter RN and [facility] onsite. REACTIONS (DESCRIPTION, TIME, INTERVENTION [...] 10 mg, Intravenous, ONCE, 1 dose, On Thu09/08/17 at 1215, Administer 30 minutes prior to PACLitaxel Given 09/08/2017 12:14 PM EDT 10 mg diphenhydrAMINE (BENADRYL) injection 25 mg 25 mg, Intravenous, ONCE, 1 dose, On Thu09/08/17 at 1215, Administer 30 minutes prior to PACLitaxel, Routine Given 09/08/2017 12:16 PM EDT 25 mg famotidine (PEPCID) injection 20 mg 20 mg, Intravenous, ONCE, 1 dose, On Thu09/08/17 at 1215, Administer 30 minutes prior to PACLitaxel Given 09/08/2017 12:18 PM EDT 20 mg heparin, porcine 100 unit/mL flush 500 Units 500 Units, Intravenous, ONCE PRN, Starting on Thu09/08/17 at 1153, Until Thu09/08/17 at 1606, Line Care, Refer to Intravenous (IV) Procedure: Accessing Implanted Vascular Access Devices (654) procedure and/or Intravenous (IV) Job Aid: Adult Flushing & Catheter Care (1534) job aid for additional information regarding guidelines and administration., Routine Given 09/08/2017 2:05 PM EDT 500 Units PACLitaxel (TAXOL) 172 mg in dextrose 5% Non-PVC 278.6667 mL chemo infusion 172 mg (80 mg/m2/dose ? 2.15 m2 Treatment Plan BSA from Recorded weight), Intravenous, ONCE, 1 dose, On Thu09/08/17 at 1315, Administer over 60 Minutes, Warning Vesicant/Irritant Medication New Bag 09/08/2017 12:54 PM EDT 172 mg 278.7 mL/hr palonosetron (ALOXI) injection 0.25 mg 0.25 mg, Intravenous, ONCE, 1 dose, On Thu09/08/17 at 1215, Routine Given 09/08/2017 12:11 PM EDT 0.25 mg sodium chloride 0.9 % flush 5-20 mL 5-20 mL, Intravenous, EVERY 1 MIN PRN, Starting on Thu09/08/17 at 1153, Until Thu09/08/17 at 1606, Line Care, Flush pertains to all indwelling lines. Flush per protocol found in the job aid using the link provided on this medication record. Refer to Intravenous (IV) Job Aid: Adult Flushing & Catheter Care (2714) job aid for additional information regarding guidelines and administration., Routine Given 09/08/2017 2:05 PM EDT 20 mLs documented in this encounter Care Teams Critical Power Install Technician Relationship Specialty Start Date End Date Home Yeager MD PCP - General Family Medicine 04/21/17 documented as of this encounter
--- OUTSIDE RECORDS SUMMARY | 2024-01-08 01:12 | XMS_ITS | Encounter Summary ---
Author Organization [facility] [place] [address] Care Team Providers Care Accounting Support Specialist Name Role Phone Home Yeager MD Primary Care Provider [phone] Reason for Visit * Reason Comments Chemotherapy Cycle 1, Day 15 -- P aclitaxel * Treatment/Therapy Plan Authorization (Routine) - Closed Specialty Diagnoses / Procedures Referred By Contac t Referred To Contact Hematology and Oncology Diagnoses Malignant neoplasm of upper-outer quadrant of left breast in female, estrogen receptor negative Procedures TC PALONOSETRON HCL, 25MCG, INJECTION (ALOXI) TC PACLITAXEL, 1MG, INJ Junior Olivera MD [address] [place] [id number] [facility] Hem Onc Office [address] [place] [phone] Referral ID Status Reason Start Date Expiration Date Visits Re quested Visits Authorized [id number] Closed 07/21/2017 07/21/2018 50 50 Encounter Details Date Type Department Care Team (Late st Contact Info) Description 08/25/2017 1:00 PM EDT Infusion Hematology Oncology at [address] [phone] Malignant neoplasm of upper-outer quadrant [...] Progress Notes * Edie Moy RN - 08/25/2017 1:00 PM EDT INFUSION THERAPY ADMINISTRATION NOTES DIAGNOSIS: Breast cancer CYCLE #: Cycle 1, day 15 -- Paclitaxel REASON FOR VISIT: To receive chemotherapy SUBJECTIVE: Zoë offers no complaints. OBJECTIVE: VSS. Seen by provider. Ready to treat. LAB DATA: WBC - 4.40, H/H - 10.2/32.2, Plt Ct - 274, ANC - 3.08, Lytes wnl, BUN/CR - 10/0.72 IV ACCESS: Port accessed off site, flushes readily with brisk blood return. Pre administration: Chemotherapy orders independently verified for drug name, route, and dosage per patient's height, weight and BSA by Ag Moy RN and Evelin Mason [facility] ED. REACTIONS (DESCRIPTION, TIME, INTERVENTION AND EFFECTIVENESS) none [...] 10 mg, Intravenous, ONCE, 1 dose, On Thu08/25/17 at 1230, Administer 30 minutes prior to PACLitaxel Given 08/25/2017 12:22 PM EDT 10 mg diphenhydrAMINE (BENADRYL) injection 25 mg 25 mg, Intravenous, ONCE, 1 dose, On Thu08/25/17 at 1230, Administer 30 minutes prior to PACLitaxel, Routine Given 08/25/2017 12:34 PM EDT 25 mg famotidine (PEPCID) injection 20 mg 20 mg, Intravenous, ONCE, 1 dose, On Thu08/25/17 at 1230, Administer 30 minutes prior to PACLitaxel Given 08/25/2017 12:32 PM EDT 20 mg PACLitaxel (TAXOL) 172 mg in dextrose 5% Non-PVC 278.6667 mL chemo infusion 172 mg (80 mg/m2/dose ? 2.15 m2 Treatment Plan BSA from Recorded weight), Intravenous, ONCE, 1 dose, On Thu08/25/17 at 1330, Administer over 60 Minutes, Warning Vesicant/Irritant Medication New Bag 08/25/2017 1:05 PM EDT 172 mg 279 mL/hr palonosetron (ALOXI) injection 0.25 mg 0.25 mg, Intravenous, ONCE, 1 dose, On Thu08/25/17 at 1230, Routine Given 08/25/2017 12:31 PM EDT 0.25 mg documented in this encounter Care Teams Accounting Support Specialist Relationship Specialty Start Date End Date Home Yeager MD PCP - General Family Medicine 04/21/17 documented as of this encounter
--- OUTSIDE RECORDS SUMMARY | 2024-01-08 01:12 | XMS_ITS | Encounter Summary ---
Author Organization [facility] [place] [address] Care Team Providers Care Airdox Fitter Name Role Phone Home Yeager MD Primary Care Provider [phone] Reason for Visit * Reason Comments Breast Cancer Encounter Details Date Type Department Care Team (Late st Contact Info) Description 09/01/2017 11:30 AM EDT Office Visit Hematology/Oncology at [address] [phone] Junior Olivera MD [address] [place] [phone] Malignant neoplasm of upper-outer quadrant of left [...] Sign Reading Time Taken Comments Blood Pressure 140/79 09/01/2017 11:39 AM EDT Pulse 112 09/01/2017 11:39 AM EDT Temperature 36.9 ??C (98.4 ??F) 09/01/2017 11:39 AM E DT Respiratory Rate 20 09/01/2017 11:39 AM EDT Oxygen Saturation 100% 09/01/2017 11:39 AM EDT Inhaled Oxygen Concentration - - Weight 98.9 kg (218 lb) 09/01/2017 11:39 AM EDT Height 167 cm (5' 5.75) 09/01/2017 11:39 AM EDT copied Body Mass Index 35.46 09/01/2017 11:39 AM EDT documented in this encounter Progress Notes * Junior Olivera MD - 09/01/2017 11:30 AM EDT Diagnosis: 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 The tumor was 0.7 mm but triple negative. Subjective: Zoë comes in again today for her fourth weekly Taxol treatment. He has been having problems withdyspnea on exertion and an echocardiogram scheduled for tomorrow. She does note things are getting a bit better though although she still notes some shortness of breath if she really pushes it. Is not having any neuropathy symptoms and nausea and vomiting's been controlled. Fatigue is perhaps a little bit less now. Notes a little bit of achiness for a few days after the treatment but it is tolerable. She does note there is a conflict in scheduling tomorrow as far as the echo goes. We will try to resolve this or reschedule the echo. Past medical history and social history reviewed and unchanged from a week ago. Past Medical History: Diagnosis Date ??? Goiter 08/06/2011 ??? HTN (hypertension) 08/06/2011 ??? Malignant neoplasm of left breast in female, estrogen receptor negative 04/13/2017 ??? Obesity 08/06/2011 Past Surgical History: Procedure Laterality Date ??? PRG SOMATOSENSORY TEST, ANY/ALL PER. NERVES, TRUNK OR HEAD 09/02/2011 FACIAL NERVE MONITORING, SETUP performed by VALENTINE OVIEDO at [facility] MAIN OR ??? PRO BX/REMV, LYMPH NODE, DEEP AXILL Left 04/30/2017 BIOPSY OR EXCISION OF LYMPH NODE(S), OPEN, DEEP AXILLARY NODE(S) (WRVU 6.43) performed by Avery Thacker MD at [facility] OSC ??? PRO EXCISE BREAST LES W XRAY MARKER Left 04/30/2017 EXCISION LESION, BREAST W/ PREOP.MARKER (NEEDLE LOC.) (WRVU 6.69) performed by Avery Thacker MDat [facility] OSC ??? PRO INTRAOP SENTINEL LYMPH ID W/DYE INJECTION Left 04/30/2017 INTRAOPERATIVE ID (MAPPING) SENTINEL LYMPH NODE,INCLUDES INJECTION (WRVU 2.5) performed by Avery Thacker MD at [facility] OSC ??? PRO MASTECTOMY, PARTIAL Left 04/30/2017 MASTECTOMY PARTIAL (WRVU 10.13) performed by Avery Thacker MD at [facility] OSC ??? PRO THYROIDECTOMY 09/02/2011 THYROIDECTOMY, TOTAL OR COMPLETE performed by VALENTINE OVIEDO at 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 Hematological: Negative for adenopathy. BP 140/79 (Patient Position: Sitting) Pulse (!) 112 Temp 36.9 ??C (98.4 ??F) (Oral) Resp 20 Ht 167 cm [...] contrast enhancement curve analysis was performed, using Hand Talk software. ?? COMPARISON STUDIES: Compared and/or correlated [...] contrast enhancement curve analysis was performed, using Hand Talk software. ?? COMPARISON STUDIES: Compared and/or correlated [...] and ??<= 200 cells): ?0 ?Number of [place] Nodes Examined: ?1 Pathologic Stage Classification (pTNM, AJCC 8th Edition) ?Primary Tumor (Invasive Carcinoma) (pT): ?pT1b ?Regional Lymph Nodes (pN) ER, W[place], and HER2 (performed on prior biopsy, [id number]): ER: Negative [place]: Negative HER2 FISH: Negative Procedure: Transthoracic Echocardiogram Patient: RICO LEIVA(Age): 1960(56y) Med Rec#: [id number] Sex: F [facility] [place] [place]t / Wt: 167(cm)/107(kg) Pt. Loc: Echo Lab BSA: 2.14 Study Date: 06/01/2017 Pt. Type: Outpatient Tape: ?? Referring: Junior Olivera Reading: Oscar Cool ([id number]) Insurance Sales Agent: Orlando Samayoa ?? Diagnosis: *ICD-10-PCS Malignant neoplasm [...] 133.8 mg pegfilgrastim (NEULASTA) [facility]Q [facility] 07/20/2017 Day, Cycle Day 1, Cycle 4 cyclophosphamide (CYTOXAN) IV 600 mg/m2/dose = 1,338 mg DOXOrubicin (ADRIAMYCIN) IV 60 mg/m2/dose = 133.8 mg PACLitaxel (TAXOL) IV pegfilgrastim (NEULASTA) SubQ 6 [facility] 08/04/2017 08/11/2017 Day, Cycle Day 1, Cycle 1 Day 8, Cycle 1 cyclophosphamide (CYTOXAN) IV DOXOrubicin (ADRIAMYCIN) IV PACLitaxel (TAXOL) IV 80 mg/m2/dose = 172 mg 80 mg/m2/dose = 172 mg pegfilgrastim (NEULASTA) [facility]Q [facility] 08/25/2017 Day, Cycle Day 15, Cycle 1 cyclophosphamide (CYTOXAN) IV DOXOrubicin (ADRIAMYCIN) IV PACLitaxel (TAXOL) IV 80 mg/m2/dose = 172 mg pegfilgrastim (NEULASTA) SubQ Review of her blood counts today show white count of 5.82 hemoglobin stable at 9.7 hematocrit 30.6 and platelet count 254. CMP shows normal electrolytes a creatinine of 0.69 normal liver tests albumin is 3.4 Assessment/plan: Zoë is fine today for her fourth weekly Taxol treatment. On exam and on chest x-ray there is no evidence for heart failure but she still seems to have more deconditioning and dyspnea on exertion and one would expect for her hemoglobin or with this particular chemotherapy at this point in time. That being said I would like to check an echo to make sure we are not dealing with any cardiac issuesalthough at this point I think that is perhaps a bit less likely. She has got good control of nausea on the current antiemetics and is not having any neuropathy symptoms or other difficulties. Her chemotherapy associated anemia seems to have stabilized. We will go ahead with treatment today and seeher back next week with lab. She will call if there is issues in the interim. No changes in dosing or in the antiemetics are made. We will try to adjust the echocardiogram schedule to fit in with herplans for tomorrow. documented in this encounter Plan of Treatment Not on file documented as of this encounter Visit Diagnoses Diagnosis Malignant neoplasm of upper-outer quadrant of left breast in female, estrogen receptor negative documented in this encounter Care Teams Airdox Fitter Relationship Specialty Start Date End Date Home Yeager MD PCP - General Family Medicine 04/21/17 documented as of this encounter
--- OUTSIDE RECORDS SUMMARY | 2024-01-08 01:12 | XMS_ITS | Encounter Summary ---
Author Organization [facility] Address [facility] [place] [address] Care Team Providers Care Cylinder Checker Name Role Phone Home Yeager MD Primary Care Provider [phone] Encounter Details Date Type Department Care Team (Late st Contact Info) Description 01/14/2018 Orders [place] [phone] Avery Thacker MD [facility] [place] [address] [place] [address] Malignant neoplasm of nipple of left breast in female, unspecified estrogen receptor status (Primary Dx) Social History Tobacco Use Types Packs/Day Years [...] Results * Mammo Screening Cad and Marlon Left (01/20/2018 10:14 AM EST) Anatomical Region Laterality Modality Breast Left Mammography Narrative 01/20/2018 10:51 AM EST REASON FOR EXAM: Screening. History of breast cancer. TECHNIQUE: CC and MLO views were obtained of the Left breast(s). Computer aided detection was used. 3D tomosynthesis images were obtained in addition to 2D images. Comparison:Compared with prior images. FINDINGS: Breast density:There are scattered areas of fibroglandular density There are no suspicious microcalcifications, masses, or areas of distortion. There are post surgical changes in the left breast. Extensive fat necrosis with associated dystrophic microcalcifications CONCLUSION: No mammographic evidence of malignancy. RECOMMENDATION:Routine screening. A result letter has been sent to this patient by the [facility]. BIRADS CATEGORY 2: BENIGN FINDINGS The [employer] and The Society of Breast Imaging recommend annual screening beginning at age 40 for the general female population. Screening should continue as long as a woman is in good health and is expected to live 10 more years or longer. All women should be familiar with the known benefits, limitations, and potential harms linked to breast cancer screening. They also should know how their breasts normally look and feel and report any breast changes to a health care provider right away. Some women, because of their family history, a genetic tendency, or certain other factors, should be screened with MRIs along with mammograms. (The number of women who fall into this category is very small.) The patient and health care provider should discuss the patient history and decide if earlier screening and breast MRI are appropriate. Avery Thacker MD IMG MAMMO ORDERABLES documented in this encounter Visit Diagnoses Diagnosis Malignant neoplasm of nipple of left breast in female, unspecified estrogen receptor status- Primary Malignant neoplasm of nipple of left breast in female, unspecified estrogen receptor status documented in this encounter Care Teams Cylinder Checker Relationship Specialty Start Date End Date Home Yeager MD PCP - General Family Medicine 04/21/17 documented as of this encounter
--- OUTSIDE RECORDS SUMMARY | 2024-01-08 01:12 | XMS_ITS | Encounter Summary ---
Author Organization [facility] [place] [address] Care Team Providers Care Floor Sanding Machine Operator Name Role Phone Home Yeager MD Primary Care Provider [phone] Reason for Visit * Reason Onset Date Comments Other 09/03/2017 imelda Encounter Details Date Type Department Care Team (Late st Contact Info) Description 09/03/2017 Telephone Hematology/Oncology at [address] [phone] Danelle Marshall RN Other (imelda) Social History Tobacco Use Types Packs/Day Years [...] encounter Miscellaneous Notes * Telephone Encounter - Danelle Marshall RN - 09/03/2017 3:15 PM EDT Imelda script sent to [facility] at [phone]. documented in this encounter Plan of Treatment Not on file documented as of this encounter Visit Diagnoses Not on filedocumented in this encounter Care Teams Floor Sanding Machine Operator Relationship Specialty Start Date End Date Home Yeager MD PCP - General Family Medicine 04/21/17 documented as of this encounter
--- OUTSIDE RECORDS SUMMARY | 2024-01-08 01:12 | XMS_ITS | Encounter Summary ---
Author Organization [facility] [place] [address] Care Team Providers Care Crime Prevention Worker Name Role Phone Home Yeager MD Primary Care Provider [phone] Reason for Visit * Reason Comments Chemotherapy Cycle 3 Day 15 * Treatment/Therapy Plan Authorization (Routine) - Closed Specialty Diagnoses / Procedures Referred By Contac t Referred To Contact Hematology and Oncology Diagnoses Malignant neoplasm of upper-outer quadrant of left breast in female, estrogen receptor negative Procedures TC PALONOSETRON HCL, 25MCG, INJECTION (ALOXI) TC PACLITAXEL, 1MG, INJ Junior Olivera MD [address] [place] [id number] [facility] Hem Onc Office [address] [place] [phone] Referral ID Status Reason Start Date Expiration Date Visits Re quested Visits Authorized [id number] Closed 07/21/2017 07/21/2018 50 50 Encounter Details Date Type Department Care Team (Late st Contact Info) Description 10/20/2017 12:00 PM EDT Infusion Hematology Oncology at [address] [phone] Malignant neoplasm of upper-outer quadrant [...] as of this encounter Progress Notes * Kenna Strickland RN - 10/20/2017 12:00 PM EDT INFUSION THERAPY ADMINISTRATION NOTES DIAGNOSIS: Breast cancer CYCLE #: Cycle 3, Day 15 REASON FOR VISIT: Taxol infusion SUBJECTIVE: Zoë offers no complaints. OBJECTIVE: VSS. LAB DATA: WNL & reviewed by Dr Olivera IV ACCESS: Port accessed off site, flushes readily with brisk blood return. Pre administration: Chemotherapy orders independently verified for drug name, route, and dosage per patient's height, weight and BSA by KENNA STRICKLAND RN and [facility] onsite. REACTIONS (DESCRIPTION, TIME, INTERVENTION [...] 10 mg, Intravenous, ONCE, 1 dose, On Thu10/20/17 at 1215, Administer 30 minutes prior to PACLitaxel Given 10/20/2017 12:11 PM EDT 10 mg diphenhydrAMINE (BENADRYL) injection 25 mg 25 mg, Intravenous, ONCE, 1 dose, On Thu10/20/17 at 1215, Administer 30 minutes prior to PACLitaxel, Routine Given 10/20/2017 12:17 PM EDT 25 mg famotidine (PEPCID) injection 20 mg 20 mg, Intravenous, ONCE, 1 dose, On Thu10/20/17 at 1215, Administer 30 minutes prior to PACLitaxel Given 10/20/2017 12:21 PM EDT 20 mg heparin, porcine 100 unit/mL flush 500 Units 500 Units, Intravenous, ONCE PRN, Starting on Thu10/20/17 at 1145, Until Thu10/20/17 at 1801, Line Care, Refer to Intravenous (IV) Procedure: Accessing Implanted Vascular Access Devices (654) procedure and/or Intravenous (IV) Job Aid: Adult Flushing & Catheter Care (2440) job aid for additional information regarding guidelines and administration., Routine Given 10/20/2017 2:30 PM EDT 500 Units PACLitaxel (TAXOL) 172 mg in dextrose 5% Non-PVC 278.6667 mL chemo infusion 172 mg (80 mg/m2/dose ? 2.15 m2 Treatment Plan BSA from Recorded weight), Intravenous, ONCE, 1 dose, On Thu10/20/17 at 1300, Administer over 60 Minutes, Warning Vesicant/Irritant Medication New Bag 10/20/2017 1:16 PM EDT 172 mg 279 mL/hr palonosetron (ALOXI) injection 0.25 mg 0.25 mg, Intravenous, ONCE, 1 dose, On Thu10/20/17 at 1215, Routine Given 10/20/2017 12:09 PM EDT 0.25 mg sodium chloride 0.9 % flush 5-20 mL 5-20 mL, Intravenous, EVERY 1 MIN PRN, Starting on Thu10/20/17 at 1145, Until Thu10/20/17 at 1801, Line Care, Flush pertains to all indwelling lines. Flush per protocol found in the job aid using the link provided on this medication record. Refer to Intravenous (IV) Job Aid: Adult Flushing & Catheter Care (0499) job aid for additional information regarding guidelines and administration., Routine Given 10/20/2017 2:30 PM EDT 20 mLs documented in this encounter Care Teams Crime Prevention Worker Relationship Specialty Start Date End Date Home Yeager MD PCP - General Family Medicine 04/21/17 documented as of this encounter
--- OUTSIDE RECORDS SUMMARY | 2024-01-08 01:12 | XMS_ITS | Encounter Summary ---
Author Organization [facility] [place] [address] Care Team Providers Care Pipelines Superintendent Name Role Phone Home Yeager MD Primary Care Provider [phone] Reason for Visit * Reason Onset Date Comments Other 09/15/2017 imelda Encounter Details Date Type Department Care Team (Late st Contact Info) Description 09/15/2017 Telephone Hematology/Oncology at [address] [phone] Janell Scales, RN Other (imelda) Social History Tobacco Use [...] Telephone Encounter - Janell Scales RN - 09/15/2017 1:52 PM EDT Pt reports she has not heard anything regarding her rolling walker that was ordered and sent to [facility]. I called [facility] who reports they cannot get requested walker paid for as Pt received one from last ER visit at [facility]. Pt told she could pay for walker and it would be $109. Pt will continue to use current walker as needed. documented in this encounter Plan of Treatment Not on file documented as of this encounter Visit Diagnoses Not on filedocumented in this encounter Care Teams Pipelines Superintendent Relationship Specialty Start Date End Date Home Yeager MD PCP - General Family Medicine 04/21/17 documented as of this encounter
--- OUTSIDE RECORDS SUMMARY | 2024-01-08 01:12 | XMS_ITS | Encounter Summary ---
Author Organization [facility] Address [facility] [place] [address] Care Team Providers Care Chief Of Staff Doctor Name Role Phone Home Yeager MD Primary Care Provider [phone] Encounter Details Date Type Department Care Team (Late st Contact Info) Description 12/21/2017 Notes Only Radiation Oncology at [address] [phone] Kaya Stvoall MD [facility] [place] [address] Social History Tobacco Use Types Packs/Day Years [...] as of this encounter Progress Notes * Kaya Stovall MD - 12/21/2017 10:58 AM EDT Zoë Preston has completed xrt for breast ca, L, IDC, gr 3, triple neg, s/p lumpectomy & SNB, pT1b pN0, stage I. S/p adjuvant chemo. The course of xrt is summarized as follows: Treatment was given from 11/24/17 to 12/21/17. 42.56 Gy in 16 fxs was given to L breast with 6 & 10 MV Xray external beam, followed by volume reduction & 10 Gy/4 fxs to lumpectomy bed with 10 MV Xray external beam, boosting lumpectomy bedto 52.56 Gy/20 fxs. Deep inspiration breath hold (DIBH) with 3D xrt used throughout treatment. The course of xrt was tolerated well, w/the expected side effect of skin reaction within irradiatedarea managed w/tylenol, sarah's cream & 1% hydrocortisone cream. Exam near completion of xrt showed mild erythema/hyperpigmentation w/in irradiated area. FU w/me in 1 month. documented in this encounter Plan of Treatment Not on file documented as of this encounter Visit Diagnoses Not on filedocumented in this encounter Care Teams Chief Of Staff Doctor Relationship Specialty Start Date End Date Home Yeager MD PCP - General Family Medicine 04/21/17 documented as of this encounter
--- OUTSIDE RECORDS SUMMARY | 2024-01-08 01:12 | XMS_ITS | Encounter Summary ---
Author Organization [facility] [place] [address] Care Team Providers Care Sales Receptionist Name Role Phone Home Yeager MD Primary Care Provider [phone] Reason for Visit * Reason Comments Breast Cancer Encounter Details Date Type Department Care Team (Late st Contact Info) Description 08/25/2017 11:30 AM EDT Office Visit Hematology/Oncology at [address] [phone] Junior Olivera MD [address] [place] [phone] Malignant neoplasm of left breast in female, [...] Sign Reading Time Taken Comments Blood Pressure 136/80 08/25/2017 11:30 AM EDT Pulse 121 08/25/2017 11:30 AM EDT Temperature 36.8 ??C (98.2 ??F) 08/25/2017 11:30 AM E DT Respiratory Rate 22 08/25/2017 11:30 AM EDT Oxygen Saturation 100% 08/25/2017 11:30 AM EDT Inhaled Oxygen Concentration - - Weight 99.3 kg (219 lb) 08/25/2017 11:30 AM EDT Height 167 cm (5' 5.75) 08/25/2017 11:30 AM EDT copied Body Mass Index 35.62 08/25/2017 11:30 AM EDT documented in this encounter Progress Notes * Junior Olivera MD - 08/25/2017 11:30 AM EDT Diagnosis: 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 The tumor was 0.7 mm but triple negative. Subjective: Zoë comes in again today for her third weekly Taxol treatment. When we saw her last week she wastachycardic and felt so poorly we decided she needed go to the emergency room for further evaluation. The feeling like she could even been in atrial fibrillation. She was not however in she was monitored and only found to be in sinus tachycardia. She was given some hydration. There is a question of of a urinary tract infection so she was placed on antibiotics. She noted she was weak and walking around so they provided her with a walker and that has been helpful. She is having some trouble navigating with a walker however and notes that having some wheels on the walker would be much more helpful. Over the past week off of chemotherapy she has felt a bit better overall. She still gets a bit short of breath when she goes up and down stairs when she tries to limit her activity. She is noticing a little bit of intermittent numbness on her fingertips and feet. Past medical history and social history reviewed [...] MONITORING, SETUP performed by VALENTINE OVIEDO at [facility] MAIN OR ??? PRO BX/REMV, LYMPH NODE, DEEP AXILL Left 04/30/2017 BIOPSY OR EXCISION OF LYMPH NODE(S), OPEN, DEEP AXILLARY NODE(S) (WRVU 6.43) performed by Avery Thacker MD at [facility] OSC ??? PRO EXCISE BREAST LES W XRAY MARKER Left 04/30/2017 EXCISION LESION, BREAST W/ PREOP.MARKER (NEEDLE LOC.) (WRVU 6.69) performed by Avery Thacker MDat [facility] OSC ??? PRO INTRAOP SENTINEL LYMPH ID W/DYE INJECTION Left 04/30/2017 INTRAOPERATIVE ID (MAPPING) SENTINEL LYMPH NODE,INCLUDES INJECTION (WRVU 2.5) performed by Avery Thacker MD at [facility] OSC ??? PRO MASTECTOMY, PARTIAL Left 04/30/2017 MASTECTOMY PARTIAL (WRVU 10.13) performed by Avery Thacker MD at [facility] OSC ??? PRO THYROIDECTOMY 09/02/2011 THYROIDECTOMY, TOTAL OR COMPLETE performed by VALENTINE OVIEDO at 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 Hematological: Negative for adenopathy. BP 136/80 (Patient Position: Sitting) Pulse (!) 121 Temp 36.8 ??C (98.2 ??F) (Oral) Resp 22 Ht 167 cm (5' 5.75) Comment: copied Wt 99.3 kg (219 lb) SpO2 100% BMI 35.62 kg/m2 Head: Normocephalic, without obvious abnormality, atraumatic [...] contrast enhancement curve analysis was performed, using [employer] software. ?? COMPARISON STUDIES: Compared and/or correlated [...] contrast enhancement curve analysis was performed, using [employer] software. ?? COMPARISON STUDIES: Compared and/or correlated [...] Type: ?? Invasive ductal carcinoma ?Histologic Grade ([place] Histologic Score) ? Glandular (Acinar) / Tubular [...] and ??<= 200 cells): ?0 ?Number of [place] Nodes Examined: ?1 Pathologic Stage Classification (pTNM, AJCC 8th Edition) ?Primary Tumor (Invasive Carcinoma) (pT): ?pT1b ?Regional Lymph Nodes (pN) ER, MO, and HER2 (performed on prior biopsy, [id number]): ER: Negative MO: Negative HER2 FISH: Negative Procedure: Transthoracic Echocardiogram Patient: RICO Corona (Age): 1960(56y) Med Rec#: [id number] Sex: F Site Loc: [facility] Ht / Wt: 167(cm)/107(kg) Pt. Loc: Echo Lab BSA: 2.14 Study Date: 06/01/2017 Pt. Type: Outpatient Tape: ?? Referring: Junior Olivera Reading: Oscar Cool ([id number]) Ux Lead: Orlando Samayoa ?? Diagnosis: *ICD-10-PCS Malignant neoplasm [...] (NEULASTA) SubQ 6 mg ONCN ONCOLOGY (AMB) 07/06/2017 Day, Cycle Day 1, [...] = 172 mg pegfilgrastim (NEULASTA) SubQ Laboratory shows continued improvement with hemoglobin coming up to 10.2 and hematocrit 32.2 white count 4.4 platelet count 274. Absolute neutrophil count 3.08. CMP shows normal electrolytes potassium 3.5 creatinine 0.72 liver tests normal with an ALP of 69. Chest x-ray done last week did not show any evidence of congestive heart failure. Monitoring the patient in the emergency room only showed sinus tachycardia that improved somewhat with hydration. She may have had an UTI and was placed on antibiotics for that although she was symptom-free and is not noticed any change with the antibiotics cultures are negative Assessment/plan: Zoë is fine today for week 3 Taxol so we will go ahead with that as planned. She very much wantsto complete treatment. At this point I still do not have a good explanation for how she is currently feeling. The best thing that I can come up with his that she is has fairly significant deconditioning from the initial part of this chemotherapy. We do have an echocardiogram pending but I suspect with the exam today and the fact her chest x-ray was clear that she does not have significant heart failure. We will see if we can get her a walker with wheels and that may help her to get up a bit more. We may have to consider physical therapy posttreatment. We will continue to monitor her neuropathy as if she is already getting a little bit along with nail changes this may be a significant problem for her with the taxane. Follow-up is arranged for next week with lab. documented in this encounter Plan of Treatment Not on file documented as of this encounter Visit Diagnoses Diagnosis Malignant neoplasm of left breast in female, estrogen receptor negative, unspecified site of breast documented in this encounter Care Teams Sales Receptionist Relationship Specialty Start Date End Date Home Yeager MD PCP - General Family Medicine 04/21/17 documented as of this encounter
--- OUTSIDE RECORDS SUMMARY | 2024-01-08 01:12 | XMS_ITS | Encounter Summary ---
Author Organization [facility] Address [facility] [place] [address] Care Team Providers Care Warp Spooler Name Role Phone Home Yeager MD Primary Care Provider [phone] Encounter Details Date Type Department Care Team (Late st Contact Info) Description 01/14/2018 Orders Only General Surgery at [facility] [place] [phone] Avery Thacker MD [facility] [place] [address] Social History Tobacco Use Types Packs/Day Years [...] on filedocumented in this encounter Care Teams Warp Spooler Relationship Specialty Start Date End Date Home Yeager MD PCP - General Family Medicine 04/21/17 documented as of this encounter
--- OUTSIDE RECORDS SUMMARY | 2024-01-08 01:12 | XMS_ITS | Encounter Summary ---
Author Organization [facility] Address [facility] [address] Care Team Providers Care Privacy Compliance Manager Name Role Phone Home Yeager MD Primary Care Provider [phone] Reason for Referral * Consultation (Routine) - Closed Specialty Diagnoses / Procedures Referred By Cuco britt Referred To Contact Radiation Oncology Diagnoses Malignant neoplasm of upper-outer quadrant of left female breast, unspecified estrogen receptor status Procedures Simulation for Radiation Therapy Planning PRG RADIATION THERAPY PLAN COMPLEX PRG SPECIAL RADIATION TREATMENT PRG SET RADIATION THERAPY FIELD COMPLEX PRG RADIATION TREATMENT AID(S) INTERM PRG SET RADIATION THERAPY FIELD 3D RECON PRG RESPIRATORY MOTION MANAGEMENT PLANNING XR CLAVICLES BILAT PRG RADIATION TREATMENT AID(S) COMPLX PRG SET RADIATION THERAPY FIELD SIMPLE CHG RADN RX DELIVERY COMPLX =<5 MEV RADIOLOGY PORT FILM(S) CHG RADN PHYSICS CONSULT CONTINUING PRG RADIATION MANAGEMENT, 5 TREATMENTS [id number] Kaya Stovall MD [facility] [place] [address] [facility] [address] [place] [phone] Referral ID Status Reason Start Date Expiration Date V isits Requested Visits Authorized [id number] Closed Consult, Test & Treat 10/23/2017 10/23/2018 1 1 Encounter Details Date Type Department Care Team (Late st Contact Info) Description 10/23/2017 Orders Only [place] [phone] Kaya Stovall MD [facility] [place] [address] Malignant neoplasm of upper-outer quadrant of left [...] as of this encounter Plan of Treatment Scheduled Orders Name Type Priority Associated Diagnoses Orde r Schedule Simulation for Radiation Therapy Planning Procedures Routine Malignant neoplasm of upper-outer quadrant of left female breast, unspecified estrogen receptor status Ordered: 10/23/2017 documented as of this encounter Visit Diagnoses Diagnosis Malignant neoplasm of upper-outer quadrant of left female breast, unspecified estrogen receptor status documented in this encounter Care Teams Privacy Compliance Manager Relationship Specialty Start Date End Date Home Yeager MD PCP - General Family Medicine 04/21/17 documented as of this encounter
--- OUTSIDE RECORDS SUMMARY | 2024-01-08 01:12 | XMS_ITS | Encounter Summary ---
Author Organization [facility] [place] [address] Care Team Providers Care Technical Communication Teacher Name Role Phone Home Yeager MD Primary Care Provider [phone] Encounter Details Date Type Department Care Team (Late st Contact Info) Description 10/27/2017 11:00 AM EDT Office Visit Hematology/Oncology at [address] [phone] Alie Moore APRN [facility] [place] [address] Malignant neoplasm of left breast in female, [...] Sign Reading Time Taken Comments Blood Pressure 148/82 10/27/2017 11:07 AM EDT Pulse 84 10/27/2017 11:07 AM EDT Temperature 36.8 ??C (98.2 ??F) 10/27/2017 11:07 AM E DT Respiratory Rate 16 10/27/2017 11:07 AM EDT Oxygen Saturation 99% 10/27/2017 11:07 AM EDT Inhaled Oxygen Concentration - - Weight 108 kg (238 lb) 10/27/2017 11:07 AM EDT Height 167 cm (5' 5.75) 10/27/2017 11:07 AM EDT copied Body Mass Index 38.71 10/27/2017 11:07 AM EDT documented in this encounter Patient Instructions * Patient Instructions* Alie Moore APRN - 10/27/2017 11:00 AM EDT She will return in mid December with labs prior to see a provider. 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 The tumor was 0.7 mm but triple negative. Subjective: Zoë comes in again today for her 12th weekly Taxol treatment. Her fatigue is slowly improving but still significant and more than one would usually see. She is happy that her chemotherapy is finished today. She does want to get her port out but wants to wait until she has her surgery appointmentin November to do so. Her fingernails and toenails continue to be an issue. They are slowly breaking or falling off. She has no taste when she eats food. Hopefully that will return soon after she stops treatment. She is due to start radiation on November 10. Past medical history and social history reviewed [...] MONITORING, SETUP performed by VALENTINE OVIEDO at [facility] MAIN OR ??? PRO BX/REMV, LYMPH NODE, DEEP AXILL Left 04/30/2017 BIOPSY OR EXCISION OF LYMPH NODE(S), OPEN, DEEP AXILLARY NODE(S) (WRVU 6.43) performed by Avery Thacker MD at [facility] OSC ??? PRO EXCISE BREAST LES W XRAY MARKER Left 04/30/2017 EXCISION LESION, BREAST W/ PREOP.MARKER (NEEDLE LOC.) (WRVU 6.69) performed by Avery Thacker MDat [facility] OSC ??? PRO INTRAOP SENTINEL LYMPH ID W/DYE INJECTION Left 04/30/2017 INTRAOPERATIVE ID (MAPPING) SENTINEL LYMPH NODE,INCLUDES INJECTION (WRVU 2.5) performed by Avery Thacker MD at [facility] OSC ??? PRO MASTECTOMY, PARTIAL Left 04/30/2017 MASTECTOMY PARTIAL (WRVU 10.13) performed by Avery Thacker MD at [facility] OSC ??? 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 Hematological: Negative for adenopathy. BP 148/82 (Patient Position: Sitting) Pulse 84 Temp 36.8 ??C (98.2 ??F) (Oral) Resp 16 Ht 167 cm (5' 5.75) Comment: copied Wt 108 kg (238 lb) SpO2 99% BMI 38.71 kg/m2 Head: Normocephalic, without obvious abnormality, atraumatic [...] contrast enhancement curve analysis was performed, using [employer] software. ?? COMPARISON STUDIES: Compared and/or correlated [...] contrast enhancement curve analysis was performed, using [employer] software. ?? COMPARISON STUDIES: Compared and/or correlated [...] and ??<= 200 cells): ?0 ?Number of [place] Nodes Examined: ?1 Pathologic Stage Classification (pTNM, AJCC 8th Edition) ?Primary Tumor (Invasive Carcinoma) (pT): ?pT1b ?Regional Lymph Nodes (pN) ER, OR, and HER2 (performed on prior biopsy, [id number]): ER: Negative OR: Negative HER2 FISH: Negative Procedure: Transthoracic Echocardiogram Patient: RICO Corona (Age): 1960(56y) Med Rec#: [id number] Sex: F [place] [facility] [place]t / Wt: 167(cm)/107(kg) Pt. Loc: Echo Lab BSA: 2.14 Study Date: 06/01/2017 Pt. Type: Outpatient Tape: ?? Referring: Junior Olivera Reading: Oscar Cool ([id number]) Housekeeping And Laundry Team Leader: Orlando Samayoa ?? Diagnosis: *ICD-10-PCS Malignant neoplasm [...] mg/m2/dose = 172 mg pegfilgrastim (NEULASTA) [facility] 10/06/2017 Day, Cycle Day 1, Cycle 3 cyclophosphamide (CYTOXAN) IV DOXOrubicin (ADRIAMYCIN) IV PACLitaxel (TAXOL) IV 80 mg/m2/dose = 172 mg pegfilgrastim (NEULASTA) [facility] 10/13/2017 Day, Cycle Day 8, Cycle 3 cyclophosphamide (CYTOXAN) IV DOXOrubicin (ADRIAMYCIN) IV PACLitaxel (TAXOL) IV 80 mg/m2/dose = 172 mg pegfilgrastim (NEULASTA) SubQ Blood counts today show a white count of 3.03 absolute neutrophil count of 2.15 hemoglobin 11.0 andplatelet count of 261. CMP shows normal electrolytes creatinine of 0.56 ALP of 55 calcium of 8.8 and normal electrolytes. Assessment/plan: Zoë will receive her last treatment today. She is grateful to have a break before she starts radiation therapy on November 10. At this point she is really not having any neuropathy but does havefairly significant nailbed changes. She did hurt 1 fingernail and could lose the nail but other than that it looks like they are all going to hold on. Her attitude is good. She like to get her port out in mid-November at the same time as her surgery follow-up. We will then need to see her back towards the end of radiation therapy to arrange for long-term follow-up to make sure her blood counts are doing well at that time. As she has triple negative disease there are no plans for hormone therapy after the completion of radiation. documented in this encounter Plan of Treatment Not on file documented as of this encounter Procedures Procedure Name Priority Date/Time Associated Diagnosis Comments LAB SCAN 10/20/2017 12:00 AM EDT LAB SCAN 10/13/2017 12:00 AM EDT documented in this encounter Results * SCAN DOC: LAB (10/20/2017 12:00 AM EDT) Narrative 10/20/2017 12:00 AM EDT Ordered by an unspecified provider. Scanning Provider MEDIA MGR SCAN EXT O RDR/RSLT * SCAN DOC: LAB (10/13/2017 12:00 AM EDT) Narrative 10/13/2017 12:00 AM EDT Ordered by an unspecified provider. Scanning Provider MEDIA MGR SCAN EXT O RDR/RSLT documented in this encounter Visit Diagnoses Diagnosis Malignant neoplasm of left breast in female, estrogen receptor negative, unspecified site of breast documented in this encounter Care Teams Technical Communication Teacher Relationship Specialty Start Date End Date Home Yeager MD PCP - General Family Medicine 04/21/17 documented as of this encounter
--- OUTSIDE RECORDS SUMMARY | 2024-01-08 01:12 | XMS_ITS | Encounter Summary ---
Author Organization Formerly [facility] [place] [address] Care Team Providers Care Bin Worker Name Role Phone Home Yeager MD Primary Care Provider [phone] Reason for Visit * Reason Comments Breast Cancer Encounter Details Date Type Department Care Team (Late st Contact Info) Description 09/08/2017 11:30 AM EDT Office Visit Hematology/Oncology at [address] [phone] Junior Olivera MD [address] [place] [address] [phone] Malignant neoplasm of upper-outer quadrant of left [...] Sign Reading Time Taken Comments Blood Pressure 139/89 09/08/2017 11:23 AM EDT Pulse 110 09/08/2017 11:23 AM EDT Temperature 36.9 ??C (98.4 ??F) 09/08/2017 11:23 AM E DT Respiratory Rate 18 09/08/2017 11:23 AM EDT Oxygen Saturation 100% 09/08/2017 11:23 AM EDT Inhaled Oxygen Concentration - - Weight 100.2 kg (221 lb) 09/08/2017 11:23 AM EDT Height 167 cm (5' 5.75) 09/08/2017 11:23 AM EDT Body Mass Index 35.94 09/08/2017 11:23 AM EDT documented in this encounter Progress Notes * Junior Olivera MD - 09/08/2017 11:30 AM EDT Diagnosis: 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 The tumor was 0.7 mm but triple negative. Subjective: Zoë comes in again today for her fifth weekly Taxol treatment. She remains tired overall with the chemotherapy but perhaps is a little better than last week. She is achy for several days after each infusion. She has had some nail changes but no nail discomfort and is not having anything to suggest neuropathy. Nausea and vomiting are controlled. She continues to walk quite slowly into the clinic and over to the infusion area holding onto her 's arm when doing so. We did have an echocardiogram scheduled to make sure there was not any cardiac issues going on related to her Adriamycin. She denies any symptoms to suggest that at the current time but had a conflict of interest with the e chocardiogram so was rescheduled that for later in September. She denies orthopnea or peripheral edema although she notes a little bit of swelling at times in her fingers. Review of systems is otherwise negative Past [...] SETUP performed by VALENTINE OVIEDO at [facility] MAIN OR ??? PRO BX/REMV, LYMPH NODE, DEEP AXILL Left 04/30/2017 BIOPSY OR EXCISION OF LYMPH NODE(S), OPEN, DEEP AXILLARY NODE(S) (WRVU 6.43) performed by Avery Thacker MD at [facility] OSC ??? PRO EXCISE BREAST LES W XRAY MARKER Left 04/30/2017 EXCISION LESION, BREAST W/ PREOP.MARKER (NEEDLE LOC.) (WRVU 6.69) performed by Avery Thacker MDat [facility] OSC ??? PRO INTRAOP SENTINEL LYMPH ID W/DYE INJECTION Left 04/30/2017 INTRAOPERATIVE ID (MAPPING) SENTINEL LYMPH NODE,INCLUDES INJECTION (WRVU 2.5) performed by Avery Thacker MD at [facility] OSC ??? PRO MASTECTOMY, PARTIAL Left 04/30/2017 MASTECTOMY PARTIAL (WRVU 10.13) performed by Avery Thacker MD at [facility] OSC ??? PRO THYROIDECTOMY 09/02/2011 THYROIDECTOMY, TOTAL OR COMPLETE performed by VALENTINE OVIEDO at 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 Hematological: Negative for adenopathy. BP 139/89 (Patient Position: Sitting) Pulse (!) 110 Temp 36.9 ??C (98.4 ??F) (Oral) Resp 18 Ht 167 cm (5' 5.75) Wt 100.2 kg (221 lb) SpO2 100% BMI 35.94 kg/m2 Head: Normocephalic, without obvious abnormality, atraumatic [...] contrast enhancement curve analysis was performed, using [employer] software. ?? COMPARISON STUDIES: Compared and/or correlated [...] contrast enhancement curve analysis was performed, using [employer] software. ?? COMPARISON STUDIES: Compared and/or correlated [...] Type: ?? Invasive ductal carcinoma ?Histologic Grade ([place] Histologic Score) ? Glandular (Acinar) / Tubular [...] and ??<= 200 cells): ?0 ?Number of [place] Nodes Examined: ?1 Pathologic Stage Classification (pTNM, AJCC 8th Edition) ?Primary Tumor (Invasive Carcinoma) (pT): ?pT1b ?Regional Lymph Nodes (pN) ER, IA, and HER2 (performed on prior biopsy, [id number]): ER: Negative IA: Negative HER2 FISH: Negative Procedure: Transthoracic Echocardiogram Patient: RICO Coorna (Age): 1960(56y) Med Rec#: [id number] Sex: F Site Loc: [facility] Ht / Wt: 167(cm)/107(kg) Pt. Loc: Echo Lab BSA: 2.14 Study Date: 06/01/2017 Pt. Type: Outpatient Tape: ?? Referring: Junior Olivera Reading: Oscar Cool ([id number]) Superintendent Tests: Orlando Samayoa ?? Diagnosis: *ICD-10-PCS Malignant neoplasm [...] 133.8 mg pegfilgrastim (NEULASTA) SubQ [address] [facility] 07/06/2017 Day, Cycle Day 1, Cycle 3 cyclophosphamide (CYTOXAN) IV 600 mg/m2/dose = 1,338 mg DOXOrubicin (ADRIAMYCIN) IV 60 mg/m2/dose = 133.8 mg pegfilgrastim (NEULASTA) SubQ [address] [facility] 07/20/2017 Day, Cycle Day 1, Cycle 4 cyclophosphamide (CYTOXAN) IV 600 mg/m2/dose = 1,338 mg DOXOrubicin (ADRIAMYCIN) IV 60 mg/m2/dose = 133.8 mg PACLitaxel (TAXOL) IV pegfilgrastim (NEULASTA) SubQ [address] [facility] 08/04/2017 08/11/2017 Day, Cycle Day 1, Cycle 1 Day 8, Cycle 1 cyclophosphamide (CYTOXAN) IV DOXOrubicin (ADRIAMYCIN) IV PACLitaxel (TAXOL) IV 80 mg/m2/dose = 172 mg 80 mg/m2/dose = 172 mg pegfilgrastim (NEULASTA) SubQ [facility] 08/25/2017 Day, Cycle Day 15, Cycle 1 cyclophosphamide (CYTOXAN) IV DOXOrubicin (ADRIAMYCIN) IV PACLitaxel (TAXOL) IV 80 mg/m2/dose = 172 mg pegfilgrastim (NEULASTA) SubQ [facility] ([facility] 09/01/2017 Day, Cycle Day 22, Cycle 1 cyclophosphamide (CYTOXAN) IV DOXOrubicin (ADRIAMYCIN) IV PACLitaxel (TAXOL) IV 80 mg/m2/dose = 172 mg pegfilgrastim (NEULASTA) SubQ Review of her blood counts today show white count of 2.42 with an absolute neutrophil count of 1.67hemoglobin is 9.0 hematocrit 28.5 and platelet count 252. CMP shows normal electrolytes except for slight decrease in potassium at 3.3 creatinine is 0.67 liver tests are normal with a bilirubin of 0.6 and an ALP of 64 Assessment/plan: Zoë is fine today for her fifth weekly Taxol treatment. She is tolerating things reasonably wellbut remains fatigued and is achy for several days after each Taxol infusion. She had a scheduling problem with her echocardiogram so that is rescheduled but there is no evidence for any cardiac failure on today's exam with a strong pulse no rales and no distention of the neck veins. She will keep the appointment though for her echo. She clearly is having more fatigue than patients usually have with this part of the chemotherapy. Follow-up is arranged for cycle 6 next week with lab. She will call if there is issues in the interim. documented in this encounter Plan of Treatment Not on file documented as of this encounter Visit Diagnoses Diagnosis Malignant neoplasm of upper-outer quadrant of left breast in female, estrogen receptor negative documented in this encounter Care Teams Bin Worker Relationship Specialty Start Date End Date Home Yeager MD PCP - General Family Medicine 04/21/17 documented as of this encounter
--- OUTSIDE RECORDS SUMMARY | 2024-01-08 01:12 | XMS_ITS | Encounter Summary ---
Author Organization Formerly [facility] [place] [address] Care Team Providers Care Apprentice Machinist Outside Name Role Phone Home Yeager MD Primary Care Provider [phone] Encounter Details Date Type Department Care Team (Latest Contact Info) Description 12/21/2017 Unscheduled Encounter Radiation Oncology at [address] [phone] Oneida Ho RN Malignant neoplasm of upper-outer quadrant of [...] as of this encounter Progress Notes * Oneida Ho RN - 12/21/2017 9:17 AM EDT End of Treatment Note XRT completed, patient denies any complaints. Skin intact Patient aware to call with any questions or concerns. documented in this encounter Plan of Treatment Not on file documented as of this encounter Visit Diagnoses Diagnosis Malignant neoplasm of upper-outer quadrant of left female breast, unspecified estrogen receptor status documented in this encounter Care Teams Apprentice Machinist Outside Relationship Specialty Start Date End Date Home Yeager MD PCP - General Family Medicine 2/13/18 documented as of this encounter
--- OUTSIDE RECORDS SUMMARY | 2024-01-08 01:12 | XMS_ITS | Encounter Summary ---
Author Organization [facility] [place] [address] Care Team Providers Care Accountant Manager Name Role Phone Home Yeager MD Primary Care Provider [phone] Encounter Details Date Type Department Care Team (Late st Contact Info) Description 09/02/2017 Notes Only Hematology/Oncology at [address] [phone] Cathy Kendall MSW OFFICE OF CARE MANAGEMENT [...] Progress Notes * Cathy Kendall MSW - 09/02/2017 9:19 AM EDT brought in pt's [facility] costs. Completed medical section and per pt's requested mailed in application for review. documented in this encounter Plan of Treatment Not on file documented as of this encounter Visit Diagnoses Not on filedocumented in this encounter Care Teams Accountant Manager Relationship Specialty Start Date End Date Home Yeager MD PCP - General Family Medicine 04/21/17 documented as of this encounter
--- OUTSIDE RECORDS SUMMARY | 2024-01-08 01:12 | XMS_ITS | Encounter Summary ---
Author Organization Formerly [facility] Address [facility] [place] [address] Care Team Providers Care Tilt Wall Supervisor Name Role Phone Home Yeager MD Primary Care Provider Reason for Visit * Consultation (Routine) - Closed Specialty Diagnoses [...] CONSULT CONTINUING PRG RADIATION MANAGEMENT, 5 TREATMENTS [id number] Kaya Stovall MD [facility] [place] [address] [facility] Rad Onc Office [address] [place] [phone] Referral ID Status Reason Start Date Expiration Date V isits Requested Visits Authorized [id number] Closed Consult, Test & Treat 10/23/2017 10/23/2018 1 1 Encounter Details Date Type Department Care Team (Latest Contact Info) Description 11/03/2017 1:00 PM EDT Ancillary Appointment Radiation Oncology at [address] [phone] Kaya Stovall MD [facility] [place] [address] Malignant neoplasm of left female breast, unspecified [...] this encounter Patient Instructions * Patient Instructions* Talita Carreon RN - 11/03/2017 1:00 PM EDT Information for Patients receiving radiation therapy to the Breast Approximately two weeks after your first treatment, you may begin to experience side effects causedby the radiation. These effects may continue throughout the treatment period and not start improving until 1-2 weeks after treatment is completed. Your doctor will tell you which side effects you aremost likely to experience, when you will notice them and how long they might last. It is important to follow the appropriate instructions to minimize your discomfort. Skin Care ??? Wash skin in the treatment field with lukewarm water and mild or moisturizing, unscented soap daily. Blot skin dry with a soft towel. ??? Do not apply any ointment, salve, deodorant, perfume, cologne, cosmetic or self-remedy to the treatment area while you are undergoing radiation and for 1-2 weeks following treatment. An all natural deodorant with no aluminum can be used if necessary. ??? Moisturizing cream will be provided for you. This may be used in the treatment area once daily beginning on your first treatment day. Do not apply 2 hours before your radiation treatments. As dryness/redness develop you can use this more often. ??? Do not rub or scratch the skin in the treatment field. This includes shaving unless you use an electric razor. If your skin becomes dry or itchy, tell your nurse or doctor. If necessary, your doctor may order a medication specifically for this problem. ??? Do not use hot water bottles, heating lights, electric heating pads, or hot packs to the treatment area. ??? Keep treated areas out of the sun throughout the treatment period. Be careful of sun exposure to the treatment field for one year following treatment. Please use SPF> 30 to all exposed areas of skin and limit sun exposure. ??? Avoid tight fitting clothes. We would prefer that you wear a cotton t-shirt instead of a bra. If you are unable to go without a bra please wear a soft cotton bra without underwire. ??? Examine your skin in the treatment area daily and watch for changes. If you cannot reach the whole treatment field ask a family member to look at it and apply cream as needed. Be careful to keep the area under your breast clean and dry as this area can get irritated first. ??? You will meet with your nurse and doctor weekly. They will check your skin and help you with any side effects you are having. Please ask to see the nurse if you have concerns in between these days. ??? During the last weeks of treatment you may notice some peeling of skin and/or a moist reaction.Be sure to let us know if this happens so we can provide you with further skin care instructions.. ??? Continue to stay active, walk daily, eat healthy foods and drink several glasses of water each day. Fatigue You may notice that you feel unusually tired towards the end of treatment. This is not unusual. We recommend that you pace your activities and plan for rest periods to avoid becoming over-tired. Feel free to direct any questions or concerns you may have related to your treatment to your nurse or doctor. [facility] Radiation Oncology Our normal business hours are: Thursday - Thursday 8 AM to 5 PM [place], [place], [place] For emergent situations after hours please call for either location and ask for the Radiation Oncologist packaging sales consultant. documented in this encounter Progress Notes * Talita Carreon RN - 11/03/2017 1:00 PM EDT Radiation Oncology Simulation Note Zoë Preston is here for radiation planning , undergoing a simulation to the left breast for breast cancer treatment . Usual radiation oncology routines and purpose of on treatment visits were explained. Jeans cream provided and instructions for use reviewed Anticipatory Guidance: please see AVS. Barriers to Treatment/ Compliance issues identified: None identified. Patient confirms they can have no difficulties lying flat. pre- medication plan made: none needed. Referrals: BIOPROCESS ENGINEER per routine. * Kaya Stovall MD - 11/03/2017 1:00 PM EDT Here for reCTsim, due to beams based on original CTsim 05/19/17 not aligning, likely due to anatomy change from ongoing healing. Chemo completed 10/27/17. Sim: Breast bd immobilization; flat bbs on L breast lumpectomy scar; CT through chest showed heart to approach chest wall & so she was then instructed in deep inspiration breath hold (DIBH) &2nd CT done w/DIBH; 3D xrt planned. She tolerated sim well, w/o problem. Tx Plan: 3D xrt. Start xrt 11/24/17. documented in this encounter Plan of Treatment Not on file documented as of this encounter Procedures Procedure Name Priority Date/Time Associated Diagnosis Comments LAB SCAN 10/27/2017 12:00 AM EDT documented in this encounter Results * SCAN DOC: LAB (10/27/2017 12:00 AM EDT) Narrative 10/27/2017 12:00 AM EDT Ordered by an unspecified provider. Scanning Provider MEDIA MGR SCAN EXT O RDR/RSLT documented in this encounter Visit Diagnoses Diagnosis Malignant neoplasm of left female breast, unspecified estrogen receptor status, unspecified site of breast documented in this encounter Care Teams Tilt Wall Supervisor Relationship Specialty Start Date End Date Home Yeager MD PCP - General Family Medicine 04/21/17 documented as of this encounter
--- OUTSIDE RECORDS SUMMARY | 2024-01-08 01:12 | XMS_ITS | Encounter Summary ---
Author Organization [facility] [place] [address] Care Team Providers Care Director Service Name Role Phone Home Yeager MD Primary Care Provider [phone] Reason for Visit * Reason Comments Chemotherapy Cycle 2 day 8 * Treatment/Therapy Plan Authorization (Routine) - Closed Specialty Diagnoses / Procedures Referred By Contac t Referred To Contact Hematology and Oncology Diagnoses Malignant neoplasm of upper-outer quadrant of left breast in female, estrogen receptor negative Procedures TC PALONOSETRON HCL, 25MCG, INJECTION (ALOXI) TC PACLITAXEL, 1MG, INJ Junior Olivera MD [address] [place] [id number] [facility] Hem Onc Office [address] [place] [phone] Referral ID Status Reason Start Date Expiration Date Visits Re quested Visits Authorized [id number] Closed 07/21/2017 07/21/2018 50 50 Encounter Details Date Type Department Care Team (Late st Contact Info) Description 09/15/2017 12:00 PM EDT Infusion Hematology Oncology at [address] [phone] Malignant neoplasm of upper-outer quadrant [...] as of this encounter Progress Notes * Rakel Anguiano RN - 09/15/2017 12:00 PM EDT INFUSION THERAPY ADMINISTRATION NOTES DIAGNOSIS: Breast cancer CYCLE #: Cycle 3, Day 1 REASON FOR VISIT: Paclitaxel SUBJECTIVE: Zoë offers no complaints. OBJECTIVE: VSS. Seen by provider. LAB DATA: WNL-Reviewed by Dr. Olivera IV ACCESS: Port accessed off site, flushes readily with brisk blood return. Pre administration: Cemotherapy orders independently verified for drug name, route, and dosage per patient's height, weight and BSA by RAKEL ANGUIANO RN and [facility] onsite. REACTIONS (DESCRIPTION, TIME, INTERVENTION AND EFFECTIVENESS) [...] 10 mg, Intravenous, ONCE, 1 dose, On Thu09/15/17 at 1230, Administer 30 minutes prior to PACLitaxel Given 09/15/2017 12:50 PM EDT 10 mg diphenhydrAMINE (BENADRYL) injection 25 mg 25 mg, Intravenous, ONCE, 1 dose, On Thu09/15/17 at 1230, Administer 30 minutes prior to PACLitaxel, Routine Given 09/15/2017 12:59 PM EDT 25 mg famotidine (PEPCID) injection 20 mg 20 mg, Intravenous, ONCE, 1 dose, On Thu09/15/17 at 1230, Administer 30 minutes prior to PACLitaxel Given 09/15/2017 12:53 PM EDT 20 mg PACLitaxel (TAXOL) 172 mg in dextrose 5% Non-PVC 278.6667 mL chemo infusion 172 mg (80 mg/m2/dose ? 2.15 m2 Treatment Plan BSA from Recorded weight), Intravenous, ONCE, 1 dose, On Thu09/15/17 at 1330, Administer over 60 Minutes, Warning Vesicant/Irritant Medication New Bag 09/15/2017 1:58 PM EDT 172 mg 279 mL/hr palonosetron (ALOXI) injection 0.25 mg 0.25 mg, Intravenous, ONCE, 1 dose, On Thu09/15/17 at 1230, Routine Given 09/15/2017 12:45 PM EDT 0.25 mg documented in this encounter Care Teams Director Service Relationship Specialty Start Date End Date Home Yeager MD PCP - General Family Medicine 04/21/17 documented as of this encounter
--- OUTSIDE RECORDS SUMMARY | 2024-01-08 01:12 | XMS_ITS | Encounter Summary ---
Author Organization Formerly [facility] [place] [address] Care Team Providers Care Sign Painter Name Role Phone Home Yeager MD Primary Care Provider [phone] Reason for Visit * Reason Onset Date Comments Other 10/26/2017 community resour steve Encounter Details Date Type Department Care Team (Late st Contact Info) Description 10/26/2017 Telephone Hematology/Oncology at [address] [phone] Cathy Kendall MSW OFFICE OF CARE MANAGEMENT Other (community resources) Social History Tobacco Use Types Packs/Day [...] Telephone Encounter - Cathy Kendall MSW - 10/26/2017 8:14 AM EDT TC pt to inform her BANDER HAND received notification from the [facility] that they approved her request for financial assistance with her rent. documented in this encounter Plan of Treatment Not on file documented as of this encounter Visit Diagnoses Not on filedocumented in this encounter Care Teams Sign Painter Relationship Specialty Start Date End Date Home Yeager MD PCP - General Family Medicine 04/21/17 documented as of this encounter
--- OUTSIDE RECORDS SUMMARY | 2024-01-08 01:12 | XMS_ITS | Encounter Summary ---
Author Organization [facility] Address [facility] [place] [address] Care Team Providers Care Manager Federal Name Role Phone Home Yeager MD Primary Care Provider [phone] Encounter Details Date Type Department Care Team (Latest Contact Info) Description 01/20/2018 9:57 AM EST - 01/20/2018 10:21 AM EST Hospital [place] [phone] Avery Thacker MD [facility] [place] [address] Malignant neoplasm of nipple of left breast in female, unspecified estrogen receptor status Discharge Disposition: Home Social History Tobacco Use [...] 11/12/2017 05/08/2022 ondansetron (ZOFRAN) 8 mg TabletIndications:Marisabel guzman neoplasm of upper-outer quadrant of left breast [...] Diagnosis Comments MAMMO SCREENING CAD AND MARLON LEFT Routine 01/20/2018 10:14 AM EST Malignant neoplasm of nipple of left breast in female, unspecified estrogen receptor status documented in this encounter Results * Mammo [...] Center. BIRADS CATEGORY 2: BENIGN FINDINGS [employer] and [employer] Society of [...] status documented in this encounter Care Teams Manager Federal Relationship Specialty Start Date End Date Home Yeager MD PCP - General Family Medicine 04/21/17 documented as of this encounter
--- OUTSIDE RECORDS SUMMARY | 2024-01-08 01:12 | XMS_ITS | Encounter Summary ---
Author Organization [facility] [place] [address] Care Team Providers Care Chemical Process Operator Name Role Phone Home Yeager MD Primary Care Provider [phone] Encounter Details Date Type Department Care Team (Late st Contact Info) Description 08/27/2017 Notes Only Hematology/Oncology at [address] [phone] Cathy Kendall MSW OFFICE OF CARE MANAGEMENT [...] Progress Notes * Cathy Kendall MSW - 08/27/2017 1:45 PM EDT Met with who brought in pt's [employer] application and supporting information. Per pt's request submitted her application on line and faxed in supporting documents. Pt is asking for assistance withher housing lot rent and electric bill. Will inform pt outcome of her request. documented in this encounter Plan of Treatment Not on file documented as of this encounter Visit Diagnoses Not on filedocumented in this encounter Care Teams Chemical Process Operator Relationship Specialty Start Date End Date Home Yeager MD PCP - General Family Medicine 04/21/17 documented as of this encounter
--- OUTSIDE RECORDS SUMMARY | 2024-01-08 01:12 | XMS_ITS | Encounter Summary ---
Author Organization [facility] Address [facility] [place] [address] Care Team Providers Care Snow Removing Supervisor Name Role Phone Home Yeager MD Primary Care Provider [phone] Encounter Details Date Type Department Care Team (Late st Contact Info) Description 01/14/2018 11:00 AM EST Office Visit Hematology/Oncology at [address] [phone] Héctor Quintanilla MD [facility] [address] HEMATOLOGY [place] [address] Malignant neoplasm of left breast in female, [...] Sign Reading Time Taken Comments Blood Pressure 151/82 01/14/2018 10:52 AM EST Pulse 83 01/14/2018 10:52 AM EST Temperature 36.5 ??C (97.7 ??F) 01/14/2018 1 0:52 AM EST Respiratory Rate 18 01/14/2018 10:5 2 AM EST Oxygen Saturation 98% 01/14/2018 10: 52 AM EST Inhaled Oxygen Concentration - - Weight 108.8 kg (239 lb 12.8 oz) 2017 10:52 AM EST Height 167 cm (5' 5.75) 01/14/2018 10: 52 AM EST copied Body Mass Index 39 01/14/2018 10:52 AM EST documented in this encounter Progress Notes * Héctor Quintanilla MD - 01/14/2018 11:00 AM EST Subjective: Patient ID: Zoë Preston is a 57 y.o. female. HPI Left breast cancer diagnosed 03/26 Mammographically detected Needle biopsy 03/26 Invasive ductal carcinoma, high-grade, SBR score 8 ER negative, OH negative, HER-2/yoshi negative Partial mastectomy with sentinel node 04/26 7 mm tumor, 0/1 nodes AC chemotherapy x4 completed 07/24 Weekly Taxol x12 completed 10/24 Radiation completed 12/24 The patient is a 57-year-old female who returns to the [facility]. She was diagnosed witha T1N0 high-grade breast cancer that was triple negative. She underwent adjuvant chemotherapy completing that 10/24. Last month she completed her postoperative radiation therapy. She is feeling somewhat better. Her skin is healed up from the radiation. She is still using a walker because she became quite weak during her systemic chemotherapy. No recent falls. She is getting somewhat stronger. She still has her port in and it has not been flushed since her last chemotherapy Patient Active Problem List Diagnosis Code ??? HTN (hypertension) I10 ??? Obesity E66.9 ??? Goiter E04.9 ??? Thyroid nodule E04.1 ??? S/P thyroidectomy Z98.890 ??? Malignant neoplasm of left breast in female, estrogen receptor negative C50.912, Z17.1 Current Outpatient Medications: ??? EMOLLIENT BASE (CREAM BASE TOP), Apply topically. Jeans Cream. Apply to area of radiation twicea day but no less than 2 hours before a treatment., Disp: , Rfl: ??? GLUCOSAMINE SULFATE (GLUCOSAMINE ORAL), Take by mouth., Disp: , Rfl: ??? acetaminophen (TYLENOL) 325 mg Tablet, Take 2 tablets by mouth every 4 hours as needed for Pain., Disp: , Rfl: ??? metFORMIN (GLUCOPHAGE) 500 mg Tablet, Take 500 mg by mouth daily., Disp: , Rfl: ??? ERGOCALCIFEROL, VITAMIN D2, [...] morning., Disp: 30 tablet, Rfl: 0 ??? ondansetron (ZOFRAN) 8 mg Tablet, Take 1 tablet by mouth every 8 hours as needed for Nausea. (Patient not taking: Reported on 09/29/2017), Disp: 30 tablet, Rfl: 1 ??? Liposomal Lidocaine (LMX) 4 % Cream, Apply topically as needed. Apply quarter-sized dollop to port site as needed for port access (Patient not taking: Reported on 01/14/2018), Disp: 45 g, Rfl: 3 Allergies Allergen Reactions ??? Compazine [Prochlorperazine] Nausea [...] place, and time. Skin: No rash noted. Assessment and Plan: 57-year-old female with a T1N0 left-sided breast cancer. She underwent partial mastectomy followed by chemotherapy and radiation therapy. Currently there are no signs of recurrence either locally or systemically. She does appear to be emerging from the toxicity of her postoperative treatment. I have encouraged her to increase her ambulation and see if she can get away from the walker. We did talk about a few issues. She is scheduled for a mammogram with her surgeon down at [facility] January. We will try to align a visit with interventional radiology to have her port removed atthat same visit. It was recommended that she have a family cancer clinic consultation but the patient has declined that. I did recommend that she return to our clinic in 3 months for continued monitoring documented in this encounter Plan of Treatment Not on file documented as of this encounter Visit Diagnoses Diagnosis Malignant neoplasm of left breast in female, estrogen receptor negative, unspecified site of breast documented in this encounter Care Teams Snow Removing Supervisor Relationship Specialty Start Date End Date Home Yeager MD PCP - General Family Medicine 04/21/17 documented as of this encounter
--- OUTSIDE RECORDS SUMMARY | 2024-01-08 01:12 | XMS_ITS | Encounter Summary ---
Author Organization [facility] [place] [address] Care Team Providers Care Felting Machine Operator Name Role Phone Home Yeager MD Primary Care Provider Reason for Visit * Reason Comments Chemotherapy Cycle 2, Day 15 -- P aclitaxel * Treatment/Therapy Plan Authorization (Routine) - Closed Specialty Diagnoses / Procedures Referred By Contac t Referred To Contact Hematology and Oncology Diagnoses Malignant neoplasm of upper-outer quadrant of left breast in female, estrogen receptor negative Procedures TC PALONOSETRON HCL, 25MCG, INJECTION (ALOXI) TC PACLITAXEL, 1MG, INJ Junior Olivera MD [address] [place] [id number] [facility] Hem Onc Office [address] [place] [phone] Referral ID Status Reason Start Date Expiration Date Visits Re quested Visits Authorized [id number] Closed 07/21/2017 07/21/2018 50 50 Encounter Details Date Type Department Care Team (Late st Contact Info) Description 09/22/2017 12:00 PM EDT Infusion Hematology Oncology at [address] [phone] Malignant neoplasm of upper-outer quadrant [...] Progress Notes * Edie Moy RN - 09/22/2017 12:00 PM EDT INFUSION THERAPY ADMINISTRATION NOTES DIAGNOSIS: Breast cancer CYCLE #: Cycle 2, Day 15 -- Paclitaxel REASON FOR VISIT: To receive chemotherapy SUBJECTIVE: Zoë offers no complaints. OBJECTIVE: VSS. Seen by provider. Ready to treat. LAB DATA: WBC - 2.53, H/H - 9.6/30.0, Plt Ct - 297, ANC - 1.77, Lytes - NA+ - 142, K+ - 3.1, BUN/CR- 12/0.72 IV ACCESS: Port accessed off site, flushes readily with brisk blood return. Pre administration: Chemotherapy orders independently verified for drug name, route, and dosage per patient's height, weight and BSA by Ag Moy RN and Evelin Mason [facility] REACTIONS (DESCRIPTION, TIME, INTERVENTION AND EFFECTIVENESS) none [...] 10 mg, Intravenous, ONCE, 1 dose, On Thu09/22/17 at 1245, Administer 30 minutes prior to PACLitaxel Given 09/22/2017 12:36 PM EDT 10 mg diphenhydrAMINE (BENADRYL) injection 25 mg 25 mg, Intravenous, ONCE, 1 dose, On Thu09/22/17 at 1245, Administer 30 minutes prior to PACLitaxel, Routine Given 09/22/2017 12:44 PM EDT 25 mg famotidine (PEPCID) injection 20 mg 20 mg, Intravenous, ONCE, 1 dose, On Thu09/22/17 at 1245, Administer 30 minutes prior to PACLitaxel Given 09/22/2017 12:41 PM EDT 20 mg heparin, porcine 100 unit/mL flush 500 Units 500 Units, Intravenous, ONCE PRN, Starting on Thu09/22/17 at 1217, Until Thu09/22/17 at 1753, Line Care, Refer to Intravenous (IV) Procedure: Accessing Implanted Vascular Access Devices (654) procedure and/or Intravenous (IV) Job Aid: Adult Flushing & Catheter Care (3361) job aid for additional information regarding guidelines and administration., Routine Given 09/22/2017 2:27 PM EDT 500 Units PACLitaxel (TAXOL) 172 mg in dextrose 5% Non-PVC 278.6667 mL chemo infusion 172 mg (80 mg/m2/dose ? 2.15 m2 Treatment Plan BSA from Recorded weight), Intravenous, ONCE, 1 dose, On Thu09/22/17 at 1345, Administer over 60 Minutes, Warning Vesicant/Irritant Medication New Bag 09/22/2017 1:24 PM EDT 172 mg 279 mL/hr palonosetron (ALOXI) injection 0.25 mg 0.25 mg, Intravenous, ONCE, 1 dose, On Thu09/22/17 at 1245, Routine Given 09/22/2017 12:43 PM EDT 0.25 mg sodium chloride 0.9 % flush 5-20 mL 5-20 mL, Intravenous, EVERY 1 MIN PRN, Starting on Thu09/22/17 at 1217, Until Thu09/22/17 at 1753, Line Care, Flush pertains to all indwelling lines. Flush per protocol found in the job aid using the link provided on this medication record. Refer to Intravenous (IV) Job Aid: Adult Flushing & Catheter Care (0534) job aid for additional information regarding guidelines and administration., Routine Given 09/22/2017 2:27 PM EDT 20 mLs documented in this encounter Care Teams Felting Machine Operator Relationship Specialty Start Date End Date Home Yeager MD PCP - General Family Medicine 04/21/17 documented as of this encounter
--- OUTSIDE RECORDS SUMMARY | 2024-01-08 01:12 | XMS_ITS | Encounter Summary ---
Author Organization [facility] Address [facility] [place] [address] Care Team Providers Care Superior Court Justice Name Role Phone Home Yeager MD Primary Care Provider [phone] Reason for Visit * Reason Comments On Treatment Visit Encounter Details Date Type Department Care Team (Late st Contact Info) Description 12/15/2017 9:00 AM EDT Office Visit Radiation Oncology at [address] [phone] Kaya Stovall MD [facility] [place] [address] Malignant neoplasm of upper-outer quadrant of left [...] Sign Reading Time Taken Comments Blood Pressure 141/81 12/15/2017 9:13 AM EDT Pulse 94 12/15/2017 9:13 AM EDT Temperature 36.6 ??C (97.9 ??F) 12/15/2017 9 :13 AM EDT Respiratory Rate 18 12/15/2017 9:13 AM EDT Oxygen Saturation 99% 12/15/2017 9:1 3 AM EDT Inhaled Oxygen Concentration - - Weight 106.4 kg (234 lb 9.6 oz) 018 9:13 AM EDT with shoes Height - - Body Mass Index 38.45 12/01/2017 10:08 AM EDT documented in this encounter Patient Instructions * Patient Instructions* Kaya Stovall MD - 12/15/2017 9:00 AM EDT Your last radiotherapy will be on M., 12/21/17. Congratulations! Please continue the john's cream. Please do not use deodorant other than Crow's/Crystal/Schroeder's/cornstarch/baking soda on your left underarm. Please do not use a straight/regular razor on your 3lft underarm. An electric razor is ok. Please do not expose the irradiated area to sun. Please do not expose irradiated area to chlorinated water. Saltwater or freshwater is ok. Please do not expose irradiated area to hot tub water. Hot bath/shower ok. We will mail you a letter with an appointment for followup with me in 1 month. documented in this encounter Progress Notes * Kaya Stovall MD - 12/15/2017 9:00 AM EDT DIAGNOSIS: Breast ca, L, IDC, gr 3, triple neg, s/p lumpectomy & SNB, pT1b pN0, stage I. S/p adjuvant chemo. CURRENT TREATMENT DOSE: 42.56 Gy L breast ANTICIPATED TOTAL DOSE: 42.56 Gy L breast, 52.56 Gy lumpectomy bed Current # of xrt received: 16 Anticipated total # of xrt txs: 20 Evaluation of port verification films: Approved. For details, see electronic film record in [employer]. Changes in Medical Condition: Intermittent mild discomfort in L breast continues to be relieved by 650 mg tylenol/day. Itchiness of skin of L breast relieved by john's cream. Pain?: See above. Your Medications These changes are accurate as of 12/15/17 9:19 AM. If you have any questions, ask [...] then. Physical Exam: A&Ox3, NAD. L breast w/mild erythema/hyperpigmentation. Amb stable w/walker. Imagin11/03/17 Dx'ic Interp CTsim: No suspicious lesion. Performance Status: KPS 100% Response to xrt: As expected. Irradiation Related Symptoms: Skin rxn. Mild discomfort in L breast could be related to postop healing &/or xrt assoc'd inflammation. Treatment for Symptom Control: 1% htc rec'd for itchiness not relieved by John's cream. Pain Management: Tylenol. Recommendation on Continuing Course of xrt: Cont. Completes xrt 12/21/17. Care of irrad'd skin discussed. Rtc 1 mo. documented in this encounter Plan of Treatment Not on file documented as of this encounter Visit Diagnoses Diagnosis Malignant neoplasm of upper-outer quadrant of left female breast, unspecified estrogen receptor status documented in this encounter Care Teams Superior Court Justice Relationship Specialty Start Date End Date Home Yeager MD PCP - General Family Medicine 04/21/17 documented as of this encounter
--- OUTSIDE RECORDS SUMMARY | 2024-01-08 01:13 | XMS_ITS | Encounter Summary ---
Author Organization [facility] [place] [address] Care Team Providers Care Senior Mobile Application Developer Name Role Phone Home Yeager MD Primary Care Provider [phone] Reason for Visit * Reason Onset Date Comments Other 07/21/2017 community resour steve Encounter Details Date Type Department Care Team (Late st Contact Info) Description 07/21/2017 Telephone Hematology/Oncology at [address] [phone] Cathy Kendall MSW OFFICE OF [...] Telephone Encounter - Cathy Kendall MSW - 07/21/2017 12:35 PM EDT Informed pt approved for financial assistance from the [facility] with help for her lot rent. TC pt tonotify her of this. documented in this encounter Plan of Treatment Not on file documented as of this encounter Visit Diagnoses Not on filedocumented in this encounter Care Teams Senior Mobile Application Developer Relationship Specialty Start Date End Date Home Yeager MD PCP - General Family Medicine 04/21/17 documented as of this encounter
--- OUTSIDE RECORDS SUMMARY | 2024-01-08 01:13 | XMS_ITS | Encounter Summary ---
Author Organization [facility] [place] [address] Care Team Providers Care Probation Agent Name Role Phone Home Yeager MD Primary Care Provider [phone] Encounter Details Date Type Department Care Team (Latest Contact Info) Description 04/21/2017 3:45 PM EST Laboratory Appointment Lab [address] [place] [phone] Malignant neoplasm of left female breast, unspecified estrogen receptor status, unspecified site of breast Social History Tobacco Use Types Packs/Day Years Used Date Smoking Tobacco: Former Cigarettes Q uit: 03/09/1998 Sex and Gender Information Value Date Recorded Sex Assigned at Not on file Gender Identity Not on file Sexual Orientation Not on file documented as of this encounter Plan of Treatment Not on file documented as of this encounter Procedures Procedure Name Priority Date/Time Associated Diagnosis Comments SCAN, PERIPHERAL BLOOD Routine 8 2:40 PM EST HEMOGRAM Routine 04/21/2017 2:40 PM EST Malignant neoplasm of left female breast, unspecified estrogen receptor status, unspecified site of breast DIFFERENTIAL, AUTOMATED Routine 04/21/2017 2:40 PM EST Malignant neoplasm of left female breast, unspecified estrogen receptor status, unspecified site of breast CBC (WITH DIFF) Routine 04/21/2017 2:40 PM EST Malignant neoplasm of left female breast, unspecified estrogen receptor status, unspecified site of breast COMPREHENSIVE METABOLIC PANEL Routine 04/21/2017 2:40 PM EST Malignant neoplasm of left female breast, unspecified estrogen receptor status, unspecified site of breast documented in this encounter Results * Scan, Peripheral Blood (04/21/2017 2:40 PM EST) Plat estimate Normal [facility] RBC Morphology Normal [facility] Blood specimen (specimen) 04/21/2017 2:40 PM EST 04/21/2017 2:45 PM EST Narrative Resulting Agency Comment Spec In Lab Avery Thacker MD HEMATOLOGY ORDERABLE S [facility] [place] [address] * Differential, Automated (04/21/2017 2:40 PM EST) Pathologist [facility] Neutrophil % 50.2 % [facility] Neutrophil Absolute 3.58 1.70 - 6.10 x10(3)/[facility] Lymph % 39.1 % [facility] Lymphocytes Abs 2.8 0.9 - 3.2 x10(3)/[facility] Monocyte % 8.1 % [facility] Monocyte Abs 0.6 0.3 - 0.9 x10(3)/[facility] Eos % 1.8 % [facility] Eosinophils Abs 0.1 0.0 - 0.4 x10(3)/[facility] Basophil % 0.7 % [facility] Baso Absolute 0.0 0.0 - 0.1 x10(3)/[facility] Immature Gran % 0.10 % [facility] Comment: Immature granulocytes(IG's)percentage and absolute count will include metamyelocytes, myelocytes, and promyelocytes. Blood smears from CBCs yielding IG's will be scanned manually for concordance. If this scan disagrees with the automated IG or if promyelocytes are noted, a manual differential will be performed. Immature Gran Absolute 0.01 0.00 - 0.04 x10(3)/[facility] Blood specimen (specimen) 04/21/2017 2:40 PM EST 04/21/2017 2:45 PM EST Narrative Resulting Agency Comment Spec In Lab Avery Thacker MD HEMATOLOGY ORDERABLE S [facility] [place] [address] * Hemogram (04/21/2017 2:40 PM EST) White Blood Cell 7.1 4.0 - 9.5 x10(3)/[facility] Red Blood Cell 5.11 4.00 - 5.21 x10(6)/[facility] Hemoglobin 14.1 11.7 - 15.5 gm/dL [facility] Hematocrit 42.4 35.7 - 45.8 % [facility] Mean Cell Volume 83.0 82.6 - 94.4 [facility] Mean Cell Hemoglobin 27.6 27.1 - 32.0 pg [facility] Mean Cell Hemoglobin Concentration 33.3 31.7 - 35.0 gm/dL [facility] Platelet 264 145 - 357 x10(3)/[facility] RDW Standard Deviation 41.4 37.0 - 46.0 [facility] RDW coefficient of variation 13.5 11.5 - 14.1 % [facility] Mean Platelet Volume 11.5 7.6 - 12.9 [facility] NRBC% auto 0.0 % [facility] NRBC Absolute 0.000 0.000 - 0.000 x10(3)/[facility] Blood specimen (specimen) 04/21/2017 2:40 PM EST 04/21/2017 2:45 PM EST Narrative Resulting Agency Comment Spec In Lab Avery Thacker MD HEMATOLOGY ORDERABLE S [facility] [place] [address] * Comprehensive metabolic panel (non-fasting) (04/21/2017 2:40 PM EST) Glucose 89 65 - 199 mg/dL [facility] Comment:Diabetes: >=200 mg/d L plus symptoms Blood Urea Nitrogen 17 8 - 18 mg/dL [facility] Creatinine 0.85 0.70 - 1.20 mg/dL [facility] Sodium 142 135 - 145 mmol/L [facility] Potassium 4.0 3.5 - 5.0 mmol/L [facility] Comment: Please note: ??Patients with WBC >100,000 may have falsely elevated Potassium levels. ??For accurate Potassium quantification in these patients send serum separator tube (gold top) for subsequent determinations. ??Contact the Clinical Chemistry Laboratory if there are any questions. Chloride 101 98 - 107 mmol/L [facility] Carbon Dioxide 28 22 - 31 mmol/L [facility] Anion Gap 13 5 - 15 mmol/L [facility] Calcium 9.3 8.5 - 10.5 mg/dL [facility] Protein, Total 7.5 6.1 - 8.0 gm/dL [facility] Albumin 4.2 3.2 - 5.2 gm/dL [facility] Aspartate Aminotransferase 17 0 - 30 unit/L [facility] Alanine Aminotransferase 23 0 - 30 unit/L [facility] Alkaline Phosphatase 62 40 - 104 unit/L [facility] Bilirubin, Total 0.2 0.2 - 1.3 mg/dL [facility] Est Glomerular Filtration Rate >60 >=60 [facility] Comment: The reported eGFR should be multiplied by 1.2 for patients. The MDRD is not an appropriate measure of renal function for patients with body mass extremes or in patients with acute kidney failure. [email or web address] Blood specimen (specimen) 04/21/2017 2:40 PM EST 04/21/2017 2:45 PM EST Narrative Resulting Agency Comment Spec In Lab Avery Thacker MD CHEMISTRY ORDERABLES [facility] [place] [address] documented in this encounter Visit Diagnoses Diagnosis Malignant neoplasm of left female breast, unspecified estrogen receptor status, unspecified site of breast documented in this encounter Care Teams Probation Agent Relationship Specialty Start Date End Date Home Yeager MD PCP - General Family Medicine 04/21/17 documented as of this encounter
--- OUTSIDE RECORDS SUMMARY | 2024-01-08 01:13 | XMS_ITS | Encounter Summary ---
Author Organization [facility] Address [facility] [place] [address] Care Team Providers Care Blind Hooker Name Role Phone Sandra Shaw APRN Primary Care Provider [phone] Encounter Details Date Type Department Care Team (Late st Contact Info) Description 04/13/2017 Orders [place] [address] Avery Thacker MD [facility] [address] [facility] [place] [id number] Malignant neoplasm of left breast in female, estrogen receptor positive, unspecified site of breast Social History Tobacco Use Types Packs/Day Years Used Date Smoking Tobacco: Former Cigarettes Q uit: 03/09/1998 Sex and Gender Information Value Date Recorded Sex Assigned at Not on file Gender Identity Not on file Sexual Orientation Not on file documented as of this encounter Plan of Treatment Not on file documented as of this encounter Results * Mammo Specimen (04/30/2017 10:25 AM EST) Anatomical Region Laterality Modality Breast N/A Mammography Impressions 04/30/2017 10:33 AM EST IMPRESSION: Positive specimen x-ray as described. Results phoned to the operating surgeon intraoperatively. Narrative 04/30/2017 10:33 AM EST EXAMINATION: Specimen x-ray left breast INDICATION: Intraoperative specimen image for adequacy of lesion and/or clip removal. TECHNIQUE: A single projection specimen x-ray from the left breast is obtained superimposed on alphanumeric grid. COMPARISON: This is correlated with preoperative imaging FINDINGS: The specimen demonstrates Lesion 1 ??( mass, Kristin clip and wire) and Lesion 2 ??( biopsy site with residual calcifications located 2.5 cm distal to the cylinder clip; the migrated cylinder clip and the wire). Avery Thacker MD [facility] [facility]ABLES * Mammo [place] Node Injection (04/30/2017 8:47 AM EST) Anatomical Region Laterality Modality Breast N/A Mammography Impressions 04/30/2017 9:44 AM EST Impression: Status post successful ultrasound-guided wire localization for lesion 1 and lesion 2 in the left breast. Status post successful sentinel lymph node injection left breast. The radiotracer injection was administered under the supervision of authorized user Dr. Héctor Zeng. Narrative 04/30/2017 9:44 AM EST EXAMINATION: LEFT MAMMO NEEDLE LOCALIZATION MULTIPLE LEFT, LEFT BREAST SENTINEL NODE INJECTION. CLINICAL HISTORY: PLEASE perform needle localization ??of 2 sites in the Left breast and INJECT LEFT BREAST CANCER FOR LYMPHATIC MAPPING Technique:Informed consent was confirmed and a timeout procedure was performed per protocol. Cranio-caudal and 90 degree digital mammography views were obtained following localization to document wire position. ??Images were annotated on PACS for the operating surgeon. Using sterile technique and local anesthetic (less than 5 cc's of 1% lidocaine) needle localization of lesions 1 and #2 in the lateral left breast were performed using mammographic guidance. The needles were positioned through the lesions. After confirming satisfactory positioning of the needles, the wires were deployed and mammographic images were obtained. The final image confirms the wires traverse the lesions. Of note, the biopsy marker clip for Lesion #2 migrated 2.5 cm lateral to the biopsy site; this was indicated on the films and the surgeon is aware. A sentinel node injection was performed using less than ? milliCuries of Tc-99m sulfur colloid. ??Half the dose was injected subcutaneously and half injected intradermally. No additional imaging was performed. here were no complications. Procedural attestation: I performed this procedure without a resident. ?? Avery Thacker MD [facility] [place] [facility] ORDERABLES * Mammo Needle Placement Radiologist Multiple Area Left (04/30/2017 8:45 AM EST) Anatomical Region Laterality Modality Breast Left Mammography Impressions 04/30/2017 9:44 AM EST Impression: Status post successful ultrasound-guided wire localization for lesion 1 and lesion 2 in the left breast. Status post successful sentinel lymph node injection left breast. The radiotracer injection was administered under the supervision of authorized user Dr. Héctor Zeng. Narrative 04/30/2017 9:44 AM EST EXAMINATION: LEFT MAMMO NEEDLE LOCALIZATION MULTIPLE LEFT, LEFT BREAST SENTINEL NODE INJECTION. CLINICAL HISTORY: PLEASE perform needle localization ??of 2 sites in the Left breast and INJECT LEFT BREAST CANCER FOR LYMPHATIC MAPPING Technique:Informed consent was confirmed and a timeout procedure was performed per protocol. Cranio-caudal and 90 degree digital mammography views were obtained following localization to document wire position. ??Images were annotated on PACS for the operating surgeon. Using sterile technique and local anesthetic (less than 5 cc's of 1% lidocaine) needle localization of lesions 1 and #2 in the lateral left breast were performed using mammographic guidance. The needles were positioned through the lesions. After confirming satisfactory positioning of the needles, the wires were deployed and mammographic images were obtained. The final image confirms the wires traverse the lesions. Of note, the biopsy marker clip for Lesion #2 migrated 2.5 cm lateral to the biopsy site; this was indicated on the films and the surgeon is aware. A sentinel node injection was performed using less than ? milliCuries of Tc-99m sulfur colloid. ??Half the dose was injected subcutaneously and half injected intradermally. No additional imaging was performed. here were no complications. Procedural attestation: I performed this procedure without a resident. ?? Avery Thacker MD [facility] MAMMO ORDERABLES documented in this encounter Visit Diagnoses Diagnosis Malignant neoplasm of left breast in female, estrogen receptor positive, unspecified site of breast Malignant neoplasm of left breast in female, estrogen receptor positive, unspecified site of breast Malignant neoplasm of left breast in female, estrogen receptor positive, unspecified site of breast Malignant neoplasm of left breast in female, estrogen receptor positive, unspecified site of breast documented in this encounter Care Teams Blind Hooker Relationship Specialty Start Date End Date Sandra Shaw, HEAT REGULATOR PCP - General 10/30/11 04/20/17 documented as of this encounter
--- OUTSIDE RECORDS SUMMARY | 2024-01-08 01:13 | XMS_ITS | Encounter Summary ---
[place] [address] Care Team Providers Care Anesthesiologist Assistant Name Role Phone Home Yeager MD Primary Care Provider [phone] Reason for Referral * Diagnostic Test (Routine) - Closed Specialty Diagnoses / Procedures Referred By Contac t Referred To Contact Radiology Diagnoses Malignant neoplasm of left breast in female, estrogen receptor negative, unspecified site of breast Procedures IR Mediport Placement / Exchange Junior Olivera MD [address] [place] [address] [place] [address] [facility] [place] [address] Referral ID Status Reason Start Date Expiration Date V isits Requested Visits Authorized [id number] Closed Specialty Service Requested 05/28/2017 05/28/2018 1 1 * Diagnostic Test (Routine) - Closed Specialty Diagnoses / Procedures Referred By Contac t Referred To Contact Cardiology Diagnoses Malignant neoplasm of left breast in female, estrogen receptor negative, unspecified site of breast Procedures Echocardiogram Transthoracic(Leb) Juinor Olivera MD [address] [place] [address] [place] [address] [facility] [place] [address] Referral ID Status Reason Start Date Expiration Date V isits Requested Visits Authorized [id number] Closed Specialty Service Requested 05/29/2017 08/27/2017 1 1 Reason for Visit * Reason Comments Breast Cancer Encounter Details Date Type Department Care Team (Late st Contact Info) Description 05/28/2017 3:00 PM EDT Office Visit Hematology/Oncology at [address] [phone] Junior Olivera MD [address] [place] [address] [phone] Malignant neoplasm of left breast in female, [...] Sign Reading Time Taken Comments Blood Pressure 156/85 05/28/2017 3:17 PM EDT Pulse 75 05/28/2017 3:17 PM EDT Temperature 36.9 ??C (98.4 ??F) 05/28/2017 3:17 PM ED T Respiratory Rate 18 05/28/2017 3:17 PM EDT Oxygen Saturation 98% 05/28/2017 3:17 PM EDT Inhaled Oxygen Concentration - - Weight 107.5 kg (237 lb) 05/28/2017 3:17 PM EDT Height 167 cm (5' 5.75) 05/28/2017 3:17 PM EDT Body Mass Index 38.55 05/28/2017 3:17 PM EDT documented in this encounter Progress Notes * Edie Moy RN - 05/28/2017 3:00 PM EDT MEDICAL ONCOLOGY INITIAL NURSING ASSESSMENT ADVANCE DIRECTIVES: In EDH [ ] Has documents [ ] Will bring in [ ] . Needs SW to discuss IF NO: Advance Directive pamphlet provided : Referral to Care Management : PRESENTING SYSTEMS and PATHOLOGY: as per Dr. Olivera REVIEW OF SYSTEMS: as per Dr. Olivera Prior Radiotherapy: no[ x ] Yes[ ]Site Date Facility Prior Chemotherapy: no[ x ] Yes[ ] Drug: Oncologist- LastTreatment: NO: YES: Claustrophobia or requires sedation for MRIs x Allergy to CT or MRI contrast agent or iodine or shellfish x Diabetic and on metformin X On hold Metal in body, implanted device, worked with metal, body piercings,braces x Dentures or hearing device x Pacemaker x Difficulty breathing while lying flat x Kidney problems/creatinine x Balance difficulty: [x ]no [ ]yes At risk for fall: [ x ] no [ ] yes If yes, actions implemented to prevent fall. Patient/family instructed to avoid independent ambulation. Use wheelchair and ask for assistance of staff while in the clinic. ADL [ x ] no limits [ ] needs dressing assistance [ ] needs meal assistance Assistive device:[ x ]none [ ]cane [ ]walker [ ]wheelchair [ ]other: explain PAIN ASSESSMENT: [ 0 ] out of 10 Location: Description: [ ] Dull [ ] Sharp [ ] Burning [ ] Throbbing [ ] Radiating [ ] Continuous [ ]Intermittent Aggravating Factors: [ ] Movement [ ] Position [ ]Immobility [ ]Other Alleviating Factors: [ ]Medication [ ] Positioning [ ] Other Current Pain Management Plan: [ ]Satisfied [ ] Not satisfied SOCIAL ASSESSMENT: See ED social assessment information entered. Support Systems: transportation plan: [x ]private vehicle [ ] RCT needs Social Work referral [ ] Unknown at this time needs Social Work referral Barriers to treatment: Referrals/Interventions: LEARNING STYLE: Visual and verbal, wants written material and verbal discussion. TEACHING: _x_ NCI ???Chemotherapy and You?? and folder given _x_ Specific chemotherapy literature provided and reviewed with patient * Junior Olivera MD - 05/28/2017 3:00 PM EDT Images from the original note were not included. 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 The tumor was 0.7 mm but triple negative. Subjective: Zoë comes in today to further discuss the possibility of adjuvant chemotherapy in the treatment of her triple negative breast cancer. She had an abnormality found on routine mammography that led to a biopsy and ultimately to a lumpectomy. She had a small tumor at 7 mm but nonetheless it was high-grade and triple negative. She has been seen by 1 of my partners at [facility] who discussed the possibility of adjuvant chemotherapy. The patient has been thinking about things and is here today with her significant other to discuss whether or not to consider that. She is also met with radiation oncology in regards to breast radiation after the completion of chemotherapy. She is almost completely healed up from the surgery. 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 They had good questions today and I believe we answered all of them. We discussed dose dense chemotherapy with Adriamycin and Cytoxan followed by Taxol which is a common regiment used for triple negative breast cancer. We went over risks and side effects and what to expect with treatment. We discussed the need for a port and an echocardiogram and then went over the information and data in regards to triple negative breast cancer. The data for triple negative node negative breast cancer does include patients with tumors larger than 5 mm and does show about a 7-10% benefit for chemotherapy. After discussions today and going overthings both her and I are inclined to consider chemotherapy. Past Medical History: Diagnosis Date ??? Goiter 08/06/2011 ??? HTN (hypertension) 08/06/2011 ??? Malignant neoplasm of left breast in female, estrogen receptor negative 04/13/2017 ??? Obesity 08/06/2011 Past Surgical History: Procedure Laterality Date ??? PRG SOMATOSENSORY TEST, ANY/ALL PER. NERVES, TRUNK OR HEAD 09/02/2011 FACIAL NERVE MONITORING, SETUP performed by VALENTINE OVIEDO at [facility] MAIN OR ??? PRO BX/REMV, LYMPH NODE, DEEP AXILL Left 04/30/2017 BIOPSY OR EXCISION OF LYMPH NODE(S), OPEN, DEEP AXILLARY NODE(S) (WRVU 6.43) performed by Avery Thacker MD at [facility] ??? PRO EXCISE BREAST LES W XRAY MARKER Left 04/30/2017 EXCISION LESION, BREAST W/ PREOP.MARKER (NEEDLE LOC.) (WRVU 6.69) performed by Avery Thacker MDat [facility] ??? PRO INTRAOP SENTINEL LYMPH ID W/DYE INJECTION Left 04/30/2017 INTRAOPERATIVE ID (MAPPING) SENTINEL LYMPH NODE,INCLUDES INJECTION (WRVU 2.5) performed by Avery Thacker MD at [facility] ??? PRO MASTECTOMY, PARTIAL Left 04/30/2017 MASTECTOMY PARTIAL (WRVU 10.13) performed by Avery Thacker MD at [facility] ??? PRO THYROIDECTOMY 09/02/2011 THYROIDECTOMY, TOTAL OR COMPLETE performed by VALENTINE OVIEDO at [facility] MAIN OR Uterine Ablation Ovaries still present Allergies Allergen Reactions ??? Iron Pt unsure of reaction Current Outpatient Prescriptions on File Prior to Visit Medication Sig Dispense Refill ??? EMOLLIENT BASE (CREAM BASE TOP) Apply topically. Jeans Cream. Apply to area of radiation twice a day but no less than 2 hours before a treatment. ??? GLUCOSAMINE SULFATE (GLUCOSAMINE ORAL) Take by mouth. ??? acetaminophen (TYLENOL) 325 mg Tablet Take 2 tablets by mouth every 4 hours as needed for Pain. ??? ibuprofen (ADVIL;MOTRIN) 600 mg Tablet Take [...] mouth every morning. 30 tablet 0 ??? metFORMIN (GLUCOPHAGE) 500 mg Tablet Take 500 mg by mouth daily. No current facility-administered medications on file prior [...] Not on file Social History Narrative Former [employer] Review of Systems Constitutional: Negative for fever, [...] Neurological: Negative. Hematological: Negative for adenopathy. BP 156/85 (Patient Position: Sitting) Pulse 75 Temp 36.9 ??C (98.4 ??F) (Oral) Resp 18 Ht 167 cm (5' 5.75) Wt 107.5 kg (237 lb) SpO2 98% BMI 38.55 kg/m2 Head: Normocephalic, without obvious abnormality, atraumatic [...] contrast enhancement curve analysis was performed, using [facility] EHR software. ?? COMPARISON STUDIES: Compared and/or correlated [...] contrast enhancement curve analysis was performed, using [facility] EHR software. ?? COMPARISON STUDIES: Compared and/or correlated [...] and ??<= 200 cells): ?0 ?Number of [place] Nodes Examined: ?1 Pathologic Stage Classification (pTNM, AJCC 8th Edition) ?Primary Tumor (Invasive Carcinoma) (pT): ?pT1b ?Regional Lymph Nodes (pN) ER, NC, and HER2 (performed on prior biopsy, [id number]): ER: Negative NC: Negative HER2 FISH: Negative . Results for ZOË GÓMEZ ( ) as of 05/28/2017 16:39 Ref. Range 04/21/2017 14:40 WBC Latest Ref Range: 4.0 - 9.5 x10(3)/mcL 7.1 RBC Latest Ref Range: 4.00 - 5.21 x10(6)/mcL 5.11 Hemoglobin Latest Ref Range: 11.7 - 15.5 gm/dL 14.1 Hematocrit Latest Ref Range: 35.7 - 45.8 % 42.4 MCV Latest Ref Range: 82.6 - 94.4 fL 83.0 MCH Latest Ref Range: 27.1 - 32.0 pg 27.6 MCHC Latest Ref Range: 31.7 - 35.0 gm/dL 33.3 RDWSD Latest Ref Range: 37.0 - 46.0 fL 41.4 RDWCV Latest Ref Range: 11.5 - 14.1 % 13.5 Platelets Latest Ref Range: 145 - 357 x10(3)/mcL 264 MPV Latest Ref Range: 7.6 - 12.9 fL 11.5 nRBC % Auto Latest Units: % 0.0 nRBC Abs Auto Latest Ref Range: 0.000 - 0.000 x10(3)/mcL 0.000 Neutr Abs (ANC) Latest Ref Range: 1.70 - 6.10 x10(3)/mcL 3.58 Neutrophils % Latest Units: % 50.2 Immature Gran % Latest Units: % 0.10 Lymphocytes % Latest Units: % 39.1 Monocytes % Latest Units: % 8.1 Eosinophils % Latest Units: % 1.8 Basophils % Latest Units: % 0.7 Kayy Gran Abs Latest Ref Range: 0.00 - 0.04 x10(3)/mcL 0.01 Lymphocytes Abs Latest Ref Range: 0.9 - 3.2 x10(3)/mcL 2.8 Monocyte Abs Latest Ref Range: 0.3 - 0.9 x10(3)/mcL 0.6 Eosinophils Abs Latest Ref Range: 0.0 - 0.4 x10(3)/mcL 0.1 Basophils Abs Latest Ref Range: 0.0 - 0.1 x10(3)/mcL 0.0 Plat Estimate Unknown Normal RBC Morphology Unknown Normal Results for ZOË GÓMEZ ( ) as of 05/28/2017 16:39 Ref. Range 04/21/2017 14:40 Sodium Latest Ref Range: 135 - 145 mmol/L 142 Potassium Latest Ref Range: 3.5 - 5.0 mmol/L 4.0 Chloride Latest Ref Range: 98 - 107 mmol/L 101 CO2 Latest Ref Range: 22 - 31 mmol/L 28 Anion Gap Latest Ref Range: 5 - 15 mmol/L 13 BUN Latest Ref Range: 8 - 18 mg/dL 17 Creatinine Latest Ref Range: 0.70 - 1.20 mg/dL 0.85 Estimated GFR Latest Ref Range: >=60 >60 Glucose Lvl Latest Ref Range: 65 - 199 mg/dL 89 Calcium Latest Ref Range: 8.5 - 10.5 mg/dL 9.3 Total Protein Latest Ref Range: 6.1 - 8.0 gm/dL 7.5 Albumin Latest Ref Range: 3.2 - 5.2 gm/dL 4.2 Total Bilirubin Latest Ref Range: 0.2 - 1.3 mg/dL 0.2 Alk Phos Latest Ref Range: 40 - 104 unit/L 62 AST Latest Ref Range: 0 - 30 unit/L 17 ALT Latest Ref Range: 0 - 30 unit/L 23 Assessment/plan: Mady has a small but significant triple negative breast cancer. After discussions today she would like to proceed with adjuvant chemotherapy and we have recommended dose dense Adriamycin and Cytoxanfollowed by 12 weekly Taxol's. We did chemotherapy teaching today and risks and side effects of treatment were gone over in detail. She will need an echocardiogram and a port placed for the treatment. We will arrange for those to be done next week and plan on starting her treatment on June 08. I think both her and her significant other have been good understanding of things. We also talked about genetic testing which is definitely indicated in her. After talking to her she was unclear initiallythat there would be any benefit for her in having the testing. We discussed the high risk of ovarian cancer in positive patients and in that regard she will give that some more thought. I believe after our discussion she is leaning towards testing. documented in this encounter Plan of Treatment Not on file documented as of this encounter Results * IR Mediport Placement / Exchange (06/01/2017 2:06 PM EDT) Anatomical Region Laterality Modality X-Ray Angiograph y Narrative 06/01/2017 2:27 PM EDT IR PROCEDURE NOTE ?? Procedure: Port placement. ?? Indication for Procedure: Per Zoë Lloyd APRN??is a 56 y.o.??female??with high-grade triple negative??invasive ductal carcinoma left breast status post lumpectomy. IR consulted for Mediport placement for adjuvant chemotherapy. ?? Procedure events and findings: After obtaining informed consent patient was positioned supine on procedure table. ??Right neck base and upper chest prepped and draped with maximum sterile barrier technique used throughout the procedure. ??Due to the painful nature of the procedure, patient received split doses of intravenous fentanyl and versed from the IR nurse while pulse, pressure, and oxygen saturation were continuously monitored. ?? Prophylactic antibiotic Ancef 2g IV was administered. ? Local anesthesia provided with 1% lidocaine. ??Right IJ accessed with micropuncture technique under U/S guidance and a 4Fr sheath placed. ??After additional local anesthetic with 1% lidocaine and 1% lidocaine with epinephrine, a transverse skin incision was made and a port pocket created with blunt dissection in the upper chest. ?? The port catheter (6Fr) was tunneled from the port pocket to the neck entry site. ??Single lumen CT injection compatible port was then connected to the catheter and positioned in the port pocket. The guide wire was used to measure the amount of catheter to be placed. ??The 4Fr sheath was exchanged for a peel-away sheath and the port catheter placed via the peel-away with catheter tip positioned in RA under fluoroscopic guidance. ?? Port was accessed and aspirated and flushed readily. ??The port was then loaded with heparin solution. ?? The neck incision was closed with tissue adhesive. ??The pocket incision was closed with interrupted deep 2-0 resorbable suture, superficial 4-0 resorbable suture and tissue adhesive. ? Medications: Fentanyl 200 mcg IV, Versed 4mg IV, 1% Lidocaine <10ccs subcutaneous, 1% lidocaine with epinephrine <20ccs subcutaneous. ?Antibiotic Prophylaxis: Ancef 2 grams IV. ?? Est Blood Loss: <5cc. ?? Complications: ??No immediate. ?? Impression: Mediport placement via R IJ, CT injection compatible, catheter tip in RA, port ready for use. ?? Resident/Fellow: ??None. ?? Attending: Yolis, Dr. Skelton performed this procedure. ??I was present during the intraservice time as documented by the IR Nurse.? Junior Olivera MD IMG IR ORDERABLES * ECHO COMPLETE (06/01/2017 10:15 AM EDT) EF 70 HEARTLAB SYSTEM Anatomical Region Laterality Modality Other 06/01/2017 Narrative 06/01/2017 10:34 AM EDT Procedure: ?Transthoracic Echocardiogram Patient: ?RICO Corona ? (Age): 1960(56y) Med Rec#: ? [id number] ?Sex: ?F ? Site Loc: ? [facility] ?Ht / Wt: ??167(cm)/107(kg) Pt. Loc: ?Echo Lab ?BSA: ?2.14 Study Date: ?? 06/01/2017 ?Pt. Type: Outpatient Tape: ? Referring: Junior Olivera Reading: Oscar Cool ([id number]) Reducing Salon Attendant: Orlando Samayoa Diagnosis: *ICD-10-PCS Malignant neoplasm of unspecified site of left female breast (C50.912) Rhythm: ? Sinus BP: ? 160/90 SUMMARY: 1. The left ventricular chamber size is [...] See remainder of report for additional findings. Findings ? : Study Quality: ? Adequate Left Ventricle: ? The left ventricular chamber size is normal. ?Left ventricular wall thickness is normal. ?No ventricular septal defect is visualized. ?There is normal global left ventricular systolic function. GLS= 21.2%. ?The quantitative left ventricular ejection fraction by biplane Reyes's method is 70%. ?There are no left ventricular segmental wall motion abnormalities. Left Atrium: ? The left atrium is mildly dilated. Volume Index= 40ml/m2. ?No atrial septal defect is visualized. Right Ventricle: ? The right ventricle is normal in size. ?Right ventricular global systolic function is normal. ?The estimated pulmonary artery systolic pressure is 29 mmHg. ?The estimated right atrial pressure is 3 mmHg. Right Atrium: ? The right atrium is normal in size. Aortic Valve: ? The aortic valve is tricuspid. ?Systolic excursion of the aortic valve is normal. ?There is no evidence of aortic valve stenosis. ?There is no evidence of aortic regurgitation. Mitral Valve: ? The mitral valve leaflets appear normal. ?There is trace mitral regurgitation present. Tricuspid Valve: ? The tricuspid valve leaflets are morphologically normal. ?There is trace tricuspid regurgitation present. Pulmonic Valve: ? The pulmonic valve is probably normal. ?There is trace pulmonic regurgitation present. Pericardium: ? The pericardium appears normal and there is no evidence of a pericardial effusion. Aorta: ? The aortic root is normal in size. ?The ascending aorta is normal in size. ?The aortic arch is normal in size. Pulmonary Artery: ? The main pulmonary artery is probably normal in size. Venous: ? There is a greater than 50% respiratory change in the inferior vena cava dimension. Misc: ? Two-dimensional echo, spectral Doppler and color Doppler performed. ?Myocardial Strain Imaging Chambers 2D ?Value ?Units (Range) ? RVIDd ??Base ? 3.7 ?cm ? IVSd (2D) ? 1.1 ?cm ? LVPWd (2D) ?1 ?cm ? IVS:LVPW ratio (2D) 1.1 ?ratio ? RWT (2D) ?0.4 ?ratio ? RWT PW (2D) ? 0.4 ?ratio ? LVIDd (2D) ?5 ?cm ? LVIDs (2D) ?3.3 ?cm ? LVIDd (2D) index ?2.3 ?cm/m2 ? LVIDs (2D) index ?1.5 ?cm/m2 ? LV FS (2D) ?34 ? % ? EF Teichholz (2D) ?? 63 ? % ? Ao root diameter (2D2.9 ?cm (2.1 - 3.6) ? Ascending Ao ?3.1 ?cm (2 - 3.5) ? Aortic arch ? 2.3 ?cm ? Volumes/Mass ?Value ?Units (Range) ? LA Area 4 CH ?23 ? cm2 (<21) ? RA AREA 4CH ? 15 ? cm2 ? LA ESV BP (MOD) inde40.1 ? ml/m2 ? LV ESV SP 4CH (MOD) 37.8 ? ml ? LV ESV SP 2CH (MOD) 30.8 ? ml ? LV EDV BP ? 116 ?ml ? LV ESV BP ? 35.3 ? ml ? LV EDV BP index ? 54.2 ? ml/m2 ? LV ESV BP index ? 16.5 ? ml/m2 ? BP EF (MOD) ? 70 ? % ? Global Longiitudinal-21.2 ?% (-30 - -10) ? LV mass (2D) ?196.3 ?g ? LV mass (2D) index ??91.7 ? g/m2 ? Diastolic/Systolic Function ?Value ?Units (Range) ? MV E-wave Vmax ?1.1 ?m/sec ? MV deceleration [id number] ?msec ? MV A-wave Vmax ?0.8 ?m/sec ? MV E:A ratio ?1.4 ?ratio ? LV septal e' Vmax ?? 0.1 ?m/sec ? LV lateral e' Vmax ??0.1 ?m/sec ? LV average e' Vmax ??0.1 ?m/sec ? LV E:e' septal ratio10.8 ? ratio ? LV E:e' lateral rati10.8 ? ratio ? LV average E:e' rati10.8 ? ratio ? Tricuspid Valve ?Value ?Units (Range) ? TAPSE ? 2.3 ?cm ? TR Vmax ? 2.5 ?m/sec ? TR peak gradient ?26 ? mmHg ? RAP ? 3 ?mmHg ? RVSP ?29 ? mmHg ? Wall Motion: Segment Name ?Rest ? Base-Anteroseptal ?? Normal ? Base-Anterior ? Normal ? Base-Anterolateral ??Normal ? Base-Posterolateral Normal ? Base-Inferior ? Normal ? Base-Inferoseptal ?? Normal ? Mid-Anteroseptal ?Normal ? Mid-Anterior ?Normal ? Mid-Anterolateral ?? Normal ? Mid-Posterolateral ??Normal ? Mid-Inferior ?Normal ? Mid-Inferoseptal ?Normal ? [place]-Septal ? Normal ? [place]-Anterior ? Normal ? [place]-Lateral ?Normal ? [place]-Inferior ? Normal ? [place]-Tip ?Normal ? This report has been electronically signed by: Oscar Cool MD ? 06/01/2017 10:34:14 Images reviewed and interpretation verified [facility] Cardiac Ultrasound Laboratory Procedure Note Oscar Cool MD - 06/01/2017 Procedure: Transthoracic Echocardiogram Patient: RICO Corona (Age): 1960(56y) Med Rec#: [id number] Sex: F Site Loc: [facility] Ht / Wt: 167(cm)/107(kg) Pt. Loc: Echo Lab BSA: 2.14 Study Date: 06/01/2017 Pt. Type: Outpatient Tape: Referring: Junior Olivera Reading: Oscar Cool ([id number]) Reducing Salon Attendant: Orlando Samayoa Diagnosis: *ICD-10-PCS Malignant neoplasm of unspecified site of left female breast (C50.912) Rhythm: Sinus BP: 160/90 SUMMARY: 1. The left ventricular chamber size is [...] See remainder of report for additional findings. Findings : Study Quality: Adequate Left Ventricle: The left ventricular chamber size is normal. Left ventricular wall thickness is normal. No ventricular septal defect is visualized. There is normal global left ventricular systolic function. GLS= 21.2%. The quantitative left ventricular ejection fraction by biplane Reyes's method is 70%. There are no left ventricular segmental wall motion abnormalities. Left Atrium: The left atrium is mildly dilated. Volume Index= 40ml/m2. No atrial septal defect is visualized. Right Ventricle: The right ventricle is normal in size. Right ventricular global systolic function is normal. The estimated pulmonary artery systolic pressure is 29 mmHg. The estimated right atrial pressure is 3 mmHg. Right Atrium: The right atrium is normal in size. Aortic Valve: The aortic valve is tricuspid. Systolic excursion of the aortic valve is normal. There is no evidence of aortic valve stenosis. There is no evidence of aortic regurgitation. Mitral Valve: The mitral valve leaflets appear normal. There is trace mitral regurgitation present. Tricuspid Valve: The tricuspid valve leaflets are morphologically normal. There is trace tricuspid regurgitation present. Pulmonic Valve: The pulmonic valve is probably normal. There is trace pulmonic regurgitation present. Pericardium: The pericardium appears normal and there is no evidence of a pericardial effusion. Aorta: The aortic root is normal in size. The ascending aorta is normal in size. The aortic arch is normal in size. Pulmonary Artery: The main pulmonary artery is probably normal in size. Venous: There is a greater than 50% respiratory change in the inferior vena cava dimension. Misc: Two-dimensional echo, spectral Doppler and color Doppler performed. Myocardial Strain Imaging Chambers 2D Value Units (Range) RVIDd Base 3.7 cm IVSd (2D) 1.1 cm LVPWd (2D) 1 cm IVS:LVPW ratio (2D) 1.1 ratio RWT (2D) 0.4 ratio RWT PW (2D) 0.4 ratio LVIDd (2D) 5 cm LVIDs (2D) 3.3 cm LVIDd (2D) index 2.3 cm/m2 LVIDs (2D) index 1.5 cm/m2 LV FS (2D) 34 % EF Teichholz (2D) 63 % Ao root diameter (2D2.9 cm (2.1 - 3.6) Ascending Ao 3.1 cm (2 - 3.5) Aortic arch 2.3 cm Volumes/Mass Value Units (Range) LA Area 4 CH 23 cm2 (<21) RA AREA 4CH 15 cm2 LA ESV BP (MOD) inde40.1 ml/m2 LV ESV SP 4CH (MOD) 37.8 ml LV ESV SP 2CH (MOD) 30.8 ml LV EDV BP 116 ml LV ESV BP 35.3 ml LV EDV BP index 54.2 ml/m2 LV ESV BP index 16.5 ml/m2 BP EF (MOD) 70 % Global Longiitudinal-21.2 % (-30 - -10) LV mass (2D) 196.3 g LV mass (2D) index 91.7 g/m2 Diastolic/Systolic Function Value Units (Range) MV E-wave Vmax 1.1 m/sec MV deceleration [id number] msec MV A-wave Vmax 0.8 m/sec MV E:A ratio 1.4 ratio LV septal e' Vmax 0.1 m/sec LV lateral e' Vmax 0.1 m/sec LV average e' Vmax 0.1 m/sec LV E:e' septal ratio10.8 ratio LV E:e' lateral rati10.8 ratio LV average E:e' rati10.8 ratio Tricuspid Valve Value Units (Range) TAPSE 2.3 cm TR Vmax 2.5 m/sec TR peak gradient 26 mmHg RAP 3 mmHg RVSP 29 mmHg Wall Motion: Segment Name Rest Base-Anteroseptal Normal Base-Anterior Normal Base-Anterolateral Normal Base-Posterolateral Normal Base-Inferior Normal Base-Inferoseptal Normal Mid-Anteroseptal Normal Mid-Anterior Normal Mid-Anterolateral Normal Mid-Posterolateral Normal Mid-Inferior Normal Mid-Inferoseptal Normal [place]-Septal Normal [place]-Anterior Normal [place]-Lateral Normal [place]-Inferior Normal [place]-Tip Normal This report has been electronically signed by: Oscar Cool MD 06/01/2017 10:34:14 Images reviewed and interpretation verified [facility] Cardiac Ultrasound Laboratory Junior Olivera MD ECHO ORDERABLES documented in this encounter Visit Diagnoses Diagnosis Malignant neoplasm of left breast in female, estrogen receptor negative, unspecified site of breast Malignant neoplasm of left breast in female, estrogen receptor negative, unspecified site of breast Malignant neoplasm of left breast in female, estrogen receptor negative, unspecified site of breast documented in this encounter Care Teams Anesthesiologist Assistant Relationship Specialty Start Date End Date Home Yeager MD PCP - General Family Medicine 04/21/17 documented as of this encounter
--- OUTSIDE RECORDS SUMMARY | 2024-01-08 01:13 | XMS_ITS | Encounter Summary ---
Author Organization [facility] [place] [address] Care Team Providers Care Stars Specialist Name Role Phone Sandra Shaw APRN Primary Care Provider [phone] Encounter Details Date Type Department Care Team (Late st Contact Info) Description 04/13/2017 Notes [address] Management [facility] [place] [address] Ines Patel MSW Social History Tobacco Use Types Packs/Day Years Used Date Smoking Tobacco: Former Cigarettes Q uit: 03/09/1998 Sex and Gender Information Value Date Recorded Sex Assigned at Not on file Gender Identity Not on file Sexual Orientation Not on file documented as of this encounter Progress Notes * Ines Patel MSW - 04/13/2017 1:17 PM EST OFFICE OF CARE MANAGEMENT/CONTINUING CONSULTING NETWORKING ENGINEER Reason for referral: Zoë Cervantes is a 56 year old, female who was seen in the multidisciplinary breast care clinic for a surgical consult as she was recently diagnosed with left breast, ER/IN-, IDC/DCIS. After meeting with Dr. Thacker, pt has decided to have a lumpectomy/SLNB followed by radiation therapy which she will receive at the [facility]. [facility] met with pt to complete a psychosocial assessment and to explain my role in the breast program. Pt was encouraged to contact me if she has any questions or concerns. Living arrangements/social supports: Pt lives in [place], [place] with her , Nic. She has three children and five stepchildren. Pt states her is very supportive and he accompanied her to today's appt. 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 She has medical coverage through [place] [employer]. I informed pt she could receive mileage reimbursement to her medical appts from Medicaid, but she indicated she did not like to deal with them. Tobacco/drug/alcohol history: Pt does not smoke and drinks occasionally. Advance Directives: Pt has not completed advance directives and was given information and forms to do so. Pt was told that the Shared Decision Making Department could help her to complete her advancedirectives. Pt was asked to provide copies of her advance directives if she completes them on her own so they can be scanned into her medical record. Adjustment to illness/Mental Health Concerns: Pt states she feels less anxious since meeting with Dr. Thacker and was told she would not need a mastectomy. Pt's is her primary support. I wouldn't be here if it were not for him. I always said I would not have surgery if I had cancer. I reviewed some of the supports and services available to pt in the cancer center. Pt was told that Cathy Kendall is the SW at the [facility]. Plan: [facility] will continue to follow pt to assess and assist with their psychosocial needs. TORI Clark [facility]/[place] [phone] Pager #[phone] documented in this encounter Plan of Treatment Not on file documented as of this encounter Visit Diagnoses Not on filedocumented in this encounter Care Teams Stars Specialist Relationship Specialty Start Date End Date Sandra Shaw, ZAKIA PCP - General 10/30/11 04/20/17 documented as of this encounter
--- OUTSIDE RECORDS SUMMARY | 2024-01-08 01:13 | XMS_ITS | Encounter Summary ---
Author Organization [facility] [place] [address] Care Team Providers Care Lift Supervisor Name Role Phone Sandra Shaw ZAKIA Primary Care Provider [phone] Encounter Details Date Type Department Care Team (Late st Contact Info) Description 03/26/2017 Telephone Hematology and Oncology at [facility] [address] Esperanza Marie RN Social History Tobacco Use Types Packs/Day Years Used Date Smoking Tobacco: Former Cigarettes Q uit: 03/09/1998 Sex and Gender Information Value Date Recorded Sex Assigned at Not on file Gender Identity Not on file Sexual Orientation Not on file documented as of this encounter Miscellaneous Notes * Telephone Encounter - Esperanza Marie RN - 03/26/2017 12:51 PM EST Comprehensive Breast Program (CBP) Note ?? Reason for call: Contacted patient after Dr. Schuster informed her that her breast biopsy results indicated she has invasive ductal carcinoma, to introduce her to the CBP. Zoë Cervantes is a 56 y.o. female with newly diagnosed ER-/CO-/HER2 yoshi pending left breast IDC ([place] [facility] Zoë sounds positive and has support. Her will accompany her to appointments. She appearsto be coping well but is anxious to meet with a breast surgeon to determine a treatment plan. 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 Her apt. Is scheduled for 04/09 but may need to be changed based upon her job schedule. She is not interested in having a trained volunteer from [employer]'s ([facility]M) patient support corps accompany her to provider appts. She does not have internet access and does not do well with computers. Plan: Appointments for breast MRI and surgical consult with a breast surgeon will be scheduled. Shewas introduced to the CBP and told she would receive information about her diagnosis and treatment for her review (the Breast Cancer Treatment Handbook). She is aware she may receive a call with the website for the [facility] Early-Stage: Invasive Breast Cancer program but will not likely view it). Plan to meet with Zoë on the day of her consult apt. Addressed her questions and encouraged her to contact me with any additional questions or concerns.She has our contact information. FAMILY HISTORY Breast Cancer: M Cousin in her 40's or 50's ?2nd M cousin ?Niece (sister's daughter) may have newly diagnosed BR CA in her 30's. She will find out more. Mother had tumors but she thinks it may have been benign (?). She in her 70's Uterine Cancer: Daughter in her 20's, doing fine now M Aunt Laterality:Left Is this a recurrence:No Family history of breast cancer:Yes Family history of ovarian cancer: No Personal history or breast cancer:No Method of detection: Mammogram Method of diagnosis: Ultrasound Core Biopsy documented in this encounter Plan of Treatment Not on file documented as of this encounter Visit Diagnoses Not on filedocumented in this encounter Care Teams Lift Supervisor Relationship Specialty Start Date End Date Sandra Shaw APRN PCP - General 10/30/11 04/20/17 documented as of this encounter
--- OUTSIDE RECORDS SUMMARY | 2024-01-08 01:13 | XMS_ITS | Encounter Summary ---
Author Organization [facility] [place] [address] Care Team Providers Care Air Quality Specialist Name Role Phone Home Yeager MD Primary Care Provider [phone] Reason for Visit * Reason Comments Breast Cancer Encounter Details Date Type Department Care Team (Late st Contact Info) Description 07/06/2017 10:30 AM EDT Office Visit Hematology/Oncology at [address] [phone] Junior Olivera MD [address] [place] [address] [phone] Malignant neoplasm of upper-outer quadrant of left [...] Sign Reading Time Taken Comments Blood Pressure 159/79 07/06/2017 10:25 AM EDT Pulse 80 07/06/2017 10:25 AM EDT Temperature 37 ??C (98.6 ??F) 07/06/2017 10:25 AM EDT Respiratory Rate 16 07/06/2017 10:25 AM EDT Oxygen Saturation 99% 07/06/2017 10:25 AM EDT Inhaled Oxygen Concentration - - Weight 103 kg (227 lb) 07/06/2017 10:25 AM EDT Height 167 cm (5' 5.75) 07/06/2017 10:25 AM EDT Body Mass Index 36.92 07/06/2017 10:25 AM EDT documented in this encounter Progress Notes * Junior Olivera MD - 07/06/2017 10:30 AM EDT Diagnosis: 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 The tumor was 0.7 mm but triple negative. Subjective: Zoë comes in today for her third cycle of dose dense Adriamycin and Cytoxan being given adjuvantly in the treatment of her triple negative breast cancer. This last cycle went quite a bit better overall with good control of nausea and vomiting. She gets some heartburn that she is taking baking soda for 4 and she really likes using that notes good relief. She did not have any stomatitis. Energy levels have been a bigger problem and she is not sure she will be able to work this weekend althoughshe was able to last. Her fatigue levels are better the last couple of days. We discussed the finalchemotherapy with Adriamycin and Cytoxan in 2 weeks the likelihood that her fatigue levels will be even worse. After that though things usually improve during the taxane part of the chemotherapy although it may take a couple weeks to get there. Psychologically she is in good spirits. She has taken the hair loss quite well. That was a big issue for her. Past medical history and social history reviewed and unchanged from when I saw her 2 weeks ago Past Medical History: Diagnosis Date ??? Goiter 08/06/2011 ??? HTN (hypertension) 08/06/2011 ??? Malignant neoplasm of left breast in female, estrogen receptor negative 04/13/2017 ??? Obesity 08/06/2011 Past Surgical History: Procedure Laterality Date ??? PRG SOMATOSENSORY TEST, ANY/ALL PER. NERVES, TRUNK OR HEAD 09/02/2011 FACIAL NERVE MONITORING, SETUP performed by VALENTINE OVIEDO at [facility] MAIN OR ??? PRO BX/REMV, LYMPH NODE, DEEP AXILL Left 04/30/2017 BIOPSY OR EXCISION OF LYMPH NODE(S), OPEN, DEEP AXILLARY NODE(S) (WRVU 6.43) performed by Avery Thacker MD at [facility]SC ??? PRO EXCISE BREAST LES W XRAY MARKER Left 04/30/2017 EXCISION LESION, BREAST W/ PREOP.MARKER (NEEDLE LOC.) (WRVU 6.69) performed by Avery Thacker MDat [facility] ??? PRO INTRAOP SENTINEL LYMPH ID W/DYE INJECTION Left 04/30/2017 INTRAOPERATIVE ID (MAPPING) SENTINEL LYMPH NODE,INCLUDES INJECTION (WRVU 2.5) performed by Avery Thacker MD at [facility] ??? PRO MASTECTOMY, PARTIAL Left 04/30/2017 MASTECTOMY PARTIAL (WRVU 10.13) performed by Avery Thcaker MD at [facility] ??? 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 Hematological: Negative for adenopathy. BP 159/79 Pulse 80 Temp 37 ??C (98.6 ??F) (Oral) Resp 16 Ht 167 cm (5' 5.75) Wt 103 kg (227 lb) SpO2 99% BMI 36.92 kg/m2 Head: Normocephalic, without obvious abnormality, atraumatic [...] contrast enhancement curve analysis was performed, using [employer] software. ?? COMPARISON STUDIES: Compared and/or correlated [...] contrast enhancement curve analysis was performed, using [employer] software. ?? COMPARISON STUDIES: Compared and/or correlated [...] Type: ?? Invasive ductal carcinoma ?Histologic Grade (Franklin Histologic Score) ? Glandular (Acinar) / Tubular [...] and ??<= 200 cells): ?0 ?Number of [place] Nodes Examined: ?1 Pathologic Stage Classification (pTNM, AJCC 8th Edition) ?Primary Tumor (Invasive Carcinoma) (pT): ?pT1b ?Regional Lymph Nodes (pN) ER, MT, and HER2 (performed on prior biopsy, [id number]): ER: Negative MT: Negative HER2 FISH: Negative Procedure: Transthoracic Echocardiogram Patient: RICO Corona (Age): 1960(56y) Med Rec#: [id number] Sex: F [place] [facility] [place]t / Wt: 167(cm)/107(kg) Pt. Loc: Echo Lab BSA: 2.14 Study Date: 06/01/2017 Pt. Type: Outpatient Tape: ?? Referring: Junior Olivera Reading: Oscar Cool ([id number]) Sawmill Worker: Orlando Samayoa ?? Diagnosis: *ICD-10-PCS Malignant neoplasm [...] 133.8 mg pegfilgrastim (NEULASTA) SubQ 6 mg Laboratory today shows white count of 8.4 hemoglobin 12.4 hematocrit 35.7 platelet count 230,000 absolute neutrophil count is 5.74. CMP shows normal electrolytes a creatinine of 0.76 calcium 8.6 ALP of 71 and albumin of 3.5 Assessment/plan: Zoë is doing well and fine today for cycle 3 Adriamycin and Cytoxan being given with Neulasta and a dose dense fashion. She is tolerating the treatment well with the expected amount of fatigue. Nausea and vomiting are controlled and blood counts are doing quite well with only a mild amount of chemotherapy associated anemia. Psychologically she is handling things well and is handled the alopecia better than she thought. We will see her back in 2 weeks with lab for her final Adriamycin and Cytoxan and plan on starting her on weekly Taxol 2 weeks after that. She will call if there is issues or problems in the interim documented in this encounter Plan of Treatment Not on file documented as of this encounter Procedures Procedure Name Priority Date/Time Associated Diagnosis Comments LAB SCAN 07/06/2017 12:00 AM EDT documented in this encounter Results * SCAN DOC: LAB (07/06/2017 12:00 AM EDT) Narrative 07/06/2017 12:00 AM EDT Ordered by an unspecified provider. Scanning Provider MEDIA MGR SCAN EXT O RDR/RSLT documented in this encounter Visit Diagnoses Diagnosis Malignant neoplasm of upper-outer quadrant of left breast in female, estrogen receptor negative documented in this encounter Care Teams Air Quality Specialist Relationship Specialty Start Date End Date Home Yeager MD PCP - General Family Medicine 04/21/17 documented as of this encounter
--- OUTSIDE RECORDS SUMMARY | 2024-01-08 01:13 | XMS_ITS | Encounter Summary ---
[place] [address] Care Team Providers Care Cargo Broker Name Role Phone Home Yeager MD Primary Care Provider [phone] Reason for Referral * Diagnostic Test (Routine) - Closed Specialty Diagnoses / Procedures Referred By Contac t Referred To Contact Radiology Diagnoses Malignant neoplasm of left breast in female, estrogen receptor negative, unspecified site of breast Procedures IR Mediport Placement / Exchange Junior Olivera MD [address] [place] [address] [place] [address] [facility] [place] [address] Referral ID Status Reason Start Date Expiration Date V isits Requested Visits Authorized [id number] Closed Specialty Service Requested 05/28/2017 05/28/2018 1 1 Reason for Visit * Diagnostic Test (Routine) - Closed Specialty Diagnoses / Procedures Referred By Contac t Referred To Contact Radiology Diagnoses Malignant neoplasm of left breast in female, estrogen receptor negative, unspecified site of breast Procedures IR Mediport Placement / Exchange Junior Olivera MD [address] [place] [address] [place] [address] [place] [address] Referral ID Status Reason Start Date Expiration Date V isits Requested Visits Authorized [id number] Closed Specialty Service Requested 05/28/2017 05/28/2018 1 1 Encounter Details Date Type Department Care Team (Latest Contact Info) Description 06/01/2017 11:40 AM EDT - 06/01/2017 11:59 PM EDT Hospital [place] [address] Junior Olivera MD [address] [place] [address] [place] [address] Malignant neoplasm of left breast in female, [...] Sign Reading Time Taken Comments Blood Pressure 175/65 06/01/2017 2:45 PM EDT Pulse 73 06/01/2017 2:15 PM EDT Temperature 36.4 ??C (97.5 ??F) 06/01/2017 2:26 PM ED T Respiratory Rate 16 06/01/2017 2:45 PM EDT Oxygen Saturation 96% 06/01/2017 2:45 PM EDT Inhaled Oxygen Concentration - - Weight - - Height - - Body Mass Index - - documented in this encounter Discharge Instructions * Discharge Instructions* Jany Barrett RN - 06/01/2017 1:48 PM EDT Images from the original note were not included. [facility] Department of Vascular and Interventional Radiology Discharge Instructions for your Chest Port You have received a ???Power Port?? , which provides access for infusions and blood draws. What makes this a ???Power Port?? is the unique ability to ???power inject?? contrast (intravenous dye) through the port when getting a CT scan, which produces superior images (pictures). Patients who don???t have these special ports need to have an IV started if they need dye injected for their CT scan. Your port is printed with the letters ???CT?? which can be detected by x- ray to identify it as a ???Power Port?? . You will be provided with an ID card stating the washing machine installer and type of port you have. Please carry this with you in a safe place. Bandage: There is a sterile dressing over the port site consisting of small gauze with a clear dressing (Tegaderm or [id number] ). This dressing should be left in place for 48 hours. If the clear dressing becomes loose you should place tape over the edges to secure it in place. Note: If you have steri-strips beneath your dressing, simply allow them to fall off. Do not peel them off. Pain: Apply ice bag to site (s) at 30 minute intervals (30 minutes on and 30 minutes off) for 24 hours?? . May use as needed for pain and/or bruising after 24 hours. Bathing: Do not take a shower until 48 hours after your port is placed; after this time you may shower with the dressing in place, then remove it and pat your skin dry. After 48 hours, we recommend that you cover the area with THE AQUA GUARD PROVIDED for 1 week while showering, facing away from theshower stream. You may use a bandaid to cover the site after the 48 hours are up if there is any drainage. No tub baths, whirlpools or swimming for one week following port placement. What to expect when your port is accessed: 1. You may feel tenderness the first few times it is accessed but generally this subsides over time. Ask your healthcare provider to use a local anesthetic on the site if discomfort is a problem for you. You may ask for a prescription for a topical cream (EMLA) from your clinician; you may apply athome prior to your appointments, to help numb the skin over your port. 2. The clinician should be wearing sterile gloves and a mask during the access procedure. Anyone inthe room with you should also have a mask on. 3. The skin over and 2 inches around the port should be cleaned with a disinfectant 4. Tell the clinician if you would like the skin numbed (lidocaine) before the access needle is placed. 5. Unless you are unable to take heparin (blood thinner), the port should be injected with a heparin solution before deaccess (at end of each treatment or blood draw). When to call your healthcare provider: ??? If you notice bleeding from the puncture site in your neck, or from the port incision on your chest, you should apply firm pressure over the site for 10-15 minutes, keeping the site covered. Callif you are still bleeding after 10-15 minutes. ??? If you develop pain, redness, drainage or swelling at or around the port site, or the puncture site in the neck ??? If you develop fever (elevation of more than 2 degrees or greater than 101F) and/or shaking chills When to call the Interventional Radiology Department: Please call with any questions or concerns. If it is during regular office hours, please call [phone]. If it is after regular office hours, or on weekends or holidays, please call [phone] and ask to speak to the Bottom Crane Operator sales promotion manager for Interventional Radiology. XXX You have received medication during your procedure to help lessen anxiety and keep you comfortable. These medications [...] or foul drainage occurs, please contact your M. D. Revised 03/23/15 documented in this encounter Medications [...] than 2 hours before a treatment. 05/08/2022 GLUCOSAMINE SULFATE (GLUCOSAMINE ORAL) Take by mouth. 019 metFORMIN (GLUCOPHAGE) 500 mg Tablet Take 500 mg by mouth daily. 01/20/2018 ibuprofen (ADVIL;MOTRIN) 600 mg Tablet Take 600 mg by mouth 3 times daily as needed for Pain. 11/03/2017 lisinopril-hydrochloro thiazide (PRINZIDE;ZESTORETIC) 10-12.5 mg Tablet Take 1 tablet by mouth daily. 11/25/2018 documented as of this encounter Progress Notes * Marco Silva RN - 06/01/2017 11:59 PM EDT Interventional and Vascular Radiology Post-Procedure Call Name: Zoë Cervantes Age: 56 y.o. Sex; Female Date of : 1960 (home) Telephone Information: PCP Home Yeager MD [phone] Date/Time of call: June 02, 2017/8:10 AM Procedure: Mediport Placement Procedural Provider: Dr. Skelton Contact with patient or if not, with whom? Yes Are you having pain related to your procedure now? Pt states a little sore Are you having any swelling or bleeding from the site? Denies Are you having any other problems related to your procedure? Comments: None Did you understand the discharge instructions given and do you have any questions? Comments: None Do you have any comments about your Nurse or Provider or the care you received? It was great Nurse Comments: No other questions or concerns voiced. * Jany Barrett RN - 06/01/2017 1:35 PM EDT 1310 To procedure room 3 via stretcher. Onto table supine. All monitors, O2, safety strap in place.Med's per protocol. * Jany Barrett RN - 05/29/2017 1:32 PM EDT [facility]GIO NURSING DATABASE Name: ZOË CERVANTES Date of : 1960 AGE 56 y.o. Address: [address] [place] [address] (home) Mobile: Telephone Information: Referring Provider: Junior Olivera REASON FOR VISIT: Mediport placement for chemotherapy treatment Labs to be performed day of procedure: none Medication to STOP: none Sedation: Moderate sedation per IR RN protocols Prophylactic antibiotic: Ancef 2 g IV Additional medications for procedure: none Planned access site: tbd pending US Position: supine Consent: Pending Allergies Allergen Reactions ??? Iron Pt unsure of reaction Pertinent [...] 09/02/2011 FACIAL NERVE MONITORING, SETUP performed by TORRES VALDIVIA at [facility] MAIN OR ??? [...] at [facility] ??? PRO MASTECTOMY, PARTIAL Left 04/30/2017 MASTECTOMY PARTIAL (WRVU 10.13) performed by Avery Thacker MD at [facility] ??? PRO THYROIDECTOMY 09/02/2011 THYROIDECTOMY, TOTAL OR COMPLETE performed by TORRES VALDIVIA at [facility] MAIN OR Date/Procedure Med's given/comments 06/01/17 Mediport insertion Cefazolin 2 gm IV, Fentanyl 200 mcg IV, Versed 4 mg IV Laboratory Results: Lab Results Component Value Date CREATININE 0.85 04/21/2017 Lab Results Component Value Date K 4.0 04/21/2017 Lab Results Component Value Date PLATELET 264 04/21/2017 Medications: Prior to Admission medications Medication Sig Start Date End Date Taking? Authorizing Provider EMOLLIENT BASE (CREAM BASE TOP) Apply topically. [...] 500 mg by mouth daily. PROVIDER, HISTORICAL ibuprofen (ADVIL;MOTRIN) 600 mg Tablet Take 600 mg by mouth 3 times daily as needed for Pain. PROVIDER, HISTORICAL ERGOCALCIFEROL, VITAMIN D2, (VITAMIN D ORAL) Take 2,000 Units by mouth. PROVIDER, HISTORICAL aspirin 81 mg Tablet, Chewable Take 81 mg by mouth daily. PROVIDER, HISTORICAL lisinopril-hydrochlorothiazide (PRINZIDE;ZESTORETIC) 10-12.5 mg Tablet Take 1 tablet by mouth daily. PROVIDER, HISTORICAL levothyroxine (SYNTHROID) 137 mcg tablet Take 137 mcg by mouth every morning. 10/01/11 Torres Valdivia MD * Stephen Uribe, ZAKIA - 05/29/2017 10:37 AM EDT Images from the original note were not included. INTERVENTIONAL RADIOLOGY ADDENDUM TO NOTE OF DR. ZELAYA GEN: NAD CV: RRR No R/G/M PULM: CTA bilateraly ASA 2 MALLMAPATI 2 FOCUSED H&P and PRE-PROCEDURE NOTE: PCP: Home Yeager MD Referring Physician: Junior Olivera Planned Procedure: Mediport placement Procedure Indication: Adjuvant chemotherapy Presenting Diagnosis/ Complaint: Zoë Cervantes is a 56 y.o. 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 IR consulted for Mediport placement for adjuvant chemotherapy. Past Medical/Surgical History: Patient Active Problem List [...] 09/02/2011 FACIAL NERVE MONITORING, SETUP performed by TORRES VALDIVIA at [facility] MAIN OR ??? PRO BX/REMV, LYMPH NODE, DEEP AXILL Left 04/30/2017 BIOPSY OR EXCISION OF LYMPH NODE(S), OPEN, DEEP AXILLARY NODE(S) (WRVU 6.43) performed by Avery Thakcer MD at [facility] ??? [...] at [facility] ??? PRO MASTECTOMY, PARTIAL Left 04/30/2017 MASTECTOMY PARTIAL (WRVU 10.13) performed by Avery Thacker MD at [facility] ??? PRO THYROIDECTOMY 09/02/2011 THYROIDECTOMY, TOTAL OR COMPLETE performed by TORRES VALDIVIA at [facility] MAIN OR Medications: Current Outpatient Prescriptions on File Prior to Encounter Medication Sig Dispense Refill ??? EMOLLIENT BASE [...] medications on file prior to encounter. Allergies: Iron Social History and Habits: Social History Social History ??? 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 Breast Cancer Maternal Cousin 50 In her 40's or 50's ??? Breast Cancer Maternal Cousin Possibly 2nd maternal cousin w/BR CA ??? Uterine Cancer Daughter In her 20's ??? Uterine Cancer Maternal Aunt also colon cancer ??? Ovarian Cancer Neg Hx Physical Examination: pending Labs: Lab Results Component Value Date WBC 7.1 04/21/2017 HCT 42.4 04/21/2017 PLATELET 264 04/21/2017 BUN 17 04/21/2017 CREATININE 0.85 04/21/2017 ALKPHOS 62 04/21/2017 AST 17 04/21/2017 ALBUMIN 4.2 04/21/2017 BILITOT 0.2 04/21/2017 ALT 23 04/21/2017 PROT 7.5 04/21/2017 Imaging: ASA: Pending (to be assessed in angio the day of procedure) Mallampati Class: Pending (to be assessed in angio the day of procedure) Assessment/Plan: 56 y.o. 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 IR consulted for Mediport placement for adjuvant chemotherapy. I have reviewed the sedation plan for this patient???s case and concur that Fentanyl and Versed areappropriate choices for sedation and will be provided per the protocoled order set for this case Labs to be performed day of procedure: none Medication to STOP: none Sedation: Moderate sedation per IR RN protocols Prophylactic antibiotic: Ancef 2 g IV Additional medications for procedure: none Planned access site: tbd pending US Position: supine Consent: Pending Mady Zelaya MD 05/29/2017 documented in this encounter Procedure Notes * Home Skelton MD - 06/01/2017 2:19 PM EDT IR PROCEDURE NOTE Procedure: Port placement. Indication for Procedure: Per Zoë Lloyd APRN Billy is a 56 y.o. 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 IR consulted for Mediport placement for adjuvant chemotherapy. Procedure events and findings: After obtaining informed consent patient was positioned supine on procedure table. Right neck base and upper chest prepped and draped with maximum sterile barrier technique used throughout the procedure. Due to the painful nature of the procedure, patient received split doses of intravenous fentanyl and versed from the IR nurse while pulse, pressure, and oxygen saturation were continuously monitored. Prophylactic antibiotic Ancef 2g IV was administered. Local anesthesia provided with 1% lidocaine. Right IJ accessed with micropuncture technique under U/S guidance and a 4Fr sheath placed. After additional local anesthetic with 1% lidocaine and 1% lidocaine with epinephrine, a transverse skin incision was made and a port pocket created with blunt diss ection in the upper chest. The port catheter (6Fr) was tunneled from the port pocket to the neck entry site. Single lumen CT injection compatible port was then connected to the catheter and positioned in the port pocket. The guide wire was used to measure the amount of catheter to be placed. The 4Fr sheath was exchanged for a peel- away sheath and the port catheter placed via the peel-away with catheter tip positioned in RAunder fluoroscopic guidance. Port was accessed and aspirated and flushed readily. The port was thenloaded with heparin solution. The neck incision was closed with tissue adhesive. The pocket incision was closed with interrupted deep 2-0 resorbable suture, superficial 4-0 resorbable suture and tissue adhesive. Medications: Fentanyl 200 mcg IV, Versed 4mg IV, 1% Lidocaine <10ccs subcutaneous, 1% lidocaine with epinephrine <20ccs subcutaneous. Antibiotic Prophylaxis: Ancef 2 grams IV. Est Blood Loss: <5cc. Complications: No immediate. Impression: Mediport placement via R IJ, CT injection compatible, catheter tip in RA, port ready for use. Resident/Fellow: None. Attending: Dr. Nafisa Lagos performed this procedure. I was present during the intraservice time as documented by the IR Nurse. documented in this encounter Plan of Treatment Not on file documented as of this encounter Procedures Procedure Name Priority Date/Time Associated Diagnosis Comments IR MEDIPORT PLACEMENT Routine 06/01/2017 2:06 PM EDT Malignant neoplasm of left breast in female, estrogen receptor negative, unspecified site of breast documented in this encounter Results * IR Mediport Placement [...] for use. ?? Resident/Fellow: ??None. ?? Attending: I, Dr. Skelton performed this procedure. ??I was present during the intraservice time as documented by the IR Nurse.? Junior Olivera MD [facility] IR ORDERABLES documented in this encounter Visit Diagnoses Diagnosis Malignant neoplasm of left breast in female, estrogen receptor negative, unspecified site of breast documented in this encounter Administered Medications Inactive Administered Medications - up to 3 most recent administrations Medication Order MAR Action Action Date Dose Rate Site ceFAZolin (ANCEF) 2g in dextrose 5% 100 mL 2 g, Intravenous, ONCE, 1 dose, On Thu06/01/17 at 1100, Administer over 30 Minutes, Redose every 3 hours if CrCl is greater than 20. Redose every 8 hours if CrCl is less than 20., Day of Surgery (Day of Procedure), Indication for (Active or Suspected): Prophylaxis New Bag 06/01/2017 1:00 PM EDT 2 g 200 mL/hr fentaNYL 50 mcg/mL multi-dose injection 25-50 mcg, Intravenous, EVERY 5 MIN PRN, Starting on Thu06/01/17 at 1044, Until Thu06/01/17 at 1409, Pain, per unit protocol, - Start dose [...] and verbal order., Angio/IR (Intra-Procedure), Routine Given 06/01/2017 2:04 PM EDT 25 mcg Given 06/01/2017 1:56 PM EDT 25 mcg Given 06/01/2017 1:51 PM EDT 25 mcg lidocaine (XYLOCAINE) 10 mg/mL (1 %) injection 10 mg 10 mg, Subcutaneous, ONCE, 1 dose, On Thu06/01/17 at 1100, For use in Interventional Radiology (IR) only for procedure with direct provider supervision and verbal order., Angio/IR (Intra-Procedure), Routine Given 06/01/2017 1:45 PM EDT 10 mg lidocaine-EPINEPHrine 1 %-1:100,000 injection 1 mL 1 mL, Intra-articular, ONCE, 1 dose, On Thu06/01/17 at 1400, Warning Vesicant/Irritant Medication , Angio/IR (Intra-Procedure), Routine Given 06/01/2017 1:56 PM EDT 1 vial lidocaine-EPINEPHrine 1 %-1:100,000 injection 1 dose, Starting on Thu06/01/17 at 1329, Until Thu06/01/17 at 1356, MURTAZA REESE: cabinet override midazolam (PF) (VERSED) 1 mg/mL multi-dose injection 0.5-1 mg 0.5-1 mg, Intravenous, EVERY 3 MIN PRN, Starting on Thu06/01/17 at 1044, Until Thu06/01/17 at 1409, Sleep, - Start dose; 1 mg (Reduce [...] and verbal order., Angio/IR (Intra-Procedure), Routine Given 06/01/2017 2:05 PM EDT 0.5 mg Given 06/01/2017 1:56 PM EDT 0.5 mg Given 06/01/2017 1:51 PM EDT 0.5 mg documented in this encounter Care Teams Cargo Broker Relationship Specialty Start Date End Date Home Yeager MD PCP - General Family Medicine 04/21/17 documented as of this encounter
--- OUTSIDE RECORDS SUMMARY | 2024-01-08 01:13 | XMS_ITS | Encounter Summary ---
Author Organization [facility] [place] [address] Care Team Providers Care Air Conditioning Installer Supervisor Name Role Phone Home Yeager MD Primary Care Provider [phone] Reason for Visit * Reason Comments Breast Cancer Encounter Details Date Type Department Care Team (Late st Contact Info) Description 06/08/2017 12:30 PM EDT Office Visit Hematology/Oncology at [address] [phone] Junior Olivera MD [address] [place] [address] [phone] Malignant neoplasm of upper-outer quadrant of left [...] Sign Reading Time Taken Comments Blood Pressure 154/69 06/08/2017 12:38 PM EDT Pulse 57 06/08/2017 12:38 PM EDT Temperature 36.7 ??C (98.1 ??F) 06/08/2017 12:38 PM E DT Respiratory Rate 20 06/08/2017 12:38 PM EDT Oxygen Saturation 99% 06/08/2017 12:38 PM EDT Inhaled Oxygen Concentration - - Weight 107.5 kg (237 lb) 06/08/2017 12:38 PM EDT Height 167 cm (5' 5.75) 06/08/2017 12:38 PM EDT copied Body Mass Index 38.55 06/08/2017 12:38 PM EDT documented in this encounter Progress Notes * Junior Olivera MD - 06/08/2017 12:30 PM EDT Images from the original note were not included. 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 The tumor was 0.7 mm but triple negative. Subjective: Zoë comes in today for consideration of her first treatment with dose dense Adriamycin and Cytoxan. Plans are to follow that with 12 weekly Taxol treatments. Since I saw her she has had an echocardiogram and a port placed in overall is doing well. Again went over today's chemotherapy in detail. She has antiemetics on hand at home and we went over the expected side effects of treatment. We discussed coming in for a recheck next week to see how this first cycle is gone. Her and her are quite medically sophisticated and I believe have a good understanding of things. All of their questions were answered and they would do wish to proceed with treatment. Past medical history and social history reviewed and unchanged from when I saw HER-2 weeks ago Past Medical History: Diagnosis Date ??? Goiter 08/06/2011 ??? HTN (hypertension) 08/06/2011 ??? Malignant neoplasm of left breast in female, estrogen receptor negative 04/13/2017 ??? Obesity 08/06/2011 Past Surgical History: Procedure Laterality Date ??? PRG SOMATOSENSORY TEST, ANY/ALL PER. NERVES, TRUNK OR HEAD 09/02/2011 FACIAL NERVE MONITORING, SETUP performed by VALENTINE OVIEDO at [facility] MAIN OR ??? PRO BX/REMV, LYMPH NODE, DEEP AXILL Left 04/30/2017 BIOPSY OR EXCISION OF LYMPH NODE(S), OPEN, DEEP AXILLARY NODE(S) (WRVU 6.43) performed by Avery Thacker MD at [facility] ??? PRO EXCISE BREAST LES W XRAY MARKER Left 04/30/2017 EXCISION LESION, BREAST W/ PREOP.MARKER (NEEDLE LOC.) (WRVU 6.69) performed by Avery Thacker MDat [facility] ??? PRO INTRAOP SENTINEL LYMPH ID W/DYE INJECTION Left 04/30/2017 INTRAOPERATIVE ID (MAPPING) SENTINEL LYMPH NODE,INCLUDES INJECTION (WRVU 2.5) performed by Avery Thacker MD at [facility] ??? PRO MASTECTOMY, PARTIAL Left 04/30/2017 MASTECTOMY PARTIAL (WRVU 10.13) performed by Avery Thacker MD at [facility] ??? 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 Neurological: Negative. Hematological: Negative for adenopathy. There were no vitals taken for this visit. Head: Normocephalic, without obvious abnormality, atraumatic Eyes: [...] contrast enhancement curve analysis was performed, using Mobile Patrol software. ?? COMPARISON STUDIES: Compared and/or correlated [...] contrast enhancement curve analysis was performed, using Mobile Patrol software. ?? COMPARISON STUDIES: Compared and/or correlated [...] and ??<= 200 cells): ?0 ?Number of [place] Nodes Examined: ?1 Pathologic Stage Classification (pTNM, AJCC 8th Edition) ?Primary Tumor (Invasive Carcinoma) (pT): ?pT1b ?Regional Lymph Nodes (pN) ER, TN, and HER2 (performed on prior biopsy, [id number]): ER: Negative TN: Negative HER2 FISH: Negative Procedure: Transthoracic Echocardiogram Patient: RICO [place] (Age): 1960(56y) Med Rec#: [id number] Sex: F Site Loc: [facility] Ht / Wt: 167(cm)/107(kg) Pt. Loc: Echo Lab BSA: 2.14 Study Date: 06/01/2017 Pt. Type: Outpatient Tape: ?? Referring: Junior Olivera Reading: Oscar Cool ([id number]) Truck Body Builder: Orlando Samayoa ?? Diagnosis: *ICD-10-PCS Malignant neoplasm [...] remainder of report for additional findings. ?? Today shows a white count of 6.48 hemoglobin 13.2 hematocrit 40.0 and platelet count 215,000. CMP shows normal electrolytes a creatinine of 0.9 calcium of 8.8 normal transaminases and an ALP of 69 Assessment/plan: Zoë is fine today for her first Adriamycin and Cytoxan chemotherapy. We are going to be giving her Neulasta so we can do this in a dose dense fashion and after 4 cycles plan on 12 weekly Taxol treatments. As noted we went over risks and side effects of the chemotherapy in detail and all of her questions were answered. I would like to see her back next week to see how this first cycle has gone and make sure any problems are addressed early on in order to try to help her be successful in getting through this chemotherapy. She has Compazine on hand and EMLA cream. Her next cycle is due in 2 weeks with follow-up next week as noted. documented in this encounter Plan of Treatment Not on file documented as of this encounter Visit Diagnoses Diagnosis Malignant neoplasm of upper-outer quadrant of left breast in female, estrogen receptor negative documented in this encounter Care Teams Air Conditioning Installer Supervisor Relationship Specialty Start Date End Date Home Yeager MD PCP - General Family Medicine 04/21/17 documented as of this encounter
--- OUTSIDE RECORDS SUMMARY | 2024-01-08 01:13 | XMS_ITS | Encounter Summary ---
Author Organization [facility] [place] [address] Care Team Providers Care Visitor Services Specialist Name Role Phone Home Yeager MD Primary Care Provider [phone] Reason for Visit * Reason Comments Chemotherapy Cycle 1 day 1 * Treatment/Therapy Plan Authorization (Routine) - Closed Specialty Diagnoses / Procedures Referred By Contac t Referred To Contact Hematology and Oncology Diagnoses Malignant neoplasm of upper-outer quadrant of left breast in female, estrogen receptor negative Procedures TC PALONOSETRON HCL, 25MCG, INJECTION (ALOXI) TC PACLITAXEL, 1MG, INJ Junior Olivera MD [address] [place] [id number] [facility] Hem Onc Office [address] [place] [id number] Referral ID Status Reason Start Date Expiration Date Visits Re quested Visits Authorized [id number] Closed 07/21/2017 07/21/2018 50 50 Encounter Details Date Type Department Care Team (Late st Contact Info) Description 08/04/2017 12:30 PM EDT Infusion Hematology Oncology at [address] [address] Malignant neoplasm of upper-outer quadrant [...] Progress Notes * Rakel Anguiano RN - 08/04/2017 12:30 PM EDT INFUSION THERAPY ADMINISTRATION NOTES DIAGNOSIS: Breast Cancer CYCLE #:1 day 1 REASON FOR VISIT: SUBJECTIVE Zoë Cervantes offers that she is tired and anxious about starting this new round of chemotherapy. OBJECTIVE LAB DATA: WNL IV ACCESS: Mediport accessed at [facility] Pre administration: Chemotherapy orders independently verified for drug name, route, and dosage per patient's height, weight and BSA by RAKEL ANGUIANO, AMARI & Onsite Pharmacist. REACTIONS (DESCRIPTION, TIME, INTERVENTION AND EFFECTIVENESS) none ASSESSMENT Zoë Cervantes was awake, alert and tolerated treatment well. PLAN Return to clinic per routine. documented in [...] 10 mg, Intravenous, ONCE, 1 dose, On Thu08/04/17 at 1245, Administer 30 minutes prior to PACLitaxel Given 08/04/2017 1:13 PM EDT 10 mg diphenhydrAMINE (BENADRYL) injection 25 mg 25 mg, Intravenous, ONCE, 1 dose, On Thu08/04/17 at 1245, Administer 30 minutes prior to PACLitaxel, Routine Given 08/04/2017 1:20 PM EDT 25 mg famotidine (PEPCID) injection 20 mg 20 mg, Intravenous, ONCE, 1 dose, On Thu08/04/17 at 1245, Administer 30 minutes prior to PACLitaxel Given 08/04/2017 1:19 PM EDT 20 mg heparin, porcine 100 unit/mL flush 500 Units 500 Units, Intravenous, ONCE PRN, Starting on Thu08/04/17 at 1229, Until Thu08/04/17 at 1917, Line Care, Refer to Intravenous (IV) Procedure: Accessing Implanted Vascular Access Devices (184) procedure and/or Intravenous (IV) Job Aid: Adult Flushing & Catheter Care (3962) job aid for additional information regarding guidelines and administration., Routine Given 08/04/2017 3:15 PM EDT 500 Units PACLitaxel (TAXOL) 172 mg in dextrose 5% Non-PVC 278.6667 mL chemo infusion 172 mg (80 mg/m2/dose ? 2.15 m2 Treatment Plan BSA from Recorded weight), Intravenous, ONCE, 1 dose, On Thu08/04/17 at 1345, Administer over 60 Minutes, Warning Vesicant/Irritant Medication New Bag 08/04/2017 2:12 PM EDT 172 mg 279 mL/hr palonosetron (ALOXI) injection 0.25 mg 0.25 mg, Intravenous, ONCE, 1 dose, On Thu08/04/17 at 1245, Routine Given 08/04/2017 1:21 PM EDT 0.25 mg sodium chloride 0.9 % flush 5-20 mL 5-20 mL, Intravenous, EVERY 1 MIN PRN, Starting on Thu08/04/17 at 1229, Until Thu08/04/17 at 1917, Line Care, Flush pertains to all indwelling lines. Flush per protocol found in the job aid using the link provided on this medication record. Refer to Intravenous (IV) Job Aid: Adult Flushing & Catheter Care (5433) job aid for additional information regarding guidelines and administration., Routine Given 08/04/2017 3:15 PM EDT 20 mLs sodium chloride 0.9% infusion 1,000 mL (1 L), at 500 mL/hr, Intravenous, ONCE, 1 dose, On Thu08/04/17 at 1300 New Bag 08/04/2017 1:13 PM EDT 1,000 mLs 500 mL/hr documented in this encounter Care Teams Visitor Services Specialist Relationship Specialty Start Date End Date Home Yeager MD PCP - General Family Medicine 04/21/17 documented as of this encounter
--- OUTSIDE RECORDS SUMMARY | 2024-01-08 01:13 | XMS_ITS | Encounter Summary ---
Author Organization [facility] Address [facility] [place] [address] Care Team Providers Care [employer]eter [employer] Brakes Name Role Phone Home Yeager MD Primary Care Provider [phone] Reason for Referral * Consultation (Routine) - Canceled Specialty Diagnoses / Procedures Referred By Contac t Referred To Contact Hematology and Oncology Diagnoses Malignant neoplasm of left breast in female, estrogen receptor negative, unspecified site of breast Alex Aceves MD [facility] [address] [place]EMATOLOGY/[place] [address] [facility] Hem Onc Office [address] [place] [phone] Referral ID Status Reason Start Date Expiration Date V isits Requested Visits Authorized [id number] Canceled Consult, Test & Treat 05/21/2017 05/21/2018 1 1 Reason for Visit * Consultation (Routine) - Specialty Diagnoses / Procedures Referred By Contac t Referred To Contact Hematology and Oncology Diagnoses Breast cancer NEW BR CA, SURG 04/30, C/W JANENE, RAD ONC [facility] Procedures NEW PATIENT Avery Thacker MD [facility] [place] [address] Alex Aceves MD [facility] HEMATOLOGY/[place] [address] Referral ID Status Reason Start Date Expiration Date V isits Requested Visits Authorized [id number] 05/21/2017 05/21/2018 1 1 Encounter Details Date Type Department Care Team (Late st Contact Info) Description 05/21/2017 1:30 PM EDT Office Visit Hematology [place] [address] Alex Aceves MD [facility] HEMATOLOGY/[place] [address] Esperanza Marie, RN Malignant neoplasm of left breast in [...] Progress Notes * Alex Aceves MD - 05/21/2017 1:30 PM EDT Initial Medical Oncology Visit New Breast Cancer Ms. Cervantes is a 56 year old female, here today in consultation at the request of Dr. Thacker to review her status, and to discuss her options for further therapy. HPI: A screening mammmogram showed a mass in the left breast, prompting biopsy: 03/23/17 Needle biopsies??Left breast (Lesion 1) Diagnosis: ?Invasive ductal carcinoma ?High grade, modified SBR score 8 B - Needle biopsies: ??Left breast (Lesion 2) Diagnosis: ?? - Severely atypical ductal hyperplasia, bordering on ? low grade ductal carcinoma in-situ ?- Atypical lobular hyperplasia ?- Columnar cell change/hyperplasia, adenosis, ? apocrine metaplasia, and cysts Microcalcifications: Associated with??atypical ductal hyperplasia ER immunoreactivity: Negative (0% cancer cells with immunostaining) AR immunoreactivity: Negative (0% cancer cells with immunostaining) HER2 FISH: Negative 04/30/17 Surgery DIAGNOSIS A - Left breast, partial mastectomy: 1. Invasive ductal carcinoma (Lesion 1) 2. Ductal carcinoma in-situ 3. Focal residual severely atypical ductal hyperplasia (0.2 cm), bordering on ductal carcinoma in-situ (Lesion 2) 4. Adenosis, usual ductal hyperplasia, apocrine metaplasia, and cysts 5. Biopsy site changes (x2) B - Left axillary sentinel lymph node, excision: One lymph node, no malignancy identified (0/1) Synoptic Report Specimen ?Procedure:??Excision (less than total mastectomy) ?Specimen Laterality: Left Tumor ?Histologic Type: ??Invasive ductal carcinoma ?Histologic Grade (Antonieta Histologic Score) ? Glandular (Acinar)/Tubular Differentiation: ??Score 3 ? Nuclear Pleomorphism: Score 3 ? Mitotic Rate: ??Score 2 ? Overall Grade: ??Grade 3 ?Tumor Size: 7 Millimeters (mm) ?Ductal Carcinoma In Situ (DCIS): ??DCIS is present in specimen ? Ductal Carcinoma In Situ (DCIS): ??Negative for extensive intraductal ?component (EIC) ? Architectural Patterns: Solid, with lobular involvement ? Nuclear Grade:??Grade III (high) ? Necrosis: Present, focal (small foci or single cell necrosis) ?Accessory Findings ? Lymphovascular Invasion: Not identified ? Microcalcifications: Present in non-neoplastic tissue, Present in ?severely atypical ductal hyperplasia ? Treatment Effect: ??No known presurgical therapy Margins ?Invasive Carcinoma Margins: Uninvolved by invasive carcinoma ? Distance from Other Specified Margin:??all margins >2 Millimeters (mm) ?DCIS Margins: Uninvolved by DCIS ? Distance from Other Specified Margin: all margins >2 Millimeters (mm) Lymph Nodes ?Number of Lymph Nodes with Macrometastases:?? 0 ?Number of Lymph Nodes with Micrometastases:??0 ?Number of Lymph Nodes with Isolated Tumor Cells: 0 ?Number of Streetman Nodes Examined: ??1 Pathologic Stage Classification (pTNM, AJCC 8th Edition):??pT1b pN0 She has recovered ffom surgery well. PMH: > Thyroidectomy (benign) > s/p uterine ablation No h/o thromboembolic events. Soc Hx/Fam Hx: Works in [employer]. Children grown. Her daughter had ovarian cancer in her 30s (though she thinks only had surgery). There is also family history of premenopausal breast cancer in a maternal cousin (dx in her early 40s) and a maternal aunt who had uterine cancer (?maybe ovarian) and then colon cancer. She knows nothing about her father's side. Mother in her 70s, without known cancer. No AJ heritage. ROS: No new problems with MADDOX, diplopia, cough, LEONARD/SOB, pain, palpitations, fevers, bleeding of any kind, nausea/emesis, decreased appetite or energy, change in bowel or bladder function, imbalance, falls. ROS otherwise neg. Exam: Oncology Vitals 05/21/2017 Weight (kg) 107 kg Weight (lb) 235 lb 14.3 oz Height 176.5 cm BSA (Calculated - sq m) 2.29 BMI (Calculated) 34.34 Temp 98.8 Temp src 101 Pulse 71 Heart Rate Source Left Resp 16 BP 129/77 BP Location Right arm Patient Position Sitting SpO2 97 Pain Level 0 Karnofsky Score PERRL, EOMi, sclera nonicteric Oropharynx benign No DIONISIO No spine/rib tenderness Chest: clear to A and P L breast with healing surgical site, no e/o infection CV: RRR, no murmurs Abd: NT, no HSM, +BS Ext: no c/c/e Neuro: grossly nonfocal. Neg Romberg. Labs: Ref. Range 04/21/2017 WBC Latest Ref Range: 4.0 - 9.5 [...] Estimate Unknown Normal RBC Morphology Unknown Normal Sodium Latest Ref Range: 135 - 145 [...] Ref Range: 0 - 30 unit/L 23 I reviewed images from her 04/21 bilat breast MRI showing the known left breast cancer and a 2nd lesions of concern. Assessment/Rec: 56 yo female recently diagnosed with a node-negative invasive left breast cancer. There was no angiolymphatic invasion. This tumor was high grade and 'triple negative' (ER/AR/HER2-neg). Margins negative. She has recovered from surgery well. Plans XRT in [facility]. We discussed the role of systemic adjuvant therapy. I outlined that given lack of hormone receptors, adjuvant endocrine therapy is not an option. In this context, I discussed the pros and cons of adjuvant chemo for her high grade tumor. I emphasized that while this is an option, it is not a strong recommendation. I estimated that adjuvant chemo (eg 4 cycles of AC or TC) would reduce her risk of a metastatic recurrence by about 7-9% (absolute reduction) and that at this level some women feel compelled and want to pursue it while other women (keegan those whose children are grown) do not. I described how chemo works, and its general side effects and risks. If she does this, she would want it in [facility]. When we concluded she was uncertain about her decision. I told them I'd refer her to one of our oncologist there and she can decide with him. I also discussed her family history and the recommendation of genetic testing. Gave her the packet from the Familial Cancer Program and will refer her. * Esperanza Marie RN - 05/21/2017 1:30 PM EDT Comprehensive Breast Program Note Zoë Cervantes is a 56 y.o. female with left breast cancer s/p left partial mastectomy and SLNB on 04/30/[address] Thacker. I met with the patient and her so, Jamie, in clinic. Zoë states she would like to proceed with recommended chemotherapy after her discussion with Dr. Aceves. She requested this information be relayed to Dr. Aceves. He has referred her to a medical oncologist in [facility], per zoë's request, as she would like to have tx there. SPECIFIC TEACHING: Discussed hair loss during chemotherapy and resources for wigs. Zoë states she will speak with the nurse(s) in [facility] as they have resources there for her. Ten minutes was spent in education and providing support. documented in this encounter Plan of Treatment Scheduled Referrals Name Type Priority Associated Diagnoses Orde r Schedule Referral to Familial Cancer Outpatient Referral Routine Malignant neoplasm of left breast in female, estrogen receptor negative, unspecified site of breast Ordered: 05/21/2017 documented as of this encounter Visit Diagnoses Diagnosis Malignant neoplasm of left breast in female, estrogen receptor negative, unspecified site of breast documented in this encounter Care Teams [employer] Relationship Specialty Start Date End Date Home Yeager MD PCP - General Family Medicine 04/21/17 documented as of this encounter
--- OUTSIDE RECORDS SUMMARY | 2024-01-08 01:13 | XMS_ITS | Encounter Summary ---
Author Organization [facility] [place] [address] Care Team Providers Care Source Water Protection Specialist Name Role Phone Home Yeager MD Primary Care Provider [phone] Encounter Details Date Type Department Care Team (Late st Contact Info) Description 07/20/2017 Notes Only Hematology/Oncology at [address] [address] Cathy Kendall MSW OFFICE OF CARE MANAGEMENT [...] Progress Notes * Cathy Kendall MSW - 07/20/2017 2:43 PM EDT Follow up with pt and during ifusion today per request from Edie Moy RN to address financial distress. Pt indicated she has not been able to work so she therefore has no income. 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 They are experiencing financial distress. With pt's permission submitted an application to the [facility] [facility] for help with their lot rent of $306. Gave pt a [employer] application to begin the application process for help with transportation costs. Also gave pt a gas card. Gave pt a [employer] application to work on to ask for help with lot rent, electric car insurance and town taxes. Pt and to complete and bring back to [employer] to submit. Pt appreciative of the assistance and will continue to follow as we explore these resources. documented in this encounter Plan of Treatment Not on file documented as of this encounter Visit Diagnoses Not on filedocumented in this encounter Care Teams Source Water Protection Specialist Relationship Specialty Start Date End Date Home Yeager MD PCP - General Family Medicine 04/21/17 documented as of this encounter
--- OUTSIDE RECORDS SUMMARY | 2024-01-08 01:13 | XMS_ITS | Encounter Summary ---
Author Organization [facility] [place] [address] Care Team Providers Care Sheet Rock Sander Name Role Phone Sandra Shaw APRN Primary Care Provider [phone] Encounter Details Date Type Department Care Team (Late st Contact Info) Description 04/15/2017 Telephone Hematology and Oncology at [facility] [place] [address] Tanya Murillo Social History Tobacco Use Types Packs/Day Years Used Date Smoking Tobacco: Former Cigarettes Q uit: 03/09/1998 Sex and Gender Information Value Date Recorded Sex Assigned at Not on file Gender Identity Not on file Sexual Orientation Not on file documented as of this encounter Miscellaneous Notes * Telephone Encounter - Tanya Murillo - 04/15/2017 11:05 AM EST Age at diagnosis: 56 Date of diagnosis: March 23, 2017 Place of diagnosis: Internal Date of initial appointment: 04.13.2017 Surgeon: Kedar Referral to Medical Oncology: Yes, Internal Medical Oncologist:Ketan Referral to Radiation Oncology:Yes Internal Radiation Oncologist: Sia Referral to Plastic Surgery: No documented in this encounter Plan of Treatment Not on file documented as of this encounter Visit Diagnoses Not on filedocumented in this encounter Care Teams Sheet Rock Sander Relationship Specialty Start Date End Date Sandra Shaw APRN PCP - General 10/30/11 04/20/17 documented as of this encounter
--- OUTSIDE RECORDS SUMMARY | 2024-01-08 01:13 | XMS_ITS | Encounter Summary ---
Author Organization [facility] Address [facility] [place] [address] Care Team Providers Care Case Management Assistant Name Role Phone Sandra Shaw ZAKIA Primary Care Provider [phone] Reason for Visit * Reason Comments Breast Cancer * Consultation (Routine) - Closed Specialty Diagnoses / Procedures Referred By Contac t Referred To Contact Surgical Oncology / General Surgery Diagnoses Breast cancer *NEW L IDC, ADH DCIS,PER JANENE, MRI SCHEDULED 04/15 Procedures NEW PATIENT Juana Julien MD [address] [place] [address] Avery Thacker MD [facility] [place] [address] Referral ID Status Reason Start Date Expiration Date Visits Re quested Visits Authorized [id number] Closed 04/13/2017 04/13/2018 1 1 Encounter Details Date Type Department Care Team (Late st Contact Info) Description 04/13/2017 12:00 PM EST Office [place] [address] Avery Thacker MD [facility] [place] [address] Esperanza Marie, RN Malignant neoplasm of left [...] Sign Reading Time Taken Comments Blood Pressure 182/85 04/13/2017 11:26 AM EST Pulse 64 04/13/2017 11:26 AM EST Temperature - - Respiratory Rate 16 04/13/2017 11:26 AM EST Oxygen Saturation 98% 04/13/2017 11:26 AM EST Inhaled Oxygen Concentration - - Weight 109.3 kg (241 lb) 04/13/2017 11:26 AM EST Height 168 cm (5' 6.14) 04/13/2017 11:26 AM EST Body Mass Index 38.73 04/13/2017 11:26 AM EST documented in this encounter Progress Notes * Avery Thacker MD - 04/13/2017 12:00 PM EST Zoë Cervantes is a 56-year-old woman sent for consultation by Sandra Shaw for newly diagnosed left breast cancer. Zoë had a screening mammogram that showed a mass at 2:00, 12 cm from her left nipple. This was lesion #1: it was an 8 mm mass. Core biopsy of this showed infiltrating ductal carcinoma, ER, AL and HER-2 yoshi negative. Lesion 2 in the left breast was identified as calcifications 6 mm in size at 3:00, 8 cm from her nipple. Biopsy of this this showed atypical ductal hyperplasia, bordering on ductal carcinoma in situ. She has not felt masses in either breast. Her right mammogram was negative. She has a family history of ovarian cancer. Her own daughter has had ovarian cancer. A maternal aunt had ovarian cancer. Her Mom had some benign tumors in her breast, but not breast cancer. She also has 1 cousin on her maternal side who has breast cancer. No one in her family has been genetically tested. She is not of Ashkenazi Quaker background. Zoë has 3 children; 2 boys, one girl. She is not sure what her menopausal status is. She had a uterine ablation done about 3 years ago and has not had any bleeding since then. She has not had any hot flashes to to let her know that she is postmenopausal. Current medications: aspirin, Synthroid, lisinopril and metformin. She is allergic to iron. Past surgical history significant for thyroidectomy for benign nodules and a uterine ablation 3 years ago. Review of systems is positive for hypertension and obesity. She has no cardiac or pulmonary symptomatology. The rest review of systems is negative. Social history: she is accompanied by her Brian. Camp works in the [employer] in [facility]. On physical exam she is alert and oriented. In general she appears well. She may have craniomegaly.I measured her head circumference for possible Neenah's syndrome: 54 cm. She has no skin or tongue manifestations of Ariel's syndrome. Her lungs are clear, her heart is a regular rhythm. On examination of her left breast, her nipple is normal. There are no left breast masses. I can feel a little thickening at 2:00 about 10 cm from the nipple. This is not a discrete mass. There is no left axillary adenopathy. She has full range of motion left arm and no left arm edema. Her right nipple is normal. There are no right breast masses, there is no right axillary adenopathy. Abdomen is moderately obese. She is grossly neurologically nonfocal. I personally reviewed her mammogram images. Impression: 56-year-old woman with newly diagnosed left breast cancer and a second lesion in the left breast of ADH bordering on ductal carcinoma in situ. She is scheduled to have an MRI 2 days from now to further evaluate the extent of disease in the left breast and to evaluate the right breast. I used my decision tool and we discussed the advantages and disadvantages of lumpectomy plus radiation therapy versus mastectomy plus or minus reconstruction. She would like to proceed with breast conservation. Her tumor is too small to be on our supine MRI study. Therefore we will plan to wire localize both lesion one and lesion 2 and do two lumpectomies. I recommended removing lesion two because there is a 10-15% chance that will have an upgrade to DCIS or invasive cancer at the time of excision of this focus of ADH. I also recommend we do a sentinel node excision. She understands and requests that we proceed. Her head circumference of 54 cm is not > 97th percentile for height. She does not have macrocephaly. Her thyroid nodules were benign. She only has one major criteria for Neenah's syndrome (breast cancer), so she does not have this as a clinical diagnosis. I gave her a brochure for genetic testing evaluation. We will schedule surgery in the near future. Copy to Sandra Shaw * Esperanza Marie RN - 04/13/2017 12:00 PM EST Comprehensive Breast Program Note Zoë Cervantes is a 56 y.o. female with left breast cancer. I met with the patient and her , Jamie, in clinic. We discussed that Dr. Thacker will call her with her surgical pathology results post-operatively. SPECIFIC TEACHIN. Breast Cancer Treatment Handbook (Jazmine Vinson, 2012) was received via mail. 2. Information from our Shared Decision-Marking Program on Early-Stage Breast Cancer was provided. 3. She understands she will meet with medical and radiation ([facility]) oncologists after surgery. 4. Contact phone number for questions or concerns in the immediate post- operative period. 5. Comprehensive Breast Program Binder. 6. Post Breast Surgery Exercises handout created by physical therapists at [facility]. She plans to take at least one week off after surgery. 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 7. Breast Cancer Treatment Process care map provided and reviewed. 8. Things to Consider...What I Wish I Knew advice from breast cancer patients handout provided. She verbalized understanding of the plan of care and states all her questions were answered. Fifteen minutes was spent in education and providing support. Zoë has our contact information. Surgery is scheduled for 04/30. Pre-op MRI: scheduled for 04/15/17. Aware Dr. Thacker will call her with results. Referral to familial counseling: Yes documented in this encounter Plan of Treatment Not on file documented as of this encounter Visit Diagnoses Diagnosis Malignant neoplasm of left breast in female, estrogen receptor negative, unspecified site of breast documented in this encounter Care Teams Case Management Assistant Relationship Specialty Start Date End Date Sandra Shaw APRN PCP - General 10/30/11 04/20/17 documented as of this encounter
--- OUTSIDE RECORDS SUMMARY | 2024-01-08 01:13 | XMS_ITS | Encounter Summary ---
Author Organization [facility] Address [facility] [place] [address] Care Team Providers Care Senior Engineering Team Leader Name Role Phone Home Yeager MD Primary Care Provider Encounter Details Date Type Department Care Team (Latest Contact Info) Description 04/30/2017 7:38 AM EST Hospital En[place] [phone] Avery Thacker MD [facility] [place] [address] Malignant neoplasm of left breast in female, estrogen receptor positive, unspecified site of breast Discharge Disposition: Home [...] mouth every morning. 30 tablet 0 10/01/2011 metFORMIN (GLUCOPHAGE) 500 mg Tablet Take 500 mg by mouth daily. 01/20/2018 ibuprofen (ADVIL;MOTRIN) 600 mg Tablet Take 600 mg by mouth 3 times daily as needed for Pain. 11/03/2017 lisinopril-hydrochlorot hiazide (PRINZIDE;ZESTORETIC) 10-12.5 mg Tablet Take 1 tablet by mouth daily. 11/25/2018 documented as of this encounter Plan of Treatment Not on file documented as of this encounter Procedures Procedure Name Priority Date/Time Associated Diagnosis Comments MAMMO SENTINEL NODE INJECTION Routine 04/30/2017 8:47 AM EST Malignant neoplasm of left breast in female, estrogen receptor positive, unspecified site of breast documented in this encounter Results * Mammo Hammond Node Injection (04/30/2017 8:47 AM EST) Anatomical [...] breast documented in this encounter Care Teams Senior Engineering Team Leader Relationship Specialty Start Date End Date Home Yeager MD PCP - General Family Medicine 04/21/17 documented as of this encounter
--- OUTSIDE RECORDS SUMMARY | 2024-01-08 01:13 | XMS_ITS | Encounter Summary ---
Author Organization [facility] Address [facility] [place] [address] Care Team Providers Care Sand Mixer Operator Name Role Phone Home Yeager MD Primary Care Provider [phone] Reason for Visit * Reason Comments Chemotherapy * Treatment/Therapy Plan Authorization (Routine) - Closed Specialty Diagnoses / Procedures Referred By Contac t Referred To Contact Diagnoses Malignant neoplasm of upper-outer quadrant of left breast in female, estrogen receptor negative Procedures TC PALONOSETRON HCL, 25MCG, INJECTION (ALOXI) TC FOSAPREPITANT, 1MG, INJECTION (EMEND) TC CYCLOPHOSPHAMIDE, 100MG (CYTOXAN) TC DOXORUBICIN HCL, 10MG, INJECTION (ADRIAMYCIN) TC PEGFILGRASTIM, 6MG, INJECTION Junior Olivera MD [address] [place] [id number] [facility] Hem Onc Office [address] [place] [phone] Referral ID Status Reason Start Date Expiration Date Visits Re quested Visits Authorized [id number] Closed 05/28/2017 05/28/2018 99 [phone] Encounter Details Date Type Department Care Team (Late st Contact Info) Description 07/20/2017 11:30 AM EDT Infusion Hematology Oncology at [address] [phone] Malignant neoplasm of upper-outer quadrant [...] as of this encounter Progress Notes * Yemi Vides RN - 07/20/2017 11:30 AM EDT INFUSION THERAPY ADMINISTRATION NOTES DIAGNOSIS: Malignant neoplasm of left Breast CYCLE #:Day 1 Cycle 4 REASON FOR VISIT: Chemotherapy SUBJECTIVE Zoë offers no complaints. OBJECTIVE LAB DATA: WBC 6.42; PLT 262; ANC 4.24; BUN9; Creat 0.71 IV ACCESS: Implanted port Pre administration: Chemotherapy orders independently verified for drug name, route, and dosage per patient's height, weight and BSA by Cj Bowen RN & Chely Laird RN REACTIONS (DESCRIPTION, TIME, INTERVENTION AND EFFECTIVENESS) none ASSESSMENT Zoë was awake, alert and tolerated treatment well. Port flushed with 20 ml NS and 500 units Heparin then de accessed. PLAN Return to clinic per routine. documented in this encounter Plan of Treatment Not on file documented as of this encounter Visit Diagnoses Diagnosis Malignant neoplasm of upper-outer quadrant of left breast in female, estrogen receptor negative documented in this encounter Administered Medications Inactive Administered Medications - up to 3 most recent administrations Medication Order MAR Action Action Date Dose Rate Site cyclophosphamide (CYTOXAN) 1,338 mg in sodium chloride 0.9% 316.9 mL chemo infusion 1,338 mg (600 mg/m2/dose ? 2.23 m2 Treatment Plan BSA from Recorded weight), Intravenous, ONCE, 1 dose, On Thu07/20/17 at 1230, Administer over 30 Minutes, Warning Vesicant/Irritant Medication New Bag 07/20/2017 1:26 PM EDT 1,338 mg 633.8 mL/hr dexamethasone (DECADRON) injection 10 mg 10 mg, Intravenous, ONCE, 1 dose, On Thu07/20/17 at 1130, Administer prior to chemotherapy Given 07/20/2017 11:49 AM EDT 10 mg DOXOrubicin (ADRIAMYCIN) chemo injection 133.8 mg 133.8 mg (60 mg/m2/dose ? 2.23 m2 Treatment Plan BSA from Recorded weight), Intravenous, ONCE, 1 dose, On Thu07/20/17 at 1230, Administer each syringe over a minimum of 3 minutes per syringe., Total Dose 133.8 mg = 66.9 mL divided into 2 syringes, Each syringe contains 66.9 mg = 33.45 mL Given 07/20/2017 1:20 PM EDT 133.8 mg fosaprepitant (EMEND) 150 mg in sodium chloride 0.9% 155 mL infusion 150 mg, Intravenous, ONCE, 1 dose, On Thu07/20/17 at 1130, Administer over 30 Minutes, Administer prior to chemotherapy. New Bag 07/20/2017 11:30 AM EDT 150 mg 310 mL/hr heparin, porcine 100 unit/mL flush 500 Units 500 Units, Intravenous, ONCE PRN, Starting on Thu07/20/17 at 1111, Until Thu07/20/17 at 1701, Line Care, Refer to Intravenous (IV) Procedure: Accessing Implanted Vascular Access Devices (654) procedure and/or Intravenous (IV) Job Aid: Adult Flushing & Catheter Care (3996) job aid for additional information regarding guidelines and administration., Routine Given 07/20/2017 2:11 PM EDT 500 Units palonosetron (ALOXI) injection 0.25 mg 0.25 mg, Intravenous, ONCE, 1 dose, On Thu07/20/17 at 1130, Administer over 30 seconds. Administer prior to chemotherapy, Routine Given 07/20/2017 11:40 AM EDT 0.25 mg pegfilgrastim (NEULASTA) injection 6 mg 6 mg, Subcutaneous, ONCE, 1 dose, On Thu07/20/17 at 1400, Routine Given 07/20/2017 2:10 PM EDT 6 mg Right Arm sodium chloride 0.9 % flush 5-20 mL 5-20 mL, Intravenous, EVERY 1 MIN PRN, Starting on Thu07/20/17 at 1111, Until Thu07/20/17 at 1701, Line Care, Flush pertains to all indwelling lines. Flush per protocol found in the job aid using the link provided on this medication record. Refer to Intravenous (IV) Job Aid: Adult Flushing & Catheter Care (6977) job aid for additional information regarding guidelines and administration., Routine Given 07/20/2017 2:11 PM EDT 20 mLs documented in this encounter Care Teams Sand Mixer Operator Relationship Specialty Start Date End Date Home Yeager MD PCP - General Family Medicine 04/21/17 documented as of this encounter
--- OUTSIDE RECORDS SUMMARY | 2024-01-08 01:13 | XMS_ITS | Encounter Summary ---
Author Organization [facility] [place] [address] Care Team Providers Care Director Of Public Relations Name Role Phone Home Yeager MD Primary Care Provider [phone] Encounter Details Date Type Department Care Team (Late st Contact Info) Description 07/21/2017 Orders Only Hematology/Oncology at [address] [phone] Junior Olivera MD [address] [place] [phone] Social History Tobacco Use Types Packs/Day Years [...] on filedocumented in this encounter Care Teams Director Of Public Relations Relationship Specialty Start Date End Date Home Yeager MD PCP - General Family Medicine 04/21/17 documented as of this encounter
--- OUTSIDE RECORDS SUMMARY | 2024-01-08 01:13 | XMS_ITS | Encounter Summary ---
Author Organization [facility] [place] [address] Care Team Providers Care House Painting Instructor Name Role Phone Home Yeager MD Primary Care Provider [phone] Encounter Details Date Type Department Care Team (Late st Contact Info) Description 04/30/2017 9:00 AM EST - 04/30/2017 11:02 AM EST Surgery [facility] [place] [id number] Avery Corbett MD [facility] [place] [address] MASTECTOMY PARTIAL (WRVU 10.13) Social History Tobacco Use Types Packs/Day Years Used Date Smoking Tobacco: Former Cigarettes Q uit: 03/09/1998 Sex and Gender Information Value Date Recorded Sex Assigned at Not on file Gender Identity Not on file Sexual Orientation Not on file documented as of this encounter Last Filed Vital Signs Vital Sign Reading Time Taken Comments Blood Pressure 183/75 04/30/2017 9:17 AM EST Pulse 70 04/30/2017 9:17 AM EST Temperature 36.6 ??C (97.9 ??F) 04/30/2017 9:17 AM ES T Respiratory Rate 18 04/30/2017 9:17 AM EST Oxygen Saturation 97% 04/30/2017 9:17 AM EST Inhaled Oxygen Concentration - - Weight 110.7 kg (244 lb) 04/30/2017 9:17 AM EST Height 176.5 cm (5' 9.5) 04/30/2017 9:17 AM EST Body Mass Index 35.52 04/30/2017 9:17 AM EST documented in this encounter Discharge Instructions * Discharge Instructions* Friend, Lilia Mari, RN - 04/30/2017 11:28 AM EST General Anesthesia Discharge Instructions Go home and rest. You may be sleepy for several hours. Take it easy as sudden position changes may cause nausea and/or dizziness. Use caution on stairs. Follow a light to regular diet as tolerated today. If nausea occurs, start with clear liquids, and progress slowly to a regular diet. Do not drive, operate machinery, drink alcoholic beverages or make any legal decisions after havinggeneral anesthesia. The medications given change your reaction time and alter your judgement. IV site -- slight redness is normal, you can use warm compresses. If tenderness and redness increases or foul drainage occurs, please contact your M.D. Patients who have had endotracheal tubes/LMA (tubes used by the anesthesia staff to ensure a safe airway during your operation) may have a sore throat. This is normal and cold liquids or soothing lozengers will help ease this discomfort. Narcotic pain medications can cause constipation, please ask the surgeons office what they recommend for prevention of this. Some non-pharmaceutical means of constipation prevention include increasing intake of fluids, eating more fruits and vegetables as well as fruit juices. If you are uncomfortable and/or unable to urinate within 8 hours of discharge and it is before 5 pm, call your physician. If it is after 5pm go to the closest emergency room or call the hospital television operator at [phone] and ask for physician asset protection agent covering for your physician. Questions or problems after 5pm or on a weekend: Call the [facility] television operator at and ask for the physician asset protection agent covering for your doctor. You received 30 mg of Ibuprofen/or other nsaid medication at 11 am. Your next dose should not be taken before 5 pm today. At 9 am you received 1000 mg of acetaminophen- Your next dose should not be taken before 8 hours have passed. Next dose not before- 5 pm You should not take more than a total of 3000 mg of acetaminophen in a 24 hour period. * Patient Instructions* Consuelo Benites MD - 04/30/2017 11:25 AM EST Instructions following Breast Surgery Wound Care: Keep dressing on incision for the next 5 days, then you may remove and leave open to air. You may shower tomorrow morning with the Tegaderm covering the site. Do not scrub area vigorously for the next 1 week. Do not soak incision(s) under water for the next 2 weeks (i.e. soaking in bath or swimming) as this may promote a wound infection. You may remove dressing if it becomes saturated/wet and replace with dry gauze as needed for seepage/comfort. If there are pieces of tape directly on the incision (steri-strips), please leave them onuntil they fall off on their own. You may trim them back as they begin to peel up. ICE: You may apply ice to incision during the first 48 hours following surgery to help limit swelling, bruising, and discomfort. You may also find wearing a bra for the first two days following surgery will help with discomfort, although this is not absolutely necessary. Your stitches will dissolve and do not need to be removed. Activity: As tolerated by your comfort level. Call Doctor for: Please call if you notice worsening redness or drainage from incision(s) lasting longer than 5 days after your surgery, any foul-smelling drainage from the incision, pain not controlled by pain medications, persistent nausea and vomiting, or for any fevers greater than 101.3 F. The number for questions is [phone] before 5 PM weekdays. Pain Medication: Please use ibuprofen (motrin, advil) 600 mg three times per day with food and tylenol 650 mg every 8 hours between the ibuprofen doses. If you still have significant pain after taking ibuprofen and tylenol. No driving for 8 hours after any dose of opioid pain medication if one was prescribed for you. Follow-up: Follow-up appointment will be scheduled with in 1-2 weeks. Scheduled Appointments: The following appointment with Dr. Corbett has been scheduled on your behalf:Future Appointments Date Time Provider Department Center 05/18/2017 8:[address] [facility] [place] [facility] 05/18/2017 9:00 AM Kaya Stovall MD [facility] [place] [facility] 05/21/2017 1:15 PM Avery Corbett MD [facility] 05/21/2017 1:30 PM Alex Aceves MD [facility] Please call [phone] (clinic number) if any changes need to be made to your appointment time. documented in this encounter Medications at Time [...] as of this encounter Progress Notes * Lilia Moscoso RN - 04/30/2017 11:55 AM EST Discharge instructions and medications reviewed with patient and Jamie. All questions answered and written copy sent home with patient. Tylenol and ibuprofen medication schedule started and reviewed with Jamie. documented in this encounter H&P Notes * Avery Corbett MD - 04/30/2017 9:24 AM EST I examined this patient today and she is marked and is ready for surgery Left breast partial mastectomy and sentinel node excision for breast cancer Full h and P by me 04/13/17 documented in this encounter Miscellaneous Notes * Op Note - Avery Corbett MD - 04/30/2017 11:33 AM EST [facility] Operative Note Patient Name: Zoë Cevrantes : [id number] MR#: [id number] Case Date: 04/30/2017 Surgeon: Surgeon(s) and Role: * Avery Corbett MD - Primary * Consuelo Benites MD Preoperative diagnosis: LEFT BREAST CANCER Postoperative diagnosis: LEFT BREAST CANCER Procedure(s) (LRB): MASTECTOMY PARTIAL (WRVU 10.13) (Left) MODIFIER WITH NEEDLE LOC., LESION #1 (Left) EXCISION LESION, BREAST W/ PREOP.MARKER (NEEDLE LOC.) (WRVU 6.69) (Left) BIOPSY OR EXCISION OF LYMPH NODE(S), OPEN, DEEP AXILLARY NODE(S) (WRVU 6.43) (Left) INTRAOPERATIVE ID (MAPPING) SENTINEL LYMPH NODE,INCLUDES INJECTION (WRVU 2.5) (Left) MODIFIER SENTINEL NODE EXCISION (Left) Anesthesia: General Estimated Blood Loss: 25 mL Specimens removed during surgery: left partial mastectomy; left axillary sentinel node Surgical Closure: Primary Closure - closure of ALL tissue levels during the original surgery regardless of wires, wickes, drains, or other devices extruding through the incision Indications for surgery: Zoë Cervantes is a 56-year-old woman with a biopsy- proven cancer at 2:00, 9 cm from her left nipple. She also had another mammographic abnormality called lesion two, in her left breast at 3:00 8 cm from the nipple. 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 She wished to have breast conservation. Therefore we planned to wire localize both of these lesions and excise them both. She had technetium sulfa colloid injected in herleft breast for sentinel node identification and also had 2 wires placed in her left breast prior to surgery. Details of the operation: We started by using the gamma probe and could not detect a good peak of radioactivity in the left axilla. I therefore injected 3 mL's of isosulfan blue in her left breast and massaged that area. She was then prepped with ChloraPrep and draped and given preoperative antibiotics. I injected lidocaine near where her technetium was injected to encourage lymphatic drainage toward the axilla. I anesthetized the skin and then we made an approximately 4 cm long incision that between the 2 wires in her upper outer left breast. We dissected to the more lateral wire which identified the cancer and flicked it into the incision. I then widely excised the tissue around both wires. In particular we we made sure we got the entire medial wire out with some tissue past its tip since that clip had migrated laterally after it was placed near lesion 2. The specimen was inked with 6different colors of ink. The specimen mammogram showed that we could see where the cancer was excised with what look like normal tissue all around it. As far as lesion two goes, I had widely excised tissue around the wire including tissue past its tip. Therefore I feel like I definitely completely removed lesion two as well. The specimen was then sent to pathology. We obtained meticulous hemostasis in the wound. We then focused in the left axilla where we used the gamma probe and were now able to detect a peakof radioactivity. I anesthetized the skin, made a 4 cm long incision and and dissected through the axillary fascia. We then identified and excised a radioactive and blue left axillary sentinel node. The ex vivo count on this node was 198. The remaining count in the axilla was 3. The node was sent to pathology. We obtained meticulous hemostasis in the axilla. We then left 3 mL's of Marcaine lidocaine solution in the left axilla and 7 mL's in the breast cavity. We closed deep dermis with interrupted 3-0 Vicryl and the skin with 4-0 Monocryl. Gauze and Tegaderm were placed Infection Bundle used? N/A Attestation: Case Date: 04/30/2017 I was present and I participated during the entire procedure (does not need to include opening and closing). AVERY CORBETT MD 04/30/2017 documented in this encounter Plan of Treatment Not on file documented as of this encounter Procedures Procedure Name Priority Date/Time Associated Diagnosis Comments SPECIMEN TO PATHOLOGY Routine 04/30/2017 10:49 AM EST SURGICAL PATHOLOGY REPORT Routine 04/30/2017 10:20 AM EST SPECIMEN TO PATHOLOGY Routine 04/30/2017 10:20 AM EST MODIFIER SENTINEL NODE EXCISION 04/30/2017 9:36 AM EST LEFT BREAST CANCER Case Notes count: 198 remainin INTRAOPERATIVE ID (MAPPING) SENTINEL LYMPH NODE,INCLUDES INJECTION (WRVU 2.5) 04/30/2017 9:36 AM EST LEFT BREAST CANCER Case Notes count: 198 remainin BIOPSY OR EXCISION OF LYMPH NODE(S), OPEN, DEEP AXILLARY NODE(S) (WRVU 6.43) 04/30/2017 9:36 AM EST LEFT BREAST CANCER Case Notes count: 198 remainin EXCISION LESION, BREAST W/ PREOP.MARKER (NEEDLE LOC.) (WRVU 6.69) 04/30/2017 9:36 AM EST LEFT BREAST CANCER Case Notes count: 198 remainin MODIFIER WITH NEEDLE LOC., LESION #1 04/30/2017 9:36 AM EST LEFT BREAST CANCER Case Notes count: 198 remainin MASTECTOMY PARTIAL (WRVU 10.13) 04/30/2017 9:36 AM EST LEFT BREAST CANCER Case Notes count: 198 remainin documented in this encounter Results * Specimen to Pathology (04/30/2017 10:49 AM EST) AP Specimen 04/30/2017 10:4 9 AM EST 04/30/2017 10:50 AM EST Narrative [facility] - 04/30/2017 10:50 AM EST Specimen requisition ordered. ??Separate Pathology report to follow Avery Corbett MD PATHOLOGY/CYTOLOGY O BC [facility] [place] [address] * Surgical Pathology Report (04/30/2017 10:20 AM EST) Final Diagnosis [id number] ? Location: [facility] The signing pathologist has (i) examined the relevant preparation(s) for the specimen(s) and (ii) rendered or confirmed the diagnosis(es). . ?Surgical Pathology DIAGNOSIS A - Left breast, partial [...] no malignancy identified (0/1) Synoptic Report Specimen ? Procedure: ??Excision (less than total mastectomy) ? Specimen Laterality: ?? Left Tumor ? Histologic Type: ?? Invasive ductal carcinoma ? Histologic Grade (Antonieta Histologic Score) ?Glandular (Acinar) / Tubular Differentiation: ?Score 3 ?Nuclear Pleomorphism: ?? Score 3 ?Mitotic Rate: ?? Score 2 ?Overall Grade: ?? Grade 3 (scores of 8 or 9) ? Tumor Size: ?? 7 Millimeters (mm) ? Ductal Carcinoma In Situ (DCIS): ?DCIS is present in specimen ?Ductal Carcinoma In Situ (DCIS): ?? Negative for extensive intraductal ? component (EIC) ?Architectural Patterns: ?? Solid, with lobular involvement ?Nuclear Grade: ?? Grade III (high) ?Necrosis: ??Present, focal (small foci or single cell necrosis) ? Tumor Extent ?Skin: ??Skin is not present ?Skeletal Muscle: ?? No skeletal muscle is present ? Accessory Findings ?Lymphovascular Invasion: ?? Not identified ?Microcalcificati ons: ?? Present in non-neoplastic tissue, Present in ? severely atypical ductal hyperplasia ?Treatment Effect: ?? No known presurgical therapy Margins ? Invasive Carcinoma Margins: ?? Uninvolved by invasive carcinoma ?Distance from Other Specified Margin: ?all margins >2 Millimeters (mm) ? DCIS Margins: ?? Uninvolved by DCIS ?Distance from Other Specified Margin: ?all margins >2 Millimeters (mm) Lymph Nodes ? Number of Lymph Nodes with Macrometastases ( ??> 2 mm): ?? 0 ? Number of Lymph Nodes with Micrometastases ( ??> 0.2 mm to 2 mm and / or ??> 200 ?cells): ??0 ? Number of Lymph Nodes with Isolated Tumor Cells ( ??<= 0.2 mm and ??<= 200 cells): ? 0 ? Number of [place] Nodes Examined: ?1 Pathologic Stage Classification (pTNM, AJCC 8th Edition) ? Primary Tumor (Invasive Carcinoma) (pT): ?pT1b ? Regional Lymph Nodes (pN) . DIAGNOSIS ?Modifier: ??(sn): Only sentinel node(s) evaluated. ?Category (pN): ?? pN0 Tumor Block(s): ?? A13 2016 AJCC 8th Edition CAP Annual Release ER, ID, and HER2 (performed on prior biopsy, [id number]): ER: Negative ID: Negative HER2 FISH: Negative Electronically signed by: ??Osman Feliciano MD Verified: ??05/05/2017 ?Pathologist Performed at: ??-[facility] Dept. of Pathology, [place], [place] CLINICAL INFORMATION Specimen Submitted: A - Left partial mastectomy B - Left axillary sentinel lymph node Clinical History: Left breast cancer Clinical Diagnosis: Left breast cancer SPECIMEN PROCESSING A - ??Labeled/Fixative : Left partial mastectomy, fresh. SPECIMEN DESCRIPTION Resection Specimen: Intact left partial mastectomy Qty/Size/Weight: Single, 10.0 x 9.5 x 2.5 cm, 125 grams. Radiograph: ??The specimen demonstrates Lesion 1 ( mass, Kristin clip and wire) and ??Lesion 2 (biopsy site with residual calcifications located 2.5 cm distal to ? the cylinder clip; the migrated cylinder clip and the wire) ?? . Specimen Description: According to the established protocol the ink designations are red (medial), yellow (lateral), orange (cranial), green (caudal), black (deep) and blue (superficial). Tissue Sections: The specimen is serially sectioned perpendicular to the long axis from yellow to red into 16 slices, each averaging 0.6 cm in thickness. LESION #1 Description: Mass. Size: 1.5 x 1.1 x 0.6 cm. Color: White. Consistency: Firm. Location: Slice 14. Nearest Margin: 1.5 to orange margin. Other Margins: 1.2 to yellow margin, 1.8 to black margin. Wire/Clip: Venous clip in slice 14, within the lesion. Lesion #2 Description: Mass. Size: 1.2 x 0.5 x 0.2 cm. Color: White. Consistency: Firm. Location: Slice 10 and 11. Nearest Margin: 0.9 cm to blue margin. Other Margins: 2.4 cm to green margin, 3.0 cm black margin,. Wire/Clip: Cylinder clip is located in slice 10, within the lesion. OTHER Parenchyma: Fibrofatty tissue. . SPECIMEN PROCESSING SECTIONS/PROCESSIN G: (1) entire slice one, perpendicular; (2) slice three, access services representative; (3) slice five, access services representative; (4) slice seven, access services representative; (5) slice nine, access services representative; (6) slice 10, access services representative section, lesion 2; (7) slice 11, lesion 2 with blue and green margin; (8) slides 11, lesion 2 with black margin; (9) slice 12, access services representative section; (10) slice 13, access services representative section; (11) slice 14, lesion 1 to black margin; (12) slice 14, lesion 1; (13) slice 14, lesion 1 to orange margin; (14) slice 15, access services representative section; (15) slice 16, access services representative section, perpendicular. (R15) Placed in formalin at 12:04 p.m. Time out of patient is not provided on the requisition form. B - ??Labeled/Fixative : Left axillary sentinel node, fresh. Quantity/Size: Multiple, 4.7 x 3.1 x 1.1 cm. Tissue Description: Yellow, lobular adipose tissue. Sectioning reveals two possible lymph nodes, the largest 0.6 x 1.0 x 0.8 cm. Sections/Processin g: (1) one possible node; (2-5) largest node serially sectioned. (R5) sm 05/05/2017 11:33 AM EST [facility] SENTINEL LYMPH NODE / Unknown 04/30/2017 10:20 AM EST 04/30/2017 10:20 AM EST SENTINEL LYMPH NODE / Unknown 04/30/2017 10:20 AM EST 04/30/2017 10:20 AM EST Avery Corbett MD PATHOLOGY/CYTOLOGY O BC Performing Organization Address City/[facility]/ZIP Co de Phone Number [facility] [place] [address] * Specimen to Pathology (04/30/2017 10:20 AM EST) AP Specimen 04/30/2017 10:2 0 AM EST 04/30/2017 10:43 AM EST Narrative [facility] - 04/30/2017 10:43 AM EST Specimen requisition ordered. ??Separate Pathology report to follow Resulting Agency Comment Spec In Lab Avery Corbett MD PATHOLOGY/CYTOLOGY O BC Performing Organization Address City/[facility]/[place] [address] documented in this encounter Visit Diagnoses Not on filedocumented in this encounter Administered Medications Inactive Administered Medications - up to 3 most recent administrations Medication Order MAR Action Action Date Dose Rate Site acetaminophen (TYLENOL) tablet 1,000 mg 1,000 mg, Oral, ONCE, 1 dose, On Nati 04/30/17 at 0930, Administer with SIP of H2O only., Day of Surgery (Day of Procedure), Routine Given 04/30/2017 9:15 AM EST 1,000 mg BUpivacaine (PF) (MARCAINE) 0.5 % (5 mg/mL) injection ONCE PRN, Starting on Nati 04/30/17 at 0956, Until Nati 04/30/17 at 1418, Intra-Operative (Intra-Procedure), Routine Given 04/30/2017 10:55 AM EST 5 mLs 19- Surgical Site Given 04/30/2017 10:51 AM EST 1.5 mLs 1 9- Surgical Site Given 04/30/2017 10:35 AM EST 2.5 mLs 1 9- Surgical Site lidocaine (PF) (XYLOCAINE) 10 mg/mL (1 %) injection ONCE PRN, Starting on Nati 04/30/17 at 1034, Until Nati 04/30/17 at 1418, Intra-Operative (Intra-Procedure), Routine Given 04/30/2017 10:55 AM EST 50 mg 19- Surgical Site Given 04/30/2017 10:51 AM EST 15 mg 1 9- Surgical Site Given 04/30/2017 10:34 AM EST 25 mg 1 9- Surgical Site lidocaine (XYLOCAINE) 10 mg/mL (1 %) injection 3 mg 3 mg (0.3 mL), Subcutaneous, ONCE PRN, 1 dose, Starting on Nati 04/30/17 at 0909, Until Nati 04/30/17 at 0956, for discomfort with PIV insertion, Day of Surgery (Day of Procedure), Routine Given 04/30/2017 9:56 AM EST 5 mLs 19- Surgical Site documented in this encounter Active and Recently Administered Medications Times are shown in EST. Scheduled Medication Order 04/28/2017 04/29/2017 04/30/2017 acetaminophen (TYLENOL) tablet 1,000 mg (COMPLETED) 1,000 mg, Oral, ONCE, 1 dose, On Nati 04/30/17 at 0930, Administer with SIP of H2O only., Day of Surgery (Day of Procedure), Routine 0915 (Given - Provid er: Dipika Espinal RN) acetaminophen (TYLENOL) tablet 650 mg 650 mg, Oral, 30 MIN PRE-OP, 1 dose, On Nati 04/30/17 at 0930, Maximum dose of acetaminophen is 4000 mg from all sources in 24 hours., Day of Surgery (Day of Procedure), Routine 0930 (Due) ceFAZolin (ANCEF) 2g in dextrose 5% 100 mL (COMPLETED) 2 g, Intravenous, EVERY 3 HOURS, 1 dose, First dose on Ntai 18 at 0930, Administer over 30 Minutes, Intra-Operative (Intra-Procedure), Indication for (Active or Suspected): Prophylaxis 0937 (Given - Provid er: Dilcia Ring CRNA) Continuous Medication Order 04/28/2017 04/29/2017 04/30/2017 lactated Ringers infusion 1,000 mL (CANCELED) 1,000 mL, at 100 mL/hr, Intravenous, CONTINUOUS, Starting on Nati 18 at 0930, Until Nati 04/30/17 at 1216, Day of Surgery (Day of Procedure) 0930 (New Bag - Prov ider: Dilcia Ring CRNA)1017 (Anesthesia Volume Adjustment - Provider: Dilcia Ring CRNA)1115 (Anesthesia Volume Adjustment - Provider: Dilcia Ring CRNA) PRN Medication Order 04/28/2017 04/29/2017 04/30/2017 BUpivacaine (PF) (MARCAINE) 0.5 % (5 mg/mL) injection (CANCELED) ONCE PRN, Starting on Nati 04/30/17 at 0956, Until Nati 04/30/17 at 1418, Intra-Operative (Intra-Procedure), Routine 0956 (Given - Provid er: Avery Corbett MD - Comment: Mixed 1:1 with 1% lidocaine. Total 10mL given. breast)1035 (Given - Provider: Avery Corbett MD - Comment: Mixed 1:1 with 1% lidocaine. Total 5mL given. axilla)1051 (Given - Provider: Avery Corbett MD - Comment: Mixed 1:1 with 1% lidocaine. Total 3mL given. axilla)1055 (Given - Provider: Avery Corbett MD - Comment: Mixed 1:1 with 1% lidocaine. Total 10mL given. breast) lidocaine (PF) (XYLOCAINE) 10 mg/mL (1 %) injection (CANCELED) ONCE PRN, Starting on Nati 18 at 1034, Until Nati 04/30/17 at 1418, Intra-Operative (Intra-Procedure), Routine 1034 (Given - Provid er: Avery Corbett MD - Comment: Mixed 1:1 with 0.5% bupivicaine. total 5mL given. axilla.)1051 (Given - Provider: Avery Corbett MD - Comment: Mixed 1:1 with 0.5% bupivicaine. total 3mL given. axilla.)1055 (Given - Provider: Avery Corbett MD - Comment: Mixed 1:1 with 0.5% bupivicaine. total 10mL given. breast) lidocaine (XYLOCAINE) 10 mg/mL (1 %) injection 3 mg (COMPLETED) 3 mg (0.3 mL), Subcutaneous, ONCE PRN, 1 dose, Starting on Nati 04/30/17 at 0909, Until Nati 04/30/17 at 0956, for discomfort with PIV insertion, Day of Surgery (Day of Procedure), Routine 0956 (Given - Provid er: Avery Corbett MD - Comment: Mixed 1:1 with 0.5% bupivicaine. total 10mL given. breast) documented in this encounter Care Teams House Painting Instructor Relationship Specialty Start Date End Date Home Yeager MD PCP - General Family Medicine 04/21/17 documented as of this encounter
--- OUTSIDE RECORDS SUMMARY | 2024-01-08 01:13 | XMS_ITS | Encounter Summary ---
Author Organization [facility] [place] [address] Care Team Providers Care House Carpenter Helper Name Role Phone Home Yeager MD Primary Care Provider [phone] Reason for Visit * Reason Comments Breast Cancer Encounter Details Date Type Department Care Team (Late st Contact Info) Description 06/16/2017 9:30 AM EDT Office Visit Hematology/Oncology at [address] [phone] Junior Olivera MD [address] [place] [address] [phone] Malignant neoplasm of upper-outer quadrant of left [...] Sign Reading Time Taken Comments Blood Pressure 126/74 06/16/2017 9:34 AM EDT Pulse 83 06/16/2017 9:34 AM EDT Temperature 36.4 ??C (97.5 ??F) 06/16/2017 9:34 AM ED T Respiratory Rate 19 06/16/2017 9:34 AM EDT Oxygen Saturation 99% 06/16/2017 9:34 AM EDT Inhaled Oxygen Concentration - - Weight 103.5 kg (228 lb 3.2 oz) 06/16/2017 9:34 AM EDT Height 167 cm (5' 5.75) 06/16/2017 9:34 AM EDT copied Body Mass Index 37.12 06/16/2017 9:34 AM EDT documented in this encounter Progress Notes * Junior Olivera MD - 06/16/2017 9:30 AM EDT Images from the original note were not included. 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 The tumor was 0.7 mm but triple negative. Subjective: Zoë comes in today for follow-up 8 days after her first cycle of Adriamycin and Cytoxan. Last Thursday which is about the time her IV antiemetics wearing off she developed some nausea and took her Compazine. With the Compazine she became quite restless and noticed some eye twitching. The nausea that she was having was mild but actually got worse after she took the Compazine and she has had some trouble sleeping and problems with restless legs over the weekend. She has not taken any further Compazine. We discussed that type of reaction with the medication and have placed it on her allergy list. I have discussed the use of Benadryl for those symptoms and we talked about the use of Zofran as an alternate nausea medication. She is doing a bit better now but was quite discouraged over the weekend. Concern over hair loss remains an issue for her. She is going to be fitted for a weight here today and hopefully that will relieve some of her concerns. Past medical history and social history reviewed and unchanged from when I saw her 1 week ago Past Medical History: Diagnosis Date ??? Goiter 08/06/2011 ??? HTN (hypertension) 08/06/2011 ??? Malignant neoplasm of left breast in female, estrogen receptor negative 04/13/2017 ??? Obesity 08/06/2011 Past Surgical History: Procedure Laterality Date ??? PRG SOMATOSENSORY TEST, ANY/ALL PER. NERVES, TRUNK OR HEAD 09/02/2011 FACIAL NERVE MONITORING, SETUP performed by VALENTINE OVIEDO at [facility] MAIN OR ??? PRO BX/REMV, LYMPH NODE, DEEP AXILL Left 04/30/2017 BIOPSY OR EXCISION OF LYMPH NODE(S), OPEN, DEEP AXILLARY NODE(S) (WRVU 6.43) performed by Avery Thacker MD at [facility] OSC ??? PRO EXCISE BREAST LES W XRAY MARKER Left 04/30/2017 EXCISION LESION, BREAST W/ PREOP.MARKER (NEEDLE LOC.) (WRVU 6.69) performed by Avery Thacker MDat [facility] OSC ??? PRO INTRAOP SENTINEL LYMPH ID W/DYE INJECTION Left 04/30/2017 INTRAOPERATIVE ID (MAPPING) SENTINEL LYMPH NODE,INCLUDES INJECTION (WRVU 2.5) performed by Avery Thacker MD at [facility] OSC ??? PRO MASTECTOMY, PARTIAL Left 04/30/2017 MASTECTOMY PARTIAL (WRVU 10.13) performed by Avery Thacker MD at [facility] OSC ??? PRO THYROIDECTOMY 09/02/2011 THYROIDECTOMY, TOTAL OR COMPLETE performed by VALENTINE OVIEDO at [facility] MAIN OR Uterine Ablation Ovaries [...] for port access 45 g 3 ??? [DISCONTINUED] prochlorperazine (COMPAZINE) 10 mg Tablet Take 1 tablet by mouth every 6 hours as needed for Nausea. 30 tablet 3 ??? 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 Hematological: Negative for adenopathy. BP 126/74 (Patient Position: Sitting) Pulse 83 Temp 36.4 ??C (97.5 ??F) (Oral) Resp 19 Ht 167 cm (5' 5.75) Comment: copied Wt 103.5 kg (228 lb 3.2 oz) SpO2 99% BMI 37.12 kg/m2 Head: Normocephalic, without obvious abnormality, atraumatic [...] contrast enhancement curve analysis was performed, using Extreme DA software. ?? COMPARISON STUDIES: Compared and/or correlated [...] contrast enhancement curve analysis was performed, using Extreme DA software. ?? COMPARISON STUDIES: Compared and/or correlated [...] Type: ?? Invasive ductal carcinoma ?Histologic Grade ([place] Histologic Score) ? Glandular (Acinar) / Tubular [...] and ??<= 200 cells): ?0 ?Number of [place] Nodes Examined: ?1 Pathologic Stage Classification (pTNM, AJCC 8th Edition) ?Primary Tumor (Invasive Carcinoma) (pT): ?pT1b ?Regional Lymph Nodes (pN) ER, SC, and HER2 (performed on prior biopsy, [id number]): ER: Negative SC: Negative HER2 FISH: Negative Procedure: Transthoracic Echocardiogram Patient: RICO Corona (Age): 1960(56y) Med Rec#: [id number] Sex: F [place] Loc: [facility] [place]t / Wt: 167(cm)/107(kg) Pt. Loc: Echo Lab BSA: 2.14 Study Date: 06/01/2017 Pt. Type: Outpatient Tape: ?? Referring: Junior Olivera Reading: Oscar Cool ([id number]) Assistant Associate Full Professor: Orlando Samayoa ?? Diagnosis: *ICD-10-PCS Malignant neoplasm [...] remainder of report for additional findings. ?? Assessment/plan: Zoë has finished her first cycle of Adriamycin and Cytoxan. It sounds like she got some nausea after her Aloxi and Emend wore off and unfortunately had a dyskinetic type reaction to the Compazine.We have added that to her allergy list and recommended Benadryl for symptom control. One would expect the symptoms to alexey once she is been off the medication quite quickly. We have given her some Zofran to use for as needed nausea and will be seeing her next Thursday for her next round of chemotherapy. As noted she is going to get fitted for a wig today. We have arranged for lab prior to return. She will call if there is issues or problems in the interim. documented in this encounter Plan of Treatment Not on file documented as of this encounter Visit Diagnoses Diagnosis Malignant neoplasm of upper-outer quadrant of left breast in female, estrogen receptor negative documented in this encounter Care Teams House Carpenter Helper Relationship Specialty Start Date End Date Home Yeager MD PCP - General Family Medicine 04/21/17 documented as of this encounter
--- OUTSIDE RECORDS SUMMARY | 2024-01-08 01:13 | XMS_ITS | Encounter Summary ---
Author Organization [facility] Address [facility] [place] [address] Care Team Providers Care Instructor Warper Name Role Phone Home Yeager MD Primary Care Provider [phone] Reason for Visit * Reason Comments Chemotherapy Cycle 1 Day 1 AC * Treatment/Therapy Plan Authorization (Routine) - Closed Specialty Diagnoses / Procedures Referred By Contac t Referred To Contact Diagnoses Malignant neoplasm of upper-outer quadrant of left breast in female, estrogen receptor negative Procedures TC PALONOSETRON HCL, 25MCG, INJECTION (ALOXI) TC FOSAPREPITANT, 1MG, INJECTION (EMEND) TC CYCLOPHOSPHAMIDE, 100MG (CYTOXAN) TC DOXORUBICIN HCL, 10MG, INJECTION (ADRIAMYCIN) TC PEGFILGRASTIM, 6MG, INJECTION Junior Olivera MD [address] [place] [id number] [facility] Hem Onc Office [address] [place] [phone] Referral ID Status Reason Start Date Expiration Date Visits Re quested Visits Authorized [id number] Closed 05/28/2017 05/28/2018 99 99 Encounter Details Date Type Department Care Team (Late st Contact Info) Description 06/08/2017 1:00 PM EDT Infusion Hematology Oncology at [address] [phone] Malignant neoplasm of upper-outer quadrant [...] Progress Notes * Ester Salter RN - 06/08/2017 1:00 PM EDT INFUSION THERAPY ADMINISTRATION NOTES DIAGNOSIS: Breast Cancer CYCLE #:1 Day 1 REASON FOR VISIT: AC & Neulasta SUBJECTIVE Zoë offers no complaints. OBJECTIVE LAB DATA: WBC 6.48, HGB/HCT 13.2/40.0, PLT 215, ANC 3.29, Lytes WNL, BUN 14, Cr 0.9 IV ACCESS: Mediport accessed for labs at [facility], blood return present and flushes easily. Pre administration: Chemotherapy orders independently verified for drug name, route, and dosage per patient's height, weight and BSA by Holly Salter RN & [facility] on site. Neulasta 6mg SQ given in right upper arm. REACTIONS (DESCRIPTION, TIME, INTERVENTION AND EFFECTIVENESS) none ASSESSMENT Zoë was awake, alert and tolerated treatment well. Pt. chemo teaching instructions included: During clinic hours (8am-5pm Thursday-Thursday): pt. can call [phone] with questions or concerns. After clinic hours (5pm-8am Thursday-Thursday and weekends) pt can call [phone] and ask for the restaurant server/oncologist pest controller assistant. Zoë Cervantes verbalized understanding of potential chemotherapy side effects and home care including but not limited to- handwashing to prevent infection, signs and symptoms of low blood counts (fever, fatigue, bleeding), to call with a fever of 100.4 or greater, any significant constipation/diarrhea, importance of nutrition and fluid intake (drinking at least 32-64 ounces of non-caffeinatedbeverages/day), mouth care. Zoë Cervantes verbalized understanding of how to take prescription medications given for home use after chemotherapy. PLAN Return to clinic per routine. documented [...] Recorded weight), Intravenous, ONCE, 1 dose, On Thu06/08/17 at 1430, Administer over 30 Minutes, Warning Vesicant/Irritant Medication New Bag 06/08/2017 2:32 PM EDT 1,338 mg 633.8 mL/hr dexamethasone (DECADRON) injection 10 mg 10 mg, Intravenous, ONCE, 1 dose, On Thu06/08/17 at 1330, Administer prior to chemotherapy Given 06/08/2017 1:40 PM EDT 10 mg DOXOrubicin (ADRIAMYCIN) chemo injection 133.8 mg 133.8 mg (60 mg/m2/dose ? 2.23 m2 Treatment Plan BSA from Recorded weight), Intravenous, ONCE, 1 dose, On Thu06/08/17 at 1430, Administer each syringe over a minimum of 3 minutes per syringe. Given 06/08/2017 2:26 PM EDT 133.8 mg fosaprepitant (EMEND) 150 mg in sodium chloride 0.9% 255 mL infusion 150 mg, Intravenous, ONCE, 1 dose, On Thu06/08/17 at 1330, Administer over 30 Minutes, Administer prior to chemotherapy. New Bag 06/08/2017 1:44 PM EDT 150 mg 510 mL/hr heparin, porcine 100 unit/mL flush 500 Units 500 Units, Intravenous, ONCE PRN, Starting on Thu06/08/17 at 1310, Until Thu06/08/17 at 1749, Line Care, Refer to Intravenous (IV) Procedure: Accessing Implanted Vascular Access Devices (974) procedure and/or Intravenous (IV) Job Aid: Adult Flushing & Catheter Care (5637) job aid for additional information regarding guidelines and administration., Routine Given 06/08/2017 3:05 PM EDT 500 Units palonosetron (ALOXI) injection 0.25 mg 0.25 mg, Intravenous, ONCE, 1 dose, On Thu06/08/17 at 1330, Administer over 30 seconds. Administer prior to chemotherapy, Routine Given 06/08/2017 1:37 PM EDT 0.25 mg pegfilgrastim (NEULASTA) injection 6 mg 6 mg, Subcutaneous, ONCE, 1 dose, On Thu06/08/17 at 1330, Routine Given 06/08/2017 3:04 PM EDT 6 mg Right Arm sodium chloride 0.9 % flush 5-20 mL 5-20 mL, Intravenous, EVERY 1 MIN PRN, Starting on Thu06/08/17 at 1310, Until Thu06/08/17 at 1749, Line Care, Flush pertains to all indwelling lines. Flush per protocol found in the job aid using the link provided on this medication record. Refer to Intravenous (IV) Job Aid: Adult Flushing & Catheter Care (0792) job aid for additional information regarding guidelines and administration., Routine Given 06/08/2017 3:05 PM EDT 20 mLs documented in this encounter Care Teams Instructor Warper Relationship Specialty Start Date End Date Home Yeager MD PCP - General Family Medicine 04/21/17 documented as of this encounter
--- OUTSIDE RECORDS SUMMARY | 2024-01-08 01:13 | XMS_ITS | Encounter Summary ---
Author Organization [facility] [place] [address] Care Team Providers Care Museum Specialist Name Role Phone Home Yeager MD Primary Care Provider [phone] Reason for Referral * Diagnostic Test (Routine) - Closed Specialty Diagnoses / Procedures Referred By Contac t Referred To Contact Radiology Diagnoses Malignant neoplasm of left female breast, unspecified estrogen receptor status, unspecified site of breast Procedures MRI Breast wwo Contrast Avery Fenton MD [facility] [place] [address] [place] [address] Referral ID Status Reason Start Date Expiration Date V isits Requested Visits Authorized [id number] Closed Specialty Service Requested 04/03/2017 07/02/2017 1 1 Reason for Visit * Diagnostic Test (Routine) - Closed Specialty Diagnoses / Procedures Referred By Contac t Referred To Contact Radiology Diagnoses Malignant neoplasm of left female breast, unspecified estrogen receptor status, unspecified site of breast Procedures MRI Breast wwo Contrast Avery Fenton MD [facility] [place] [address] [place] [address] Referral ID Status Reason Start Date Expiration Date V isits Requested Visits Authorized [id number] Closed Specialty Service Requested 04/03/2017 07/02/2017 1 1 Encounter Details Date Type Department Care Team (Latest Contact Info) Description 04/21/2017 4:22 PM EST - 04/21/2017 11:59 PM EST Hospital Encounter MRI at [facility] [place] [phone] Avery Thacker MD [facility] [place] [place] [address] Malignant neoplasm of left female breast, unspecified estrogen receptor status, unspecified site of breast Discharge Disposition: Home [...] Procedure Name Priority Date/Time Associated Diagnosis Comments MRI BREAST WWO CONTRAST BILAT Routine 04/21/2017 7:18 PM EST Malignant neoplasm of left female breast, unspecified estrogen receptor status, unspecified site of breast documented in this encounter Results * MRI Breast wwo Contrast Bilat (04/21/2017 7:18 PM EST) Anatomical Region Laterality Modality Breast Bilateral Magnetic Resonan ce Impressions 04/22/2017 3:29 PM EST [ Left breast: 1. Left breast lesion 1, known malignancy. Associated marker clip artifact. 2. Left breast lesion 2, known high risk lesion. Mild lateral migration of the marker clip, attention to lateral migration on needle localization procedure, biopsy accomplished 2.5 cm medial to the marker clip. Right breast: No suspicious findings.] RECOMMENDATION: Left breast: Definitive surgical management in regards to left breast lesion 1 and 2. Attention to follow-up on needle localization procedure for left breast lesion 2, as defined above. Right breast: Annual screening. LEFT BREAST BIRADS 6. Known malignancy RIGHT BREAST BIRADS 1. Normal Narrative 04/22/2017 3:29 PM EST BILATERAL BREAST MRI CLINICAL INDICATION: 56-year-old female, left breast cancer. TECHNIQUE: Multiplanar sequences were obtained pre- and post- gadolinium enhancement, to include SPGR weighted dynamic run-off and subtraction sequences obtained after the intravenous administration of 20 ccs of DOTAREM. Computer algorithm analysis for lesion detection and kinetic contrast enhancement curve analysis was performed, using [employer]faces software. COMPARISON STUDIES: Compared and/or correlated with prior studies including mammography of 12/24/2016, 03/23/2017, ultrasound of 03/23/2017. Ultrasound-guided biopsy of 03/23/2017. FINDINGS: Background Enhancement Pattern (first post gadolinium image): Mild (25-50% breast) Amount of Fibroglandular Tissue: Heterogenously dense LEFT Breast: Left breast lesion 1, as defined on ultrasound at 2:00, 9 cm from the nipple with marker artifact, small residual mass and measuring 1.3 cm at greatest extent with rapid early and delayed washout enhancement characteristics. The enhancement and mass are irregular. Immediately associated marker clip artifact at the biopsy site. Left breast lesion 2, as defined on mammography, 3:00, 8 cm from the nipple, marker artifact and mild residual enhancement. The marker clip appears mildly lateral to the biopsy site, approximately 2.5 cm. Minimal associated enhancement. No additional findings within the left breast. The prominent axillary tail lymph nodes of the left breast have been stable since at least 2004 without interval change, benign findings. RIGHT Breast: No abnormal enhancement by morphology or kinetics. Lymph Node Basins/Other: There is no evidence of internal mammary or axillary adenopathy. ??No significant abnormalities are seen in the chest wall or skin. Avery Thacker MD IMG MRI ORDERABLES documented in this encounter Visit Diagnoses Diagnosis Malignant neoplasm of left female breast, unspecified estrogen receptor status, unspecified site of breast documented in this encounter Administered Medications Inactive Administered Medications - up to 3 most recent administrations Medication Order MAR Action Action Date Dose Rate Site gadoterate meglumine (DOTAREM) 0.5 mmol/mL injection 0-20 mL/kg 0-20 mL/kg/dose, Intravenous, ONCE PRN, 1 dose, Starting on Thu04/21/17 at 1918, Until Thu04/21/17 at 1845, Per Protocol, Radiology Contrast, Routine Given 04/21/2017 6:45 PM EST 18 mLs documented in this encounter Care Teams Museum Specialist Relationship Specialty Start Date End Date Home Yeager MD PCP - General Family Medicine 04/21/17 documented as of this encounter
--- OUTSIDE RECORDS SUMMARY | 2024-01-08 01:13 | XMS_ITS | Encounter Summary ---
Author Organization [facility] Address [facility] [place] [address] Care Team Providers Care Game Developer Name Role Phone Home Yeager MD Primary Care Provider [phone] Reason for Visit * Consultation (Routine) - Closed Specialty Diagnoses / Procedures Referred By Cuco britt Referred To Contact Radiation Oncology Diagnoses Malignant neoplasm of upper-outer quadrant of left female breast, unspecified estrogen receptor status Procedures Simulation for Radiation Therapy Planning PRG RADIATION THERAPY PLAN COMPLEX PRG SET RADIATION THERAPY FIELD COMPLEX PRG RADIATION TREATMENT AID(S) INTERM PRG SET RADIATION THERAPY FIELD 3D RECON PRG RESPIRATORY MOTION MANAGEMENT PLANNING PRG BASIC RADIATION DOSIMETRY CALCULATION PRG RADIATION TREATMENT AID(S) COMPLX PRG SET RADIATION THERAPY FIELD SIMPLE CHG RADN RX DELIVERY COMPLX =<5 MEV RADIOLOGY PORT FILM(S) CHG RADN PHYSICS CONSULT CONTINUING PRG RADIATION MANAGEMENT, 5 TREATMENTS [id number] Kaya Stovall MD [facility] [place] [address] [facility] Rad Onc Office [address] [place] [phone] Referral ID Status Reason Start Date Expiration Date V isits Requested Visits Authorized [id number] Closed Consult, Test & Treat 05/18/2017 05/18/2018 1 1 Encounter Details Date Type Department Care Team (Latest Contact Info) Description 05/19/2017 8:30 AM EDT Ancillary Appointment Radiation Oncology at [address] [phone] Kaya Stovall MD [facility] [place] [address] Malignant neoplasm of upper-outer quadrant of left [...] * Patient Instructions* Talita Carreon RN - 05/19/2017 8:30 AM EDT Information for Patients receiving radiation therapy [...] meet with your nurse and doctor weekly. Dr. Stovall generally sees her patients on Tuesdays. They will check your skin and help you with any side effects you are having. Please ask to seethe nurse if you have concerns in between [...] your treatment to your nurse or doctor. [facility] Radiation Oncology Our normal business hours are: Thursday - Thursday 8 AM to 5 PM [place], [place], [place] For emergent situations after hours please call for either location and ask for the Radiation Oncologist transmission repairer. documented in this encounter Progress Notes * Talita Carreon RN - 05/19/2017 8:30 AM EDT Radiation Oncology Simulation Note Zoë Cervantes is here for radiation planning , undergoing a simulation to the left breast for breast cancer treatment . Usual radiation oncology routines and purpose of on treatment visits were explained. Jeans cream provided and instructions for use reviewed Anticipatory Guidance: Please see AVS which was reviewed with and printed for patient. Barriers to Treatment/ Compliance issues identified: None identified. Patient confirms they can have no difficulties lying flat. pre- medication plan made: None needed. Referrals: [employer] today. * Kaya Stovall MD - 05/19/2017 8:30 AM EDT Here for sim. Sim: Breast bd immobilization; flat bbs on L breast lumpectomy scar; CT through chest showed heart to approach chest wall & so she was then instructed in deep inspiration breath hold (DIBH) &2nd CT done w/DIBH; 3D xrt planned. She tolerated sim well, w/o problem. Tx Plan: 3D xrt. Start xrt 06/15/17. Dr. Aceves & Dr. Thacker 05/21/17. documented in this encounter Plan of Treatment Not on file documented as of this encounter Visit Diagnoses Diagnosis Malignant neoplasm of upper-outer quadrant of left female breast, unspecified estrogen receptor status documented in this encounter Care Teams Game Developer Relationship Specialty Start Date End Date Home Yeager MD PCP - General Family Medicine 04/21/17 documented as of this encounter
--- OUTSIDE RECORDS SUMMARY | 2024-01-08 01:13 | XMS_ITS | Encounter Summary ---
Author Organization [facility] Address [facility] [place] [address] Care Team Providers Care Pool Table Mechanic Name Role Phone Home Yeager MD Primary Care Provider [phone] Reason for Visit * Reason Comments Chemotherapy Cycle 2 Day 1 AC * Treatment/Therapy Plan Authorization [...] TC PEGFILGRASTIM, 6MG, INJECTION Junior Olivera MD [address] [place] [id number] [facility] Hem Onc Office [address] [place] [phone] Referral ID Status Reason Start Date Expiration Date Visits Re quested Visits Authorized [id number] Closed 05/28/2017 05/28/2018 99 99 Encounter Details Date Type Department Care Team (Late st Contact Info) Description 06/22/2017 11:00 AM EDT Infusion Hematology Oncology at [address] [phone] Malignant neoplasm of upper-outer quadrant [...] Progress Notes * Ester Salter RN - 06/22/2017 11:00 AM EDT INFUSION THERAPY ADMINISTRATION NOTES DIAGNOSIS: Breast Cancer CYCLE #:2 Day 1 REASON FOR VISIT: AC & Neulasta SUBJECTIVE Zoë offers no complaints. OBJECTIVE LAB DATA: WBC 6.18, HGB/HCT 12.7/38.3, PLT 185, ANC 3.83, K 3.4, BUN 11, Cr 0.85 IV ACCESS: Mediport accessed for labs at [facility], blood return present and flushes easily. Pre administration: Chemotherapy orders independently verified for drug name, route, and dosage per patient's height, weight and BSA by Holly Salter RN & [facility] on site. Neulasta 6mg SQ given [...] Recorded weight), Intravenous, ONCE, 1 dose, On Thu06/22/17 at 1200, Administer over 30 Minutes, Warning Vesicant/Irritant Medication New Bag 06/22/2017 12:14 PM EDT 1,338 mg 633.8 mL/hr dexamethasone (DECADRON) injection 10 mg 10 mg, Intravenous, ONCE, 1 dose, On Thu06/22/17 at 1100, Administer prior to chemotherapy Given 06/22/2017 11:04 AM EDT 10 mg DOXOrubicin (ADRIAMYCIN) chemo injection 133.8 mg 133.8 mg (60 mg/m2/dose ? 2.23 m2 Treatment Plan BSA from Recorded weight), Intravenous, ONCE, 1 dose, On Thu06/22/17 at 1200, Administer each syringe over a minimum of 3 minutes per syringe. Given 06/22/2017 12:05 PM EDT 133.8 mg fosaprepitant (EMEND) 150 mg in sodium chloride 0.9% 255 mL infusion 150 mg, Intravenous, ONCE, 1 dose, On Thu06/22/17 at 1100, Administer over 30 Minutes, Administer prior to chemotherapy. New Bag 06/22/2017 11:06 AM EDT 150 mg 510 mL/hr heparin, porcine 100 unit/mL flush 500 Units 500 Units, Intravenous, ONCE PRN, Starting on Thu06/22/17 at 1033, Until Thu06/22/17 at 1536, Line Care, Refer to Intravenous (IV) Procedure: Accessing Implanted Vascular Access Devices (654) procedure and/or Intravenous (IV) Job Aid: Adult Flushing & Catheter Care (9236) job aid for additional information regarding guidelines and administration., Routine Given 06/22/2017 12:45 PM EDT 500 Units palonosetron (ALOXI) injection 0.25 mg 0.25 mg, Intravenous, ONCE, 1 dose, On Thu06/22/17 at 1100, Administer over 30 seconds. Administer prior to chemotherapy, Routine Given 06/22/2017 11:01 AM EDT 0.25 mg pegfilgrastim (NEULASTA) injection 6 mg 6 mg, Subcutaneous, ONCE, 1 dose, On Thu06/22/17 at 1100, Routine Given 06/22/2017 12:16 PM EDT 6 mg Right Arm sodium chloride 0.9 % flush 5-20 mL 5-20 mL, Intravenous, EVERY 1 MIN PRN, Starting on Thu06/22/17 at 1033, Until Thu06/22/17 at 1536, Line Care, Flush pertains to all indwelling lines. Flush per protocol found in the job aid using the link provided on this medication record. Refer to Intravenous (IV) Job Aid: Adult Flushing & Catheter Care (9064) job aid for additional information regarding guidelines and administration., Routine Given 06/22/2017 12:45 PM EDT 20 mLs documented in this encounter Care Teams Pool Table Mechanic Relationship Specialty Start Date End Date Home Yeager MD PCP - General Family Medicine 04/21/17 documented as of this encounter
--- OUTSIDE RECORDS SUMMARY | 2024-01-08 01:13 | XMS_ITS | Encounter Summary ---
Author Organization [facility] Address [facility] [place] [address] Care Team Providers Care Industrial Maintenance Electrician Name Role Phone Home Yeager MD Primary Care Provider [phone] Encounter Details Date Type Department Care Team (Latest Contact Info) Description 04/30/2017 7:37 AM EST Hospital En[place] [phone] Avery Thacker MD [facility] [place] [address] Malignant neoplasm of left breast in female, [...] Name Priority Date/Time Associated Diagnosis Comments MAMMO SPECIMEN Routine 04/30/2017 10:25 AM EST Malignant neoplasm of left breast in female, estrogen receptor positive, unspecified site of breast documented in this encounter Results * Mammo Specimen (04/30/2017 [...] The specimen demonstrates Lesion 1 ??( mass, Carville clip and wire) and Lesion 2 ??( biopsy site with residual calcifications located 2.5 cm distal to the cylinder clip; the migrated cylinder clip and the wire). Avery Thacker MD IMG MAMMO ORDERABLES documented in this encounter Visit Diagnoses Diagnosis Malignant neoplasm of left breast in female, estrogen receptor positive, unspecified site of breast documented in this encounter Care Teams Industrial Maintenance Electrician Relationship Specialty Start Date End Date Home Yeager MD PCP - General Family Medicine 04/21/17 documented as of this encounter
--- OUTSIDE RECORDS SUMMARY | 2024-01-08 01:13 | XMS_ITS | Encounter Summary ---
[place] [address] Care Team Providers Care Inclusion Teacher Name Role Phone Home Yeager MD Primary Care Provider [phone] Reason for Referral * Diagnostic Test (Routine) - Closed Specialty Diagnoses / Procedures Referred By Contac t Referred To Contact Cardiology Diagnoses Malignant neoplasm of left breast in female, estrogen receptor negative, unspecified site of breast Procedures Echocardiogram Transthoracic(Leb) Junior Olivera MD [address] [place] [address] [place] [address] [facility] [place] [address] Referral ID Status Reason Start Date Expiration Date V isits Requested Visits Authorized [id number] Closed Specialty Service Requested 05/29/2017 08/27/2017 1 1 Reason for Visit * Diagnostic Test (Routine) - Closed Specialty Diagnoses / Procedures Referred By Contac t Referred To Contact Cardiology Diagnoses Malignant neoplasm of left breast in female, estrogen receptor negative, unspecified site of breast Procedures Echocardiogram Transthoracic(Leb) Junior Olivera MD [address] [place] [address] [place] [address] [facility] [place] [address] Referral ID Status Reason Start Date Expiration Date V isits Requested Visits Authorized [id number] Closed Specialty Service Requested 05/29/2017 08/27/2017 1 1 Encounter Details Date Type Department Care Team (Latest Contact Info) Description 06/01/2017 9:27 AM EDT - 06/01/2017 11:39 AM EDT Hospital Encounter Non-Invasive [place] [address] Junior Olivera MD [address] [place] [address] [place] [address] Malignant neoplasm of left breast in female, [...] Procedure Name Priority Date/Time Associated Diagnosis Comments ECHO COMPLETE Routine 06/01/2017 10:15 AM EDT Malignant neoplasm of left breast in female, estrogen receptor negative, unspecified site of breast documented in this encounter Results * ECHO COMPLETE (06/01/2017 10:15 AM EDT) EF 70 HEARTLAB SYSTEM Anatomical Region Laterality Modality Other 06/01/2017 Narrative 06/01/2017 10:34 AM EDT Procedure: ?Transthoracic Echocardiogram Patient: ?RICO ZOË Bains D ? (Age): 1960(56y) Med Rec#: ? [id number] ?Sex: ?F ? [place] [facility] [place] / Wt: ??167(cm)/107(kg) Pt. Loc: ?Echo Lab ?BSA: ?2.14 Study Date: ?? 06/01/2017 ?Pt. Type: Outpatient Tape: ? Referring: Junior Olivera Reading: Oscar Cool ([id number]) Vaccine Manager: Orlando Samayoa Diagnosis: *ICD-10-PCS Malignant neoplasm of [...] E-wave Vmax ?1.1 ?m/sec ? MV deceleration [id number] ?msec ? MV A-wave Vmax ?0.8 ?m/sec [...] ? Mid-Inferior ?Normal ? Mid-Inferoseptal ?Normal ? Partridge-Septal ? Normal ? Partridge-Anterior ? Normal ? Partridge-Lateral ?Normal ? Partridge-Inferior ? Normal ? Partridge-Tip ?Normal ? This report has been electronically signed by: Oscar Cool MD ? 06/01/2017 10:34:14 Images reviewed and interpretation verified [facility] Cardiac Ultrasound Laboratory Procedure Note Oscar Cool MD - 06/01/2017 Procedure: Transthoracic Echocardiogram Patient: RICO Corona (Age): 1960(56y) Med Rec#: [id number] Sex: F [place] [facility] [place] Ht / Wt: 167(cm)/107(kg) Pt. Loc: Echo Lab BSA: 2.14 Study Date: 06/01/2017 Pt. Type: Outpatient Tape: Referring: Junior Olivera Reading: Oscar Cool ([id number]) Vaccine Manager: Orlando Samayoa Diagnosis: *ICD-10-PCS Malignant neoplasm of [...] MV E-wave Vmax 1.1 m/sec MV deceleration [id number] msec MV A-wave Vmax 0.8 m/sec MV [...] Normal Mid-Posterolateral Normal Mid-Inferior Normal Mid-Inferoseptal Normal Partridge-Septal Normal Partridge-Anterior Normal Partridge-Lateral Normal Partridge-Inferior Normal Partridge-Tip Normal This report has been electronically signed by: Oscar Cool MD 06/01/2017 10:34:14 Images reviewed and interpretation verified [facility] Cardiac Ultrasound Laboratory Junior Olivera MD ECHO ORDERABLES documented in this encounter Visit Diagnoses Diagnosis Malignant neoplasm of left breast in female, estrogen receptor negative, unspecified site of breast documented in this encounter Care Teams Inclusion Teacher Relationship Specialty Start Date End Date Home Yeager MD PCP - General Family Medicine 04/21/17 documented as of this encounter
--- OUTSIDE RECORDS SUMMARY | 2024-01-08 01:13 | XMS_ITS | Encounter Summary ---
Author Organization [facility] Address [facility] [address] Care Team Providers Care Residential Housekeeper Name Role Phone Home Yeager MD Primary Care Provider [phone] Reason for Visit * Reason Comments Follow Up Surgery Encounter Details Date Type Department Care Team (Late st Contact Info) Description 05/21/2017 1:15 PM EDT Office Visit [place] [phone] Avery Thacker MD [facility] [place] [place] [address] Malignant neoplasm of left breast in female, [...] Sign Reading Time Taken Comments Blood Pressure 129/77 05/21/2017 1:17 PM EDT Pulse 71 05/21/2017 1:17 PM EDT Temperature 37.1 ??C (98.8 ??F) 05/21/2017 1:17 PM ED T Respiratory Rate 16 05/21/2017 1:17 PM EDT Oxygen Saturation 97% 05/21/2017 1:17 PM EDT Inhaled Oxygen Concentration - - Weight 107 kg (235 lb 14.3 oz) 05/21/2017 1:16 P M EDT Height 176.5 cm (5' 9.49) 05/21/2017 1:16 PM ED T Body Mass Index 34.35 05/21/2017 1:16 PM EDT documented in this encounter Progress Notes * Avery Thacker MD - 05/21/2017 1:15 PM EDT Zoë Cervantes is a 56-year-old woman who returns after left breast partial mastectomy and left axillary sentinel node excision on April 30, 2018. 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 Margins were negative. One sentinel node was negative. Lesion 2 in the left breast was atypical ductal hyperplasia on excisional biopsy. She now returns for check. She has no pain. On physical exam her breast and axillary incisions are healing very nicely. There is no sign of infection or hematoma. There is no seroma in her axilla. Impression: Zoë is recovering very nicely from breast conserving surgery. I gave her a copy of her pathology report. She knows she has an excellent prognosis. She will be seen Dr. Aceves today to discuss adjuvant chemotherapy. It sounds like he is favoring treatment because she is triple negative. She will also be undergoing radiation therapy to the left breast. I will see her back in surgical clinic in 6 months with a left mammogram. Copy to Sandra Shaw and Home Yeager documented in this encounter Plan of Treatment Not on file documented as of this encounter Visit Diagnoses Diagnosis Malignant neoplasm of left breast in female, estrogen receptor negative, unspecified site of breast documented in this encounter Care Teams Residential Housekeeper Relationship Specialty Start Date End Date Home Yeager MD PCP - General Family Medicine 04/21/17 documented as of this encounter
--- OUTSIDE RECORDS SUMMARY | 2024-01-08 01:13 | XMS_ITS | Encounter Summary ---
Author Organization [facility] Address [facility] [place] [address] Care Team Providers Care Comptometrist Name Role Phone Home Yeager MD Primary Care Provider [phone] Reason for Referral * Consultation (Routine) - Closed Specialty Diagnoses / Procedures Referred By Cuco t Referred To Contact Radiation Oncology Diagnoses Malignant [...] CONSULT CONTINUING PRG RADIATION MANAGEMENT, 5 TREATMENTS [id number] Kaya Stovall MD [facility] [place] [address] [facility] Rad Onc Office [address] [place] [phone] Referral ID Status Reason Start Date Expiration Date V isits Requested Visits Authorized [id number] Closed Consult, Test & Treat 05/18/2017 05/18/2018 1 1 Reason for Visit * Reason Comments Radiation Consult * Consultation (Routine) - Closed Specialty Diagnoses / Procedures Referred By Contindio t Referred To Contact Radiation Oncology Diagnoses Breast cancer Avery Thacker MD [facility] [place] [address] Kaya Stovall MD [facility] [place] [address] Referral ID Status Reason Start Date Expiration Date Visits Re quested Visits Authorized [id number] Closed 04/16/2017 04/16/2018 1 1 Encounter Details Date Type Department Care Team (Late st Contact Info) Description 05/18/2017 9:00 AM EDT Office Visit Radiation Oncology at [address] [phone] Kaya Stovall MD [facility] [place] [address] Malignant neoplasm of upper-outer quadrant of left [...] Taken Comments Blood Pressure - - Pulse 83 05/18/2017 8:53 AM EDT Temperature 36.4 ??C (97.5 ??F) 05/18/2017 8:53 AM ED T Respiratory Rate 16 05/18/2017 8:53 AM EDT Oxygen Saturation 98% 05/18/2017 8:53 AM EDT Inhaled Oxygen Concentration - - Weight 107.9 kg (237 lb 12.8 oz) 05/18/2017 8:53 AM EDT Height - - Body Mass Index 34.61 04/30/2017 9:17 AM EST documented in this encounter Progress Notes * Talita Carreon, AMARI - 05/18/2017 9:00 AM EDT RADIATION ONCOLOGY NURSING INITIAL NURSING ASSESSMENT IDENTIFICATION: Zoë Cervantes is a 56 y.o. year-old female with left breast cancer. PRESENTING SYMPTOMS/CHIEF COMPLAINT: abnormal mammogram which led to further workup and diagnosis. REVIEW OF SYSTEMS:Review of Systems Constitutional: Positive for fatigue. Negative for activity change, appetite change and unexpected weight change. Eyes: Negative for visual disturbance. Respiratory: Negative for cough, shortness of breath and wheezing. Cardiovascular: Negative for chest pain and leg swelling. Gastrointestinal: Negative for constipation, diarrhea, nausea and vomiting. Genitourinary: Negative for difficulty urinating. Skin: Positive for wound (left partial mastectomy). Allergic/Immunologic: Positive for environmental allergies (ragweeds, pollens). Neurological: Negative for dizziness, light-headedness and headaches. Psychiatric/Behavioral: Negative for dysphoric mood and sleep disturbance. The patient is not nervous/anxious. IN THE PAST 12 MONTHS HAVE YOU: Fallen more than one time? No Injured yourself as result of the fall? N/A Experienced difficulty with walking/problems with balance? No Do you use any assistive devices? No (If patient does not know or declines to answer, please note in the 3 star option) If patient answered yes to any of the above, please offer to print out one of the following resources that may apply to them: Stay Independent http://www.cdc.gov/steadi/pdf/stay_independent_brochure-a.pdf What you can do to prevent falls http://www.cdc.gov/steadi/pdf/what_you_can_do_brochure-a.pdf Check for Safety-A home fall prevention checklist for older adults http://www.cdc.gov/steadi/pdf/check_for_safety_brochure-a.pdf Postural Hypotension-What is it and how to manage it http://www.cdc.gov/steadi/pdf/postural_hypotension-a.pdf Chair Rise Exercises to strengthen the muscles of things and buttocks http://www.cdc.gov/steadi/pdf/chair_rise_exercise-a.pdf Any Implanted Devices/Hardware: No If yes please put alert in ARIA patient summary Prior Radiotherapy: No Prior Chemotherapy: No Prior Hormone Therapy: No RADIOLOGY SAFETY QUESTIONS REVIEWED: If applicable MRICTSAFETYQUESTIONS LEARNING ASSESSMENT REVIEWED: yes ADVANCED DIRECTIVE: Patient states that she has form but has not yet completed. PAIN ASSESSMENT: 0- out of 10 *eD-H Adult PCS Flow Sheet if 4 or above SOCIAL ASSESSMENT: See [facility] social assessment information entered. Support Systems: family. Here today with , Jamie. Barriers to treatment: None identified. Referrals/Interventions: POLE FRAMER on day of simulation. RADIATION SPECIFIC TEACHING: [facility] Radiation Therapy and You Site specific teaching : Site specific teaching to be done by nursing on day of simulation. Other: PLAN: Per Dr. Stovall. * Kaya Stovall MD - 05/18/2017 9:00 AM EDT Images from the original note were not included. CC: Referred by Sandra Shaw APRN, for eval for xrt for breast ca. HPI: 56 y/o f who presented w/L breast abnlty on screening mmg. DH interp 12/15/16 B screening mmg & 12/24/16 dx'ic L mmg & L breast US: Focal asymmetry of upper & outer L breast, most conspicuous on CC tomographic imaging w/o US correlate. Lateral L breast indeterminate calcs. R breast benign. 03/13/17 dx'ic L mmg & L breast US: L breast lesion #1, suspicious, 0.8 cm mass @ 2:00, 12 cm from nipple. L breast lesion #2, suspicious, 0.6 cm grouping of microcalcs @ 3:00, 8 cm from nipple. 03/23/17 US guided core needle bx L breast lesion #1 & stereotactic guided core needle bx L breast lesion #2. Path: A - Needle bxs L breast lesion #1: IDC, ER-NV-, Her2 FISH neg. B - Needle bxs L breast lesion #2: Severely atypical ductal hyperplasia, bordering on low gr DCIS. 04/13/[address] Thacker showing a little thickening in L breast @ 2:00, 10 cm from nipple, no adenopathy. 04/21/17 MRI B Breasts: L breast lesion #1, known malignancy, assoc'd marker clip artifact. L breastlesion #2, known high risk lesion w/mild lateral migration of marker clip, attn to lateral migration on needle loc procedure bx, bx accomplished 2.5 cm medial to marker clip. R breast neg. No adenopathy. 04/30/17 NLOC L breast lumpectomy w/+ specimen mmg. SNB. Path: IDC (lesion #1), gr 3, 7 mm, DCIS, focal residual severely atypical ductal hyperplasia (0.2 cm), bordering on DCIS (lesion #2), RM neg, L axillary sentinel lymph node (neg, 0/1), pT1b pN0. ROS: A little tightness/stiffness @ surg site, lessening, does not reach 1 on 1- 10 pain scale. Swelling in L hand for 1st wk postop & then resolved. ROM arms around shoulders fine. Energy level ok, improving as gets further out from surgery. Appetite alright. Accompanied by . Past Medical History: Diagnosis Date ??? Goiter 08/06/2011 ??? HTN (hypertension) 08/06/2011 ??? Obesity 08/06/2011 Past Surgical History: Procedure Laterality Date ??? PRG SOMATOSENSORY TEST, ANY/ALL PER. NERVES, TRUNK OR HEAD 09/02/2011 FACIAL NERVE MONITORING, SETUP performed by VALENTINE OVIEDO at [facility] MAIN OR ??? PRO BX/REMV, LYMPH NODE, DEEP AXILL Left 04/30/2017 BIOPSY OR EXCISION OF LYMPH NODE(S), OPEN, DEEP AXILLARY NODE(S) (WRVU 6.43) performed by Avery Thacker MD at [facility] OSC ??? PRO EXCISE BREAST LES W XRAY MARKER Left 04/30/2017 EXCISION LESION, BREAST W/ PREOP.MARKER (NEEDLE LOC.) (WRVU 6.69) performed by Avery Thacker MDat [facility] OSC ??? PRO INTRAOP SENTINEL LYMPH ID W/DYE INJECTION Left 04/30/2017 INTRAOPERATIVE ID (MAPPING) SENTINEL LYMPH NODE,INCLUDES INJECTION (WRVU 2.5) performed by Avery Thacker MD at [facility] OSC ??? PRO MASTECTOMY, PARTIAL Left 04/30/2017 MASTECTOMY PARTIAL (WRVU 10.13) performed by Avery Thacker MD at [facility] OSC ??? PRO THYROIDECTOMY 09/02/2011 THYROIDECTOMY, TOTAL OR COMPLETE performed by VALENTINE OVIEDO at [facility] MAIN OR Uterine ablation. Your Medications These changes are accurate as of 05/18/17 9:29 AM. If you have any questions, ask your nurse or doctor. Continued medications, unchanged Dose Details acetaminophen 325 mg Tab Commonly known as: TYLENOL Take 2 tablets by mouth every 4 hours as needed for Pain. 650 mg Refills: 0 aspirin 81 mg Chew Take 81 mg by mouth daily. 81 mg Refills: 0 GLUCOSAMINE ORAL Take by mouth. Refills: 0 ibuprofen 600 mg Tab Commonly known as: ADVIL;MOTRIN Take 600 mg by mouth 3 times daily as needed for Pain. 600 mg Refills: 0 levothyroxine 137 mcg Tab Commonly known as: SYNTHROID Take 137 mcg by mouth every morning. 137 mcg Quantity: 30 tablet Refills: 0 lisinopril-hydrochlorothiazide 10-12.5 mg Tab Commonly known as: PRINZIDE;ZESTORETIC Take 1 tablet by mouth daily. 1 tablet Refills: 0 metFORMIN 500 mg Tab Commonly known as: GLUCOPHAGE Take 500 mg by mouth daily. 500 mg Refills: 0 VITAMIN D ORAL Take 2,000 Units by mouth. 2000 Units Refills: 0 Physical Exam Constitutional: She is oriented to person, place, and time. She appears well- developed and well-nourished. No distress. Pulse 83 Temp 36.4 ??C (97.5 ??F) (Oral) Resp 16 Wt 107.9 kg (237 lb 12.8 oz) SpO2 98% BMI 34.61 kg/m2 HENT: Head: Normocephalic and atraumatic. Eyes: Conjunctivae [...] change and no tenderness. Left breast exhibits no inverted n ipple, no mass, no nipple discharge, no skin change and no tenderness. Abdominal: Soft. She exhibits no distension and no mass. There is no tenderness. There is no rebound and no guarding. Musculoskeletal: Normal range of motion. She exhibits no edema or tenderness. Lymphadenopathy: Head (right side): No submental, no submandibular, no preauricular, no posterior auricular and no occipital adenopathy present. Head (left side): No submental, no submandibular, no preauricular, no posterior auricular and no occipital adenopathy present. She has no cervical adenopathy. She has no axillary adenopathy. Right: No supraclavicular adenopathy present. Left: No supraclavicular adenopathy present. Neurological: She is alert and oriented to person, place, and time. No cranial nerve deficit. She exhibits normal muscle tone. Coordination normal. Skin: She is not diaphoretic. Psychiatric: She has a normal mood and affect. Her behavior is normal. Judgment and thought contentnormal. A: Breast ca, L, IDC, gr 3, triple neg, s/p lumpectomy & SNB, pT1b pN0, stage I. P: A course of xrt to L breast rec'd to increase likelihood of ca control. Xrt would be given in 20 fxs unless chemo given prior to xrt, in which case xrt would be given in 33 fxs. Possible side effects of xrt to breast discussed, w/acute/immediate side effects including: Pinkening, soreness & peeling of skin in treated area; swelling of treated breast; soreness of treated breast; cough; shortness of breath; tiredness. Late/fpc side effects to breast discussed include: Treated breast may shrink, become firmer & sit higher on chest; achiness/stiffness of chest wall on treated side; slight increase in smallrisk of dying of heart disease (from 1.9% to 2.4%) in women irradiated to L breast/chest; rib fracture on treated side; CT after xrt may show scarring w/in small volume of lung on treated side; very small risk of radiotherapy associated 2nd malignancy. Need for CTsim prior to xrt discussed. At CTsim, she would be assessed for use of deep inspiration breath hold (DIBH). She would like to proceed w/xrt & will return tomorrow for CTsim. Dr. Aceves for eval for systemic tx & Kedar for postop check 05/21/17. 25 mins of 40 min face to face visit w/Zoë spent discussing rationale for xrt; hoped for benefitof xrt; possible side effects/complications of xrt; prevention/management of side effects/complications of xrt; logistics of daily xrt; timing of xrt vis a vis chemo; CTsimulation w/eval for DIBH; arm position required for xrt; followup after completion of xrt. Radiation dean:Billings protocol and Whole breast w/ tangents Radiation boost:Yes Total dose of radiation: 52.56 Gy documented in this encounter Plan of Treatment Scheduled Orders Name Type Priority Associated Diagnoses Orde r Schedule Simulation for Radiation Therapy Planning Procedures Routine Malignant neoplasm of upper-outer quadrant of left female breast, unspecified estrogen receptor status Ordered: 05/18/2017 documented as of this encounter Visit Diagnoses Diagnosis Malignant neoplasm of upper-outer quadrant of left female breast, unspecified estrogen receptor status documented in this encounter Care Teams Comptometrist Relationship Specialty Start Date End Date Home Yeager MD PCP - General Family Medicine 04/21/17 documented as of this encounter
--- OUTSIDE RECORDS SUMMARY | 2024-01-08 01:13 | XMS_ITS | Encounter Summary ---
Author Organization [facility] [place] [address] Care Team Providers Care Behaviour Support Teacher Name Role Phone Home Yeager MD Primary Care Provider [phone] Encounter Details Date Type Department Care Team (Late st Contact Info) Description 08/04/2017 12:00 PM EDT Office Visit Hematology/Oncology at [address] [phone] Alie Moore APRN [facility] [place] [address] Malignant neoplasm of left breast in female, estrogen receptor negative, unspecified site of breast (Primary Dx); SOB (shortness of breath) Social History Tobacco Use Types Packs/Day Years [...] Sign Reading Time Taken Comments Blood Pressure 103/61 08/04/2017 12:00 PM EDT Pulse 108 08/04/2017 12:00 PM EDT Temperature 36.6 ??C (97.9 ??F) 08/04/2017 12:00 PM E DT Respiratory Rate 20 08/04/2017 12:00 PM EDT Oxygen Saturation 100% 08/04/2017 12:00 PM EDT Inhaled Oxygen Concentration - - Weight 98.2 kg (216 lb 9.6 oz) 08/04/2017 12:00 PM EDT Height 167 cm (5' 5.75) 08/04/2017 12:00 PM EDT copied Body Mass Index 35.23 08/04/2017 12:00 PM EDT documented in this encounter Patient Instructions * Patient Instructions* Alie Moore APRN - 08/04/2017 12:00 PM EDT She will return in one week with labs prior infusion with taxol and will need a cardiac echo in thenext week. 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 The tumor was 0.7 mm but triple negative. Subjective: She has now completed 4 cycles of AC. She is due to start her weekly doses of taxol today. She continues to feel fatigued from treatment. Napping more than she did before. She also seems to have someshortness of breath upon exertion although her oxygen level is good. She does have some heartburn which she manages without any additional medication. She had a little bit of a sore throat and stomatitis but that is getting better over the past couple days. She has no URI or UTI symptoms. She is anxious today because she will be starting a new treatment. Past medical history and social history reviewed and unchanged Past Medical History: Diagnosis Date ??? Goiter 08/06/2011 ??? HTN (hypertension) 08/06/2011 ??? Malignant neoplasm of left breast in female, estrogen receptor negative 04/13/2017 ??? Obesity 08/06/2011 Past Surgical History: Procedure Laterality Date ??? PRG SOMATOSENSORY TEST, ANY/ALL PER. NERVES, TRUNK OR HEAD 09/02/2011 FACIAL NERVE MONITORING, SETUP performed by VALENTINE OVIEDO at [facility] MAIN OR ??? PRO BX/REMV, LYMPH NODE, DEEP AXILL Left 04/30/2017 BIOPSY OR EXCISION OF LYMPH NODE(S), OPEN, DEEP AXILLARY NODE(S) (WRVU 6.43) performed by Avery Thacker MD at [facility] OSC ??? PRO EXCISE BREAST LES W XRAY MARKER Left 04/30/2017 EXCISION LESION, BREAST W/ PREOP.MARKER (NEEDLE LOC.) (WRVU 6.69) performed by Avery Thacker MDat [facility] OSC ??? PRO INTRAOP SENTINEL LYMPH ID W/DYE INJECTION Left 04/30/2017 INTRAOPERATIVE ID (MAPPING) SENTINEL LYMPH NODE,INCLUDES INJECTION (WRVU 2.5) performed by Avery Thacker MD at [facility] ??? PRO MASTECTOMY, PARTIAL Left 04/30/2017 MASTECTOMY PARTIAL (WRVU 10.13) performed by Avery Thacker MD at [facility] O[facility] ??? PRO THYROIDECTOMY 09/02/2011 THYROIDECTOMY, TOTAL OR COMPLETE performed by VALENTINE OVIEDO at [facility] MAIN OR Uterine Ablation Ovaries still [...] taking: Reported on 08/04/2017) 30 tablet 1 ??? 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 Eyes: Negative. Respiratory: Negative for cough, positive for shortness of breath upon exertion. Cardiovascular: Negative for chest pain, palpitations and leg swelling. Gastrointestinal: Negative for nausea, vomiting, abdominal pain, diarrhea, constipation and abdominal distention. Genitourinary: Negative for dysuria and difficulty urinating. Musculoskeletal: Negative. Skin: Negative. Neurological: Negative. Hematological: Negative for adenopathy. Rest of systems were reviewed and are as noted. BP 103/61 (Patient Position: Sitting) Pulse (!) 108 Temp 36.6 ??C (97.9 ??F) (Oral) Resp 20 Ht 167 cm (5' 5.75) Comment: copied Wt 98.2 kg (216 lb 9.6 oz) SpO2 100% BMI 35.23 kg/m2 Head: Normocephalic, without obvious abnormality, atraumatic Eyes: PERRL, conjunctiva/corneas clear, EOM's intact, fundi benign, both eyes Throat: Lips, mucosa, and tongue normal; teeth [...] contrast enhancement curve analysis was performed, using NewsBreak software. ?? COMPARISON STUDIES: Compared and/or correlated [...] contrast enhancement curve analysis was performed, using NewsBreak software. ?? COMPARISON STUDIES: Compared and/or correlated [...] Type: ?? Invasive ductal carcinoma ?Histologic Grade ([place] Histologic Score) ? Glandular (Acinar) / Tubular [...] and ??<= 200 cells): ?0 ?Number of Carpenter Nodes Examined: ?1 Pathologic Stage Classification (pTNM, AJCC 8th Edition) ?Primary Tumor (Invasive Carcinoma) (pT): ?pT1b ?Regional Lymph Nodes (pN) ER, DE, and HER2 (performed on prior biopsy, [id number]): ER: Negative DE: Negative HER2 FISH: Negative Procedure: Transthoracic Echocardiogram Patient: RICO Corona (Age): 1960(56y) Med Rec#: [id number] Sex: F Site Loc: [facility] Ht / Wt: 167(cm)/107(kg) Pt. Loc: Echo Lab BSA: 2.14 Study Date: 06/01/2017 Pt. Type: Outpatient Tape: ?? Referring: Junior Olivera Reading: Oscar Cool ([id number]) Teaching Specialists: Orlando Samayoa ?? Diagnosis: *ICD-10-PCS Malignant neoplasm [...] 133.8 mg pegfilgrastim (NEULASTA) SubQ 6 mg Review of her laboratory today shows a sodium of 138 potassium 3.5 random glucose of 106 creatinine0.79 liver tests are normal with an ALP of 73 and normal transaminases CBC shows a white count of 8.61 and absolute neutrophil count of 6.20 hemoglobin of 10.1 hematocrit 29.6% and platelet count of 432. Assessment/plan: Zoë will receive her first dose of weekly taxol today. Her counts are acceptable for treatment. She continues to be fatigued from treatment. She is anxious about starting this new chemotherapy andwhat side effects she might experience. We reviewed the side effects of treatment and I reassured her that we would try to minimize the side effects she might experience. She will return in one week for her next weekly taxol. She seems to have some increase in shortness of breath. I will repeat her cardiac echo in the next week. documented in this encounter Plan of Treatment Not on file documented as of this encounter Procedures Procedure Name Priority Date/Time Associated Diagnosis Comments CHEMOTHERAPY SCAN 08/04/2017 12: 00 AM EDT documented in this encounter Results * SCAN DOC: CHEMOTHERAPY (08/04/2017 12:00 AM EDT) Narrative 08/04/2017 12:00 AM EDT Ordered by an unspecified provider. Scanning Provider MEDIA MGR SCAN EXT O RDR/RSLT documented in this encounter Visit Diagnoses Diagnosis Malignant neoplasm of left breast in female, estrogen receptor negative, unspecified site of breast- Primary SOB (shortness of breath) Shortness of breath documented in this encounter Care Teams Behaviour Support Teacher Relationship Specialty Start Date End Date Home Yeager MD PCP - General Family Medicine 04/21/17 documented as of this encounter
--- OUTSIDE RECORDS SUMMARY | 2024-01-08 01:13 | XMS_ITS | Encounter Summary ---
Author Organization [facility] Address [facility] [place] [address] Care Team Providers Care Emergency Vehicle Operations Instructor Name Role Phone Home Yeager MD Primary Care Provider [phone] Encounter Details Date Type Department Care Team (Latest Contact Info) Description 04/30/2017 7:39 AM EST - 04/30/2017 9:01 AM EST Hospital [place] [address] Avery Thacker MD [facility] [place] [address] Malignant neoplasm of left breast in female, [...] Name Priority Date/Time Associated Diagnosis Comments MAMMO NEEDLE LOCALIZATION MULTIPLE LEFT Routine 04/30/2017 8:45 AM EST Malignant neoplasm of left breast in female, estrogen receptor positive, unspecified site of breast documented in this encounter Results * Mammo Needle Placement Radiologist Multiple Area [...] MAR Action Action Date Dose Rate Site lidocaine (XYLOCAINE) 10 mg/mL (1 %) injection 10 mg 10 mg, Intradermal, ONCE, 1 dose, On Nati 04/30/17 at 0900, Routine Given 04/30/2017 8:45 AM EST 10 mg documented in this encounter Care Teams Emergency Vehicle Operations Instructor Relationship Specialty Start Date End Date Home Yeager MD PCP - General Family Medicine 04/21/17 documented as of this encounter
--- OUTSIDE RECORDS SUMMARY | 2024-01-08 01:13 | XMS_ITS | Encounter Summary ---
Author Organization [facility] [place] [address] Care Team Providers Care Retail Support Specialist Name Role Phone Home Yeager MD Primary Care Provider Encounter Details Date Type Department Care Team (Late st Contact Info) Description 04/30/2017 9:36 AM EST Anesthesia Event [place] [id number] Benigno Denton MD [facility] [place] [address] Ines Causey MD [facility] [place] [address] Anesthesia Record Procedure Summary Procedure Name Responsible Anesthesiologist Anesthesia Start Time Anesthesia Stop Time MASTECTOMY PARTIAL (WRVU 10.13) (Left: Breast) Benigno Denton MD 04/30/17 0936 04/30/17 1122 Events Date Time Event Comment 04/30/2017 0931 0936 Start 0937 AN Verify 0937 An Start Data 0945 An Induction 0945 An Intubation 0945 Anesthesia Ready 0952 an lawrence now Isosulfan Blue injected by surgeon 0957 an lawrence now Local injected by surgeon 1026 Break/Relief In HUMA A CAR SETWART, PBX INSTALLER 1029 Break/Relief Out 1113 Extubation/LMA Out 1116 an stop data 1121 Recovery or ICU Handoff Terrie ent care was transferred to the destination unit staff after review of the patient's medical history, current anesthetic/surgical status and plan, according to the Provider Handoff Checklist. 1122 Stop Meds Name Total Propofol 350 mg Propofol INF 387.45 mg fentaNYL 100 mcg Midazolam 2 mg Dexamethasone 8 mg Ondansetron 8 mg ceFAZolin (ANCEF) 2g in dextrose 5% 100 mL 2 g Ketorolac 30 mg lactated Ringers infusion 1,000 mL 750 m L * Agents Name O2 Air N2O Sevoflurane (et) * Blood No blood administrations on file. Lines, Drains, and Airways Type Details Placement Removal Incision 09/02/11; neck; 11/04/21 (LDA cleanup utility RA#[id number]); 1715 (LDA cleanup utility RA#[id number]) 09/02/11 0000 by Angelica Chowdary RN 11/04/21 1715 by Juan David Puri (RETIRED) Peripheral IV Line - Single Lumen 04/30/17; 0930; median cubital vein (antecubital fossa), right; nvkg-gps-hczyld catheter system; 20 gauge, 1 in length; 0; 04/30/17; 1216 04/30/17 0930 by Dipika Espinal RN 04/30/17 1216 by Lilia Moscoso RN Supraglottic Mask Ventilation: No t Attempted (0); LMA Type: iGel; LMA Size: 4; Inserted by: María Elena; Removal Date: 04/30/17; Removal Time: 1113 04/30/17 0950 by Dilcia Ring, PBX INSTALLER 04/30/17 1113 by Dilcia Ring, PBX INSTALLER Incision 04/30/17; 0956; breast; 11/04/21 (LDA cleanup utility RA#[id number]); 1715 (LDA cleanup utility RA#[id number]) 04/30/17 0956 by Akosua Mathews RN 11/04/21 1715 by Juan David Puri Incision 04/30/17; 1033; axilla; 11/04/21 (LDA cleanup utility RA#[id number]); 1715 (LDA cleanup utility RA#[id number]) 04/30/17 1033 by Akosua Mathews RN 11/04/21 1715 by Juan David Puri documented in this encounter Social History Tobacco Use Types Packs/Day Years Used Date Smoking Tobacco: Former Cigarettes Q uit: 03/09/1998 Sex and Gender Information Value Date Recorded Sex Assigned at Not on file Gender Identity Not on file Sexual Orientation Not on file documented as of this encounter OR Notes * Anesthesia Postprocedure Evaluation - Benigno Denton MD - 04/30/2017 12:13 PM EST [facility] Department of Anesthesiology Post-procedure Note Patient: Zoë Cervantes Procedure Summary Date Anesthesia Start Anesthesia Stop Room / Location 04/30/17 0936 [facility] OR / [facility] Procedure Diagnosis Surgeon Responsible Provider MASTECTOMY PARTIAL (WRVU 10.13) (Left Breast); MODIFIER WITH NEEDLE LOC., LESION #1 (Left ); EXCISION LESION, BREAST W/ PREOP.MARKER (NEEDLE LOC.) (WRVU 6.69) (Left Breast); BIOPSY OR EXCISION OF LYMPH NODE(S), OPEN, DEEP AXILLARY NODE(S) (WRVU 6.43) (Left Axilla); INTRAOPERATIVE ID (MAPPING) SENTINEL LYMPH NODE,INCLUDES INJECTION (WRVU 2.5) (Left ); MODIFIER SENTINEL NODE EXCISION (Left ) (LEFT BREAST CANCER) Avery Thacker MD Gandevia, Vijay V, MD All Anesthesia Providers: Anesthesiologist: Benigno Denton MD PBX INSTALLER: Dilcia Ring CRNA Most Recent Vitals: 04/30/17 1145 BP: 148/82 Pulse: 61 Resp: 20 Temp: SpO2: 96% Pain 0 (04/30/17 1145) Patient Location: PACU/[facility] Level of Consciousness: Awake and Alert Pain Management: Satisfactory Analgesia PONV: None Cardiovascular Status: Hemodynamically Stable Respiratory Status: Stable Respiratory Status and Room Air Postoperative Fluid Status: Intravascular EUvolemia Possible Anesthetic Complications: Final Primary Anesthesia Type: General (The anesthetic type performed was the same as planned.) Comments: * Anesthesia Preprocedure Evaluation - Benigno Denton MD - 04/29/2017 4:25 PM EST Images from the original note were not included. Pre-Anesthesia Evaluation for: Zoë Cervantes a 56 y.o. female. Procedure(s): MASTECTOMY PARTIAL (WRVU 10.13) MODIFIER WITH NEEDLE LOC., LESION #1 EXCISION LESION, BREAST W/ PREOP.MARKER (NEEDLE LOC.) (WRVU 6.69) BIOPSY OR EXCISION OF LYMPH NODE(S), OPEN, DEEP AXILLARY NODE(S) (WRVU 6.43) INTRAOPERATIVE ID (MAPPING) SENTINEL LYMPH NODE,INCLUDES INJECTION (WRVU 2.5) MODIFIER SENTINEL NODE EXCISION Patient Active Problem List Diagnosis ??? Malignant neoplasm of left breast in female, estrogen receptor negative ??? S/P thyroidectomy ??? Thyroid nodule ??? HTN (hypertension) ??? Obesity ??? Goiter Past Medical History: Diagnosis Date ??? Goiter 08/06/2011 ??? HTN (hypertension) 08/06/2011 ??? Obesity 08/06/2011 Past Surgical History: Procedure Laterality Date ??? PRG SOMATOSENSORY TEST, ANY/ALL PER. NERVES, TRUNK OR HEAD 09/02/2011 FACIAL NERVE MONITORING, SETUP performed by VALENTINE OVIEDO at [facility] MAIN OR ??? PRO THYROIDECTOMY 09/02/2011 THYROIDECTOMY, TOTAL OR COMPLETE performed by VALENTINE OVIEDO at [facility] MAIN OR Social History Substance Use Topics ??? Smoking status: Former Smoker Quit date: 03/09/1998 ??? Smokeless tobacco: Not on file ??? Alcohol use Not on file History Drug Use Not on file Allergies Allergen Reactions ??? Iron Pt unsure of reaction Medications: MAR and/or home medications have been reviewed. Physical Exam: There were no vitals filed for this visit. There is no height or weight on file to calculate BMI. Airway Assessment: Mallampati: II TM distance: <3 FB Neck ROM: full Cardiovascular Assessment: Pulmonary Assessment: Dental Assessment: (+) upper dentures Misc Assessment: Anesthesia Plan: ASA 2 general, with a(n) intravenous induction Medical record reviewed. 56 year old female to undergo partial mastectomy with needle loc. History notable for obesity, HTN, hypothyroidism s/p thyroidectomy Plan: GA/LMA Region - Other Informed Consent: Anesthetic plan and risks discussed with patient. Plan discussed with PBX INSTALLER and attending. PAT Staff Note documented in this encounter Plan of Treatment Not on file documented as of this encounter Visit Diagnoses Not on filedocumented in this encounter Administered Medications Inactive Administered Medications - up to 3 most recent administrations Medication Order MAR Action Action Date Dose Rate Site ceFAZolin (ANCEF) 2g in dextrose 5% 100 mL 2 g, Intravenous, EVERY 3 HOURS, 1 dose, First dose on Nati 04/30/17 at 0930, Administer over 30 Minutes, Intra-Operative (Intra-Procedure), Indication for (Active or Suspected): Prophylaxis Given 04/30/2017 9:37 AM EST 2 g dexamethasone (DECADRON) injection Intravenous, PRN, Starting on Nati 04/30/17 at 0956, Until Nati 04/30/17 at 1122, Anesthesia Intra-op, Routine Given 04/30/2017 9:56 AM EST 8 mg fentaNYL 50 mcg/mL multi-dose injection Intravenous, PRN, Starting on Nati 04/30/17 at 0945, Until Nati 04/30/17 at 1122, Pain, Anesthesia Intra-op, Routine Given 04/30/2017 9:56 AM EST 75 mcg Given 04/30/2017 9:45 AM EST 25 mcg ketorolac (TORADOL) injection PRN, Starting on Nati 04/30/17 at 1055, Until Nati 04/30/17 at 1122, Pain, Anesthesia Intra-op, Routine Given 04/30/2017 10:55 AM EST 30 mg lactated Ringers infusion 1,000 mL 1,000 mL, at 100 mL/hr, Intravenous, CONTINUOUS, Starting on Nati 04/30/17 at 0930, Until Nati 04/30/17 at 1216, Day of Surgery (Day of Procedure) New Bag 04/30/2017 9:30 AM EST midazolam (PF) (VERSED) 1 mg/mL multi-dose injection Intravenous, PRN, Starting on Nati 04/30/17 at 0940, Until Nati 04/30/17 at 1122, Sleep, Anesthesia Intra-op, Routine Given 04/30/2017 9:40 AM EST 2 mg ondansetron (ZOFRAN) injection Intravenous, PRN, Starting on Nati 18 at 1055, Until Nati 04/30/17 at 1122, Nausea, Anesthesia Intra-op, Routine Given 04/30/2017 10:55 AM EST 8 mg propofol (DIPRIVAN) 10 mg/mL bolus injection (Anesthesia) Intravenous, PRN, Starting on Nati 04/30/17 at 0945, Until Nati 04/30/17 at 1122, Anesthesia Intra-op Given 04/30/2017 9:45 AM EST 350 mg propofol (DIPRIVAN) infusion Intravenous, CONTINUOUS PRN, Starting on Nati 04/30/17 at 0949, Until Nati 04/30/17 at 1122, Anesthesia Intra-op, Routine New Bag 04/30/2017 9:49 AM EST 50 mcg/kg/min 33.2 mL/hr documented in this encounter Care Teams Retail Support Specialist Relationship Specialty Start Date End Date Home Yeager MD PCP - General Family Medicine 04/21/17 documented as of this encounter
--- OUTSIDE RECORDS SUMMARY | 2024-01-08 01:13 | XMS_ITS | Encounter Summary ---
Author Organization [facility] [place] [address] Care Team Providers Care Unishear Operator Name Role Phone Home Yeager MD Primary Care Provider [phone] Reason for Visit * Reason Comments Breast Cancer Encounter Details Date Type Department Care Team (Late st Contact Info) Description 07/20/2017 11:00 AM EDT Office Visit Hematology/Oncology at [address] [phone] Junior Olivera MD [address] [place] [phone] Malignant neoplasm of upper-outer quadrant of left [...] Sign Reading Time Taken Comments Blood Pressure 131/67 07/20/2017 10:28 AM EDT Pulse 113 07/20/2017 10:28 AM EDT Temperature 36.8 ??C (98.2 ??F) 07/20/2017 10:28 AM E DT Respiratory Rate 20 07/20/2017 10:28 AM EDT Oxygen Saturation 100% 07/20/2017 10:28 AM EDT Inhaled Oxygen Concentration - - Weight 99.8 kg (220 lb) 07/20/2017 10:28 AM EDT Height 167 cm (5' 5.75) 07/20/2017 10:28 AM EDT copied Body Mass Index 35.78 07/20/2017 10:28 AM EDT documented in this encounter Progress Notes * Junior Olivera MD - 07/20/2017 11:00 AM EDT Diagnosis: 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 The tumor was 0.7 mm but triple negative. Subjective: Zoë comes in today for her fourthcycle of dose dense Adriamycin and Cytoxan being given adjuvantly in the treatment of her triple negative breast cancer. This past cycle her main problem has been fatigue. She is very tired overall. She continues to have some heartburn but takes sodium bicarbonate in some water. That seems to help. She does not want to change that to a simple antacid or proton pump inhibitor. She had a little bit of a sore throat and stomatitis but that is getting better overthe past couple days. She is not having any bladder symptoms no other difficulties. Past medical history and social history reviewed [...] MONITORING, SETUP performed by VALENTINE OVIEDO at [facility] MAIN OR ??? PRO BX/REMV, LYMPH NODE, DEEP AXILL Left 04/30/2017 BIOPSY OR EXCISION OF LYMPH NODE(S), OPEN, DEEP AXILLARY NODE(S) (WRVU 6.43) performed by Avery Thacker MD at [facility] OSC ??? PRO EXCISE BREAST LES W XRAY MARKER Left 04/30/2017 EXCISION LESION, BREAST W/ PREOP.MARKER (NEEDLE LOC.) (WRVU 6.69) performed by Avery [facility]acker MDat [facility] ??? PRO INTRAOP SENTINEL LYMPH ID W/DYE INJECTION Left 04/30/2017 INTRAOPERATIVE ID (MAPPING) SENTINEL LYMPH NODE,INCLUDES INJECTION (WRVU 2.5) performed by Avery Thacker MD at [facility] OSC ??? PRO MASTECTOMY, PARTIAL Left 04/30/2017 MASTECTOMY PARTIAL (WRVU 10.13) performed by Avery Thacker MD at [facility] OSC ??? 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 ?? COMPARISON STUDIES: Compared and/or correlated [...] contrast enhancement curve analysis was performed, using Intergloss software. ?? COMPARISON STUDIES: Compared and/or correlated [...] and ??<= 200 cells): ?0 ?Number of Sparkill Nodes Examined: ?1 Pathologic Stage Classification (pTNM, AJCC 8th Edition) ?Primary Tumor (Invasive Carcinoma) (pT): ?pT1b ?Regional Lymph Nodes (pN) ER, GA, and HER2 (performed on prior biopsy, [id number]): ER: Negative GA: Negative HER2 FISH: Negative Procedure: Transthoracic Echocardiogram Patient: RICO Bains Cj (Age): 1960(56y) Med Rec#: [id number] Sex: F Site Loc: [facility] Ht / Wt: 167(cm)/107(kg) Pt. Loc: Echo Lab BSA: 2.14 Study Date: 06/01/2017 Pt. Type: Outpatient Tape: ?? Referring: Junior Olivera Reading: Oscar Cool ([id number]) Floor And Wall Applier Liquid: Orlando Samayoa ?? Diagnosis: *ICD-10-PCS Malignant neoplasm [...] her laboratory today shows a sodium of 140 potassium 3.2 random glucose of 122 creatinine0.71 liver tests are normal with an ALP of 72 and normal transaminases CBC shows a white count of 6.42 and absolute neutrophil count of 4.24 hemoglobin of 11.7 hematocrit 34% and platelet count of 262 Assessment/plan: Zoë is fine today for her final cycle of dose dense Adriamycin and Cytoxan. She is having a bit more fatigued than we sometimes see but otherwise is doing well and certainly her lab is doing better than many patients. She does have some chemotherapy associated anemia which should improve on the Taxol part of the chemotherapy. We went over her next chemotherapy in 2 weeks which will be Taxol weekly for 12 consecutive weeks. We did chemotherapy teaching and risks and side effects were gone over in detail. Chemotherapy orders will be written as well. Follow-up is arranged in 2 weeks with a poor draw CBC and CMP and she will call if there is issues or problems in the interim. I did recommendsome salt water gargles for stomatitis if she gets another bout of that with this last AC chemotherapy. documented in this encounter Plan of Treatment Not on file documented as of this encounter Procedures Procedure Name Priority Date/Time Associated Diagnosis Comments LAB SCAN 07/20/2017 12:00 AM EDT documented in this encounter Results * SCAN DOC: LAB (07/20/2017 12:00 AM EDT) Narrative 07/20/2017 12:00 AM EDT Ordered by an unspecified provider. Scanning Provider MEDIA MGR SCAN EXT O RDR/RSLT documented in this encounter Visit Diagnoses Diagnosis Malignant neoplasm of upper-outer quadrant of left breast in female, estrogen receptor negative documented in this encounter Care Teams Unishear Operator Relationship Specialty Start Date End Date Home Yeager MD PCP - General Family Medicine 04/21/17 documented as of this encounter
--- OUTSIDE RECORDS SUMMARY | 2024-01-08 01:13 | XMS_ITS | Encounter Summary ---
Author Organization [facility] Address [facility] [place] [address] Care Team Providers Care Residential Finish Carpenter Name Role Phone Home Yeager MD Primary Care Provider [phone] Encounter Details Date Type Department Care Team (Late st Contact Info) Description 05/19/2017 Notes Only Radiation Oncology at [address] [phone] Cathy Kendall MSW OFFICE OF CARE MANAGEMENT [...] Progress Notes * Cathy Kendall MSW - 05/19/2017 9:39 AM EDT Reason for Referral: Brief assessment of social and emotional needs. Met with pt after her sim today. Reviewed notes from TORI Clark. Social Supports: Pt's primary support is her partner Jamie of 4 years. Pt has a son who lives localwho is also a support. She has a son and a daughter who live in [place]. Pt's partner has children also and they both have grandchildren. Pt indicated she keeps to herself and did not identify any friends. Living Situation/Daily Activities/Transportation: Pt indicated she manages her daily chores and activities. She lives local and [facility] Work/Finances/Insurance: Need to clarify if pt is working. She has Medicaid for insurance. She did not indicate any issues with insurance or finances. Advance Directives: Pt has not completed her advance directives. Gave her a [place] booklet/form toreview and complete. Discussed and offered to assist if needed. Requested a copy if pt's completes her document. Utilization of Community Resources: Need to clarify. Adjustment to Illness/Mental Health Issues: Pt indicated she is coping the best she can. She will be seeing a medical oncologist later this week to clarify if she needs chemotherapy first before her Rt starts. She has good support from her partner and children. She feels her family is coping as best they can also. She did identify a 19 year old grandson who she is very close to as having some diff iculty. She has a cat that is a source of comfort and entertainment. She also enjoys crocheting andknitting. Identified Needs: Pt did not identify any specific needs at this time. Referrals: None at this time. Plan: Informed pt of my availability. Will follow for support and resources. TORI Stevenson, RETAIL STORE MANAGER, OSW-C documented in this encounter Plan of Treatment Not on file documented as of this encounter Visit Diagnoses Not on filedocumented in this encounter Care Teams Residential Finish Carpenter Relationship Specialty Start Date End Date Home Yeager MD PCP - General Family Medicine 04/21/17 documented as of this encounter
--- OUTSIDE RECORDS SUMMARY | 2024-01-08 01:13 | XMS_ITS | Encounter Summary ---
Author Organization [facility] [place] [address] Care Team Providers Care Digital Assistant Name Role Phone Home Yeager MD Primary Care Provider [phone] Reason for Visit * Reason Comments Breast Cancer Encounter Details Date Type Department Care Team (Late st Contact Info) Description 06/22/2017 10:30 AM EDT Office Visit Hematology/Oncology at [address] [phone] Juinor Olivera MD [address] [place] [phone] Malignant neoplasm of upper-outer quadrant of left [...] Sign Reading Time Taken Comments Blood Pressure 151/88 06/22/2017 10:13 AM EDT Pulse 60 06/22/2017 10:13 AM EDT Temperature 36.5 ??C (97.7 ??F) 06/22/2017 10:13 AM E DT Respiratory Rate 22 06/22/2017 10:13 AM EDT Oxygen Saturation 99% 06/22/2017 10:13 AM EDT Inhaled Oxygen Concentration - - Weight 106.6 kg (235 lb) 06/22/2017 10:13 AM EDT Height 167 cm (5' 5.75) 06/22/2017 10:13 AM EDT copied Body Mass Index 38.22 06/22/2017 10:13 AM EDT documented in this encounter Progress Notes * Junior Olivera MD - 06/22/2017 10:30 AM EDT Diagnosis: 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 The tumor was 0.7 mm but triple negative. Subjective: Zoë comes in today for her second cycle of dose dense Adriamycin and Cytoxan being given adjuvantly in the treatment of her triple negative breast cancer. She had problems with the first cycle of treatment. She had a fairly severe headache for a couple days which she describes as migraine-like. Following that she had a bit of nausea in which she took Compazine she had a definite dyskinetic reaction with restless legs and problems sleeping. We gave her some Zofran to have on hand when we saw her last week and she has been taking some Benadryl some baking soda and some Tylenol and been sleeping through the night and is in a much better frame of mind today. She has had some scalp tenderness and is starting to lose hair already. This was particularly bothersome to her but she has been fitted for awake and tells me she is doing okay on that. Review of systems is otherwise negative. Past medical history and social history reviewed [...] MONITORING, SETUP performed by VALENTINE OVIEDO at [facility] MAIN OR ??? PRO BX/REMV, LYMPH NODE, DEEP AXILL Left 04/30/2017 BIOPSY OR EXCISION OF LYMPH NODE(S), OPEN, DEEP AXILLARY NODE(S) (WRVU 6.43) performed by Avery Thacker MD at [facility] OSC ??? PRO EXCISE BREAST LES W XRAY MARKER Left 04/30/2017 EXCISION LESION, BREAST W/ PREOP.MARKER (NEEDLE LOC.) (WRVU 6.69) performed by Avery Thacker MDat [facility] ??? PRO INTRAOP SENTINEL LYMPH ID W/DYE INJECTION Left 04/30/2017 INTRAOPERATIVE ID (MAPPING) SENTINEL LYMPH NODE,INCLUDES INJECTION (WRVU 2.5) performed by Avery Thacker MD at [facility] OSC ??? PRO MASTECTOMY, PARTIAL Left 04/30/2017 MASTECTOMY PARTIAL (WRVU 10.13) performed by Avery Thacker MD at [facility] OSC ??? PRO THYROIDECTOMY 09/02/2011 THYROIDECTOMY, TOTAL OR COMPLETE performed by VALENTINE OVIEDO at [facility] MAIN OR Uterine Ablation Ovaries [...] Not on file Social History Narrative Former [employer] Review of Systems Constitutional: Negative for fever, [...] contrast enhancement curve analysis was performed, using Cubeyou software. ?? COMPARISON STUDIES: Compared and/or correlated [...] contrast enhancement curve analysis was performed, using Cubeyou software. ?? COMPARISON STUDIES: Compared and/or correlated [...] and ??<= 200 cells): ?0 ?Number of [place] Nodes Examined: ?1 Pathologic Stage Classification (pTNM, AJCC 8th Edition) ?Primary Tumor (Invasive Carcinoma) (pT): ?pT1b ?Regional Lymph Nodes (pN) ER, AL, and HER2 (performed on prior biopsy, [id number]): ER: Negative AL: Negative HER2 FISH: Negative Procedure: Transthoracic Echocardiogram Patient: RICO Corona (Age): 1960(56y) Med Rec#: [id number] Sex: F Site Loc: [facility] Ht / Wt: 167(cm)/107(kg) Pt. Loc: Echo Lab BSA: 2.14 Study Date: 06/01/2017 Pt. Type: Outpatient Tape: ?? Referring: Junior Olivera Reading: Oscar Cool ([id number]) Medical Billing Coordinator: Orlando Samayoa ?? Diagnosis: *ICD-10-PCS Malignant neoplasm [...] mg pegfilgrastim (NEULASTA) SubQ 6 mg Laboratory is reviewed today. CBC shows a white count of 6.18 hemoglobin 12.7 hematocrit 38.3 and platelet count of 185 absolute neutrophil count is 3.83 CMP shows normal electrolytes except for slight decrease in potassium at 3.4 creatinine 0.85 bilirubin 0.15 ALP is 74 Assessment/plan: Zoë is fine today for cycle 2 of her dose dense Adriamycin and Cytoxan with Neulasta. With the Benadryl I think the discomfort she had from the Neulasta should be a bit better. I am also hopeful that by avoiding the Compazine is whole next cycle will go better for her. Occasionally patients do have continued headaches with Aloxi and Emend consideration to using a different antiemetic would be given during the weekly Taxol part of her chemotherapy. I would not recommend even if she does get aheadache changing the Aloxi and Emend with this particular regiment as nausea control can be quite difficult. As noted she is going to have hair loss over the next week that should be near complete. P sychologically she is handling that better now and that is good to see. We will continue to watch her potassium. Her hemoglobin is starting downwards and will keep an eye on that but most patients get by without needing a transfusion. She will call if there is issues or problems in the interim and certainly would come in immediately for evaluation either here or at the emergency room should she de velop any significant fever on treatment. Follow-up is arranged for 2 weeks for cycle 3 of 4 planned cycles. She will call if there is issues or problems in the interim documented in this encounter Plan of Treatment Not on file documented as of this encounter Visit Diagnoses Diagnosis Malignant neoplasm of upper-outer quadrant of left breast in female, estrogen receptor negative documented in this encounter Care Teams Digital Assistant Relationship Specialty Start Date End Date Home Yeager MD PCP - General Family Medicine 04/21/17 documented as of this encounter
--- OUTSIDE RECORDS SUMMARY | 2024-01-08 01:13 | XMS_ITS | Encounter Summary ---
Author Organization [facility] [place] [address] Care Team Providers Care Seater Grinder Name Role Phone Home Yeager MD Primary Care Provider [phone] Encounter Details Date Type Department Care Team (Late st Contact Info) Description 06/16/2017 Orders Only Hematology/Oncology at [address] [phone] Junior Olivera MD [address] [place] [phone] Malignant neoplasm of upper-outer quadrant of left [...] negative documented in this encounter Care Teams Seater Grinder Relationship Specialty Start Date End Date Home Yeager MD PCP - General Family Medicine 04/21/17 documented as of this encounter
--- OUTSIDE RECORDS SUMMARY | 2024-01-08 01:13 | XMS_ITS | Encounter Summary ---
Author Organization [facility] Address [facility] [place] [address] Care Team Providers Care Staff Development Coordinator Name Role Phone Home Yeager MD Primary Care Provider [phone] Reason for Visit * Reason Comments Chemotherapy Cycle 3, Day 1 - Dox orubicin and Cyclophosphamide * Treatment/Therapy Plan Authorization (Routine) - Closed Specialty Diagnoses / Procedures Referred By Contac t Referred To Contact Diagnoses Malignant neoplasm of upper-outer quadrant of left breast in female, estrogen receptor negative Procedures TC PALONOSETRON HCL, 25MCG, INJECTION (ALOXI) TC FOSAPREPITANT, 1MG, INJECTION (EMEND) TC CYCLOPHOSPHAMIDE, 100MG (CYTOXAN) TC DOXORUBICIN HCL, 10MG, INJECTION (ADRIAMYCIN) TC PEGFILGRASTIM, 6MG, INJECTION Junior Olivera MD [address] [place] [id number] [facility] [address] [place] [phone] Referral ID Status Reason Start Date Expiration Date Visits Re quested Visits Authorized [id number] Closed 05/28/2017 05/28/2018 99 99 Encounter Details Date Type Department Care Team (Late st Contact Info) Description 07/06/2017 11:00 AM EDT Infusion Hematology Oncology at [address] [phone] Malignant neoplasm of upper-outer quadrant [...] Progress Notes * Edie Moy RN - 07/06/2017 11:00 AM EDT INFUSION THERAPY ADMINISTRATION NOTES DIAGNOSIS: Breast cancer CYCLE #: Cycle 3, Day 1 -- Doxorubicin and Cyclophosphamide REASON FOR VISIT: To receive chemotherapy. SUBJECTIVE: Zoë offers no complaints. OBJECTIVE: Seen by provider. Ready to treat. LAB DATA: WBC - 8.44, H/H - 12.4/35.7, Plt Ct - 230, ANC - 5.74, Lytes - wnl, BUN/CR - 8/0.76 IV ACCESS: Port accessed off site, flushes readily with brisk blood supply. Pre administration: Chemotherapy orders independently verified for drug name, route, and dosage per patient's height, weight and BSA by Ag Moy Rn and Greg Cifuentes [facility]. REACTIONS (DESCRIPTION, TIME, INTERVENTION AND EFFECTIVENESS) none ASSESSMENT: Zoë was awake, alert and tolerated treatment well. Neulasta administered as ordered. Port flushed with 20 cc of NS [...] Recorded weight), Intravenous, ONCE, 1 dose, On Thu07/06/17 at 1215, Administer over 30 Minutes, Warning Vesicant/Irritant Medication New Bag 07/06/2017 12:30 PM EDT 1,338 mg 634 mL/hr dexamethasone (DECADRON) injection 10 mg 10 mg, Intravenous, ONCE, 1 dose, On Thu07/06/17 at 1115, Administer prior to chemotherapy Given 07/06/2017 11:27 AM EDT 10 mg DOXOrubicin (ADRIAMYCIN) chemo injection 133.8 mg 133.8 mg (60 mg/m2/dose ? 2.23 m2 Treatment Plan BSA from Recorded weight), Intravenous, ONCE, 1 dose, On Thu07/06/17 at 1215, Administer each syringe over a minimum of 3 minutes per syringe., Total Dose 133.8 mg = 66.9 mL divided into 2 syringes, Each syringe contains 66.9 mg = 33.45 mL Given 07/06/2017 12:21 PM EDT 133.8 mg fosaprepitant (EMEND) 150 mg in sodium chloride 0.9% 255 mL infusion 150 mg, Intravenous, ONCE, 1 dose, On Thu07/06/17 at 1115, Administer over 30 Minutes, Administer prior to chemotherapy. New Bag 07/06/2017 11:36 AM EDT 150 mg 510 mL/hr heparin, porcine 100 unit/mL flush 500 Units 500 Units, Intravenous, ONCE PRN, Starting on Thu07/06/17 at 1056, Until Thu07/06/17 at 1725, Line Care, Refer to Intravenous (IV) Procedure: Accessing Implanted Vascular Access Devices (294) procedure and/or Intravenous (IV) Job Aid: Adult Flushing & Catheter Care (8121) job aid for additional information regarding guidelines and administration., Routine Given 07/06/2017 1:00 PM EDT 500 Units palonosetron (ALOXI) injection 0.25 mg 0.25 mg, Intravenous, ONCE, 1 dose, On Thu07/06/17 at 1115, Administer over 30 seconds. Administer prior to chemotherapy, Routine Given 07/06/2017 11:26 AM EDT 0.25 mg pegfilgrastim (NEULASTA) injection 6 mg 6 mg, Subcutaneous, ONCE, 1 dose, On Thu07/06/17 at 1115, Routine Given 07/06/2017 1:10 PM EDT 6 mg Right Arm sodium chloride 0.9 % flush 5-20 mL 5-20 mL, Intravenous, EVERY 1 MIN PRN, Starting on Thu07/06/17 at 1056, Until Thu07/06/17 at 1725, Line Care, Flush pertains to all indwelling lines. Flush per protocol found in the job aid using the link provided on this medication record. Refer to Intravenous (IV) Job Aid: Adult Flushing & Catheter Care (8218) job aid for additional information regarding guidelines and administration., Routine Given 07/06/2017 1:10 PM EDT 20 mLs documented in this encounter Care Teams Staff Development Coordinator Relationship Specialty Start Date End Date Home Yeager MD PCP - General Family Medicine 04/21/17 documented as of this encounter
--- OUTSIDE RECORDS SUMMARY | 2024-01-08 01:13 | XMS_ITS | Encounter Summary ---
Author Organization [facility] [place] [address] Care Team Providers Care Child Care Associate Teacher Name Role Phone Home Yeager MD Primary Care Provider [phone] Reason for Visit * Reason Comments Chemotherapy Cycle 1, Day 8 -- Pa clitaxel * Treatment/Therapy Plan Authorization (Routine) - Closed Specialty Diagnoses / Procedures Referred By Contac t Referred To Contact Hematology and Oncology Diagnoses Malignant neoplasm of upper-outer quadrant of left breast in female, estrogen receptor negative Procedures TC PALONOSETRON HCL, 25MCG, INJECTION (ALOXI) TC PACLITAXEL, 1MG, INJ Junior Olivera MD [address] [place] [id number] [facility] Hem Onc Office [address] [place] [phone] Referral ID Status Reason Start Date Expiration Date Visits Re quested Visits Authorized [id number] Closed 07/21/2017 07/21/2018 50 50 Encounter Details Date Type Department Care Team (Late st Contact Info) Description 08/11/2017 11:30 AM EDT Infusion Hematology Oncology at [address] [phone] Malignant neoplasm of upper-outer quadrant [...] Sign Reading Time Taken Comments Blood Pressure 125/63 08/11/2017 11:04 AM EDT Pulse 93 08/11/2017 11:04 AM EDT Temperature 36.7 ??C (98.1 ??F) 08/11/2017 11:04 AM E DT Respiratory Rate 18 08/11/2017 11:04 AM EDT Oxygen Saturation 100% 08/11/2017 11:04 AM EDT Inhaled Oxygen Concentration - - Weight 98 kg (216 lb) 08/11/2017 11:04 AM EDT Height 167 cm (5' 5.75) 08/11/2017 11:04 AM EDT Body Mass Index 35.13 08/11/2017 11:04 AM EDT documented in this encounter Progress Notes * Edie Moy RN - 08/11/2017 11:30 AM EDT INFUSION THERAPY ADMINISTRATION NOTES DIAGNOSIS: Breast cancer CYCLE #: Cycle 1, Day 8 -- Paclitaxel REASON FOR VISIT: To receive chemotherapy SUBJECTIVE: Zoë offers no complaints. OBJECTIVE: VSS. Weight stable. SAO2 100%. Continues to exhibit LEONARD, although is feeling a little less so and has had a better week overall. Minimal tingles fingertips but not sustained. Skin and nails wnl LAB DATA:WBC - 6.56, H/H - 9.7/29.6, Plt Ct - 412, ANC - 4.40, Lytes wnl, BUN/CR - 12/0.71 IV ACCESS: Port accessed off site, flushes readily with brisk blood return. Pre administration: Chemotherapy orders independently verified for drug name, route, and dosage per patient's height, weight and BSA by Ag Moy RN and Destiny Caal [facility]. REACTIONS (DESCRIPTION, TIME, INTERVENTION AND EFFECTIVENESS) none ASSESSMENT: Zoë was awake, alert and tolerated treatment well. Port flushed with 20 cc of NS and 500 units of heparin and de-accessed. PLAN Return to clinic next week for #3 Paclitaxel. documented in this encounter Plan of Treatment [...] 10 mg, Intravenous, ONCE, 1 dose, On Thu08/11/17 at 1130, Administer 30 minutes prior to PACLitaxel Given 08/11/2017 11:27 AM EDT 10 mg diphenhydrAMINE (BENADRYL) injection 25 mg 25 mg, Intravenous, ONCE, 1 dose, On Thu08/11/17 at 1130, Administer 30 minutes prior to PACLitaxel, Routine Given 08/11/2017 11:39 AM EDT 25 mg famotidine (PEPCID) injection 20 mg 20 mg, Intravenous, ONCE, 1 dose, On Thu08/11/17 at 1130, Administer 30 minutes prior to PACLitaxel Given 08/11/2017 11:38 AM EDT 20 mg heparin, porcine 100 unit/mL flush 500 Units 500 Units, Intravenous, ONCE PRN, Starting on Thu08/11/17 at 1109, Until Thu08/11/17 at 1532, Line Care, Refer to Intravenous (IV) Procedure: Accessing Implanted Vascular Access Devices (124) procedure and/or Intravenous (IV) Job Aid: Adult Flushing & Catheter Care (5269) job aid for additional information regarding guidelines and administration., Routine Given 08/11/2017 1:25 PM EDT 500 Units PACLitaxel (TAXOL) 172 mg in dextrose 5% Non-PVC 278.6667 mL chemo infusion 172 mg (80 mg/m2/dose ? 2.15 m2 Treatment Plan BSA from Recorded weight), Intravenous, ONCE, 1 dose, On Thu08/11/17 at 1230, Administer over 60 Minutes, Warning Vesicant/Irritant Medication New Bag 08/11/2017 12:16 PM EDT 172 mg 279 mL/hr palonosetron (ALOXI) injection 0.25 mg 0.25 mg, Intravenous, ONCE, 1 dose, On Thu08/11/17 at 1130, Routine Given 08/11/2017 11:36 AM EDT 0.25 mg sodium chloride 0.9 % flush 5-20 mL 5-20 mL, Intravenous, EVERY 1 MIN PRN, Starting on Thu08/11/17 at 1109, Until Thu08/11/17 at 1532, Line Care, Flush pertains to all indwelling lines. Flush per protocol found in the job aid using the link provided on this medication record. Refer to Intravenous (IV) Job Aid: Adult Flushing & Catheter Care (2401) job aid for additional information regarding guidelines and administration., Routine Given 08/11/2017 1:25 PM EDT 20 mLs documented in this encounter Care Teams Child Care Associate Teacher Relationship Specialty Start Date End Date Home Yeager MD PCP - General Family Medicine 04/21/17 documented as of this encounter
--- OUTSIDE RECORDS SUMMARY | 2024-01-08 01:13 | XMS_ITS | Encounter Summary ---
Author Organization [facility] [place] [address] Care Team Providers Care Computer Aided Design Operator Name Role Phone Home Yeager MD Primary Care Provider [phone] Encounter Details Date Type Department Care Team (Latest Contact Info) Description 04/30/2017 9:02 AM EST - 04/30/2017 12:12 PM EST Hospital Encounter [facility] [place] [phone] Avery Corbett MD [facility] [place] [address] [place] [address] Discharge Disposition: Home Social History Tobacco Use Types Packs/Day Years Used Date Smoking Tobacco: Former Cigarettes Q uit: 03/09/1998 Sex and Gender Information Value Date Recorded Sex Assigned at Not on file Gender Identity Not on file Sexual Orientation Not on file documented as of this encounter Last Filed Vital Signs Vital Sign Reading Time Taken Comments Blood Pressure 148/82 04/30/2017 11:45 AM EST Pulse 61 04/30/2017 11:45 AM EST Temperature 36.1 ??C (97 ??F) 04/30/2017 11:18 AM EST Respiratory Rate 20 04/30/2017 11:45 AM EST Oxygen Saturation 96% 04/30/2017 11:45 AM EST Inhaled Oxygen Concentration - - Weight 110.7 kg (244 lb) 04/30/2017 9:17 AM EST Height 176.5 cm (5' 9.5) 04/30/2017 9:17 AM EST Body Mass Index 35.52 04/30/2017 9:17 AM EST documented in this encounter Discharge Instructions * Discharge Instructions* Friend, Lilia Mari RN - 04/30/2017 11:28 AM EST General [...] closest emergency room or call the hospital cinder pit crane operator at [phone] and ask for physician solutions operator covering for your physician. Questions or problems after 5pm or on a weekend: Call the [facility] cinder pit crane operator at and ask for the physician solutions operator covering for your doctor. You received 30 [...] 101.3 F. The number for questions is [phone] before 5 PM week. Pain Medication: Please use ibuprofen (motrin, advil) [...] 8:[address] [facility] 05/18/2017 9:00 AM Kaya Stovall MD [facility] 05/21/2017 1:15 PM Avery Corbett MD [facility] 05/21/2017 1:30 PM Alex Aceves MD [facility] Please call [phone] (clinic number) if any changes need to [...] Corbett MD - 04/30/2017 11:33 AM EST [facility] Operative Note Patient Name: Zoë Cervantes : [id number] MR#: [id number] Case Date: 04/30/2017 Surgeon: Surgeon(s) and Role: [...] to follow Avery Corbett MD PATHOLOGY/CYTOLOGY O [facility] [place] [address] * Surgical Pathology Report (04/30/2017 10:20 AM EST) Final Diagnosis [id number] ? Location: [facility] The signing pathologist has [...] ?? Invasive ductal carcinoma ? Histologic Grade ([place] Histologic Score) ?Glandular (Acinar) / Tubular Differentiation: [...] 200 cells): ? 0 ? Number of [place] Nodes Examined: ?1 Pathologic Stage Classification (pTNM, AJCC 8th Edition) ? Primary Tumor (Invasive Carcinoma) (pT): ?pT1b ? Regional Lymph Nodes (pN) . DIAGNOSIS ?Modifier: ??(sn): Only sentinel node(s) evaluated. ?Category (pN): ?? pN0 Tumor Block(s): ?? A13 2016 AJCC 8th Edition CAP Annual Release ER, HI, and HER2 (performed on prior biopsy, [id number]): ER: Negative HI: Negative HER2 FISH: Negative Electronically signed by: ??Osman Feliciano MD Verified: ??05/05/2017 ?Pathologist Performed at: ??-[facility] Dept. of Pathology, [place], [place] CLINICAL INFORMATION Specimen Submitted: A - Left partial mastectomy B - Left axillary sentinel lymph node Clinical History: Left breast cancer Clinical Diagnosis: Left breast cancer SPECIMEN PROCESSING A - ??Labeled/Fixative : Left partial mastectomy, fresh. SPECIMEN DESCRIPTION Resection Specimen: Intact left partial mastectomy Qty/Size/Weight: Single, 10.0 x 9.5 x 2.5 cm, 125 grams. Radiograph: ??The specimen demonstrates Lesion 1 ( mass, [place] clip and wire) and ??Lesion 2 (biopsy [...] entire slice one, perpendicular; (2) slice three, unit support representative; (3) slice five, unit support representative; (4) slice seven, unit support representative; (5) slice nine, unit support representative; (6) slice 10, unit support representative section, lesion 2; (7) slice 11, lesion 2 with blue and green margin; (8) slides 11, lesion 2 with black margin; (9) slice 12, unit support representative section; (10) slice 13, unit support representative section; (11) slice 14, lesion 1 to black margin; (12) slice 14, lesion 1; (13) slice 14, lesion 1 to orange margin; (14) slice 15, unit support representative section; (15) slice 16, unit support representative section, perpendicular. (R15) Placed in formalin [...] MD PATHOLOGY/CYTOLOGY O BC Performing Organization Address [facility] Co de Phone Number [facility] [place] [address] * Specimen to Pathology (04/30/2017 10:20 AM EST) AP Specimen 04/30/2017 10:2 0 AM EST 04/30/2017 10:43 AM EST Narrative [facility] - 04/30/2017 10:43 AM EST Specimen requisition ordered. ??Separate Pathology report to follow Resulting Agency Comment Spec In Lab Avery Corbett MD PATHOLOGY/CYTOLOGY O BC Performing Organization Address [facility]/ZIP Co de Phone Number [facility] [place] [address] documented in this encounter Visit Diagnoses Not [...] Given 04/30/2017 9:15 AM EST 1,000 mg documented in this encounter Active and Recently Administered Medications Times are shown in EST. Scheduled Medication Order 04/28/2017 04/29/2017 04/30/2017 acetaminophen (TYLENOL) tablet 1,000 mg (COMPLETED) 1,000 mg, Oral, ONCE, 1 dose, On Nati 18 at 0930, Administer with SIP of H2O [...] breast) documented in this encounter Care Teams Computer Aided Design Operator Relationship Specialty Start Date End Date Home Yeager MD PCP - General Family Medicine 04/21/17 documented as of this encounter
--- OUTSIDE RECORDS SUMMARY | 2024-01-08 01:14 | XMS_ITS | Encounter Summary ---
Author Organization [facility] Address [facility] [place] [address] Care Team Providers Care Wildlife Refuge Specialist Name Role Phone Sandra Shaw APRN Primary Care Provider [phone] Encounter Details Date Type Department Care Team (Late st Contact Info) Description 03/23/2017 Notes [place] [address] Manish Goel MD [facility] [place] [address] Social History Tobacco Use Types Packs/Day Years Used Date Smoking Tobacco: Former Cigarettes Q uit: 03/09/1998 Sex and Gender Information Value Date Recorded Sex Assigned at Not on file Gender Identity Not on file Sexual Orientation Not on file documented as of this encounter Progress Notes * Manish Goel MD - 03/23/2017 3:03 PM EST Pre-procedure note for needle breast biopsies performed in radiology. Procedure date: Today Procedure type: left breast ultrasound guided biopsy and stereo guided core biopsy Allergies: Review of patient's allergies indicates no known allergies. Medications: Current Outpatient Prescriptions: ??? levothyroxine (SYNTHROID) 137 mcg tablet, Take 137 mcg by mouth every morning., Disp: 30 tablet, Rfl: 0 ??? OXYcodone-acetaminophen (PERCOCET) 5-325 mg per tablet, Take 1-2 tablets by mouth every 4 hoursas needed for Pain., Disp: 30 tablet, Rfl: 0 ??? Calcium Carbonate-Vitamin D3 (CALCIUM 600 WITH VITAMIN D3) 600 mg(1,500mg) - 200 unit Tab, Take by mouth. Take by mouth, Disp: 60 tablet, Rfl: 3 ??? lisinopril-hydrochlorothiazide (PRINZIDE;ZESTORETIC) 20-25 mg per tablet, Take 1 tablet by mouth daily., Disp: , Rfl: Anticoagulation status: none stopped on: N/A Imaging reviewed and procedural plan approved by Dr. MANISH GOEL MD documented in this encounter Plan of Treatment Not on file documented as of this encounter Visit Diagnoses Not on filedocumented in this encounter Care Teams Wildlife Refuge Specialist Relationship Specialty Start Date End Date Sandra Shaw APRN PCP - General 10/30/11 04/20/17 documented as of this encounter
--- OUTSIDE RECORDS SUMMARY | 2024-01-08 01:14 | XMS_ITS | Encounter Summary ---
Author Organization [facility] [place] [address] Care Team Providers Care Card Hanger Name Role Phone Sandra Shaw ZAKIA Primary Care Provider [phone] Reason for Referral * Diagnostic Test (Routine) - Closed Specialty Diagnoses / Procedures Referred By Contac t Referred To Contact Radiology Diagnoses Malignant neoplasm of left female breast, unspecified estrogen receptor status, unspecified site of breast Procedures MRI Breast wwo Contrast Bilat Avery Thacker MD [facility] [place] [address] [place] [address] Referral ID Status Reason Start Date Expiration Date V isits Requested Visits Authorized [id number] Closed Specialty Service Requested 04/03/2017 07/02/2017 1 1 Encounter Details Date Type Department Care Team (Late st Contact Info) Description 03/25/2017 Orders [place] [id number] Avery Thacker MD [facility] [place] [address] Malignant neoplasm of left female breast, unspecified [...] documented as of this encounter Results * MRI Breast wwo [...] contrast enhancement curve analysis was performed, using HALKAR software. COMPARISON STUDIES: Compared and/or correlated with [...] chest wall or skin. Avery Thacker MD [facility] [place] ORDERABLES * Comprehensive metabolic panel (non-fasting) (04/21/2017 2:40 PM EST) Glucose 89 65 - 199 mg/dL [facility] Comment:Diabetes: >=200 mg/d L plus symptoms Blood Urea Nitrogen 17 8 - 18 mg/dL [facility] Creatinine 0.85 0.70 - 1.20 mg/dL [facility] Sodium 142 135 - 145 mmol/L [facility] Potassium 4.0 3.5 - 5.0 mmol/L [facility] Comment: Please note: ??Patients with WBC >100,000 may have falsely elevated Potassium levels. ??For accurate Potassium quantification in these patients send serum separator tube (gold top) for subsequent determinations. ??Contact the Clinical Chemistry Laboratory if there are any questions. Chloride 101 98 - 107 mmol/L [facility] Carbon Dioxide 28 22 - 31 mmol/L [facility] Anion Gap 13 5 - 15 mmol/L [facility] Calcium 9.3 8.5 - 10.5 mg/dL [facility] Protein, Total 7.5 6.1 - 8.0 gm/dL [facility] Albumin 4.2 3.2 - 5.2 gm/dL [facility] Aspartate Aminotransferase 17 0 - 30 unit/L [facility] Alanine Aminotransferase 23 0 - 30 unit/L [facility] Alkaline Phosphatase 62 40 - 104 unit/L [facility] Bilirubin, Total 0.2 0.2 - 1.3 mg/dL [facility] Est Glomerular Filtration Rate >60 >=60 [facility] Comment: The reported eGFR should be multiplied by 1.2 for patients. The MDRD is not an appropriate measure of renal function for patients with body mass extremes or in patients with acute kidney failure. http://ActSocial/DHnkdep http://ActSocial/DHMCnkf Blood specimen (specimen) 04/21/2017 2:40 PM EST 04/21/2017 2:45 PM EST Narrative Resulting Agency Comment Spec In Lab Avery Thacker MD CHEMISTRY ORDERABLES [facility] [place] [address] documented in this encounter Visit Diagnoses Diagnosis Malignant neoplasm of left female breast, unspecified estrogen receptor status, unspecified site of breast Malignant neoplasm of left female breast, unspecified estrogen receptor status, unspecified site of breast documented in this encounter Care Teams Card Hanger Relationship Specialty Start Date End Date Sandra Shaw, ZAKIA PCP - General 10/30/11 04/20/17 documented as of this encounter
--- OUTSIDE RECORDS SUMMARY | 2024-01-08 01:14 | XMS_ITS | Encounter Summary ---
Author Organization [facility] Address [facility] [place] [address] Care Team Providers Care Stoker Installation Mechanic Name Role Phone Sandra Shaw ZAKIA Primary Care Provider [phone] Encounter Details Date Type Department Care Team (Latest Contact Info) Description 12/14/2012 - 12/14/2012 11:59 PM EDT Hospital Encounter Radiology Library at [facility] [place] [address] Rosio Schuster MD [facility] [place] [address] Discharge Disposition: Home Social History Tobacco Use Types Packs/Day Years Used Date Smoking Tobacco: Former Cigarettes Q uit: 03/09/1998 Sex and Gender Information Value Date Recorded Sex Assigned at Not on file Gender Identity Not on file Sexual Orientation Not on file documented as of this encounter Medications at Time of Discharge Medication Sig Dispensed Refills Start Date End Date levothyroxine (SYNTHROID) 137 mcg tablet Take 137 mcg by mouth every morning. 30 tablet 0 10/01/2011 OXYcodone-acetaminophen (PERCOCET) 5-325 mg per tablet Take 1-2 tablets by mouth every 4 hours as needed for Pain. 30 tablet 0 09/03/2011 04/13/2017 Calcium Carbonate-Vitamin D3 (CALCIUM 600 WITH VITAMIN D3) 600 mg(1,500mg) -200 unit Tab Take by mouth. Take by mouth 60 tablet 3 09/03/2011 04/13/2017 lisinopril-hydrochlorot hiazide (PRINZIDE;ZESTORETIC) 20-25 mg per tablet Take 1 tablet by mouth daily. 04/13/2017 documented as of this encounter Plan of Treatment Not on file documented as of this encounter Procedures Procedure Name Priority Date/Time Associated Diagnosis Comments FILM LIBRARY STORAGE ONLY MAMMO Routine 12/14/2012 12:00 AM EDT documented in this encounter Results * Film Library- Storage Only Mammo (12/14/2012 12:00 AM EDT) Narrative [facility] - 01/02/2017 3:42 PM EDT This exam is for storage only and is auto-finalizing. Rosio Schuster MD IMG FILM LIBRARY O RDERABLES Performing Organization Address City/State/[facility] Co de Phone Number [place], [place] documented in this encounter Visit Diagnoses Not on filedocumented in this encounter Care Teams Stoker Installation Mechanic Relationship Specialty Start Date End Date Sandra Shaw, ZAKIA PCP - General 10/30/11 04/20/17 documented as of this encounter
--- OUTSIDE RECORDS SUMMARY | 2024-01-08 01:14 | XMS_ITS | Encounter Summary ---
Author Organization [facility] [place] [address] Care Team Providers Care Automobile Mechanic Name Role Phone None Primary Care Provider Unavailabl e Reason for Visit * Reason Comments Goiter Encounter Details Date Type Department Care Team (Late st Contact Info) Description 08/13/2011 9:30 AM EDT Office Visit General Surgery at [facility] [place] [phone] Torres Valdivia MD [facility] [place] [address] Multiple thyroid nodules (Primary Dx) Discharge Disposition: Home Social History Tobacco Use Types Packs/Day Years Used Date Smoking Tobacco: Former Cigarettes Q uit: 03/09/1998 Sex and Gender Information Value Date Recorded Sex Assigned at Not on file Gender Identity Not on file Sexual Orientation Not on file documented as of this encounter Last Filed Vital Signs Vital Sign Reading Time Taken Comments Blood Pressure 147/80 08/13/2011 9:12 AM EDT Pulse 78 08/13/2011 9:12 AM EDT Temperature - - Respiratory Rate 16 08/13/2011 9:12 AM EDT Oxygen Saturation 97% 08/13/2011 9:12 AM EDT Inhaled Oxygen Concentration - - Weight 117.6 kg (259 lb 4.2 oz) 08/13/2011 9:12 AM EDT Height 177.8 cm (5' 10) 08/13/2011 9:12 AM EDT Body Mass Index 37.2 08/13/2011 9:12 AM EDT documented in this encounter Progress Notes * Torres Valdivia MD - 08/13/2011 10:05 AM EDT See H&P in Surgical Consult on 08/13/2011. documented in this encounter H&P Notes * Torres Valdivia MD - 08/13/2011 10:00 AM EDT Reason for Visit: Zoë Cervantes is a 51 y.o. female who is seen in consultation per None and Consuelo Lee MD because of a left thyroid nodule. History of Present Illness: She Has been aware of the nodule for a few years, and has recently been experiencing local symptomsand was seen by her pcp. TFT's Were normal, and an US revealed bilateral nodules and she was referred to Dr. Lee. US revealed: THYROID ULTRASOUND: Indication: Thyroid nodule on prior study; Considering FNA - clarify size, position and US characteristics Date: 08/07/11 Real time images of the thyroid gland were obtained using a [employer] Tech[employer]iousaxx and an HFL38/13-6 broadband linear array transducer. Right Lobe: The right lobe measures: 1.3 x 1.4 x 4.7 cm and is of normal echotexture. There is a hypoechoic nodule in the mid pole that measures: 0.4 x 0.5 x 0.6 cm. The nodule has sharp margin without calcifications.There is minimal flow on color doppler. Left Lobe: The left lobe measures: 3.1 x 3.2 x 5 cm and is almost completely comprised of a large hypoechoic nodule. This hypo-echoic nodule measures:2.9 x 2.9 x 3.6 cm. The nodule has sharp margins; There are no intranodular calcifications; There is increased chaotic flow on color doppler. Impression: Thyroid nodules as described above. Ultrasound performed by Dr Hudson and myself. Cytology revealed: pending She has no family history of thyroid disease. She has no history of head or neck irradiation. She has some dysphagia or dysphonia. This has been felt on physical exam. ROS: No H/O asthma, AK, stroke, pulmonary embolus or phlebitis. Comprehensive review of systems otherwise negative and non-contributory. PMSH: Surgical history: appy; tubal Active medical problems: HBP Tobacco: (x) Former Smoker, <5 Pack-years, discontinued at age 40. ETOH: < monthly I have reviewed the relevant laboratory tests and imaging studies. Allergies as of 08/13/2011 ??? (No Known Allergies) Current outpatient prescriptions ordered prior to encounter Medication Sig Dispense Refill ??? lisinopril-hydrochlorothiazide (PRINZIDE;ZESTORETIC) 20-25 mg per tablet Take 1 tablet by mouthdaily. PE: General: Well developed, well nourished 51 y.o. female in NAD. Skin: warm, dry, good turgor, nonicteric. Neck: She has a dominant, movable, nontender nodule in the left lobe of the thyroid measuring 5 x 4cm in greatest dimension with no adenopathy. HEENT: JUAREZ, EOM's full, sclera nonicteric, otherwise unremarkable. Back: no tenderness to AP or lateral compression. Lungs: Clear BS bilaterally without wheezes, rales or rhonchi. Card: Heart sounds normal, no murmurs, gallops, rubs or S3. Extremities: warm, no edema. Neuro: Awake, alert and oriented x 3., Chvostek negative bilaterally. Imp: Symptomatic MNG. Plan: Recommend proceeding with total thyroidectomy. She understands the implications, indications, potential complications and agrees to proceed. Will sign in through SDS. Consent is signed. Send copy to Dr. Frankel and Consuelo Lee MD. documented in this encounter Plan of Treatment Not on file documented as of this encounter Procedures Procedure Name Priority Date/Time Associated Diagnosis Comments FACIAL NERVE MONITORING, SETUP Routine 08/13/2011 9:58 AM EDT THYROIDECTOMY,TOTAL OR COMPLETE Routine 08/13/2011 9:58 AM EDT documented in this encounter Visit Diagnoses Diagnosis Multiple thyroid nodules- Primary Nontoxic multinodular goiter documented in this encounter Care Teams Automobile Mechanic Relationship Specialty Start Date End Date None None PCP - General 01/29/10 10/29/11 documented as of this encounter
--- OUTSIDE RECORDS SUMMARY | 2024-01-08 01:14 | XMS_ITS | Encounter Summary ---
Author Organization [facility] [place] [address] Care Team Providers Care Party Plan Salesperson Name Role Phone None Primary Care Provider Unavailabl e Encounter Details Date Type Department Care Team (Late st Contact Info) Description 09/09/2011 Orders Only General Surgery at [facility] [place] [phone] Torres Valdivia MD [facility] [place] [address] S/P thyroidectomy (Primary Dx) Social History Tobacco Use Types Packs/Day Years Used Date Smoking Tobacco: Former Cigarettes Q uit: 03/09/1998 Sex and Gender Information Value Date Recorded Sex Assigned at Not on file Gender Identity Not on file Sexual Orientation Not on file documented as of this encounter Plan of Treatment Not on file documented as of this encounter Results * TSH (10/20/2011 8:47 AM EDT) [facility] Thyroid Stimulating Hormone 2.37 0.27 - 4.20 mcIU/mL [facility] Blood specimen (specimen) 10/20/2011 8:47 AM EDT 10/20/2011 8:53 AM EDT Narrative Resulting Agency Comment Spec In Lab Torres Valdivia MD CHEMISTRY ORDERABL ES [facility] * (ABNORMAL) T4 (10/20/2011 8:47 AM EDT) [facility] T4 Total 11.7(H) 5.1 - 10.8 mcg/dL [facility] Comment: Reference Range: [place] Cord Blood: ??6.9-14.4 mcg/dL Females: ??7.2-14.2 mcg/dL Pediatric ranges: ??Interpret with caution-ranges have not been verified Blood specimen (specimen) 10/20/2011 8:47 AM EDT 10/20/2011 8:53 AM EDT Narrative Resulting Agency Comment Spec In Lab Torres Valdivia MD CHEMISTRY ORDERABL ES Performing Organization Address City/State/[facility] Co de Phone Number [facility] documented in this encounter Visit Diagnoses Diagnosis S/P thyroidectomy- Primary Other postprocedural status documented in this encounter Care Teams Party Plan Salesperson Relationship Specialty Start Date End Date None None PCP - General 01/29/10 10/29/11 documented as of this encounter
--- OUTSIDE RECORDS SUMMARY | 2024-01-08 01:14 | XMS_ITS | Encounter Summary ---
Author Organization [facility] [place] [address] Care Team Providers Care Fourdrinier Wire Weaver Name Role Phone None Primary Care Provider Unavailabl e Encounter Details Date Type Department Care Team (Late st Contact Info) Description 10/01/2011 Telephone General Surgery at [facility] [place] [address] Tayler Verma RN Social History Tobacco Use Types Packs/Day Years Used Date Smoking Tobacco: Former Cigarettes Q uit: 03/09/1998 Sex and Gender Information Value Date Recorded Sex Assigned at Not on file Gender Identity Not on file Sexual Orientation Not on file documented as of this encounter Miscellaneous Notes * Telephone Encounter - Tayler Verma RN - 10/01/2011 12:20 PM EDT Pt called to report that she did not have enough medication to get through until her follow up appointment. SHe also asked if we could call in a 90 day supply. I explained that she would be having her labs checked at her follow up and her dose may change. I called in a 30 day supply now and after her visit we will provide her with 90 day prescriptions. Pt agrees with the plan. documented in this encounter Plan of Treatment Not on file documented as of this encounter Visit Diagnoses Not on filedocumented in this encounter Care Teams Fourdrinier Wire Weaver Relationship Specialty Start Date End Date None None PCP - General 01/29/10 10/29/11 documented as of this encounter
--- OUTSIDE RECORDS SUMMARY | 2024-01-08 01:14 | XMS_ITS | Encounter Summary ---
Author Organization [facility] Address [facility] [place] [address] Care Team Providers Care Heading And Priming Tool Setter Name Role Phone Sandra Shaw TENT FINISHER Primary Care Provider [phone] Reason for Visit * Consultation (Routine) - Closed Specialty Diagnoses / Procedures Referred By Cuco t Referred To Contact Hematology and Oncology Diagnoses Abnormal finding on imaging Sandra Shaw APRN [address] [place] [address] [facility]c [address] [place] [address] Referral ID Status Reason Start Date Expiration Date V isits Requested Visits Authorized [id number] Closed Consult, Test & Treat PCP Updated and/or Approved 01/05/2017 01/05/2018 1 1 Encounter Details Date Type Department Care Team (Latest Contact Info) Description 03/23/2017 1:58 PM EST Hospital Encounter [place] [address] Kofi Puckett MD [facility] [place] [address] Abnormal finding on breast imaging Discharge Disposition: Home Social History Tobacco Use [...] Name Priority Date/Time Associated Diagnosis Comments MAMMO 2D DIGITAL DIAG MARLON WITH CAD LEFT Routine 03/23/2017 2:37 PM EST Abnormal finding on breast imaging documented in this encounter Results * Mammo Diag Marlon Left (03/23/2017 2:37 PM EST) Anatomical Region Laterality Modality Breast Left Mammography Impressions 03/23/2017 4:22 PM EST Recommend ultrasound-guided core biopsy of left breast lesion #1 which is a 0.8 cm mass at the 2:00 radian 12 cm from the nipple as well as marlon guided core biopsy of left breast lesion #2, a grouping of microcalcifications at the 3:00 radian of the left breast 8 cm from the nipple measuring 0.6 cm. Left breast lesion #1: BI-RADS Category 4: Suspicious Finding - Biopsy Should Be Considered Left breast lesion #2: BI-RADS Category 4: Suspicious Finding - Biopsy Should Be Considered Narrative 03/23/2017 4:22 PM EST EXAMINATION: MAMMO 2D DIGITAL DIAG MARLON WITH CAD LEFT, MAMMO BREAST US LIMITED LEFT CLINICAL HISTORY: abnormal mammo TECHNIQUE: True lateral, spot compression CC, spot compression ML O and magnification CC and magnification true lateral views were obtained of the left breast. 2-D direct digital capture, 3-D tomosynthesis and computer aided detection (CAD) were used. I performed high-resolution ultrasound of the left upper outer quadrant following the technologist. COMPARISON: This study was compared with prior images. FINDINGS: 2 abnormalities persist in the left breast. There is an indeterminate grouping of fine pleomorphic calcifications in the left lateral breast approximate 3:00 radian, 8 cm from the nipple spanning 0.6 cm. The second lesion is a spiculated mass with a peripheral coarse calcification at the 2:00 radian 12 cm from the nipple measuring 0.8 cm. Left breast ultrasound: High-resolution ultrasound confirms a highly suspicious shadowing irregular mixed hypo and hyperechoic mass not parallel, at the 2:00 radian sonographically 9 cm from the nipple. Sonographically this measures up to 1 cm in diameter. Kofi Puckett MD IMG MAMMO ORDERABLES documented in this encounter Visit Diagnoses Diagnosis Abnormal finding on breast imaging Other (abnormal) findings on radiological examination of breast documented in this encounter Care Teams Heading And Priming Tool Setter Relationship Specialty Start Date End Date Sandra Shaw, ZAKIA PCP - General 10/30/11 04/20/17 documented as of this encounter
--- OUTSIDE RECORDS SUMMARY | 2024-01-08 01:14 | XMS_ITS | Encounter Summary ---
Author Organization [facility] Address [facility] [place] [address] Care Team Providers Care Amusement Equipment Operator Name Role Phone Sandra Shaw ZAKIA Primary Care Provider +1 [phone] Encounter Details Date Type Department Care Team (Latest Contact Info) Description 03/23/2017 3:24 PM EST - 03/23/2017 11:59 PM EST Hospital En[place] [address] Manish Goel MD [facility] [place] [address] Abnormal mammogram Discharge Disposition: Home Social History Tobacco [...] Name Priority Date/Time Associated Diagnosis Comments MAMMO DIRECT DIGITAL WITH CAD LEFT Routine 03/23/2017 4:00 PM EST Abnormal mammogram SURGICAL PATHOLOGY REPORT Routine 03/23/2017 3:28 PM EST documented in this encounter Results * Mammo Direct Digital Left (03/23/2017 4:00 PM EST) Anatomical Region Laterality Modality Breast Left Mammography Impressions 03/24/2017 4:00 PM EST Concordant malignant result RECOMMENDATION: Surgical consultation. Definitive surgical management. I phoned these results and recommendations to the patient on 03/26/2016 at 1600 hours. REVIEW PATH CONFERENCE?: No Narrative 03/24/2017 4:00 PM EST LEFT BREAST ULTRASOUND GUIDED AUTOMATED CORE BIOPSY CLINICAL HISTORY: Left breast lesion #1 mass measuring 0.8 cm at the 2:00 radian 12 cm from the nipple (biopsy of left breast lesion #2 was performed and dictated separately using ross guidance) PROCEDURAL DETAILS: Informed consent was obtained and a timeout procedure was ??performed protocol. Using local anesthetic (less than 5 cc of 1% lidocaine), sterile technique, and ultrasound guidance the lesion in the left breast was localized and sampled. Multiple satisfactory core biopsy specimens were obtained using a 14-gauge automated device. A AppAddictive 14G marker clip was placed. The clip was in satisfactory position both sonographically and at follow-up cranio-caudal and true lateral digital mammography. COMPLICATIONS: None. PROCEDURAL ATTESTATION: Resident: None I performed the procedure without a resident. IMAGING DIFFERENTIAL DIAGNOSIS: Invasive ductal carcinoma, invasive lobular carcinoma PATHOLOGIC DIAGNOSIS: Left breast lesion #1: Invasive ductal carcinoma Left breast lesion #2: Atypical duct hyperplasia bordering on DCIS Manish Goel MD [facility] MAMMO ORDERABL ES * Surgical Pathology Report (03/23/2017 3:28 PM EST) Final Diagnosis [id number] ? Location: 3L The signing pathologist has (i) examined the relevant preparation(s) for the specimen(s) and (ii) rendered or confirmed the diagnosis(es). . ?Molecular Genetics RESULTS TEST: ??HER2(ERBB2)FISH, Breast METHOD: ??Fluorescence in situ hybridization (FISH) with chromosome 17 centromere (17p11.1-q11.1) probe and a locus specific probe for the HER2 gene locus (17q11.2- q12). SAMPLE ANALYZED: A1-7 RESULT: ?NEGATIVE FOR HER2/NETTA AMPLIFICATION ? TOTAL # SIGNALS/TOTAL # NUCLEI COUNTED FOR HER2 PROBE = 167 ? TOTAL # SIGNALS/TOTAL # NUCLEI COUNTED FOR CEP-17 PROBE = 131 ? HER2 TO CEP-17 RATIO = 1.3 ? (NORMAL RANGE ? <2.0) ? TOTAL # NUCLEI COUNTED = 60 HER2 IHC was also performed which shows 1+ (negative) staining. Interpretation: ??Paraffin-embedde d tissue sections were submitted for HER2(ERBB2)gene amplification analysis by FISH. ??Direct analysis was performed using the Geenappion Kit. ??Slide adequacy and signal enumeration were evaluated and satisfactory for both control and patient slides. ??A signal ratio derived from the HER2 probe and the CEP-17 centromere probe of ?2.0 is considered positive for HER2 gene amplification. The 2013 ASCO/CAP guideline recommendation for HER2 testing in breast cancer states that samples with a HER2 to CEP-17 ratio of less than 2.0 are non-amplified. Specimens with a HER2 to CEP-17 range of ?2.0 are considered amplified. This test is approved by the U.S. FDA for clinical diagnostic use. Reference: Jasmin CASH, et al. Recommendations for human epidermal growth factor receptor 2 testing in breast cancer: [place] Society of Clinical Oncology/College of [place] Pathologists clinical practice guideline update. J Clin Oncol. 2013 Nov 1. Reviewed by: Consuelo Rubi MD Hose Maker, Molecular Pathology _ Electronically signed by: ??Consuelo Rubi MD Verified: ??03/31/2017 ?Pathologist Performed at: ??[facility] Dept. of Pathology, [place], [place] ? Addendum ADDENDUM DISCUSSION Immunohistochemist ry Studies Specimen: Left breast (Lesion 1), core needle biopsy (A1) . ADDENDUM DISCUSSION ER immunoreactivity: Negative (0% cancer cells with immunostaining) OK immunoreactivity: Negative (0% cancer cells with immunostaining) HER2 FISH: separate report to follow ? *Diagnostic early for hormone receptors (ASCO/CAP GUIDELINES, 2010): ?Negative immunoreactivity: ?? <1% tumor cells with immunostaining ?Positive immunoreactivity: ?? >1% tumor cells with immunostaining Immunohistochemica l assays were performed on paraffin-embedded tissue sections fixed in 10% neutral buffered formalin for 6-72 hours using the polymer system technique with appropriate positive and negative controls. The assays were performed according to the s iron worker ' s instructions using Anti-ER (SP1) and Anti-OK (16) antibodies. Electronically signed by: ??Osman Feliciano MD Verified: ??03/25/2017 ?Pathologist Performed at: ??[facility] [facility] Dept. of Pathology, [place], [place] ?Surgical Pathology DIAGNOSIS A - ??Needle biopsies: ??Left breast (Lesion 1) Diagnosis: ?Invasive ductal carcinoma (see Discussion) ?High grade, modified SBR score 8 Microcalcification s: ??N/A B - Needle biopsies: ??Left breast (Lesion 2) Diagnosis: ?- Severely atypical ductal hyperplasia, bordering on ?low grade ductal carcinoma in-situ ?- Atypical lobular hyperplasia ?- Columnar cell change/hyperplasia , adenosis, ?apocrine metaplasia, and cysts Microcalcification s: ??Associated with atypical ductal hyperplasia Electronically signed by: ??Jodie ENRIQUE, Osman Corona Verified: ??03/24/2017 ?Pathologist Performed at: ??[facility] [place] [facility] Dept. of Pathology, [place], [place] DISCUSSION Studies for ER, OK, and HER2 have been ordered; results will be issued in an addendum. Dr. Savage has kindly reviewed select slides (A1, B1) and concurs with the diagnosis. CLINICAL INFORMATION Specimen Submitted: A - Left breast US-guided bx 14g lesion 1 B - Left breast lesion stereo biopsy with and without calcs lesion 2 Clinical History: Left breast lesion 1 Clinical Diagnosis: IDC versus ILC versus FC Report to: Home Yeager @ [facility] SPECIMEN PROCESSING A - ??Labeled/Fixative : Left breast US guided biopsy 14g lesion 1, formalin. Quantity/Size: Three, ranging from 0.2-0.8 cm long, averaging 0.2 cm in diameter. Tissue Description: Soft white-yellow fibroadipose tissue needle core biopsies. . SPECIMEN PROCESSING Ischemic Time: 2 minutes. Sections/Processin g: (T1) ??darshan B - ??Received in two containers: 1 - Labeled/Fixative: Left breast lesion 2 of 2, calcs, formalin. Quantity/Size: Two, 0.6 and 1.8 cm. Description: Fibrofatty needle core biopsies. Sections/Processin g: Submitted in (1). 2 - Labeled/Fixative: Left breast lesion 2 of 2 no calcs, formalin. Quantity/Size: Multiple, fragment are ranging from 0.6-3.0 cm. Description: Fragmented, fibrofatty needle core biopsies. Sections/Processin g: Submitted in (2-4). ejr Ischemic Time: 5 minutes. (T4) 03/31/2017 5:41 PM EST [facility] BREAST STRUCTURE / Unknown 03/23/2017 3:28 PM EST 03/23/2017 3:28 PM EST BREAST STRUCTURE / Unknown 03/23/2017 3:28 PM EST 03/23/2017 3:28 PM EST Manish Goel MD PATHOLOGY/CYTOLOGY ORDERABLES [facility] [place] [address] documented in this encounter Visit Diagnoses Diagnosis Abnormal mammogram Abnormal mammogram, unspecified documented in this encounter Care Teams Amusement Equipment Operator Relationship Specialty Start Date End Date Sandra Shaw, PAINT ROLLER WINDER PCP - General 10/30/11 04/20/17 documented as of this encounter
--- OUTSIDE RECORDS SUMMARY | 2024-01-08 01:14 | XMS_ITS | Encounter Summary ---
Author Organization [facility] Address [facility] [place] [address] Care Team Providers Care Director Of Business Systems Name Role Phone Sandra Shaw ZAKIA Primary Care Provider [phone] [phone] Encounter Details Date Type Department Care Team (Latest Contact Info) Description 03/23/2017 1:59 PM EST - 03/23/2017 2:54 PM EST Hospital Encounter [place] [address] Kofi Puckett MD [facility] [place] [address] Abnormal finding on breast imaging Discharge Disposition: [...] Name Priority Date/Time Associated Diagnosis Comments MAMMO BREAST US LIMITED LEFT Routine 03/23/2017 2:55 PM EST Abnormal finding on breast imaging documented in this encounter Results * Mammo Breast Us Limited Left (03/23/2017 2:55 PM EST) Anatomical Region Laterality Modality Breast Left Mammography Impressions 03/23/2017 4:22 PM EST Recommend ultrasound-guided core biopsy of left breast lesion #1 which is a 0.8 cm mass at the 2:00 radian 12 cm from the nipple as well as noemí guided core biopsy of left breast lesion [...] PM EST EXAMINATION: MAMMO 2D DIGITAL DIAG NOEMÍ WITH CAD LEFT, MAMMO BREAST US LIMITED [...] breast documented in this encounter Care Teams Director Of Business Systems Relationship Specialty Start Date End Date Sandra Shaw, STRUCTURAL METAL WORKER PCP - General 10/30/11 04/20/17 documented as of this encounter
--- OUTSIDE RECORDS SUMMARY | 2024-01-08 01:14 | XMS_ITS | Encounter Summary ---
Author Organization [facility] Address [facility] [place] [address] Care Team Providers Care Insurance Follow Up Representative Name Role Phone Sandra Shaw ZAKIA Primary Care Provider [phone] [phone] Encounter Details Date Type Department Care Team (Latest Contact Info) Description 12/23/2012 12:05 AM EDT - 12/23/2012 11:59 PM EDT Hospital Encounter Radiology Library at [facility] [place] [address] Rosio Schuster MD [facility] [place] [address] Discharge Disposition: Home Social History Tobacco Use [...] Comments FILM LIBRARY STORAGE ONLY MAMMO Routine 12/23/2012 12:05 AM EDT documented in this encounter Results * Film Library- Storage Only Mammo (12/23/2012 12:05 AM EDT) Narrative [facility] - 01/02/2017 3:44 PM EDT This exam is for storage only and is auto-finalizing. Rosio Schuster MD IMG FILM LIBRARY O RDERABLES [place], [place] documented in this encounter Visit Diagnoses Not on filedocumented in this encounter Care Teams Insurance Follow Up Representative Relationship Specialty Start Date End Date Sandra Shaw APRN PCP - General 10/30/11 04/20/17 documented as of this encounter
--- OUTSIDE RECORDS SUMMARY | 2024-01-08 01:14 | XMS_ITS | Encounter Summary ---
Author Organization [facility] Address [facility] [place] [address] Care Team Providers Care Head Of Biology Name Role Phone Sandra Shaw ZAKIA Primary Care Provider [phone] [phone] Encounter Details Date Type Department Care Team (Latest Contact Info) Description 07/03/2014 - 07/03/2014 11:59 PM EDT Hospital Encounter Radiology Library at [facility] [place] [address] Rosio Schuster MD [facility] [place] [address] Discharge Disposition: Home Social History Tobacco Use [...] Comments FILM LIBRARY STORAGE ONLY MAMMO Routine 07/03/2014 12:00 AM EDT documented in this encounter Results * Film Library- Storage Only Mammo (07/03/2014 12:00 AM EDT) Narrative [facility] - 01/02/2017 3:46 PM EDT This exam is for storage only and is auto-finalizing. Rosio Schuster MD IMG FILM LIBRARY O RDERABLES Performing Organization Address City/State/[facility] Co de Phone Number [place], [place] documented in this encounter Visit Diagnoses Not on filedocumented in this encounter Care Teams Head Of Biology Relationship Specialty Start Date End Date Sandra Shaw, ZAKIA PCP - General 10/30/11 04/20/17 documented as of this encounter
--- OUTSIDE RECORDS SUMMARY | 2024-01-08 01:14 | XMS_ITS | Encounter Summary ---
Author Organization [facility] Address [facility] [place] [address] Care Team Providers Care Senior Support Engineer Name Role Phone Sandra Shaw APRN Primary Care Provider [phone] Encounter Details Date Type Department Care Team (Latest Contact Info) Description 01/06/2017 10:08 AM EDT - 01/06/2017 11:59 PM EDT Hospital Encounter Radiology Library at [facility] [place] [place] [address] Juaan Julien MD [address] [place], [place] [address] Breast density Discharge Disposition: Home Social History Tobacco Use [...] Procedure Name Priority Date/Time Associated Diagnosis Comments REQUEST FOR 2ND READ MAMMO Routine 01/06/2017 10:08 AM EDT Breast density documented in this encounter Results * Request for 2nd read Mammo (01/06/2017 10:08 AM EDT) Anatomical Region Laterality Modality SO Impressions 01/06/2017 10:45 AM EDT Left breast: 1. Focal asymmetry of the upper and outer left breast, most conspicuous on the CC tomographic imaging without ultrasound correlate identified. 2. Lateral left breast indeterminate calcifications. Right breast: Stable benign-appearing lateral CC only asymmetry. RECOMMENDATION: Left breast: 1. Additional diagnostic mammography is recommended. Consideration of ultrasound at that juncture. 2. Spot magnification views for indeterminate microcalcifications. Right breast: Annual mammography. The patient will be contacted to schedule this examination. Left breast: BI-RADS 0, additional evaluation is recommended. Right breast: BI-RADS 2, benign findings. Please note: The interpretation of the [facility] Breast Imaging Radiologist subspecialist may differ from the original radiologists interpretation. This is usually not due to a deficiency of the original interpreting radiologist, rather due to the greater skill level afforded by sub-specialization in the field and/or reasonable variations in interpretations. If you have a concern regarding the D- interpretation you may contact the [facility] Breast Core Analyst Office at . Narrative 01/06/2017 10:45 AM EDT INTERPRETATION OF OUTSIDE BREAST IMAGING I have been asked to consult on this patient by Dr. Julien because she believes a review of this study may change or alter the care of this patient. STUDIES FROM: [facility] DATES: 12/24/2016. 12/15/2016. CLINICAL HISTORY: ABNORMAL IMAGING, ASYMMETRIC DENSITY, CAT #4 , [place]IENT [place] [facility] QUESTION MORE IMAGING. QUESTION BX. ; What Modality is the exam? Mammography; Body Part (please add comments as necessary): BREAST; I believe a reinterpretation of this exam may alter care of Patient. Yes. ?? COMPARISONS: 10/31/2015, multiple additional comparisons FINDINGS: MAMMOGRAPHY: Density, scattered densities. Left breast: Laterally on the CC view there is a punctate calcification and associated partially characterized focal asymmetry/mass. This finding is less conspicuous on the MLO view. This finding resides at approximately 2:00, 11 to 12 cm from the nipple. In addition, there is a subtle group of microcalcifications of the lateral left breast, 7 cm from the nipple, and best seen on the CC view. Benign-appearing intramammary lymph nodes. Right breast: No suspicious calcifications, mass, distortion. There is a stable CC lateral asymmetry, benign-appearing and unchanged since 2012. ULTRASOUND: Ultrasound is seed yeast operator dependent. Static images from outside facility, for review, not for primary interpretation. Images are labeled left breast, 1:00, 12 cm from the nipple. Normal intramammary lymph nodes are appreciated. Additional images of the left breast without focal findings. Procedure Note Kofi Puckett MD - 01/06/2017 INTERPRETATION OF OUTSIDE BREAST IMAGING I have been asked to consult on this patient by Dr. Julien because shebelieves a review of this study may change or alter the care of this patient. STUDIES FROM: [facility] DATES: 12/24/2016. 12/15/2016. CLINICAL HISTORY: ABNORMAL IMAGING, ASYMMETRIC DENSITY, CAT #4 , [place]IENTWANTS [place] [facility] QUESTION MORE IMAGING. QUESTION BX. ; What Modality isthe exam? Mammography; Body Part (please add comments as necessary): BREAST;I believe a reinterpretation of this exam may alter care of Patient. Yes. COMPARISONS: 10/31/2015, multiple additional comparisons FINDINGS: MAMMOGRAPHY: Density, scattered densities. Left breast: Laterally on the CC view there is a punctate calcificationand associated partially characterized focal asymmetry/mass. This finding isless conspicuous on the MLO view. This finding resides at approximately 2:00,11 to 12 cm from the nipple. In addition, there is a subtle group of microcalcifications of the lateral left breast, 7 cm from the nipple, andbest seen on the CC view. Benign-appearing intramammary lymph nodes. Right breast: No suspicious calcifications, mass, distortion. There is astable CC lateral asymmetry, benign-appearing and unchanged since 2012. ULTRASOUND: Ultrasound is seed yeast operator dependent. Static images from outside facility,for review, not for primary interpretation. Images are labeled left breast,1:00, 12 cm from the nipple. Normal intramammary lymph nodes are appreciated.Additional images of the left breast without focal findings. IMPRESSION Left breast: 1. Focal asymmetry of the upper and outer left breast, most conspicuous onthe CC tomographic imaging without ultrasound correlate identified. 2. Lateral left breast indeterminate calcifications. Right breast: Stable benign-appearing lateral CC only asymmetry. RECOMMENDATION: Left breast: 1. Additional diagnostic mammography is recommended. Consideration ofultrasound at that juncture. 2. Spot magnification views for indeterminate microcalcifications. Right breast: Annual mammography. The patient will be contacted to schedule this examination. Left breast: BI-RADS 0, additional evaluation is recommended. Right breast: BI-RADS 2, benign findings. Please note: The interpretation of the [facility] BreastImaging Radiologist subspecialist may differ from the original radiologists interpretation. This is usually not due to a deficiency of the original interpreting radiologist, rather due to the greater skill level affordedby sub-specialization in the field and/or reasonable variations ininterpretations. If you have a concern regarding the -H interpretation you may contact [facility] at [phone]. 10:45 AM Juana Tomas MD IMG OUTSIDE I NTERPRETATION ORDERABLES documented in this encounter Visit Diagnoses Diagnosis Breast density Other sign and symptom in breast documented in this encounter Care Teams Senior Support Engineer Relationship Specialty Start Date End Date Sandra Shaw APRN PCP - General 10/30/11 04/20/17 documented as of this encounter
--- OUTSIDE RECORDS SUMMARY | 2024-01-08 01:14 | XMS_ITS | Encounter Summary ---
Author Organization [facility] Address [facility] [place] [address] Care Team Providers Care Tourism Radio Presenter Name Role Phone Sandra Shaw ZAKIA Primary Care Provider [phone] [phone] Encounter Details Date Type Department Care Team (Latest Contact Info) Description 10/31/2015 - 10/31/2015 11:59 PM EDT Hospital Encounter Radiology Library at [facility] [place] [address] Rosio Schuster MD [facility] [place] [address] Discharge Disposition: Home Social History Tobacco Use [...] Comments FILM LIBRARY STORAGE ONLY MAMMO Routine 10/31/2015 12:00 AM EDT documented in this encounter Results * Film Library- Storage Only Mammo (10/31/2015 12:00 AM EDT) Narrative [facility] - 01/02/2017 3:47 PM EDT This exam is for storage only and is auto-finalizing. Rosio Schuster MD IMG FILM LIBRARY O RDERABLES Performing Organization Address City/State/[facility] Co de Phone Number [place], [place] documented in this encounter Visit Diagnoses Not on filedocumented in this encounter Care Teams Tourism Radio Presenter Relationship Specialty Start Date End Date Sandra Shaw, ZAKIA PCP - General 10/30/11 04/20/17 documented as of this encounter
--- OUTSIDE RECORDS SUMMARY | 2024-01-08 01:14 | XMS_ITS | Encounter Summary ---
Author Organization [facility] Address [facility] [place] [address] Care Team Providers Care Physical Therapy Coordinator Name Role Phone Sandra Shaw ZAKIA Primary Care Provider +1 [phone] Encounter Details Date Type Department Care Team (Latest Contact Info) Description 12/24/2016 - 12/24/2016 12:04 AM EDT Hospital Encounter Radiology Library at [facility] [place] [address] Rosio Schuster MD [facility] [place] [address] Discharge Disposition: Home Social History Tobacco Use [...] Comments FILM LIBRARY STORAGE ONLY MAMMO Routine 12/24/2016 12:00 AM EDT documented in this encounter Results * Film Library- Storage Only Mammo (12/24/2016 12:00 AM EDT) Narrative [facility] - 01/02/2017 3:50 PM EDT This exam is for storage only and is auto-finalizing. Rosio Schuster MD IMG FILM LIBRARY O RDERABLES Performing Organization Address City/State/[facility] Co de Phone Number [place], [place] documented in this encounter Visit Diagnoses Not on filedocumented in this encounter Care Teams Physical Therapy Coordinator Relationship Specialty Start Date End Date Sandra Shaw, ZAKIA PCP - General 10/30/11 04/20/17 documented as of this encounter
--- OUTSIDE RECORDS SUMMARY | 2024-01-08 01:14 | XMS_ITS | Encounter Summary ---
Author Organization [facility] [place] [address] Care Team Providers Care Retouching Operator Name Role Phone None Primary Care Provider Unavailabl e Reason for Visit * Reason Onset Date Comments Results 08/13/2011 Encounter Details Date Type Department Care Team (Late st Contact Info) Description 08/13/2011 Telephone [place] [address] Consuelo Lee MD [facility] [place] [address] Results Social History Tobacco Use Types Packs/Day Years Used Date Smoking Tobacco: Former Cigarettes Q uit: 03/09/1998 Sex and Gender Information Value Date Recorded Sex Assigned at Not on file Gender Identity Not on file Sexual Orientation Not on file documented as of this encounter Miscellaneous Notes * Telephone Encounter - Consuelo Lee - 08/13/2011 4:48 PM EDT Spoke with patient regarding cytology on thyroid nodule. 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 She has already seen Dr. Valdivia and is having a complete thyroidectomy on 09/02/11. She feels that given her fears of surgery/needles/etc, she would like to have a total thyroidectomy rather than have to consider completion thyroidectomy at a later date if this is found to be follicular carcinoma. Would recommend 175 mcg per day of Synthroid post-op for replacement dose if found to be benign. documented in this encounter Plan of Treatment Not on file documented as of this encounter Visit Diagnoses Not on filedocumented in this encounter Care Teams Retouching Operator Relationship Specialty Start Date End Date None None PCP - General 01/29/10 10/29/11 documented as of this encounter
--- OUTSIDE RECORDS SUMMARY | 2024-01-08 01:14 | XMS_ITS | Encounter Summary ---
Author Organization [facility] Address [facility] [place] [address] Care Team Providers Care Personal Financial Counselor Name Role Phone None Primary Care Provider Unavailabl e Encounter Details Date Type Department Care Team (Late st Contact Info) Description 09/02/2011 9:20 AM EDT Anesthesia Event [place] [id number] Home Zhang MD [facility] [place] [address] Anesthesia Record Procedure Summary Procedure Name Responsible Anesthesiologist Anesthesia Start Time Anesthesia Stop Time THYROIDECTOMY, TOTAL OR COMPLETE (WRVU 15.04) (Neck) Home Zhang MD 09/02/11 0920 09/02/11 1149 Events Date Time Event Comment 09/02/2011 0900 0920 Start 1149 Stop Meds * Agents No agents on file. * Blood No blood administrations on file. Lines, Drains, and Airways Type Details Placement Removal Incision 09/02/11; neck; 11/04/21 (LDA cleanup utility RA#[id number]); 1715 (LDA cleanup utility RA#[id number]) 09/02/11 0000 by Angelica Chowdary RN 11/04/21 1715 by Juan David Puri (RETIRED) Peripheral IV Line - Single Lumen 09/02/11; 0900; 09/03/11; 0830 09/02/11 0900 by Mady Bragg RN 09/03/11 0830 by Teressa Hare LNA documented in this encounter Social History Tobacco Use Types Packs/Day Years Used Date Smoking Tobacco: Former Cigarettes Q uit: 03/09/1998 Sex and Gender Information Value Date Recorded Sex Assigned at Not on file Gender Identity Not on file Sexual Orientation Not on file documented as of this encounter OR Notes * Anesthesia Postprocedure Evaluation - Home Zhang MD - 09/02/2011 1:02 PM EDT Patient: Zoë Cervantes Procedure(s) Performed: Procedure(s): THYROIDECTOMY, TOTAL OR COMPLETE FACIAL NERVE MONITORING, SETUP Patient location: PACU Post-op pain: Some discomfort being treated. Post-op nausea: Mild nausea. Last Vitals: Filed Vitals: 09/02/11 1245 BP: 168/84 Pulse: 97 Temp: Resp: 16 Post-op cardiovascular and respiratory status: is stable Level of consciousness: awake Complications: no apparent complications, tolerated the procedure well and no evidence of recall Fluid Status: normal * Anesthesia Preprocedure Evaluation - Home Zhang MD - 09/01/2011 3:01 PM EDT Anesthesia Evaluation Patient summary reviewed and Nursing notes reviewed No hx of anesthetic complications Airway Mallampati: II TM distance: >3 FB Neck ROM: full Dental (+) upper dentures Pulmonary (-) asthma, shortness of breath and recent URI Cardiovascular Exercise tolerance: good (+) hypertension, (-) valvular problems/murmurs, past PR and angina Neuro/Psych GI/Hepatic/Renal (+) GERD (Rare, episodic meds.), Endo/Other (-) Type II DM Comments: Obesity. Multinodular goiter. Abdominal Anesthesia Plan ASA 2 General with intravenous induction NIM ETT, std monitors. Anesthetic plan and risks discussed with patient. Plan discussed with LAUNDRY LABORER. documented in this encounter Miscellaneous Notes * Addendum Note - Nurys Veloz - 09/03/2011 10:35 AM EDT Addendum created 09/03/11 1035 by Nurys Veloz Modules edited:Anesthesia Events, Anesthesia Responsible Staff documented in this encounter Plan of Treatment Not on file documented as of this encounter Visit Diagnoses Not on filedocumented in this encounter Care Teams Personal Financial Counselor Relationship Specialty Start Date End Date None None PCP - General 01/29/10 10/29/11 documented as of this encounter
--- OUTSIDE RECORDS SUMMARY | 2024-01-08 01:14 | XMS_ITS | Encounter Summary ---
Author Organization [facility] [place] [address] Care Team Providers Care Shuttle Fixer Name Role Phone Sandra Shaw APRN Primary Care Provider [phone] Encounter Details Date Type Department Care Team (Late st Contact Info) Description 01/02/2017 External Results Radiology Library at [facility] [place] [address] Rosio Schuster MD [facility] [place] [address] Social History Tobacco Use Types Packs/Day Years Used Date Smoking Tobacco: Former Cigarettes Q uit: 03/09/1998 Sex and Gender Information Value Date Recorded Sex Assigned at Not on file Gender Identity Not on file Sexual Orientation Not on file documented as of this encounter Plan of Treatment Not on file documented as of this encounter Procedures Procedure Name Priority Date/Time Associated Diagnosis Comments MAMMOGRAM SCAN Routine 12/24/2016 documented in this encounter Results * Scan Doc: Mammogram (12/24/2016) Anatomical Region Laterality Modality Other Rosio Schuster MD MEDIA MGR SCAN EXT ORDR/RSLT documented in this encounter Visit Diagnoses Not on filedocumented in this encounter Care Teams Shuttle Fixer Relationship Specialty Start Date End Date Sandra Shaw APRN PCP - General 10/30/11 04/20/17 documented as of this encounter
--- OUTSIDE RECORDS SUMMARY | 2024-01-08 01:14 | XMS_ITS | Encounter Summary ---
Author Organization [facility] Address [facility] [place] [address] Care Team Providers Care Recreation Therapy Aide Name Role Phone None Primary Care Provider Unavailabl e Reason for Referral * Surgical (Routine) - Closed Specialty Diagnoses / Procedures Referred By Cuco britt Referred To Contact General Surgery Diagnoses Thyroid nodule Alexus Plaza MD [facility] [place] [address] Torres Valdivia MD [facility] [place] [address] Referral ID Status Reason Start Date Expiration Date V isits Requested Visits Authorized [id number] Closed Evaluate and Treat 08/07/2011 02/03/2012 1 1 Reason for Visit * Reason Comments Thyroid Problem Encounter Details Date Type Department Care Team ([facility] st Contact Info) Description 08/07/2011 11:00 AM EDT Office [place] [address] John Hudson MD [address] [place] [id number] Thyroid nodule (Primary Dx) Discharge Disposition: Home Social History Tobacco Use Types Packs/Day Years Used Date Smoking Tobacco: Former Cigarettes Q uit: 03/09/1998 Sex and Gender Information Value Date Recorded Sex Assigned at Not on file Gender Identity Not on file Sexual Orientation Not on file documented as of this encounter Last Filed Vital Signs Vital Sign Reading Time Taken Comments Blood Pressure 143/86 08/07/2011 10:41 AM EDT Pulse 82 08/07/2011 10:41 AM EDT Temperature - - Respiratory Rate - - Oxygen Saturation 100% 08/07/2011 10: 41 AM EDT Inhaled Oxygen Concentration - - Weight 119.1 kg (262 lb 9.6 oz) 012 10:41 AM EDT Height 176.5 cm (5' 9.5) 08/07/2011 10 :41 AM EDT Body Mass Index 38.22 08/07/2011 10:41 AM EDT documented in this encounter Progress Notes * Alexus Plaza - 08/07/2011 11:42 AM EDT THYROID ULTRASOUND: Indication: Thyroid nodule on prior study; Considering FNA - clarify size, position and US characteristics Date: 08/07/11 Real time images of the thyroid gland were obtained using a SonBase Fortyaxx and an HFL38/13-6 broadband linear array transducer. [...] Ultrasound performed by Dr Hudson and myself. Alexus Plaza MD Endocrinology Fellow * John Hudson MD - 08/07/2011 11:41 AM EDT I have seen the patient and reviewed the resident's above history and I agree with the details as written. The assessment and plan were formulated in discussion with me and I agree with them as documented. 51 y/o female with large solid / hypoechoic L thyroid nodule. Complains of compressive symptoms, particularly when lying flat at night. O/E: 3cm L nodule palpable U/S: Large solid / hypoechoic and vascular L thyroid nodule replacing the L lobe. I agree with the plan for FNA and thyroidectomy for compressive symptoms. The extent of surgery (L theodore v. Total) to be determined by FNA results. I was the attending physician supervising the resident in the above care and was present for the USand FNA. * Alexus Plaza - 08/07/2011 10:46 AM EDT Subjective: Patient ID: Zoë Cervantes is a 51 y.o. female referred by Dora Galan for thyroid nodule. HPI 51 yo female with known thyroid ???mass?? for years. She notes that it has now become apparent just looking at her neck. She had a thyroid u/s January 2011 to followup on these and was noted to have a left thyroid lobe mass measuring 3.1 x 2.7 x 3.9 cm as well as a small 7 mm nodule in the right mid-lobe. She did not want to have the dominant nodule biopsied at that time so had f/u ultrasound in March 2011 which now showed the nodule in the left lobe to be smaller at 2.9 x 2.6 x3.6 cm and right nodule now 9 mm in greatest diameter. She had a technetium 99 thyroid scan done in June 2011 which showed the left nodule to be ???cold?? . TSH was normal according to her but results were not included in referral. There has also apparently been some concern about anterior cervical adenopathy found on exam. She has been reluctant to get this dealt with as she had a bzxhdre-ah-jew who had thyroid cancer and had his vocal cords injured as well as requiring a feeding tube and tracheostomy after surgery. Thyroid Compressive symptoms: Globus sensation: Yes Dysphagia: Occasional difficulty swallowing, worse with solids Dysphonia: Voice has gotten more nasal-sounding Dyspnea: Yes, with lying down, getting progressively worse over the last years, also has cough History of H+N XRT exposure: No F.history of thyroid cancer: No Review of Systems Constitutional: Denies heat / cold intolerance c/o weight gain Eyes: Denies eye/vision change ENT: c/o voice changes, Pulmonary: c/o's dyspnea Cardiovascular: Denies palpitations, leg swelling GI: Denies constipation, diarrhea Integumentary: Denies changes in perspiration / rash hyperpigmentation pruritis, changes in hair density Neurologic: Denies tremor, sleep disturbances Psychiatric: Denies depression, denies changes in behavior / anxiety Musculoskeletal: Denies muscle/joint aches/tenderness/stiffness/weakness Patient Active Problem List Diagnoses Code ??? HTN (hypertension) 401.9AF ??? Obesity 278.00M ??? Goiter 240.9AQ Meds: Prinzide 20-25 mg po daily No Known Allergies FH: Uterine cancer (maternal aunts) and breast cancer (mother) in the family. No FH of thyroid cancer. 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 No tobacco oralcohol. Objective: Physical Exam BP 143/86 Pulse 82 Ht 176.5 cm (5' 9.5) Wt 119.115 kg (262 lb 9.6 oz) BMI 38.22 kg/m2 SpO2 100% General: NAD, AAOx3, anxious-appearing HEENT: EOMI, anicteric, PERRL, no exoophthalmous Neck: No LAD palpated,left side of thyroid is markedly enlarged at 45 grams and is firm in texture,right side of thyroid is 10 grams and normal texture without nodularity. CV: S1 S2, RRR, no m/r/g Lungs: CTABL Abd: soft, NT/ND, +BS, no HSM or masses Neuro: reflexes 2+ bilaterally, no tremor of hands Extremities: no lower extremity edema Integumentary: Skin warm and dry/intact Assessment and Plan: Thyroid nodule: Very large and with increased doppler flow and increasing in size by history. Discussed with patient that pproximately 5% of individuals have palpable thyroid nodules and 30% or more of adults have non-palpable nodules. The prevalence of nodules increases with age, so that perhaps 50% of individuals older than 60 years of age have nodules. The incidence of thyroid cancer is low, but rising.The prevalence of thyroid cancer is low compared with the prevalence of thyroid nodule. There have been a number of studies that have estimated risk of malignancy in thyroid nodule. The estimated risk varies with size and other characteristics of nodules selected for biopsy, the technique used for the biopsy, the institution and its referral patterns, and the characteristics of the local population. Most studies have estimated malignancy risk in nodules that are palpable or > 1cmon U/S to be in the range of 3-15%. At [facility], the nodules selected for biopsy are cytologicallypositive in about 10% of cases. At [facility], our criteria for FNA biopsy includes: - All palpable nodules - All nodules > 1cm in two or more dimension - Nodules > 8-9mm in two or more dimensions with high risk sonographic features, or occuring in patients with high risk historical features. Nodules not meeting the above criteria can generally be followed with serial ultrasounds. Based on her larger nodule's appearance and size, she should have an FNA performed. This was discussed with her in detail. We would recommend that she have a left thryoid lobectomy for this due to compressive symptoms if it is benign by cytology. If malignant, she would need a total thyroidectomy. She shouldhave her surgery done with an experienced surgeon such as Dr. Valdivia and she would like a referral to speak with him as she will likely have surgery no matter what the cytology shows. I will personally call her next week with the results of they cytology. We have reviewed our plan outlined above with the patient and she verbalizes understanding. All questions were answered. All questions answered and patient voiced good understanding of the plan. Patient seen and discussed with Dr. Hudson. Alexus Plaza MD Endocrinology Fellow [facility] of Endocrinology documented in this encounter Plan of Treatment Scheduled Referrals Name Type Priority Associated Diagnoses Orde r Schedule REFERRAL TO GENERAL SURGERY Outpatient Referral Routine Thyroid nodule Ordered: 08/07/2011 documented as of this encounter Procedures Procedure Name Priority Date/Time Associated Diagnosis Comments NON-GAME BIRD FARMER FINAL REPORT Routine 08/07/2011 2:09 PM EDT documented in this encounter Results * NON-GAME BIRD FARMER FINAL REPORT (08/07/2011 2:09 PM EDT) Non-Line Server Final Report ? [facility] ? Provider: ?? ALEXUS PLAZA ?Pt. Name: ?? ZOË CERVANTES ? Acc #: ?[id number] ?Pt. ? Col Date: ?? 08/07/2011 ? /Sex: ?1960,(51 years),Female ? Rec Date: ?? 08/07/2011 ? LOC: ?5C ? CYTOPATHOLOGY: ??NGYN ? ---Adequacy--- ? Specimen submitted is satisfactory. ? ---Cytopathologic Diagnosis--- ? Microfollicular Pattern (see Comment). ? 08/08/11 ?Screened by: ? SLA ? Rescreened by: ?? FIRMWARE ARCHITECT ? 08/13/11 ?Verified by: ? MADY ENRIQUE, TALISHA ?Pathologist ?(Electronic Signature) ? ---Comment--- ? Thyroid, Left, 3.6 cm nodeule, U/S guided FNA: ? Microfollicular patterned lesion, suspicious for follicular neoplasm, see ? below ? Cytologic preservation: ?Good ? Cellularity (follicular cells): ?Increased. Some of the cells display Hurthle cell features. There is ? some nuclear overlap and hypochromasia and grooves, though intranuclear ? inclusions are are not appreciated. ? Colloid: ?Not appreciated/ scant ? Macrophages: ?Not appreciated ? Architectural pattern: ?Predominantly microfollicular pattern (see note). ? Note: ?Studies have shown that approximately 15% of microfollicular nodules are ? follicular carcinomas on surgical excision by the histomorphologic criteria ? of vascular invasion and/or transcapsular penetration. ??Therefore, excision ? of the nodule for histologic evaluation is recommended. ??Benign follicular ? adenomas and non-neoplastic dominant/ adenomatoid microfollicular nodules ? in multinodular goiter and microfollicular variant of Papillary thyroid ? carcinoma may also yield microfollicular patterns on FNA. ? ---Clinical Information--- ? Specimen Source: ? [facility] ? Provider: ?? ALEXUS PLAZA ?Pt. Name: ?? ZOË CERVANTES ? Acc #: ?[id number] ?Pt. ? Col Date: ?? 08/07/2011 ? /Sex: ?1960,(51 years),Female ? Rec Date: ?? 08/07/2011 ? LOC: ?5C ? CYTOPATHOLOGY: ??NGYN ?Thyroid, Left, US-guided FNA ? Pertinent Clinical Data and Significant Therapy: ?Left thyroid nodule ? Clinical Impression: ?Thyroid nodule ? Pertinent Radiologic Findings: ?Hypoechoic ?Size: ??3.6 cm ?Cystic: ??No ?Calcification: ??No ?Vascularity: ??High ? Gross Description: ?Received in Cytorich Red, approximately 10 ml. total volume of clear, ? pink fluid. ?Total Preparation: Liquid Based Prep 1; Diff Quik 2; Pap Stain 2. CERNER MILLENNIUM 08/07/2011 2:09 PM EDT Alexus Plaza MD PATHOLOGY/[facility]OLOG[facility] documented in this encounter Visit Diagnoses Diagnosis Thyroid nodule- Primary Nontoxic uninodular goiter documented in this encounter Care Teams Recreation Therapy Aide Relationship Specialty Start Date End Date None None PCP - General 01/29/10 10/29/11 documented as of this encounter
--- OUTSIDE RECORDS SUMMARY | 2024-01-08 01:14 | XMS_ITS | Encounter Summary ---
Author Organization [facility] Address [facility] [place] [address] Care Team Providers Care Fortune Cookie Maker Name Role Phone Sandra Shaw ZAKIA Primary Care Provider [phone] Encounter Details Date Type Department Care Team (Latest Contact Info) Description 03/23/2017 3:15 PM EST - 03/23/2017 3:23 PM EST Hospital En[place] [address] Manish Goel MD [facility] [place] [address] Abnormal mammogram Discharge Disposition: Home Social History [...] Name Priority Date/Time Associated Diagnosis Comments MAMMO US BIOPSY LEFT Routine 03/23/2017 3:47 PM EST Abnormal mammogram SPECIMEN TO PATHOLOGY Routine 03/23/2017 3:46 PM EST documented in this encounter Results * Mammo Us Biopsy Left (03/23/2017 3:47 PM EST) Anatomical Region Laterality Modality Breast [...] obtained using a 14-gauge automated device. A VTEX 14G marker clip was placed. The clip [...] hyperplasia bordering on DCIS Manish Goel MD IMG MAMMO ORDERABL ES * Specimen to Pathology (03/23/2017 3:46 PM EST) AP Specimen 03/23/2017 3:46 PM EST 03/23/2017 4:09 PM EST Narrative [facility] - 03/23/2017 4:09 PM EST Specimen requisition ordered. ??Separate Pathology report to follow Resulting Agency Comment Spec In Lab Manish Goel MD PATHOLOGY/CYTOLOGY ORDERABLES [facility] [place] [address] documented in this encounter Visit Diagnoses Diagnosis Abnormal mammogram Abnormal mammogram, unspecified documented in this encounter Administered Medications Inactive Administered Medications - up to 3 most recent administrations Medication Order MAR Action Action Date Dose Rate Site lidocaine (XYLOCAINE) 10 mg/mL (1 %) injection 10 mg 10 mg, Intradermal, ONCE, 1 dose, On 03/23/17 at 1545, Routine Given 03/23/2017 3:41 PM EST 10 mg documented in this encounter Care Teams Fortune Cookie Maker Relationship Specialty Start Date End Date Sandra Shaw APRN PCP - General 10/30/11 04/20/17 documented as of this encounter
--- OUTSIDE RECORDS SUMMARY | 2024-01-08 01:14 | XMS_ITS | Encounter Summary ---
Author Organization [facility] [place] [address] Care Team Providers Care Phlebotomist Name Role Phone None Primary Care Provider Unavailabl e Encounter Details Date Type Department Care Team (Late st Contact Info) Description 09/02/2011 9:24 AM EDT - 09/02/2011 12:02 PM EDT [place] [id number] Valentine Valdivia MD [facility] [place] [address] THYROIDECTOMY, TOTAL OR COMPLETE (WRVU 15.04) Social History Tobacco Use Types Packs/Day Years Used Date Smoking Tobacco: Former Cigarettes Q uit: 03/09/1998 Sex and Gender Information Value Date Recorded Sex Assigned at Not on file Gender Identity Not on file Sexual Orientation Not on file documented as of this encounter Last Filed Vital Signs Vital Sign Reading Time Taken Comments Blood Pressure 169/86 09/02/2011 12:00 PM EDT Pulse 101 09/02/2011 12:00 PM EDT Temperature 36.4 ??C (97.5 ??F) 09/02/2011 11:45 AM E DT Respiratory Rate 16 09/02/2011 12:00 PM EDT Oxygen Saturation 97% 09/02/2011 12:00 PM EDT Inhaled Oxygen Concentration - - Weight 117.5 kg (259 lb) 09/02/2011 8:18 AM EDT Height 176.5 cm (5' 9.5) 09/02/2011 8:18 AM EDT Body Mass Index 37.7 09/02/2011 8:18 AM EDT documented in this encounter Discharge Instructions * Patient Instructions* Onur Fiore MD - 09/01/2011 2:13 PM EDT Instructions following Thyroid or Parathyroid Surgery What to Expect Following Surgery: Swelling and/or bruising under and around the incision is normal. It is usually greatest on the second or third day following surgery. You may also feel the sensation of swelling or firmness that canlast for a month or more Your scar will be most visible for 1-2 months following your operation and will gradually fade overthe next 6-8 months. As it heals, a scar looks more pink or red than the skin around it. You may feel a ???healing ridge?? directly under the incision. This is normal and will go away when healing is complete in 3-6 months. The skin just above and below your incision will feel numb. This will improve over several months but some patients may have long-term decrease in sensation over these areas You may notice minor difficulty in swallowing which will improve over time. Your voice may be hoarse or weak at first--because the surgery was near the voice box--but usually recovers over several weeks Incision Care: Keep dressing on your incision for the next 2 days, then you may remove dressing and leave incisionopen to air. Remove dressing and replace with dry gauze if it becomes saturated or wet in the next 2 days, replace as needed. If there are pieces of tape directly on the skin (steri-strips), please leave them on until they fall off on their own. You may trim them back as they peel up, or just remove them after 2 weeks. Once dressing is removed in 2 days you may shower and get incision wet. Pat dry immediately following. Do not scrub area vigorously for the next 2 weeks. Do not soak incision under water (i.e. bath or swimming) for the next 3 weeks to prevent a wound infection. Do not use any ointments/salves/Vitamin E on the incision until after your first follow-up appointment as these may impair early wound healing Incisions are sensitive to sunlight. For 1 year after surgery you should use sunscreen when outdoors for long periods of time to prevent permanent darkening of the scar. This includes tanning booths Diet & Activity: No restrictions in your diet are necessary. Activity as tolerated by your comfort level. You may return to work in 7 - 14 days or sooner if desired. NO DRIVING for at least 8 hours following any dose of an opioid pain medication if one was prescribed for you. Thyroid Hormone: If you had a thyroid operation, you may be prescribed thyroid hormone replacement (levothyroxine, synthroid, levothroid) to take daily. Usual starting dose is 125 mcg (micrograms) daily and we will give you an initial prescription for an 8 week supply. Take this at the same time each day. A blood test will performed at your first follow-up visit to ensure dosing is correct for you. Pain Management: Take NSAIDS like ibuprofen (motrin, advil), naproxen (Naprosyn, Aleve), or acetaminophen (Tylenol) every 6 hours for the first 3-5 days following surgery to help minimize pain. Use opioid (Percocet, Vicodin, Tylenol #3) pain medications for severe pain, and do not take with alcohol. To prevent Tylenol overdose do not take Tylenol doses within 4-6 hours before or after thesemedications (they contain Tylenol as well) Opioid medications typically cause constipation, so we suggest using a stool softener in addition (metamucil, colace...etc.) You may apply ice or cold packs to the incision for 15-20 minutes several times a day for the first2-3 days following surgery to help with discomfort You may feel some stiffness/soreness in your shoulders, back, and neck. This may take a few days orweeks to go away completely. You may use moist warm heat, heating pad, or massage to these areas for 15-20 minutes several times a day. Do not be afraid to move your neck - gently flexing and stretching your neck muscles and light massage will help prevent stiffness Pathology Report: All specimens removed at surgery are analyzed by a pathologist. This report usually takes 4 business days to be ready. Dr. Valdivia will call you with this report as soon as it is available. Calcium Supplementation: Your body???s calcium levels may fall following a total thyroidectomy or parathyroid operation, which usually lasts only a few days. Take two 600 mg calcium citrate with vitamin D tablets of capsules (you can buy this over the counter at your pharmacy or grocery store) three times a day until you speak with Dr. Valdivia about your path report. He will review your need to continue this at that time. If you notice a tingling sensation in your hands, feet, around your mouth, or develop muscle spasmsthen please call the General Surgery nurse at [phone], since this may mean that you need more calcium. Follow-up Appointment: Will be scheduled with Dr. Valdivia in 6 weeks Date and time as well as any required labs will be mailed to you Please call [phone] to confirm date and time of your appointment if you do not hear from us inthe next 4 weeks Call Doctor for: Worsening redness or drainage from your incision lasting longer than 5 days following surgery Any foul-smelling drainage from the incision Fevers greater than 101 degrees F Persistent nausea or vomiting (this may be related to opioid pain medications) Tingling in your hands, feet or around your mouth, or muscle spasms not relieved by calcium supplementation. Phone number for questions: [phone] before 5 PM weekdays [phone] after 5 PM and on weekends/holidays * Attachments The following attachments cannot be sent through Care Everywhere. * THYROIDECTOMY: WHAT TO EXPECT AT HOME (MALTESE) documented in this encounter Medications at Time of Discharge Medication Sig Dispensed Refills Start Date End Date levothyroxine (SYNTHROID) 137 mcg tablet Take 137.5 mcg by mouth every morning. 30 tablet 0 09/03/2011 10/01/2011 OXYcodone-acetaminophen (PERCOCET) 5-325 mg per tablet [...] daily. 04/13/2017 documented as of this encounter Progress Notes * Tomas Baca RN - 09/03/2011 9:13 AM EDT MET WITH ZOË SHE HAS NO INSURANCE OR PRESCRIPTION COVERAGE. sHE STATES THAT SHE HAS APPLIED FOR FINANCIAL ASSISTANCE THROUGH [facility] AND USES [employer] IN [place] FOR HER PRESCRIPTIONS. SHE CAN GET30 DAYS/$4 OR 90 DAYS/$9. sCRIPT FOR 30 DAYS AND oK WITH THIS. CARES FOR HER AT HOME AND HER SON AND NURSING ARE PROVIDING CARE AND WILL BE UNTIL SHE RECOVERS. DISCUSSED PAIN, BOWELS, DIET, ACTIVITY ANF GENERAL CARE. SHE HAS TRANSPORTATION BETWEEN 11-12 TODAY. RN TO REVIEW INSTRUCTIONS, MEDICATIONS, [id number] AND F/U APPOINTMENT WITH HER PRIOR TO DISCHARGE.TOMAS BACA RN09/03/2011 . * Abby Fisher RN - 09/03/2011 8:09 AM EDT 0700 Resumed care of this patient. See flow sheet for data. The patient has met discharge criteria per policy. Discharge instruction reviewed and patient discharged to responsible adult. Patient???s pain level has been assessed and patient states that his/her level is tolerable at thistime. The After Visit Summary (AVS) and accompanying hand-outs have been reviewed with the patient; the patient verbalizes understanding at this time. Opportunity for clarification provided. All new medications have been reviewed with the patient and the appropriate hand-outs have been given to the patient. Reportable sign and symptoms have been reviewed with patient./c * Onur Fiore MD - 09/03/2011 6:44 AM EDT Inpatient Note Patient: Zoë Corona Billy Procedure(s) Performed: Procedure(s): THYROIDECTOMY, TOTAL OR COMPLETE FACIAL NERVE MONITORING, SETUP Patient location: SS unit Post-op pain: Adequate analgesia Post-op nausea: no nausea or vomiting Patient denies paraesthesias, chest pain, shortness of breath or pain. Temp: [36.4 ??C (97.5 ??F)-36.8 ??C (98.2 ??F)] Heart Rate: [76-109] Resp: [14-18] BP: (139-178)/(74-98) SpO2: [90 %-98 %] In: 1290 [P.O.:240; I.V.:1050] Out: 465 [Urine:460] Gen: awake but sedated CV: tachycardic, no murmurs appreciated Resp: CTAB Abd: soft, NT, ND Neck: minimal drainage on gauze, dressing c/d/i Extremities: pulses 2+, SCD in place Post-op cardiovascular and respiratory status: is stable Level of consciousness: awake Complications: no apparent complications Fluid Status: normal Patient s/p total thyroidectomy POD 0 Pain is well controlled No evidence of active bleeding Ready for discharge today * Katya Cole - 09/02/2011 3:55 PM EDT Patient: Zoë Cervantes Procedure(s) Performed: Procedure(s): THYROIDECTOMY, TOTAL OR COMPLETE FACIAL NERVE MONITORING, SETUP Patient location: [facility] Surgical Floor Post-op pain: Adequate analgesia Post-op nausea: no nausea or vomiting Patient denies paraesthesias, chest pain, shortness of breath or pain. Last Vitals: Filed Vitals: 09/02/11 1555 BP: 155/85 Pulse: 109 Temp: 36.5 ??C (97.7 ??F) Resp: 14 Gen: awake but sedated CV: tachycardic, no murmurs appreciated Resp: CTAB Abd: soft, NT, ND Neck: minimal drainage on gauze, dressing intact Extremities: pulses 2+, SCD in place Post-op cardiovascular and respiratory status: is stable Level of consciousness: awake Complications: no apparent complications Fluid Status: normal Patient s/p total thyroidectomy POD 0 Pain is well controlled No evidence of active bleeding * Abby Fisher RN - 09/02/2011 1:34 PM EDT 1330 Received patient from Pacu via her bed. She is very groggy but arouses easliy. States her throat is sore. Se fow sheet for data. No facial tic, or numbness noted smile is symmetrical. Ice pakc to her throat and a cool cloth to her head, Attempted to teach IS but the patient was too groggy. Icechips started. See flow sheet for data * Tami Howard RN - 09/02/2011 1:20 PM EDT 1315) meets PACU dc criteria. Dr. Zhang bedside to check on patient. Patient remains a bit sweatyand with intermittent c/o nausea. Sats 95% on 3LNC. No further meds given. Cool cloth reapplied. Report accepted in SS. Patient wants to settle in room and sleep. Jojo FITZPATRICK * Tami Howard RN - 09/02/2011 12:20 PM EDT 1215) c/o neck/throat discomfort. Room air sats 90%. Placed on 2L NC 02 and medicated. Jojo RN documented in this encounter H&P Notes * Valentine Valdivia MD - 09/01/2011 8:37 PM EDT H&P INTERVAL NOTE - 24 HOUR UPDATE I have reviewed the pre-procedure H&P completed by me on 08/13/11. Condition unchanged since H&P originally performed. Source Note - Valentine Valdivia MD - 08/13/2011 10:00 AM EDT [...] thyroid gland were obtained using a SonoSite MicroMaxx and an HFL38/13-6 broadband linear array transducer. [...] Consuelo Lee MD. documented in this encounter Miscellaneous Notes * Miscellaneous - Provider, Scanning - 04/07/2012 3:14 PM EST * Miscellaneous - Provider, Scanning - 09/04/2011 10:55 AM EDT * Miscellaneous - Provider, Scanning - 09/02/2011 12:05 PM EDT * Op Note - Oli Gan MD - 09/02/2011 11:34 AM EDT Case Date: 09/02/2011 Surgeon: Surgeon(s) and Role: * VALENTINE VALDIVIA MD - Primary * OLI GAN MD - Resident-Surgeon Jairo * ONUR FIORE MD - Resident-Lesser Role Preoperative diagnosis: MNG Postoperative diagnosis: MNG Procedure(s): THYROIDECTOMY, TOTAL OR COMPLETE FACIAL NERVE MONITORING, SETUP Anesthesia: General Findings: Kyler. RLN identified and preserved. Complications: none Fluids: 1000ml Estimated Blood Loss: 5ml Drains: none Disposition: awakened from anesthesia, extubated and taken to the recovery room in a stable condition, having suffered no apparent untoward event. Condition: doing well without problems Indication for procedure: Multinodular goiter with compressive symptoms Description of procedure After identifying the patient, the patient was placed supine in a operating room table. After establishing general anesthesia via oral endotracheal intubation with a Nerve Integrity monitoring systemendotracheal tube. The eyes were then tacked with Tegaderm. The Nerve Integrity monitoring system, endotracheal tube was confirmed to be working adequately. The patient prepped and draped in a sterile fashion. A 6 cm incision was employed in the lower skin crease of the neck after 1% lidocaine withepinephrine was administered. A 15-blade was used to make the incision. Subplatysmal flaps were raised to the thyroid notch and sternal respectively. The strap muscles were in the midline and dissected off the thyroid in the lateral direction. Attention was then turned to identify the trachea in the midline. Veins in this area and the pretracheal region were ligated with a harmonic scalpel and the isthmus and pyramidal lobe were transected. Subsequently, attention was turned to dissecting the capsule off of the left thyroid lobe. The superior thyroid pole was dissected and the superior thyroid artery, vein, and the individual vessels were ligated with a harmonic scalpel and silk ligatures. The inferior and superior parathyroid glandswere protected. Recurrent laryngeal nerve was identified in the tracheoesophageal groove. This was followed superiorly and protected. The inferior thyroid vessels were then dissected free and transected with a harmonic scalpel and silk ligatures. Attention was then turned to the right side. In a similar fashion, the capsule was dissected. The superior and inferior parathyroid glands protected and preserved. The superior thyroid artery and vein were individually ligated with the harmonic scalpel and the inferior thyroid artery was then ligated close to the thyroid gland capsule once the recurrent laryngeal nerve was identified. A small amount of tissue was left at the Paul's ligament as the remainder of thyroid level was dissected over the trachea. The entire thyroid specimen was then removed. The wound was copiously irrigated, Valsalva maneuver was given, bleeding points controlled. The parathyroid glands appeared to be viable. Attention was then turned to burying the Surgicel on the wound bed on both sides. The strap muscleswere reapproximated in the midline using a 4-0 monocryl suture in a running locked fashion. The platysma was reapproximated using running 4-0 monocryl and the skin was reapproximated using 4-0 monocryl in a running subcuticular fashion. The patient tolerated the procedure well, was extubated in theoperating room table, and sent to postanesthesia care unit in a good condition. * OR Attestation - Valentine Valdivia MD - 09/02/2011 11:16 AM EDT Attestation: Case Date: 09/02/2011 I was present and I participated during the entire procedure (does not need to include opening and closing). VALENTINE VALDIVIA MD 09/02/2011 * Brief Op Note - Valentine Valdivia MD - 09/02/2011 11:15 AM EDT Brief Operative Note Patient Name: Zoë Cervantes : [id number] MR#: [id number] Case Date: 09/02/2011 Surgeon: Surgeon(s) and Role: * VALENTINE VALDIVIA MD - Primary * OLI GAN MD - Resident-Surgeon Jairo * ONUR FIORE MD - Resident-Lesser Role Preoperative diagnosis: MNG Postoperative diagnosis: MNG Procedure(s): THYROIDECTOMY, TOTAL OR COMPLETE FACIAL NERVE MONITORING, SETUP Anesthesia: General Findings: Kyler. RLN identified and preserved. Complications: none Fluids: 1000ml Estimated Blood Loss: 5ml Drains: none Disposition: awakened from anesthesia, extubated and taken to the recovery room in a stable condition, having suffered no apparent untoward event. Condition: doing well without problems (Please see the Surgical Encounter Summary for any Implant and Specimen details pertinent to this patient.) documented in this encounter Plan of Treatment Not on file documented as of this encounter Procedures Procedure Name Priority Date/Time Associated Diagnosis Comments SURGICAL PATHOLOGY REPORT Routine 09/02/2011 11:50 AM EDT SPECIMEN TO PATHOLOGY Routine 09/02/2011 11:09 AM EDT SPECIMEN TO PATHOLOGY Routine 09/02/2011 10:45 AM EDT FACIAL NERVE MONITORING, SETUP PERIPHERAL (WRVU 0.54) 09/02/2011 9:14 AM EDT MNG THYROIDECTOMY, TOTAL OR COMPLETE (WRVU 15.04) 09/02/2011 9:14 AM EDT MNG documented in this encounter Results * SURGICAL PATHOLOGY REPORT (09/02/2011 11:50 AM EDT) Surgical Pathology Report ? [facility] ? Provider: ?? VALENTINE VALDIVIA Pt. Name: ?? ZOË CERVANTES ? Acc #: ?[id number] ?Pt. ? Col Date: ?? 09/02/2011 ? /Sex: ?1960,(51 years),Female ? Rec Date: ?? 09/02/2011 ? LOC: ?SDP ? SURGICAL PATHOLOGY ? ---Pathologic Diagnosis--- ? A - Left thyroid, lobectomy ? 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 tumor size = 3.7 cm ? 2 - Multinodular thyroid ? B - Right thyroid, lobectomy ? Multinodular thyroid. ? 09/04/11 ? VAM ? 09/04/11 Verified by: ? Constantine Miramontes MD ? Pathologist ? (Electronic Signature) ? The attending pathologist whose signature appears on this report has ? reviewed all diagnostic slides and has edited the gross and/or ? microscopic portion of the report in rendering the final pathologic ? diagnosis. ? ---Microscopic Description--- ? Slides reviewed, microscopic description not recorded. ? ---Gross Description--- ? A - Labeled/Fixative: ? Left lobe of thyroid, fresh. ? Qty/Size/Weight: ?Single, 4.0 x 3.3 x 2.7 cm, 22 g. ? Tissue Description: ? Left lobe of thyroid. ?External Surface: ?Smooth, tense, madrid-pink. ?Parathyroid(s) ? None identified. ?Lesion: ?There is a dominant nodule centrally in the ? specimen. ? Size: ? Up to 3.7 x 2.8 x 2.8 cm. ? Contour/Capsule: ?The capsule surrounding the nodule appears to be ? thick, madrid-white. ??Cut surfaces are pale ? madrid-pink. ?Additional lesion(s): ??None identified. ?Remaining parenchyma: ??Reveals primarily homogeneous, red-brown tissues. ? Sections/Processin g: ?Machining Technician sections are submitted from upper ? to lower pole in twelve cassettes. ??(R12) ? B - Labeled/Fixative: ? Right lobe of thyroid, fresh. ? Qty/Size/Weight: ?Single, 3.7 x 2.7 x 1.7 cm, 7 g. ? Tissue Description: ? Right lobe of thyroid. ?External Surface: ?Tense, smooth, madrid-pink. ? [facility] ? Provider: ?? VALENTINE VALDIVIA Pt. Name: ?? ZOË CERVANTES ? Acc #: ?[id number] ?Pt. ? Col Date: ?? 09/02/2011 ? /Sex: ?1960,(51 years),Female ? Rec Date: ?? 09/02/2011 ? LOC: ?SDP ? SURGICAL PATHOLOGY ?Parathyroid(s) ? Not identified. ?Lesion: ?A single nodule is noted in the upper pole. ? Size: ? 0.4 cm in diameter. ? Contour/Capsule: ?Smooth, shiny, madrid-whitaker surface. ?Remaining parenchyma: ??Homogeneous, red-brown. ? Sections/Processin g: ?(R7) ??aje/PPS ? ---Clinical Information--- ? Specimen Submitted: ? A - Left lobe of thyroid ? B - Right lobe of thyroid ? Clinical History/Diagnosis: ? [facility] 09/02/2011 11:5 0 AM EDT Valentine Valdivia MD PATHOLOGY/CYTOLOGY ORDERABLES Performing Organization Address [facility] Co de Phone Number WILL MENARD * Specimen to Pathology (surgical or derm) (09/02/2011 11:09 AM EDT) AP Specimen 09/02/2011 11:0 9 AM EDT 09/02/2011 11:09 AM EDT Narrative WILL MENARD - 09/02/2011 11:09 AM EDT Specimen requisition ordered. ??Separate Pathology report to follow Valentine Valdivia MD PATHOLOGY/CYTOLOGY ORDERABLES Performing Organization Address [facility] Co de Phone Number WILL MENARD * Specimen to Pathology (surgical or derm) (09/02/2011 10:45 AM EDT) AP Specimen 09/02/2011 10:4 5 AM EDT 09/02/2011 10:45 AM EDT Narrative CANDYMOINK MENARD - 09/02/2011 10:45 AM EDT Specimen requisition ordered. ??Separate Pathology report to follow Valentine Valdivia MD PATHOLOGY/CYTOLOGY ORDERABLES Performing Organization Address [facility] Co de Phone Number WILL MENARD documented in this encounter Visit Diagnoses Not on filedocumented in this encounter Administered Medications Inactive Administered Medications - up to 3 most recent administrations Medication Order MAR Action Action Date Dose Rate Site acetaminophen (TYLENOL) tablet 650 mg 650 mg, Oral, EVERY 4 HOURS PRN, Starting on Thu09/03/11 at 0837, Until Thu09/03/11 at 1238, Pain, Maximum dose of acetaminophen is 4000 mg from all sources in 24 hours., Routine Given 09/03/2011 8:37 AM EDT 650 mg BUpivacaine-epiNEPHrine 0.25 %-1:200,000 injection ONCE PRN, Starting on Thu09/02/11 at 1001, Until Thu09/02/11 at 1316, Intra-Operative (Intra-Procedure), Routine Given 09/02/2011 10:01 AM EDT 12.5 mg 19- Surgical Site calcium carbonate tablet 1,296 mg 1,296 mg (2 tablet), Oral, 3 TIMES DAILY, First dose on Thu09/02/11 at 1500, Until Discontinued Given 09/03/2011 8:21 AM EDT 1,296 mg Given 09/02/2011 9:00 PM EDT 1,296 mg ceFAZolin (ANCEF) injection ONCE PRN, Starting on Thu09/02/11 at 0937, Until Thu09/02/11 at 1316, Intra-Operative (Intra-Procedure), Routine Given 09/02/2011 9:37 AM EDT 2 g cholecalciferol (Vitamin D3) tablet 400 Units 400 Units, Oral, 3 TIMES DAILY, First dose on Thu09/02/11 at 1500, Until Discontinued, Routine Given 09/03/2011 8:22 AM EDT 400 Units Given 09/02/2011 9:00 PM EDT 400 Units hydrochlorothiazide (HYDRODIURIL) tablet 25 mg 25 mg, Oral, DAILY, First dose on Thu09/03/11 at 0900, Until Discontinued, Routine Given 09/03/2011 8:22 AM EDT 25 mg HYDROmorphone (DILAUDID) injection 0.2-0.4 mg 0.2-0.4 mg, Intravenous, EVERY 5 MIN PRN, Starting on Thu09/02/11 at 1152, Until Thu09/02/11 at 1320, Pain, PACU Recovery, Routine Given 09/02/2011 12:37 PM EDT 0.4 mg Given 09/02/2011 12:25 PM EDT 0.4 mg Given 09/02/2011 12:18 PM EDT 0.4 mg levothyroxine (SYNTHROID) tablet 137.5 mcg 137.5 mcg, Oral, EVERY MORNING, First dose on Thu09/03/11 at 0600, Until Discontinued, Routine Given 09/03/2011 6:00 AM EDT 137.5 mcg lisinopril (PRINIVIL;ZESTRIL) tablet 20 mg 20 mg, Oral, DAILY, First dose on Thu09/03/11 at 0900, Until Discontinued, Routine Given 09/03/2011 8:22 AM EDT 20 mg OXYcodone-acetaminophen (PERCOCET) 5-325 mg per tablet 1-2 tablet 1-2 tablet, Oral, EVERY 4 HOURS PRN, Starting on Thu09/02/11 at 1316, Until Thu09/03/11 at 1238, Pain, Maximum dose of acetaminophen is 4000 mg from all sources in 24 hours., Routine Given 09/03/2011 12:02 AM EDT 1 tablet Given 09/02/2011 7:05 PM EDT 1 tablet sodium chloride 0.9 % flush 5 mL 5 mL, Intravenous, EVERY 12 HOURS, First dose on Thu09/02/11 at 1345, Until Discontinued Given 09/03/2011 1:45 AM EDT 5 mLs Given 09/02/2011 1:10 PM EDT 5 mLs documented in this encounter Active and Recently Administered Medications Times are shown in EDT. Scheduled Medication Order 09/01/2011 09/02/2011 09/03/2011 calcium carbonate tablet 1,296 mg (CANCELED) 1,296 mg (2 tablet), Oral, 3 TIMES DAILY, First dose on Thu09/02/11 at 1500, Until Discontinued 1600 (Not Given - Provider: Cristy Jessica RN - Reason: Patient Unable)2100 (Given - Provider: Cristy Jessica RN) 0821 (Given - Provider: Abby Fisher RN) cholecalciferol (Vitamin D3) tablet 400 Units (CANCELED) 400 Units, Oral, 3 TIMES DAILY, First dose on Thu09/02/11 at 1500, Until Discontinued, Routine 1600 (Not Given - Provider: Cristy Jessica RN - Reason: Patient Unable)2100 (Given - Provider: Cristy Jessica RN) 0822 (Given - Provider: Abby Fisher RN) hydrochlorothiazide (HYDRODIURIL) tablet 25 mg (CANCELED)(Linked Group 1) 25 mg, Oral, DAILY, First dose on Thu09/03/11 at 0900, Until Discontinued, Routine 0822 (Given - Provid er: Abby Fisher RN) levothyroxine (SYNTHROID) tablet 137.5 mcg 137.5 mcg, Oral, EVERY MORNING, First dose on Thu09/03/11 at 0600, Until Discontinued, Routine 0600 (Given - Provid er: Mady Amato RN) lisinopril (PRINIVIL;ZESTRIL) tablet 20 mg (CANCELED)(Linked Group 1) 20 mg, Oral, DAILY, First dose on Thu09/03/11 at 0900, Until Discontinued, Routine 0822 (Given - Provid er: Abby Fisher RN) sodium chloride 0.9 % flush 5 mL (CANCELED) 5 mL, Intravenous, EVERY 12 HOURS, First dose on Thu09/02/11 at 1345, Until Discontinued 1310 (Given - Provider: Tami Howard RN) 0145 (Given - Provider: Mady Amato RN) PRN Medication Order 09/01/2011 09/02/2011 09/03/2011 acetaminophen (TYLENOL) tablet 650 mg (CANCELED) 650 mg, Oral, EVERY 4 HOURS PRN, Starting on Thu09/03/11 at 0837, Until Thu09/03/11 at 1238, Pain, Maximum dose of acetaminophen is 4000 mg from all sources in 24 hours., Routine 0837 (Given - Provid er: Abby Fisher RN - Comment: for headache) BUpivacaine-epiNEPHrine 0.25 %-1:200,000 injection (CANCELED) ONCE PRN, Starting on Thu09/02/11 at 1001, Until Thu09/02/11 at 1316, Intra-Operative (Intra-Procedure), Routine 1001 (Given - Provider: Valentine Valdivia MD) ceFAZolin (ANCEF) injection (CANCELED) ONCE PRN, Starting on Thu09/02/11 at 0937, Until Thu09/02/11 at 1316, Intra-Operative (Intra-Procedure), Routine 0937 (Given - Provider: Home Zhang MD) HYDROmorphone (DILAUDID) injection 0.2-0.4 mg (CANCELED) 0.2-0.4 mg, Intravenous, EVERY 5 MIN PRN, Starting on Thu09/02/11 at 1152, Until Thu09/02/11 at 1320, Pain, PACU Recovery, Routine 1218 (Given - Provider: Tami Howard RN)1225 (Given - Provider: Jenise Pena, AMARI)1237 (Given - Provider: Jenise Pena RN) OXYcodone-acetaminophen (PERCOCET) 5-325 mg per tablet 1-2 tablet 1-2 tablet, Oral, EVERY 4 HOURS PRN, Starting on Thu09/02/11 at 1316, Until Thu09/03/11 at 1238, Pain, Maximum dose of acetaminophen is 4000 mg from all sources in 24 hours., Routine 1905 (Given - Provider: Cristy Jessica RN) 0002 (Given - Provider: Mady Amato RN) Linked Groups Order Group 1: lisinopril (PRINIVIL;ZESTRIL) tablet 20 mg (CANCELED)Jump to med 20 mg, Oral, DAILY, First dose on Thu09/03/11 at 0900, Until Discontinued, Routine And hydrochlorothiazide (HYDRODIURIL) tablet 25 mg (CANCELED)Jump to med 25 mg, Oral, DAILY, First dose on Thu09/03/11 at 0900, Until Discontinued, Routine documented in this encounter Care Teams Phlebotomist Relationship Specialty Start Date End Date None None PCP - General 01/29/10 10/29/11 documented as of this encounter
--- OUTSIDE RECORDS SUMMARY | 2024-01-08 01:14 | XMS_ITS | Encounter Summary ---
Author Organization [facility] [place] [address] Care Team Providers Care Fixed Income Director Name Role Phone Home Yeager MD Primary Care Provider [phone] Encounter Details Date Type Department Care Team (Late st Contact Info) Description 03/29/2004 Orders Only [facility] [place] [address] Huma Tadeo DO OBSTETRICS & GYNECOLOGY Social History Tobacco Use Types Packs/Day Years Used Date Smoking Tobacco: Never Assessed Sex and Gender Information Value Date Recorded Sex Assigned at Not on file Gender Identity Not on file Sexual Orientation Not on file documented as of this encounter Plan of Treatment Not on file documented as of this encounter Procedures Procedure Name Priority Date/Time Associated Diagnosis Comments SURGICAL PATHOLOGY REPORT Routine 03/29/2004 2:36 PM EST documented in this encounter Results * Surgical Pathology Report (03/29/2004 2:36 PM EST) Surgical Pathology Report [id number] ? Location: The signing pathologist has (i) examined the relevant preparation(s) for the specimen(s) and (ii) rendered or confirmed the diagnosis(es). . ?Pathology Surgical Pathology Final Report Clinical Information Specimen Submitted: A - Endometrial Bx Clinical History: 43 Y/O/F with menometrorrhagia Gross Description Labeled/Fixative: ? Labeled with the patient's name and medical record ?number, formalin. Qty/Size/Weight: ?Fragments, 2 x 2 x 1 cm. ??Jovel-brown, hemorrhagic ?tissue and blood clot. Sections/Processing : ??(T1) aje/EJR Microscopic Description Slides reviewed, microscopic description not recorded. Diagnosis Endometrium, biopsy: ?Menstrual endometrium. CR-0 04/02/04 ARS 04/02/04 Verified by: ? Fernando Tolentino MD ?Pathologist ?(Electronic Signature) The attending pathologist whose signature appears on this report has reviewed all diagnostic slides and has edited the gross and/or microscopic portion of the report in rendering the final pathologic diagnosis. WILL MENARD 03/29/2004 2:36 PM EST Huma Tadeo DO PATHOLOGY/CYTOLOGY O RDERABLES Performing Organization Address City/State/[facility] Co de Phone Number WILL MENARD documented in this encounter Visit Diagnoses Not on filedocumented in this encounter Care Teams Fixed Income Director Relationship Specialty Start Date End Date Home Yeager MD PCP - General Family Medicine 04/21/17 documented as of this encounter
--- OUTSIDE RECORDS SUMMARY | 2024-01-08 01:14 | XMS_ITS | Encounter Summary ---
Author Organization [facility] Address [facility] [place] [address] Care Team Providers Care Stripper Black And White Name Role Phone Sandra Shaw ZAKIA Primary Care Provider [phone] Encounter Details Date Type Department Care Team (Latest Contact Info) Description 07/05/2013 - 07/05/2013 11:59 PM EDT Hospital Encounter Radiology Library at [facility] [place] [address] Rosio Schuster MD [facility] [place] [address] Discharge Disposition: Home Social History Tobacco Use [...] Comments FILM LIBRARY STORAGE ONLY MAMMO Routine 07/05/2013 12:00 AM EDT documented in this encounter Results * Film Library- Storage Only Mammo (07/05/2013 12:00 AM EDT) Narrative [facility] - 01/02/2017 3:45 PM EDT This exam is for storage only and is auto-finalizing. Rosio Schuster MD IMG FILM LIBRARY O RDERABLES Performing Organization Address City/State/[facility] Co de Phone Number [place], [place] documented in this encounter Visit Diagnoses Not on filedocumented in this encounter Care Teams Stripper Black And White Relationship Specialty Start Date End Date Sandra Shaw, ZAKIA PCP - General 10/30/11 04/20/17 documented as of this encounter
--- OUTSIDE RECORDS SUMMARY | 2024-01-08 01:14 | XMS_ITS | Encounter Summary ---
Author Organization [facility] Address [facility] [place] [address] Care Team Providers Care Disability Case Manager Name Role Phone Sandra Shaw ZAKIA Primary Care Provider [phone] Encounter Details Date Type Department Care Team (Latest Contact Info) Description 12/23/2012 - 12/23/2012 12:04 AM EDT Hospital Encounter Radiology Library at [facility] [place] [address] Rosio Schuster MD [facility] [place] [address] Discharge Disposition: Home Social History Tobacco Use [...] FILM LIBRARY STORAGE ONLY MAMMO Routine 12/23/2012 12:00 AM EDT documented in this encounter Results * Film Library- Storage Only Mammo (12/23/2012 12:00 AM EDT) Narrative [facility] - 01/02/2017 3:43 PM EDT This exam is for storage only and is auto-finalizing. Rosio Schuster MD IMG FILM LIBRARY O RDERABLES Performing Organization Address City/State/[facility] Co de Phone Number [place], [place] documented in this encounter Visit Diagnoses Not on filedocumented in this encounter Care Teams Disability Case Manager Relationship Specialty Start Date End Date Sandra Shaw, ZAKIA PCP - General 10/30/11 04/20/17 documented as of this encounter
--- OUTSIDE RECORDS SUMMARY | 2024-01-08 01:14 | XMS_ITS | Encounter Summary ---
Author Organization [facility] Address [facility] [place] [address] Care Team Providers Care Hospitality Job Titles Name Role Phone Sandra Shaw ZAKIA Primary Care Provider [phone] Encounter Details Date Type Department Care Team (Latest Contact Info) Description 03/23/2017 2:55 PM EST - 03/23/2017 3:14 PM EST Hospital [place] [address] Manish Goel MD [facility] [place] [address] Abnormal mammogram Discharge Disposition: Home Social History [...] Name Priority Date/Time Associated Diagnosis Comments MAMMO STEREOTACTIC BIOPSY Routine 03/23/2017 3:33 PM EST Abnormal mammogram SPECIMEN TO PATHOLOGY Routine 03/23/2017 3:28 PM EST documented in this encounter Results * Mammo Stereotactic (03/23/2017 3:33 PM EST) Anatomical Region Laterality Modality Breast N/A Mammography Impressions 03/24/2017 4:01 PM EST Concordant high risk lesion result RECOMMENDATION: Definitive surgical management with surgical excision of the atypical hyperplasia as well as the invasive ductal carcinoma (that biopsy result is dictated separately). REVIEW PATH CONFERENCE?: No Narrative 03/24/2017 4:01 PM EST STEREOTACTIC GUIDED VACUUM ASSISTED BIOPSY OF THE LEFT BREAST CLINICAL HISTORY: ABNORMAL left MAMMOGRAM Left breast lesion #2:0.6 cm grouping of microcalcifications at the left breast 3:00 radian 8 cm from the nipple Procedural details: Informed consent was obtained and a time out procedure was performed per protocol. The patient gave permission to proceed. Using sterile technique and local anesthetic (less then 20 cc's of 1% lidocaine for both superficial and deep anesthetic) a skin knick was made and a biopsy was performed using tomographic guidance. Multiple core biopsy specimens were obtained using a 9g vacuum assist device. 6 core biopsy specimens were obtained using a CellControl Eviva 9g device. Biopsy specimens were radiographed. ??The abnormality was present on the specimen digital radiograph. A Adaptimmunerk Eviva cylinder marker clip was placed. Cranio-caudal and lateral digital mammography was performed to determine biopsy marker placement. ??The marker was shown to be at the biopsy site. COMPLICATIONS: None. PROCEDURAL ATTESTATION: Resident: Newton I performed the procedure with the resident observing. 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 ??Separate Pathology report to follow Manish Goel MD PATHOLOGY/CYTOLOGY ORDERABLES [facility] [place] [address] documented in this encounter Visit Diagnoses Diagnosis Abnormal mammogram Abnormal mammogram, unspecified documented in this encounter Administered Medications Inactive Administered Medications - up to 3 most recent administrations Medication Order MAR Action Action Date Dose Rate Site lidocaine (XYLOCAINE) 10 mg/mL (1 %) injection 20 mg 20 mg, Intradermal, ONCE, 1 dose, On 03/23/17 at 1545, Routine Given 03/23/2017 3:00 PM EST 20 mg documented in this encounter Care Teams Hospitality Job Titles Relationship Specialty Start Date End Date Sandra Shaw, ZAKIA PCP - General 10/30/11 04/20/17 documented as of this encounter
--- OUTSIDE RECORDS SUMMARY | 2024-01-08 01:14 | XMS_ITS | Encounter Summary ---
Author Organization [facility] [place] [address] Care Team Providers Care Annealer Name Role Phone None Primary Care Provider Unavailabl e Encounter Details Date Type Department Care Team (Latest Contact Info) Description 09/02/2011 8:02 AM EDT - 09/03/2011 10:36 AM EDT Hospital Encounter [place] [id number] Valentine Valdivia MD [facility] [place] [address] Discharge Disposition: Home Social History Tobacco Use Types Packs/Day Years Used Date Smoking Tobacco: Former Cigarettes Q uit: 03/09/1998 Sex and Gender Information Value Date Recorded Sex Assigned at Not on file Gender Identity Not on file Sexual Orientation Not on file documented as of this encounter Last Filed Vital Signs Vital Sign Reading Time Taken Comments Blood Pressure 140/72 09/03/2011 8:11 AM EDT Pulse 72 09/03/2011 8:11 AM EDT Temperature 36.8 ??C (98.2 ??F) 09/03/2011 8:11 AM ED T Respiratory Rate 16 09/03/2011 8:11 AM EDT Oxygen Saturation 94% 09/03/2011 8:11 AM EDT Inhaled Oxygen Concentration - - [...] please call the General Surgery nurse at [phone], since this may mean that you need more calcium. Follow-up Appointment: Will be scheduled with Dr. Valdivia in 6 weeks Date and time as well as any required labs will be mailed to you Please call [phone] to confirm date and time of your [...] by calcium supplementation. Phone number for questions: [phone] before 5 PM weekdays [phone] after 5 PM and on weekends/holidays * Attachments The following attachments cannot be sent through Care Everywhere. * THYROIDECTOMY: WHAT TO EXPECT AT HOME (SINHALA) documented in this encounter Medications at Time [...] SHE HAS APPLIED FOR FINANCIAL ASSISTANCE THROUGH [employer] AND USES [employer] IN [place] FOR HER PRESCRIPTIONS. SHE CAN GET30 DAYS/$4 OR 90 DAYS/$9. sCRIPT FOR 30 DAYS AND oK WITH THIS. CARES FOR HER AT HOME AND HER SON AND NURSING ARE PROVIDING CARE AND WILL BE UNTIL SHE RECOVERS. DISCUSSED PAIN, BOWELS, DIET, ACTIVITY ANF GENERAL CARE. SHE HAS TRANSPORTATION BETWEEN 11-12 TODAY. RN TO REVIEW INSTRUCTIONS, MEDICATIONS, [id number] AND F/U APPOINTMENT WITH HER PRIOR TO [...] 6:44 AM EDT Inpatient Note Patient: Zoë Nara Cervantes Procedure(s) Performed: Procedure(s): THYROIDECTOMY, TOTAL OR [...] COMPLETE FACIAL NERVE MONITORING, SETUP Patient location: [facility] Surgical Floor Post-op pain: Adequate analgesia [...] on 2L NC 02 and medicated. Jojo FITZPATRICK documented in this encounter H&P Notes * [...] on physical exam. ROS: No H/O asthma, IL, stroke, pulmonary embolus or phlebitis. Comprehensive review [...] 09/02/2011 Surgeon: Surgeon(s) and Role: * VALENTINE VALDVIIA MD - Primary * OLI GAN MD [...] Operative Note Patient Name: Zoë Cervantes : [id number] MR#: [id number] Case Date: 09/02/2011 Surgeon: Surgeon(s) and Role: [...] 11:50 AM EDT) Surgical Pathology Report ? [facility] ? Provider: ?? VALENTINE VALDIVIA Pt. Name: ?? ZOË CERVANTES ? Acc #: ?[id number] ?Pt. ? Col Date: ?? 09/02/2011 ? [...] primarily homogeneous, red-brown tissues. ? Sections/Processin g: ?Umbrella Finisher sections are submitted from upper ? to lower pole in twelve cassettes. ??(R12) ? B - Labeled/Fixative: ? Right lobe of thyroid, fresh. ? Qty/Size/Weight: ?Single, 3.7 x 2.7 x 1.7 cm, 7 g. ? Tissue Description: ? Right lobe of thyroid. ?External Surface: ?Tense, smooth, madrid-pink. ? [facility] ? Provider: ?? VALENTINE VALDIVIA Pt. Name: ?? ZOË CERVANTES ? Acc #: ?[id number] ?Pt. ? Col Date: ?? 09/02/2011 ? [...] lobe of thyroid ? Clinical History/Diagnosis: ? [facility] 09/02/2011 11:5 0 AM EDT Valentine Valdivia MD PATHOLOGY/CYTOLOGY ORDERABLES WILL MENARD * Specimen to Pathology (surgical or derm) (09/02/2011 11:09 AM EDT) AP Specimen 09/02/2011 11:0 9 AM EDT 09/02/2011 11:09 AM EDT Narrative WILL MENARD - 09/02/2011 11:09 AM EDT Specimen requisition ordered. ??Separate Pathology report to follow Valentine Valdivia MD PATHOLOGY/CYTOLOGY ORDERABLES WILL MENARD * Specimen to Pathology (surgical or derm) (09/02/2011 10:45 AM EDT) AP Specimen 09/02/2011 10:4 5 AM EDT 09/02/2011 10:45 AM EDT Narrative [facility] - 09/02/2011 10:45 AM EDT Specimen requisition ordered. ??Separate Pathology report to follow Valentine Valdivia MD PATHOLOGY/CYTOLOGY ORDERABLES Performing Organization Address City/[facility]/ZIP Co de Phone Number WILL MENARD documented [...] Given 09/03/2011 8:37 AM EDT 650 mg calcium carbonate tablet 1,296 mg 1,296 mg (2 tablet), Oral, 3 TIMES DAILY, First dose on Thu09/02/11 at 1500, Until Discontinued Given 09/03/2011 8:21 AM EDT 1,296 mg Given 09/02/2011 9:00 PM EDT 1,296 mg cholecalciferol (Vitamin D3) tablet 400 Units 400 [...] Discontinued, Routine 1600 (Not Given - Provider: Critsy Jessica RN - Reason: Patient Unable)2100 (Given [...] Until Thu09/02/11 at 1316, Intra-Operative (Intra-Procedure), Routine 09 (Given - Provider: Home Zhang MD) HYDROmorphone (DILAUDID) injection 0.2-0.4 mg (CANCELED) 0.2-0.4 mg, Intravenous, EVERY 5 MIN PRN, Starting on Thu09/02/11 at 1152, Until Thu09/02/11 at 1320, Pain, PACU Recovery, Routine 1218 (Given - Provider: Tami Howard RN)1225 (Given - Provider: Jenise Pena RN)1237 (Given - Provider: Jenise Pena RN) OXYcodone-acetaminophen [...] Routine documented in this encounter Care Teams Annealer Relationship Specialty Start Date End Date None None PCP - General 01/29/10 10/29/11 documented as of this encounter
--- OUTSIDE RECORDS SUMMARY | 2024-01-08 01:14 | XMS_ITS | Encounter Summary ---
Author Organization [facility] Address [facility] [place] [address] Care Team Providers Care School Bus Inspector Name Role Phone Sandra Shaw ZAKIA Primary Care Provider [phone] Encounter Details Date Type Department Care Team (Latest Contact Info) Description 12/15/2016 - 12/15/2016 11:59 PM EDT Hospital Encounter Radiology Library at [facility] [place] [address] Rosio Schuster MD [facility] [place] [address] Discharge Disposition: Home Social History Tobacco Use [...] Comments FILM LIBRARY STORAGE ONLY MAMMO Routine 12/15/2016 12:00 AM EDT documented in this encounter Results * Film Library- Storage Only Mammo (12/15/2016 12:00 AM EDT) Narrative [facility] - 01/02/2017 3:48 PM EDT This exam is for storage only and is auto-finalizing. Rosio Schuster MD IMG FILM LIBRARY O RDERABLES Performing Organization Address City/State/[place] Co de Phone Number [place], [place] documented in this encounter Visit Diagnoses Not on filedocumented in this encounter Care Teams School Bus Inspector Relationship Specialty Start Date End Date Sandra Shaw, ZAKIA PCP - General 10/30/11 04/20/17 documented as of this encounter
--- OUTSIDE RECORDS SUMMARY | 2024-01-08 01:14 | XMS_ITS | Encounter Summary ---
Author Organization [facility] [place] [address] Care Team Providers Care Labeling Specialist Name Role Phone None Primary Care Provider Unavailabl e Reason for Visit * Reason Comments Follow Up Surgery Encounter Details Date Type Department Care Team (Latest Contact Info) Description 10/20/2011 10:50 AM EDT Office Visit General Surgery at [facility] [place] [address] Torres Valdivia MD [facility] [place] [address] S/P thyroidectomy (Primary Dx) Discharge Disposition: Home Social History Tobacco Use Types Packs/Day Years Used Date Smoking Tobacco: Former Cigarettes Q uit: 03/09/1998 Sex and Gender Information Value Date Recorded Sex Assigned at Not on file Gender Identity Not on file Sexual Orientation Not on file documented as of this encounter Last Filed Vital Signs Vital Sign Reading Time Taken Comments Blood Pressure 133/80 10/20/2011 9:27 AM EDT Pulse 65 10/20/2011 9:27 AM EDT Temperature 36.8 ??C (98.2 ??F) 10/20/2011 9:27 AM ED T Respiratory Rate - - Oxygen Saturation 94% 10/20/2011 9:27 AM EDT Inhaled Oxygen Concentration - - Weight 116.6 kg (257 lb) 10/20/2011 9:27 AM EDT Height - - Body Mass Index 37.41 09/02/2011 8:18 AM EDT documented in this encounter Progress Notes * Torres Valdivia MD - 10/20/2011 9:39 AM EDT Reason for Visit: Zoë Cervantes returns. History of Present Illness: She is S/P a total thyroidectomy performed on 09/02/11 for what turned out to be a FA in setting of [facility]. She is not having any dysphagia or dysphonia. She has no symptoms of increased or decreased T4 and is otherwise feeling well. T4/TSH today: 11.7 / 2.37 PMH: Current outpatient prescriptions ordered prior to encounter Medication Sig Dispense Refill ??? levothyroxine (SYNTHROID) 137 mcg tablet Take 137 mcg by mouth every morning. 30 tablet 0 ??? Calcium Carbonate-Vitamin D3 (CALCIUM 600 WITH VITAMIN D3) 600 mg(1,500mg) - 200 unit Tab Take by mouth. Take by mouth 60 tablet 3 ??? lisinopril-hydrochlorothiazide (PRINZIDE;ZESTORETIC) 20-25 mg per tablet Take 1 tablet by mouthdaily. ??? OXYcodone-acetaminophen (PERCOCET) 5-325 mg per tablet Take 1-2 tablets by mouth every 4 hours as needed for Pain. 30 tablet 0 Allergies as of 10/20/2011 ??? (No Known Allergies) PE: Neck: Wound is healing well with some residual postoperative swelling. Imp: Good postoperative course. Euthyroid. Plan: I have advised her that she should continue to see Dr. Frankel and have her TFT's checked on an annualbasis. Return to clinic prn. Send copy to PCP. documented in this encounter Plan of Treatment Not on file documented as of this encounter Procedures Procedure Name Priority Date/Time Associated Diagnosis Comments TSH Routine 10/20/2011 8:47 AM EDT S/P thyroidectomy T4 TOTAL Routine 10/20/2011 8:47 AM EDT S/P thyroidectomy documented in this encounter Results * TSH (10/20/2011 8:47 AM EDT) Thyroid Stimulating Hormone 2.37 0.27 - 4.20 mcIU/mL [facility] Blood specimen (specimen) 10/20/2011 8:47 AM EDT 10/20/2011 8:53 AM EDT Narrative Resulting Agency Comment Spec In Lab Torres Valdivia MD CHEMISTRY ORDERABL ES Performing Organization Address City/[facility] Co de Phone Number WILL MENARD * (ABNORMAL) T4 (10/20/2011 8:47 AM EDT) T4 Total 11.7(H) 5.1 - 10.8 mcg/dL [facility] Comment: Reference Range: [place] Blood: ??6.9-14.4 mcg/dL Females: ??7.2-14.2 mcg/dL Pediatric ranges: ??Interpret with caution-ranges have not been verified Blood specimen (specimen) 10/20/2011 8:47 AM EDT 10/20/2011 8:53 AM EDT Narrative Resulting Agency Comment Spec In Lab Torres Valdivia MD CHEMISTRY ORDERABL ES Performing Organization Address [facility] Co de Phone Number WILL MENARD documented in this encounter Visit Diagnoses Diagnosis S/P thyroidectomy- Primary Other postprocedural status documented in this encounter Care Teams Labeling Specialist Relationship Specialty Start Date End Date None None PCP - General 01/29/10 10/29/11 documented as of this encounter
--- OUTSIDE RECORDS SUMMARY | 2024-01-08 01:14 | XMS_ITS | Encounter Summary ---
Author Organization [facility] Address [facility] [place] [address] Care Team Providers Care Network Contractor Name Role Phone Sandra Shaw ZAKIA Primary Care Provider [phone] Encounter Details Date Type Department Care Team (Latest Contact Info) Description 12/24/2016 12:05 AM EDT - 12/24/2016 11:59 PM EDT Hospital Encounter Radiology Library at [facility] [place] [address] Rosio Schuster MD [facility] [place] [address] Discharge Disposition: Home Social History Tobacco Use [...] FILM LIBRARY STORAGE ONLY MAMMO Routine 12/24/2016 12:05 AM EDT documented in this encounter Results * Film Library- Storage Only Mammo (12/24/2016 12:05 AM EDT) Narrative [facility] - 01/02/2017 3:51 PM EDT This exam is for storage only and is auto-finalizing. Rosio Schuster MD IMG FILM LIBRARY O RDERABLES [place], [place] documented in this encounter Visit Diagnoses Not on filedocumented in this encounter Care Teams Network Contractor Relationship Specialty Start Date End Date Sandra Shaw APRN PCP - General 10/30/11 04/20/17 documented as of this encounter
--- NOTE | 2024-01-08 11:00 | DI.MAMMO_ITS ---
Exam(s) MG MAMMO SCREENING 60 MIN DUR EXAM: MG MAMMO SCREENING 60 MIN DUR CLINICAL HISTORY: breast cancer screening,h/o breast surgery,z98.890 TECHNIQUE: Mammograms were interpreted according to the usual protocol including computer analysis w [employer] CAD system, tomosynthesis and C-view imaging. COMPARISON: 2014 through 2022 FINDINGS: The breasts are composed of scattered fibroglandular densities, Breast Density category B. No suspicious masses or suspicious microcalcifications are seen. Post lumpectomy scarring and calcif ication in the upper outer quadrant. No skin thickening or abnormal axillary lymph nodes are seen. There has been no significant change from prior exams. IMPRESSION: BI-RADS Category 2 - Benign Findings Yearly screening mammography is recommended. Breast Density - Category B, scattered fibroglandular densities. A negative radiographic report should not delay biopsy if a dominant or clinically suspicious mass is present. Up to ten percent of cancers are not identified on mammography. A negative report may reinforce clinical impression. Adenosis and dense breasts may obscure an underlying neoplasm. False positive reports average 6 to 10%. Patient will receive a letter notifying them of these results.
== END 2024-01-08 01:26 ==
PROVIDERS: PCP Student in an Organized Health Care Education/Training Program; Visit Provider Obstetrics & Gynecology
DX: Z12.31 Encounter for screening mammogram for malignant neoplasm of breast (principal); Z98.890 Other specified postprocedural states; R92.323 Mammographic fibroglandular density, bilateral breasts
CPT/HCPCS: 77063; 77067

== ENCOUNTER 2024-11-14 15:05 | Outpatient (REF) | payer MEDICARE, SELFPAY ==
[2024-11-14 15:56] LABS: Abs Immature Grans 0.03 10^3/uL (0.0-0.06); HCT 44.8 % (36.0-46.0); HGB 14.5 g/dL (11.2-15.7); Immature Grans % 0.5 %; MCH 27.8 pg (27.0-33.0); MCHC 32.4 % (32.0-36.0); MCV 86 fL (80-95); MPV 11.2 fL (8.0-11.0); Platelet Count 307 10^3/uL (130-400); RBC 5.22 10^6/uL (3.93-5.22); RDW 13.6 % (11.7-14.6); RDW-SD 42.3 fL; WBC 6.35 10^3/uL (4.4-10.8)
[2024-11-14 16:27] LABS: Anion Gap 6.6 mmol/L (3-11); BUN 15 mg/dL (7-18); CO2 30.4 mmol/L (21.0-32.0); Calcium 9.7 mg/dL (8.5-10.1); Calculated LDL 117 mg/dL (<100); Chloride 101 mmol/L (98-107); Cholesterol 212 mg/dL (<200); Estimated GFR 82.23 (mL/min/1.73m2); Glucose 79 mg/dL (74-106); HDL Cholesterol 45 mg/dL (>or=50); Potassium 4.6 mmol/L (3.5-5.1); Sodium 138 mmol/L (136-145); TSH 2.37 uIU/mL (0.36-3.74); Triglyceride 252 mg/dL (<150)
[2024-11-14 16:29] LABS: COMMENT (LAB VIEW ONLY) 29.20 mg/dL; Microalb ug/mg Crea 39.7 ug/mg Cr
== END 2024-11-14 15:06 | disposition home or self-care (01) ==
LOC: NCHCN 15:05
PROVIDERS: PCP Student in an Organized Health Care Education/Training Program; Visit Provider Student in an Organized Health Care Education/Training Program
DX: I10 Essential (primary) hypertension (principal); E03.9 Hypothyroidism, unspecified; Z13.220 Encounter for screening for lipoid disorders
CPT/HCPCS: 80048; 80061; 82043; 82570; 84439; 84443; 85025

== ENCOUNTER 2024-12-08 15:07 | Outpatient (REF) | payer MEDICARE, SELFPAY ==
--- NOTE | 2024-12-08 13:40 | PAPFT_PTH ---
PATIENT: Zoë Preston LOC: [facility] U#:[id number] AGE/SX: 64/F ROOM: RE12/08/[address]: Nighat Sosa DO : 1960 BED: DIS: 12/08/2024 SPEC #: [id number] RECD: 12/08/24 17:57 STATUS: RADHARola REQ #: [id number] NATE: 12/08/24 13:[address]: Nighat Sosa DEPT: [facility] Cytology RECD BY: Chely Walls ENTERED: 12/08/24 17:58 SP TYPE: PAPFT OTHR DR: Osman Stockton Tissues: 1 - CX/ENDOCX FOR PAP SMEARS Procedures: PAP THIN PREP/UVM Screening HPV DNA PROBE Comments: [id number] (HPV 16 & 18/45)
== END 2024-12-08 15:08 | disposition home or self-care (01) ==
LOC: LBN 15:07
PROVIDERS: PCP Student in an Organized Health Care Education/Training Program; Visit Provider Obstetrics & Gynecology
DX: Z12.4 Encounter for screening for malignant neoplasm of cervix (principal)
CPT/HCPCS: 88142; 87624

== ENCOUNTER → 2025-01-12 09:47 | Outpatient (BNVA) | payer MEDICARE, SELFPAY | PROVIDERS: PCP Student in an Organized Health Care Education/Training Program; Referring Provider Student in an Organized Health Care Education/Training Program; Visit Provider Physical Therapy Assistant | DX: Z12.11 Encounter for screening for malignant neoplasm of colon (principal); Z86.0101 Personal history of adenomatous and serrated colon polyps | CPT/HCPCS: S0285 ==

== ENCOUNTER → 2025-01-18 01:20 | Outpatient (CLI) | payer MEDICARE, SELFPAY ==
--- NOTE | 2025-01-18 10:34 | DI.MAMMO_ITS ---
Exam(s) MG MAMMO SCREENING 60 MIN DUR EXAM: MG MAMMO SCREENING 60 MIN DUR CLINICAL HISTORY: breast cancer screening,PERSONAL H/O BREAST CA,Z85.3,Z12.39 TECHNIQUE: Mammograms were interpreted according to the usual protocol including computer analysis with CAD system, tomosynthesis and C-view imaging. COMPARISON: 2015 through 2023 FINDINGS: The breasts are composed of scattered fibroglandular densities, Breast Density category B. No suspicious masses or suspicious microcalcifications are seen. There is scarring as well as coarse calcifications in the upper outer quadrant of the left breast, at the lumpectomy site. No skin thickening or abnormal axillary lymph nodes are seen. There has been no significant change from prior exams. IMPRESSION: BI-RADS Category 2 - Benign Findings Yearly screening mammography is recommended. Breast Density - Category B - There are scattered areas of fibroglandular density. Breast density Category C or D implies that the patient has dense breast tissue. Dense breast tissue can make it harder to find cancer on a mammogram. Dense breast tissue is also associated with an increased risk of breast cancer. This information about the result of the mammogram report was provided to the patient to raise their awareness. Use this report when you speak with the patient about their risks for breast cancer, which includes their family history. At that time, you may recommend additional screening tests (Ultrasound or MRI) as these tests may add significant information. A negative radiographic report should not delay biopsy if a dominant or clinically suspicious mass is present. Up to ten percent of cancers are not identified on mammography. A negative report may reinforce clinical impression. Adenosis and dense breasts may obscure an underlying neoplasm. False positive reports average 6 to 10%. Patient will receive a letter notifying them of these results.
== END ==
LOC: DI 01:21
PROVIDERS: PCP Student in an Organized Health Care Education/Training Program; Visit Provider Obstetrics & Gynecology
DX: Z85.3 Personal history of malignant neoplasm of breast (principal); Z12.31 Encounter for screening mammogram for malignant neoplasm of breast; R92.323 Mammographic fibroglandular density, bilateral breasts
CPT/HCPCS: 77063; 77067

== ENCOUNTER 2025-01-25 09:16 | Day surgery (SDC) | payer MEDICARE, SELFPAY ==
[2025-01-25 09:55] VITALS: BP 180/98; PULSE 74; RESP 18; TEMP 36.3; O2SAT 97
[2025-01-25] MEDS: Lactated Ringers 1,000 ML 80 ML IV (10:30)
--- NOTE | 2025-01-25 11:01 | W.ANESPRE ---
General Info Date of Service Date Performed: 01/25/25 Height: 5 ft 9.5 in Weight: 110.2 kg Body Mass Index (BMI): 35.3 Surgical Procedure: Operation Date: 01/25/25 11:35 Proposed Procedure Side Surgeon p Colonoscopy Florence Robles MD Meds Allergies and Home Medications Allergies Allergy/AdvReac Type Severity Reaction Status Date / Time iron Allergy Mild vomiting Verified 01/25/25 10:22 Mussels Allergy Intermediate Nausea/vomi Uncoded 01/25/25 10:22 ting Home Medication Medication Instructions Recorded aspirin 81 mg tablet,delayed 81 mg PO DAILY 07/18/13 release (Aspir-) levothyroxine 137 mcg tablet 137 mcg PO DAILY 07/18/13 cholecalciferol (vitamin D3) 25 1,000 unit PO DAILY 12/30/13 mcg (1,000 unit) capsule (Vitamin D3) albuterol sulfate 90 mcg/actuation 2 puff inhalation Q6H PRN 12/08/23 aerosol inhaler (Proventil HFA) ibuprofen 600 mg tablet 600 mg PO Q8H PRN 12/08/23 ketoconazole 2 % topical cream 1 applic topical BID 12/08/23 lisinopril 40 mg tablet 40 mg PO DAILY 12/08/23 magnesium aspart,citrate,oxide mg PO 12/08/23 metformin 500 mg tablet,extended 500 mg PO DAILY 12/08/23 release 24 hr hydrochlorothiazide 12.5 mg tablet 12.5 mg PO DAILY 01/06/25 bisacodyl 5 mg tablet,delayed 5 mg PO ONCE Colonoscopy Bowel 01/12/25 release Prep #4 tabs polyethylene glycol 3350 17 238 g PO ONCE #238 grams 01/12/25 gram/dose oral powder Current Visit Medications: Current Medications Generic Name Dose Route Start Last Admin Trade Name Freq PRN Reason Stop Dose Admin Ringer's Solution 1,000 mls @ 80 mls/hr 01/25/25 06:00 IV 01/25/25 23:59 INFUSION [facility] IV Miscellaneous Supplies 1 each 01/25/25 06:00 Iv Access IV 01/25/25 23:59 DIRECTED SHIRA Sodium Chloride 0 ml 01/25/25 06:00 Normal Saline Flush 10 Ml Syr IV 01/25/25 23:59 PRN PRN Sodium Chloride 0 ml 01/25/25 06:00 Normal Saline 10 Ml Vial IJ 01/25/25 23:59 DIRECTED PRN Sterile Water 0 ml 01/25/25 06:00 Water,Injection,Sterile 10 Ml Vial IJ 01/25/25 23:59 DIRECTED PRN PFSH Active Problems Active Problems: Problem Status Onset Code Breast cancer screening Acute Z12.39 History of breast cancer Acute Z85.3 Tubular adenoma Acute 02/19/15 D36.9 Morbid obesity Acute 07/18/13 E66.01 Hypothyroidism Acute 07/18/13 E03.9 Hypertension Acute 07/18/13 I10 Medical History Medical History Rh Negative Hypertension Hypothyroidism Dysthymia Grief reaction Morbid obesity Diabetes Dysfunctional uterine bleeding Surgical History Surgical History S/P endometrial ablation (06/12/14) H/O breast surgery Removal throat ' tumors ? thyroid 2011 section Dilation and curettage several following some of her SAB's unknown dates Colonoscopy - MAC 2014 Appendectomy 1975 Tobacco Smoking/Tobacco Use Status: Never Passive smoking exposure: No Alcohol Alcohol Intake: never Substance Use Substance use: Never Substance use type: does not use Prental History History Para Hx # Term Pregnancies Multiple births Hx # Pregnancies Ectopic pregnancies AB induced Hx Number of Living Children 3 AB spontaneous Vital Signs and Lab Results Vital Signs Most Recent Vital Signs in EMR: Most Recent Vital Signs Temp Pulse Resp BP Pulse Ox 36.3 C L 74 18 180/98 H 97 01/25/25 09:55 01/25/25 09:55 01/25/25 09:55 01/25/25 09:55 01/25/25 09:55 Point of Care Results Point of Care Results: Finger Stick Blood Glucose 96 01/25/25 10:03 Anesthesia Assessment and Plan Anesthesia History Personal History: No History of Anesthesia Complications Family History: No Family History of Anesthesia Complications Exercise Tolerance Exercise Tolerance: Metabolic Equivalents>4 Pertinent Negatives Pertinent Negatives: No Symptoms of GERD Cardiac & Pulmonary Exam Cardiac Exam: Normal S1/S2 Heart Sounds Pulmonary Exam: Clear Bilateral Breath Sounds Implantable Cardiac Device Does patient have a Pacemaker or an ICD?: No Airway Exam Known Difficult Airway: No Mallampati Class: 2 Mouth Opening: Normal (> 3cm) Thyromental Distance: Greater than 3 cm Neck Range of Motion: Full ROM Neck Circumference: Normal Teeth Condition: Removable Dentures/Plates Upper ASA Classification ASA Score: ASA 2 Emergency Case?: No NPO Status NPO Status: NPO Clears >2 hours, Solids >8 hours Anesthesia Plan Resuscitation Status: Full Code Anesthesia Technique: General Anesthesia Airway Planned: Natural Airway Monitors Used: Standard Monitors
[2025-01-25 11:02] VITALS: BMI 35.3
--- NOTE | 2025-01-25 11:29 | BOWEL_PTH ---
PATIENT: Zoë Preston LOC: [facility] U#:[id number] AGE/SX: 64/F ROOM: RE01/25/[address]: Florence Robles : 1960 BED: DIS: 01/25/2025 SPEC #: [id number] RECD: 01/25/25 12:43 STATUS: KALYN RE #: [id number] NATE: 01/25/25 11:[address]: Florence Robles DEPT: Surgical Specimen RECD BY: Chely Walls ENTERED: 01/25/25 12:43 SP TYPE: Bowel OTHR DR: Osman Stockton Tissues: 1 - BIOPSY BOWEL Procedures: GROSS AND MICRO LEVEL 4 Comments: [id number]
[2025-01-25 11:40] VITALS: BP 114/60; PULSE 77; RESP 14; TEMP 36.2; O2SAT 96
--- NOTE | 2025-01-25 11:42 | W.PM.DSUDISC ---
Date of service: 01/25/25 Discharge Plan Disposition Patient Disposition: Home Condition: Good Discharge Details Reason For Visit: Surveillance colonoscopy Attending Provider: Florence Robles Primary Care Provider: Osman Stockton Recommendations for Follow Up Recommended tests to be ordered by follow up provider: Follow up pathology Home Meds and New Rx's Prescriptions: Continued ibuprofen 600 mg tablet 600 mg PO Q8H PRN ketoconazole 2 % cream 1 applic topical BID lisinopril 40 mg tablet 40 mg PO DAILY magnesium aspart,citrate,oxide 400 mg magnesium capsule PO metformin 500 mg tablet extended release 24 hr 500 mg PO DAILY albuterol sulfate [Proventil HFA] 90 mcg/actuation HFA aerosol inhaler 2 puff inhalation Q6H PRN levothyroxine 137 MCG tablet 137 mcg PO DAILY aspirin [Aspir-81] 81 MG tablet,delayed release (DR/EC) 81 mg PO DAILY cholecalciferol (vitamin D3) [Vitamin D3] 1,000 UNIT capsule 1,000 unit PO DAILY hydrochlorothiazide 12.5 mg tablet 12.5 mg PO DAILY Discontinued bisacodyl 5 mg tablet,delayed release (DR/EC) 5 mg PO ONCE Qty: 4 0RF Rx Instructions: Per Colonoscopy bowel prep instructions polyethylene glycol 3350 17 gram/dose powder 238 g PO ONCE Qty: 238 0RF Rx Instructions: For Colonoscopy bowel prep, as directed by office Discharge Instructions Instructions: Colon polyps Additional Instructions: Your procedure went well today. You did have 2 small polyps that were removed today and sent to pathology. You also had evidence of diverticulosis throughout the colon or small outpouchings. Once the pathology returns we will contact your regarding recommendations for a repeat colonoscopy. Please contact the clinic if you have any questions or concerns. 1. If tolerated, consume a soft, low fiber diet for 1-2 days. 2[address] Do not drive, drink alcohol, operate machinery, make critical decisions, or do activities that require coordination or balance for 24 hours. 3. Because air was put into your colon during the procedure, expelling air from your rectum (passing gas or farting) is normal. 4. You may not have a bowel movement for 1-3 days because of the colonoscopy prep. This is normal. 5. Go directly to the emergency room if you notice any of the following: Develop chills (warm to touch), or if you have a thermometer and your temperature is above 101 Difficulty breathing or difficultly swallowing Persistent vomiting Severe abdominal pain, other than gas cramps Severe chest pain Black, tarry stools Any bleeding – exceeding one tablespoon 6. Call your physician if the site where your intravenous was started becomes red, swollen, painful, and warm to touch. 7. Your physician has reviewed your pre-procedure medications. Please continue to take those medications as previously ordered. You will be given specific information/education regarding any changes to your medications before leaving. Stand Alone Forms: Anesthesia Discharge Inst., Kailyn Brown (DSU), Portal Information Activity:: Activity as Tolerated Diet:: As Tolerated Discharge Orders Discharge Orders: Discharge Order (Routine); Ordered 01/25/25 Ordered By: Florence Robles
--- NOTE | 2025-01-25 11:42 | W.ANESPOSTOP ---
Postoperative Evaluation Date, Time and Location Date Performed: 01/25/25 Time Performed: 11:42 Patient Location: Day Surgery Unit Vital Signs Most Recent Imported Vital Signs: Most Recent Vital Signs Temp Pulse Resp BP Pulse Ox 36.2 C L 77 14 114/60 96 01/25/25 11:40 01/25/25 11:40 01/25/25 11:40 01/25/25 11:40 01/25/25 11:40 Pain Score Most Recent Pain Score: Most Recent Pain Score Pain Level 0 01/25/25 11:40 Assessment Mental Status: Awake (Alert & Oriented to Patient Baseline) Airway and Respiratory Function: Patent airway with normal (patient baseline) respiratory exam Cardiovascular Function: Hemodynamically Stable Hydration Status: Adequately Hydrated Nausea & Vomiting: No Nausea or Vomiting Pain: Pt. Denies Any Pain Peripheral Nerve Block: Patient did not receive a nerve block
--- NOTE | 2025-01-25 11:45 | COLE_ITS ---
Date of service: 01/25/25 Time of Service: 11:45 Colonoscopy Report Date of procedure: 01/25/25 Pre-op diagnosis general: Screening colonoscopy, history of colon polyps Post-op diagnosis procedure note: same (Colon polyps ) Procedure: Colonoscopy with polypectomy Surgeon: Florence Robles Anesthesia Type: General:No Airway Estimated blood loss (mL): 1 Pathology: other (rectal polyps x2 ) Complications: None Disposition: PACU Indications: Patient is a 64 yo female who presents for a colonoscopy due to history of TVA with high grade dysplasia. She denies any changes in her stool or blood in her stool. Prep: Miralax/Dulcolax Procedure Start Time: 11:15 Procedure End Time: 11:34 Retraction Time: 14 Findings: Pedunculated 2cm anal lesion identified on exam. Evidence of sainz-diverticulosis. Two small rectal polyps removed with cold forceps. Procedure Description: The patient was brought to the endoscopy suite and placed in the left lateral decubitus position. After induction of IV sedation, a digital rectal exam was performed. There was a perianal 2cm pedunculated lesion. The colonoscope was then passed to the cecum without difficulty. Cecal intubation was confirmed by the identification of the appendiceal orifice and the ileocecal valve. Upon withdrawing the colonoscope, all mucosal surfaces were inspected. The prep was noted to be adequate. In the rectum there were 2 small polyps, which were removed using cold forceps in its entirety. Specimens were retrieved for pathological analysis. There was evidence of sainz-diverticulosis. Retroflexion in the rectum was unremarkable. The patient tolerated the procedure well with no complications. Postoperatively, the patient was transferred to the recovery room in stable condition. [place] Bowel Prep [place] Bowel Prep Right Colon: 3 Left Colon: 3 Transverse Colon: 3 Total Score: 9
[2025-01-25 12:04] VITALS: BP 146/81; PULSE 70; RESP 14; TEMP 36.4; O2SAT 99
== END 2025-01-25 12:15 | disposition home or self-care (01) ==
PROVIDERS: PCP Student in an Organized Health Care Education/Training Program; Visit Provider Student in an Organized Health Care Education/Training Program
PROC: 0DJD8ZZ Inspection of Lower Intestinal Tract, Via Natural or Artificial Opening Endoscopic (ICD-10-PCS; CPT 45378; principal; 2025-01-25 11:30)
DX: Z12.11 Encounter for screening for malignant neoplasm of colon (principal); K63.5 Polyp of colon; K57.30 Diverticulosis of large intestine without perforation or abscess without bleeding
CPT/HCPCS: 45380; 88305; J2003; J2704

== ENCOUNTER → 2025-02-06 08:51 | Outpatient (BNVA) | payer MEDICARE, SELFPAY | PROVIDERS: PCP Student in an Organized Health Care Education/Training Program; Referring Provider Student in an Organized Health Care Education/Training Program; Visit Provider Student in an Organized Health Care Education/Training Program | DX: Z51.89 Encounter for other specified aftercare (principal); K62.9 Disease of anus and rectum, unspecified | CPT/HCPCS: 99213 ==